=== PATIENT | male | born 1950 | race Caucasian/White ===

== ENCOUNTER 2021-07-22 08:48 | Outpatient (CLI) | payer MEDICARE, SELFPAY ==
--- NOTE | 2021-07-22 08:55 | CT_ITS ---
WS: [id number] LDCT LUNG CANCER SCREENING HISTORY: HX OF TOBACCO USE TECHNIQUE: Axial imaging performed from the apices to 1 cm below the costophrenic angles. Coronal and sagittal reformats are submitted with axial MIP series. All CT scans at [facility] use at least one of these dose optimization techniques: automated exposure control; mA and/or kV adjustment per patient size (includes targeted exams where dose is matched to clinical indication); or iterativ e reconstruction. DLP: 54.58 mGy.cm DIvol: 1.58 mGy COMPARISON: None available. Diagnostic quality: Satisfactory Lung Nodules: No noncalcified pulmonary nodules or endobronchial lesions are identified. Benign granu sylvia LEFT upper lobe. Lungs: Mild hyperexpansion emphysema. Heart: Normal size heart. There are a few scattered coronary artery calcifications. Other findings: Mild atherosclerosis aorta. No adenopathy. CT/CT lung screening [id number] IMPRESSION: LUNG-RADS: 1-Negative FOLLOW UP: 12 Month: Continue annual screening with LDCT OTHER FINDINGS (S MODIFIER): None.
== END 2021-07-22 08:49 | disposition home or self-care (01) ==
LOC: CT 08:50
PROVIDERS: PCP Family Medicine; Visit Provider Family Medicine
DX: Z12.2 Encounter for screening for malignant neoplasm of respiratory organs (principal); Z87.891 Personal history of nicotine dependence
CPT/HCPCS: 71271

== ENCOUNTER → 2021-07-30 09:42 | Outpatient (BNVA) | payer MEDICARE, SELFPAY | PROVIDERS: PCP Family Medicine; Visit Provider Family Medicine | DX: Z01.812 Encounter for preprocedural laboratory examination (principal); Z20.822 Contact with and (suspected) exposure to COVID-19 | CPT/HCPCS: 87635 ==

== ENCOUNTER 2021-08-05 07:50 | Outpatient (CLI) | payer MEDICARE, SELFPAY ==
--- NOTE | 2021-08-05 12:52 | PFTS_ITS ---
Date of Study:08/05/21 Date of Dictation: MECHANICS: Forced vital capacity (FVC) is normal. Forced expiratory volume in one second (FEV1) is reduced. FEV1/FVC is reduced. FLOW VOLUME LOOP: Reduced flow at all lung volumes with scooping. LUNG VOLUMES: Total lung capacity (TLC) is normal. Residual volume (RV) is increased. DIFFUSING CAPACITY FOR CARBON MONOXIDE: Normal. INTERPRETATION: The prebronchodilator spirometry is consistent with moderate airflow obstruction. No postbronchodilator spirometry was performed. Lung volumes are consistent with air trapping. Gas exchange (DLCO) is normal. MTDD
== END 2021-08-05 07:51 | disposition home or self-care (01) ==
LOC: RT 07:53
PROVIDERS: PCP Family Medicine; Visit Provider Family Medicine
DX: J44.9 Chronic obstructive pulmonary disease, unspecified (principal)
CPT/HCPCS: 94010; 94726; 94729

== ENCOUNTER 2021-11-24 08:15 | Outpatient (RCR) | payer MEDICARE, SELFPAY | END 2021-12-11 23:59 | disposition home or self-care (01) | LOC: SPT 08:15 | PROVIDERS: PCP Family Medicine; Referring Provider Nurse Practitioner; Visit Provider Nurse Practitioner | DX: M54.50 Low back pain, unspecified (principal) | CPT/HCPCS: 97110; 97161 ==

== ENCOUNTER 2021-12-12 | Outpatient (RCR) | payer MEDICARE, SELFPAY | END 2021-12-21 23:59 | disposition home or self-care (01) | LOC: SPT | PROVIDERS: PCP Family Medicine; Referring Provider Nurse Practitioner; Visit Provider Nurse Practitioner | DX: M54.50 Low back pain, unspecified (principal) | CPT/HCPCS: 97110 ==

== ENCOUNTER 2022-04-21 06:56 | Outpatient (CLI) | payer MEDICARE, SELFPAY ==
--- NOTE | 2022-04-21 07:21 | MR_ITS ---
WS: [id number] MRI LUMBAR SPINE NONCONTRAST HISTORY: SCIATICA COMPARISON: No similar studies. TECHNIQUE: Sagittal and axial multisequence imaging is submitted. Mild straightening reversal the normal cervical lordosis. Slight increase in thoracic kyphosis. Moderate straightening of the normal lumbar lordosis. No acute fractures. There is a small amount of marrow edema in the posterior elements of L4 and L5, greatest on the LEFT. Disc spaces are moderately narrowed, most significant at L3-4 and L4-5 and L5-S1. Conus terminates normally at T12-L1. L1-L2: No stenosis. Mild ligamentum flavum and facet arthritis. L2-L3: Mild annular disc bulge, ligamentum flavum and facet arthritis. No stenosis. L3-L4: Moderate diffuse annular disc bulge with a central disc protrusion deforming the ventral theca l sac. Moderate ligamentum flavum and facet arthritis. Moderate central, bilateral subarticular reces s and foraminal stenosis. There is disc contact bilaterally on the L3 and L4 nerve roots. Fluid in th e facet joints. There is increased T2 signal in the facet joints with mild synovitis. L4-L5: Diffuse annular disc bulging with facet and ligamentum flavum hypertrophy. Mild osteophytic ri dging. Mild central with bilateral subarticular recess and foraminal stenosis. Slightly greater encro achment and deformity of the LEFT traversing L5 nerve root. L5-S1: Mild annular disc bulge with a shallow central disc protrusion. Mild ligamentum flavum and fac et arthritis. No significant stenosis. Incompletely visualized RIGHT renal cyst measures 2.7 cm. There is probably an additional cyst extend ing laterally from the RIGHT kidney. Smaller LEFT renal cysts. Abdominal aortic aneurysm measuring 4. 5 cm. LEFT common iliac artery aneurysm 1.7 cm. MR/MR lumbar spine wo con* [id number] IMPRESSION: 1. Moderate central, bilateral subarticular recess and foraminal stenosis at L 3-4 with bilateral contact on the L3 and L4 nerve roots. 2. Acute inflammatory changes in the facet joints at L3-4 and to a lesser exte nt L4-5 with increase fluid and edema within the interspinous muscles. Consiste nt with acute synovitis. 3. Mild central, bilateral subarticular recess and foraminal stenosis at L4-5.
== END 2022-04-21 06:57 | disposition home or self-care (01) ==
LOC: RAD 06:59
PROVIDERS: PCP Family Medicine; Visit Provider Family Medicine
DX: M54.30 Sciatica, unspecified side (principal); M48.061 Spinal stenosis, lumbar region without neurogenic claudication
CPT/HCPCS: 72148

== ENCOUNTER 2022-08-01 07:10 | Outpatient (CLI) | payer MEDICARE, SELFPAY ==
--- NOTE | 2022-08-01 07:29 | CT_ITS ---
WS: [id number] LDCT LUNG CANCER SCREENING TECHNIQUE: Noncontrast CT of the chest with coronal and sagittal reformatted images. CLINICAL INFORMATION: HISTORY OF TOBACCO USE, NICOTINE DEPENDENCE CIGARETTES COMPARISON: CT July 22, 2021 DLP: 78.69 mGy.cm DIvol: Mean CTDIvol: 1.60 (mGy) All CT scans at [facility] use at least one of these dose optimization techniques: automat ed exposure control; mA and/or kV adjustment per patient size (includes targeted exams where dose is matched to clinical indication); or iterative reconstruction. FINDINGS: A few tiny noncalcified nodules RIGHT lower lobe unchanged measuring 2 to 3 mm. A few tiny subpleural micronodules in both lungs. Calcified granuloma RIGHT upper lobe. No suspicious pulmonary parenchymal opacities. Normal caliber thoracic aorta. Aortic Calcification. Coronary calcification. No mediastinal or hilar lymphadenopathy. No axillary lymphadenopathy. Adrenal glands are normal. Normal GE junction. Mild thoracic curve. Mild thoracic kyphosis. Anterior hypertrophic changes thoracic spine. CT/CT lung screening [id number] IMPRESSION: LUNG-RADS: 2-Benign Appearance or Behavior FOLLOW UP: 12 Month: Continue annual screening with LDCT
== END 2022-08-01 07:11 | disposition home or self-care (01) ==
LOC: RAD 07:11
PROVIDERS: PCP Family Medicine; Visit Provider Family Medicine
DX: Z12.2 Encounter for screening for malignant neoplasm of respiratory organs (principal); Z87.891 Personal history of nicotine dependence
CPT/HCPCS: 71271

== ENCOUNTER 2022-09-08 13:35 | Outpatient (CLI) | payer MEDICARE, SELFPAY ==
--- NOTE | 2022-09-08 | USCV_ITS ---
Cristopher Freeman Jr Age: 72 Gender: M : 1950 Exam Date: 09/08/2022 14:33 Ordering Phys: Matty Coley MD Technologist: Wm Serra [place]am [place] [facility] [place] Indication: AAA HISTORY: Diameter (cm) AP x Transverse x Length Velocity (cm/s) Waveform Prox Aorta: 1.52 x 1.74 x 86.10 Mid Aorta: 1.97 x 2.22 x 86.90 Distal Aorta: 3.39 x 4.09 x 5.29 98.30 Right Iliac Prox: 1.29 x 1.71 x 141.30 Left Iliac Prox: 1.06 x 1.17 x 90.10 Stent Prox Landing x x Aneurysmal Sac Max x x Lt Lat Sac Dim Rt Lat Sac Dim Stent Dist Landing x x Right Iliac Stent x x Left Iliac Stent x x Right Renal Art Left Renal Art FINDINGS: CONCLUSIONS Infrarenal AAA measuring 3.3 x 4.0 x 5.2cm Ap x transverse x craniocaudal Normal iliac arteries Gonzales Gonzalez MD (Electronically Signed) Final Date: 08 September 2022 17:26 S
== END 2022-09-08 13:36 | disposition home or self-care (01) ==
PROVIDERS: PCP Family Medicine; Visit Provider Family Medicine
DX: I71.40 Abdominal aortic aneurysm, without rupture, unspecified (principal)
CPT/HCPCS: 93978

== ENCOUNTER → 2022-10-12 08:41 | Outpatient (BNVA) | payer MEDICARE, SELFPAY | PROVIDERS: PCP Family Medicine; Referring Provider Family Medicine; Visit Provider Anesthesiology Pain Medicine | DX: M47.816 Spondylosis without myelopathy or radiculopathy, lumbar region (principal); M51.16 Intervertebral disc disorders with radiculopathy, lumbar region; M48.061 Spinal stenosis, lumbar region without neurogenic claudication | CPT/HCPCS: 99204 ==

== ENCOUNTER → 2022-11-03 12:36 | Outpatient (BNVA) | payer MEDICARE, SELFPAY | PROVIDERS: PCP Family Medicine; Visit Provider Anesthesiology Pain Medicine | DX: M54.16 Radiculopathy, lumbar region (principal); M79.604 Pain in right leg; M79.605 Pain in left leg | CPT/HCPCS: 64483; 64484; J1100; J3490 ==

== ENCOUNTER → 2022-11-21 08:53 | Outpatient (BNVA) | payer MEDICARE, SELFPAY | PROVIDERS: PCP Family Medicine; Visit Provider Anesthesiology Pain Medicine | DX: M47.816 Spondylosis without myelopathy or radiculopathy, lumbar region (principal); M51.16 Intervertebral disc disorders with radiculopathy, lumbar region; M48.061 Spinal stenosis, lumbar region without neurogenic claudication | CPT/HCPCS: 99214 ==

== ENCOUNTER → 2022-12-05 14:16 | Outpatient (BNVA) | payer MEDICARE, SELFPAY | PROVIDERS: PCP Family Medicine; Visit Provider Anesthesiology Pain Medicine | DX: M47.816 Spondylosis without myelopathy or radiculopathy, lumbar region (principal) | CPT/HCPCS: 64493; 64494; 64495; J3490 ==

== ENCOUNTER → 2022-12-15 13:41 | Outpatient (BNVA) | payer MEDICARE, SELFPAY | PROVIDERS: PCP Family Medicine; Visit Provider Anesthesiology Pain Medicine | DX: M47.816 Spondylosis without myelopathy or radiculopathy, lumbar region (principal) | CPT/HCPCS: 64493; 64494; 64495; J3490 ==

== ENCOUNTER → 2023-01-03 15:28 | Outpatient (BNVA) | payer MEDICARE, SELFPAY | PROVIDERS: PCP Family Medicine; Visit Provider Dermatology | DX: L20.89 Other atopic dermatitis (principal); L82.0 Inflamed seborrheic keratosis; D22.5 Melanocytic nevi of trunk; L85.3 Xerosis cutis; L57.0 Actinic keratosis; L82.1 Other seborrheic keratosis | CPT/HCPCS: 17000; 17110; 99213 ==

== ENCOUNTER → 2023-01-04 09:31 | Outpatient (BNVA) | payer MEDICARE, SELFPAY | PROVIDERS: PCP Family Medicine; Visit Provider Anesthesiology Pain Medicine | DX: M47.816 Spondylosis without myelopathy or radiculopathy, lumbar region (principal); M51.16 Intervertebral disc disorders with radiculopathy, lumbar region; M48.061 Spinal stenosis, lumbar region without neurogenic claudication | CPT/HCPCS: 99214 ==

== ENCOUNTER → 2023-01-18 13:56 | Outpatient (BNVA) | payer MEDICARE, SELFPAY | PROVIDERS: PCP Family Medicine; Visit Provider Anesthesiology Pain Medicine | DX: M47.816 Spondylosis without myelopathy or radiculopathy, lumbar region (principal) | CPT/HCPCS: 64635; 64636; J1030 ==

== ENCOUNTER → 2023-02-06 14:49 | Outpatient (BNVA) | payer MEDICARE, SELFPAY | PROVIDERS: PCP Family Medicine; Visit Provider Anesthesiology Pain Medicine | DX: M47.816 Spondylosis without myelopathy or radiculopathy, lumbar region (principal) | CPT/HCPCS: 64635; 64636; J1030 ==

== ENCOUNTER → 2023-02-27 09:43 | Outpatient (BNVA) | payer MEDICARE, SELFPAY | PROVIDERS: PCP Family Medicine; Visit Provider Anesthesiology Pain Medicine | DX: M48.062 Spinal stenosis, lumbar region with neurogenic claudication (principal); M47.816 Spondylosis without myelopathy or radiculopathy, lumbar region; M51.16 Intervertebral disc disorders with radiculopathy, lumbar region; M48.061 Spinal stenosis, lumbar region without neurogenic claudication | CPT/HCPCS: 99214 ==

== ENCOUNTER → 2023-03-28 09:39 | Outpatient (BNVA) | payer MEDICARE, SELFPAY | PROVIDERS: PCP Family Medicine; Referring Provider Anesthesiology Pain Medicine; Visit Provider Orthopaedic Surgery | DX: M48.062 Spinal stenosis, lumbar region with neurogenic claudication (principal); Z01.818 Encounter for other preprocedural examination | CPT/HCPCS: 36415; 72110; 80053; 80061; 81003; 83036; 85025; 99204; G0103 ==

== ENCOUNTER 2023-05-05 06:19 | Day surgery (SDC) | payer MEDICARE, SELFPAY ==
[2023-05-04 09:32] VITALS: BMI 24.3
[2023-05-05] VITALS (12 sets, daily range): BP systolic 104–159; BP diastolic 54–91; PULSE 61–86; RESP 15–20; TEMP 36.4–37; O2SAT 93–99
--- NOTE | 2023-05-05 | XR_ITS ---
WS: [id number] XR lumbar spine 1V [id number] REASON FOR EXAM: L3-L4 decompression, or pic FINDINGS: Surgical device overlying the left L3-L4 interspace. IMPRESSION: Intraoperative lumbar localization as above.
--- NOTE | 2023-05-05 06:34 | W.PM.OPSUD ---
Surgery/Procedure H&P Update DATE OF PROCEDURE: May 05, 2023 DATE H&P PERFORMED: 04/18/23 H&P UPDATE INFORMATION: I have reviewed H&P completed within last 30 days, I have examined patient prior to procedure and No changes to prior documentation PREOP DIAGNOSIS: Lumbar Radiculopathy PLANNED PROCEDURE: Operation Date: 05/05/23 08:00 Proposed Procedures p (left sided approach at L3-4 with bilateral decompression) 02457: L3/4 Minimal Invasive Decompression, M48.062: Lumbar stenosis with neurogenic claudication(Bilateral) - Anival Montano DO
--- NOTE | 2023-05-05 07:02 | ANES.PREANE2 ---
Pre-Anesthetic Assessment Height/Weight: Height 1.7 m Weight 70.307 kg Temp Pulse Resp BP Pulse Ox O2 Del Method 98.6 F 86 18 159/91 93 Room Air 05/05/23 06:59 05/05/23 06:59 05/05/23 06:59 05/05/23 06:59 05/05/23 06:59 05/05/23 06:59 Preop Diagnosis: Lumbar Radiculopathy Operation Date: 05/05/23 08:00 Proposed Procedures p (left sided approach at L3-4 with bilateral decompression) 24827: L3/4 Minimal Invasive Decompression, M48.062: Lumbar stenosis with neurogenic claudication(Bilateral) - Anival Montano, DO Was Beta Hellen taken within 24 hours: N/A Was Clonidine taken within 24 hours: N/A Last intake: Intake Last Liquid Date 05/04/23 Last Liquid Time 21:00 Last Solid Date 05/04/23 Last Solid Time 21:00 Social Tobacco Quit smoking 8 yrs ago Exam alert, oriented x 3 and clear to auscultation bilaterally Airway Submandibular: within normal limits Cervical ROM: within normal limits Mallampati: Class II History/ROS No significant history except as noted and No significant complaints Pulmonary Chronic Obstructive Pulmonary Disease CV/HEM Atrial Fibrillation, Arrythmia and Hypertension AAA ~ 4x4x5 cm. Evaluated in [facility] for surgery Metabolic Hyperlipidemia [facility] [place] Lower Back Pain Anesthetic Plan ASA status: 3 Anesthesia: General Risk of > 500 ml blood loss (7ml/kg in children): No Medications/Allergies Home Medications Medication Instructions Recorded Confirmed Last Taken Type benazepril 20 mg tablet 20 mg PO BID 03/28/22 05/04/23 05/04/23 History diltiazem HCl 180 mg capsule,24 180 mg PO QAM 03/28/22 05/04/23 05/04/23 History hr,extended release fluticasone fur. 100 mcg-umeclid 1 inh inhalation Q24H #60 ea 03/28/22 05/04/23 05/04/23 Rx 62.5 mcg-vilant 25 mcg inhalat.powder (Trelegy Ellipta) hydrochlorothiazide 25 mg tablet 25 mg PO QAM 03/28/22 05/04/23 05/04/23 History roflumilast 500 mcg tablet 500 mcg PO DAILY #90 tabs 03/28/22 05/04/23 05/04/23 Rx (Daliresp) rosuvastatin 40 mg tablet 40 mg PO DAILY 03/28/22 05/04/23 05/04/23 History sertraline 100 mg tablet 100 mg PO DAILY 03/28/22 05/04/23 05/04/23 History acetaminophen 500 mg capsule 500 mg PO Q6H PRN Pain 10/12/22 05/04/23 05/04/23 History albuterol sulfate 90 mcg/actuation 2 puff inhalation Q6H PRN sob 10/12/22 05/04/23 05/04/23 History aerosol inhaler aspirin 81 mg tablet,delayed 81 mg PO DAILY 10/12/22 05/04/23 05/04/23 History release (Adult Low Dose Aspirin) oxycodone-acetaminophen 5 mg-325 tab 05/05/23 Unknown History mg tablet sertraline 100 mg tablet mg 05/05/23 Unknown History Allergies Allergy/AdvReac Type Severity Reaction Status Date / Time Penicillins Allergy Severe ALGY-Anaphy Verified 05/04/23 09:28 laxis [facility] Anesthesia Medical History Aortic aneurysm recent U/S on 04/03/23 Back pain Surgical History History of nasal surgery Family History Father Heart attack Denies family history of Clotting disorder Anesthesia complication Bleeding disorder Social History Smoking and tobacco status: former smoker Quit status (tobacco): has quit using tobacco Year quit tobacco: 2014 Former quit date comment: 50 year history Alcohol intake: never Substance/Drug Use: never Data Anesthesia Cardiac Studies: No Data to Display
[2023-05-05] MEDS: sodium chloride 0.9% 1,000 ML 30 ML IV (07:08)
[2023-05-05] MEDS: midazolam 1 mg/mL INJ 2 mL 2 MG IVP (07:19)
[2023-05-05] MEDS: vancomycin 1,000 MG in sodium chloride 0.9% 250 ML 250 MG IV (07:35)
[2023-05-05] MEDS: lidocaine-epi 1% 20 mL INJ INJECTION (08:33)
--- NOTE | 2023-05-05 08:50 | PM.OP ---
Operative Report Date of procedure: May 05, 2023 Pre-op diagnosis: Lumbar stenosis with neurogenic claudication Post-op diagnosis: same Procedure done: L3-4 laminectomy with partial facetectomies Surgeon: Anival Montano DO Air Quality Engineer: Alexx Wu Air Quality Engineer: The clinical education assistant, Alexx Wu, PEPITO was needed for his expertise under the microscope. He was important and necessary throughout the procedure to complete in a safe and timely manner. He assisted with patient positioning prepping and draping tissue retraction suctioning of the operative field protection of the dural sac and tissue closure Estimated blood loss (mL): 5 Procedure: L3-4 laminectomy with partial facetectomies Patient is brought to the operative suite. After undergoing anesthesia they are placed in the prone position. All areas of impingement are well padded. Patient is then prepped and draped in the normal sterile fashion. A skin incision is made over the L3-4 level. This is confirmed under c-arm guidance. A series of dilators are passed and the tubular retractor is docked on the L3 lamina. A bovie is used to clear the soft tissue off the lamina and the L 3/4 facet joint. A high speed jamaica is then used to perform the laminectomy and take down the medial aspect of the L 3/4 facet joint. A kerrison rongeure was then used to take down the remaining lamina and smooth the edged of the laminectomy up to the point where the ligamentum flavum attaches. Attention was then brought to the medial aspect of the facet joint. The remaining medial aspect of the superior and inferior aspect of the facet joint were taken down with the kerrison from the pedicle of L3 to L 4. The facet joint had significant hypertrophy. Attention was then brought to the Ligamentum Flavum. The ligament was taken down from the lamina of L3 to L4 and out medially to the remaining facet joint. The ligament was thick. The dura was then exposed. The dura was in good repair. The L3 nerve was then traced with a curette out the L3/4 foramen and found to be adequately decompressed. The L4 nerve was traced with a curette around the L4 pedicle. The lateral recess was opened with a kerrison helping to further decompress the L4 nerve. The tubular retractor was then tilted to the contralateral side. The bovie was used to take down the soft tissue on the spinous process. The high speed jamaica was used to take down the spinous process and then the contralateral lamina of L3. The kerrison rongeur was used to take down the remaining lamina to the point where the ligamentum flavum attached and the ligamentum flavum was taken down from L3 to L4. The kerrison rongeur was then used to reach across and take down the medial aspect of the contralateral L3/4 facet joint.The currete was used to trace the contralateral L3 nerve out the L3/4 foramen to make sure it was decompressed adequatesly and the L4 was traced around the L4 pedicle. The lateral recess was opened further with the kerrison to ensure the L4 is adequately decompressed. Wound is then irrigated copiously with saline and surgiflo is used to stop any bleeding. The tubular retractor is removed and the wound is closed with vicryl and monocryl suture. Glue is then used to protect the wound. A sterile dressing is then placed. Patient was then placed in the supine position and transferred to the PACU in stable condition.
--- NOTE | 2023-05-05 09:02 | SUR.PHASEI ---
0901 oral airway removed at this time. spo2 99% on RA. pt talkative. no distress.
[2023-05-05] MEDS: fentaNYL 50 mcg/mL INJ 2mL IVP (09:14)
[2023-05-05] MEDS: oxyCODONE-APAP 10-325 mg Tablet 1 TAB PO (10:34)
--- NOTE | 2023-05-05 13:45 | ANE.PACU2 ---
Inpatient post-anesthesia follow up: Airway intact: Yes Vital signs: Temperature 98.3 F Pulse Rate 82 Respiratory Rate 18 Blood Pressure 130/64 Pulse Oximetry 93 Oxygen Delivery Me thod Room Air Oxygen Flow Rate 6 Fraction of Inspir ed Oxygen Hydration adequate: Yes Nausea and vomiting: No Pain level: 2 Mental status: Baseline
== END 2023-05-05 10:31 | disposition home or self-care (01) ==
PROVIDERS: PCP Family Medicine; Visit Provider Orthopaedic Surgery
PROC: (CPT 63005; principal; 2023-05-05 08:00)
DX: M48.061 Spinal stenosis, lumbar region without neurogenic claudication (principal); J44.9 Chronic obstructive pulmonary disease, unspecified; I48.91 Unspecified atrial fibrillation; I10 Essential (primary) hypertension; E78.5 Hyperlipidemia, unspecified; Z87.891 Personal history of nicotine dependence
CPT/HCPCS: 63047; 72020; 76000; J0131; J1100; J2250; J2371; J2405; J2704; J3010; J3370; J3490; J7030; J7050

== ENCOUNTER → 2023-05-18 10:10 | Outpatient (BNVA) | payer MEDICARE, SELFPAY | PROVIDERS: PCP Family Medicine; Visit Provider Physician Assistant | DX: Z47.89 Encounter for other orthopedic aftercare (principal) | CPT/HCPCS: 99024 ==

== ENCOUNTER → 2023-06-15 08:49 | Outpatient (BNVA) | payer MEDICARE, SELFPAY | PROVIDERS: PCP Family Medicine; Visit Provider Physician Assistant | DX: Z47.89 Encounter for other orthopedic aftercare (principal) | CPT/HCPCS: 99024 ==

== ENCOUNTER → 2023-06-21 14:01 | Outpatient (BNVA) | payer MEDICARE, SELFPAY | PROVIDERS: PCP Family Medicine; Visit Provider Nurse Practitioner | DX: M25.511 Pain in right shoulder; M25.512 Pain in left shoulder; M19.012 Primary osteoarthritis, left shoulder; G89.29 Other chronic pain | CPT/HCPCS: 20610; 73030; 99204; J1100; J2795; J3301 ==

== ENCOUNTER → 2023-07-25 08:55 | Outpatient (BNVA) | payer MEDICARE, SELFPAY | PROVIDERS: PCP Family Medicine; Visit Provider Physician Assistant | DX: Z47.89 Encounter for other orthopedic aftercare (principal) | CPT/HCPCS: 99024 ==

== ENCOUNTER → 2023-09-22 08:01 | Outpatient (BNVA) | payer MEDICARE, SELFPAY | PROVIDERS: PCP Family Medicine; Visit Provider Nurse Practitioner | DX: M19.012 Primary osteoarthritis, left shoulder (principal) | CPT/HCPCS: 99213 ==

== ENCOUNTER 2023-09-25 11:08 | Outpatient (CLI) | payer MEDICARE, SELFPAY ==
--- NOTE | 2023-09-25 11:11 | CT_ITS ---
WS: [id number] LDCT LUNG CANCER SCREENING TECHNIQUE: Noncontrast CT of the chest with coronal and sagittal reformatted images. CLINICAL INFORMATION: HX OF TOBACCO USE COMPARISON: CT 08/01/2022 DLP: 60.71 mGy.cm DIvol: Mean CTDIvol: 1.10 (mGy) All CT scans at [facility] use at least one of these dose optimization techniques: automat ed exposure control; mA and/or kV adjustment per patient size (includes targeted exams where dose is matched to clinical indication); or iterative reconstruction. FINDINGS: Again seen are a few tiny noncalcified nodules RIGHT lower lobe unchanged measuring 2 to 3 mm. Stable 3.3 mm nodule LEFT lower lobe unchanged. A few tiny subpleural micronodules in both lungs similar to previous. A few calcified granulomas. No new suspicious pulmonary parenchymal opacities. Moderate ch ronic emphysematous changes. No mediastinal or hilar lymphadenopathy. No axillary lymphadenopathy. Aortic calcification. Normal ca liber thoracic aorta. Coronary calcification. Adrenal glands are normal. Normal GE junction. Partiall y visualized bilateral renal cysts. Hypertrophic changes thoracic spine with mild chronic anterior we dging in the midthoracic spine. Endplate Schmorl's nodes in the midthoracic spine. Mild thoracic kyph osis. IMPRESSION: CT/CT lung screening [id number] LUNG-RADS: 2-Benign Appearance or Behavior FOLLOW UP: 12 Month: Continue annual screening with LDCT
== END 2023-09-25 11:09 | disposition home or self-care (01) ==
LOC: RAD 11:08
PROVIDERS: PCP Family Medicine; Visit Provider Family Medicine
DX: Z12.2 Encounter for screening for malignant neoplasm of respiratory organs (principal); Z87.891 Personal history of nicotine dependence; R91.8 Other nonspecific abnormal finding of lung field; J84.10 Pulmonary fibrosis, unspecified; J43.9 Emphysema, unspecified
CPT/HCPCS: 71271

== ENCOUNTER → 2023-11-28 14:22 | Outpatient (BNVA) | payer MEDICARE, SELFPAY | PROVIDERS: PCP Family Medicine; Visit Provider Nurse Practitioner Family | DX: D22.5 Melanocytic nevi of trunk (principal); L85.3 Xerosis cutis; L57.0 Actinic keratosis; L82.1 Other seborrheic keratosis; L81.9 Disorder of pigmentation, unspecified; L21.8 Other seborrheic dermatitis | CPT/HCPCS: 17000; 99213 ==

== ENCOUNTER 2024-10-08 15:43 | Outpatient (CLI) | payer MEDICARE, SELFPAY ==
--- NOTE | 2024-10-08 15:55 | CT_ITS ---
WS: [id number] LDCT LUNG CANCER SCREENING TECHNIQUE: Noncontrast CT of the chest with coronal and sagittal reformatted images. CLINICAL INFORMATION: HISTORY OF TOBACCO USE COMPARISON: CT lung screening 09/25/2023 DLP: 61.91 mGy.cm DIvol: Mean CTDIvol: 1.20 (mGy) All CT scans at [facility] use at least one of these dose optimization techniques: automated exposure control; mA and/or kV adjustment per patient size (includes targeted exams where dose is matched to clinical indication); or iterative reconstruction. FINDINGS: Stable tiny noncalcified nodules RIGHT lower lobe measuring 2 to 3 mm. 3.3 mm nodule LEFT lower lobe is stable. Scattered tiny subpleural micronodules in both lungs. No new suspicious pulmonary parenchymal abnormalities. Few calcified granulomas. Moderate emphysematous changes. No mediastinal or hilar lymphadenopathy. Aortic calcification. No axillary lymphadenopathy. Coronary calcification. Adrenal glands are normal. Partially visualized renal cysts. Hypertrophic changes thoracic spine. Mild thoracic kyphosis. CT/CT lung screening [id number] IMPRESSION: LUNG-RADS: 2-Benign Appearance or Behavior FOLLOW UP: 12 Month: Continue annual screening with LDCT
== END 2024-10-08 15:44 | disposition home or self-care (01) ==
LOC: RAD 15:45
PROVIDERS: PCP Family Medicine; Visit Provider Family Medicine
DX: Z12.2 Encounter for screening for malignant neoplasm of respiratory organs (principal); Z87.891 Personal history of nicotine dependence; J84.10 Pulmonary fibrosis, unspecified; J43.9 Emphysema, unspecified; I70.0 Atherosclerosis of aorta; I25.10 Atherosclerotic heart disease of native coronary artery without angina pectoris; N28.1 Cyst of kidney, acquired; R93.7 Abnormal findings on diagnostic imaging of other parts of musculoskeletal system; M40.294 Other kyphosis, thoracic region
CPT/HCPCS: 71271

== ENCOUNTER → 2024-11-28 15:03 | Outpatient (BNVA) | payer MEDICARE, SELFPAY | PROVIDERS: PCP Family Medicine; Visit Provider Nurse Practitioner Family | DX: D22.5 Melanocytic nevi of trunk (principal); L85.3 Xerosis cutis; L82.1 Other seborrheic keratosis; B36.0 Pityriasis versicolor; L81.4 Other melanin hyperpigmentation; L57.8 Other skin changes due to chronic exposure to nonionizing radiation; L21.8 Other seborrheic dermatitis; L82.0 Inflamed seborrheic keratosis; L53.8 Other specified erythematous conditions; Z78.9 Other specified health status; L29.89 Other pruritus; R20.8 Other disturbances of skin sensation; L57.0 Actinic keratosis; D48.5 Neoplasm of uncertain behavior of skin | CPT/HCPCS: 11102; 17000; 17110; 99214 ==

== ENCOUNTER 2025-04-22 07:51 | Outpatient (CLI) | payer MEDICARE, SELFPAY ==
--- NOTE | 2025-04-22 07:59 | CT_ITS ---
WS: [id number] CT chest wo con [id number] HISTORY: RIB PAIN/PLEURODYNIA TECHNIQUE: Axial imaging performed through the thorax. Coronal and sagittal reformats are submitted. All CT scans at [facility] use at least one of these dose optimization techniques: automated exposure control; mA and/or kV adjustment per patient size (includes targeted exams where dose is matched to clinical indication); or iterative reconstruction. CONTRAST: None DLP: 330.85 mGy.cm COMPARISON: 10/08/2024, 07/22/2021 Lungs and central airway: Moderate pulmonary hyperexpansion from centrilobular emphysema. There are a few scattered micronodules. No pneumonia. No pulmonary mass or enlarging nodule. Pleura: Normal. No pleural effusion. Heart and pericardium: Normal size heart with no pericardial effusion. Mediastinum and carlene: No mediastinum or hilar adenopathy. Vessels: Mild atherosclerosis aorta. Normal sized pulmonary artery. Chest wall and lower neck: No soft tissue masses. Upper abdomen: Normal. Osseous structures: Expansile RIGHT lateral ninth rib lesion. No additional expansile lesions are identified. CT/CT chest wo con [id number] IMPRESSION: 1. Mildly expansile RIGHT lateral ninth rib lesion. Mild cortical destruction but no soft tissue mass. Not definitely identified on prior imaging studies but may have been excluded from the [id number]. Recommend nuclear medicine bone scan imaging. 2. Moderate centrilobular emphysema. No mass or enlarging nodule. 3. No mediastinal or hilar adenopathy. 4. Bilateral renal masses. There is a more solid-appearing mass in the upper p ole RIGHT kidney extending laterally. Complex cyst versus neoplasm. Bilateral r enal cysts have been previously described but this mass appears solid. Recommen d renal mass CT protocol, with and without IV contrast.
== END 2025-04-22 07:52 | disposition home or self-care (01) ==
LOC: RAD 07:53
PROVIDERS: PCP Family Medicine; Visit Provider Family Medicine
DX: M99.88 Other biomechanical lesions of rib cage (principal); J43.2 Centrilobular emphysema; R91.8 Other nonspecific abnormal finding of lung field; N28.89 Other specified disorders of kidney and ureter
CPT/HCPCS: 71250

== ENCOUNTER 2025-05-08 13:37 | Emergency (ER) | payer MEDICARE, SELFPAY ==
--- OUTSIDE RECORDS SUMMARY | 2024-06-08 04:00 | XMS_ITS ---
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 for eRx and Interaction Alerts* Progress Notes * Cristopher YOO ADOB: [birth year] (74 yo M)Acc No.[id number]:06/08/2024 Patient: Joel ACOSTA Cristopher Haleigh :1950 A ge:73 Y S ex:Male Address:[address] [place] [address], [address] * Refills Stop Tylenol-Codeine #3 300-30 mg oral tablet, 1 Tablet Every 12 hours PRN Subjective: * Chief Complaints: * E MR-Varghese * * Date:
--- OUTSIDE RECORDS SUMMARY | 2024-06-09 04:00 | XMS_ITS ---
Author Organization [facility] Address [address] [place] [address] Care Team Providers Care Schedule Manager Name Role Phone Eddie Long Primary Care Provider Unavailabl e Migration, Provider Unavailable Unavailable Allergies Allergen (clinical drug ingredient) Drug/Non Drug Allergy documented on EMR Reaction Allergy Type Onset Date Status Methotrexate Unknown Drug Allergy Acti ve Substance with penicillin structure and antibacterial mechanism of action (substance) Penicillins Unknown Drug Allergy Active REASON FOR VISIT EMR-[facility] Medications Medication SIG (Take, Route, Frequency, Duration) Notes Start Date End Date Status Trelegy Ellipta *Pick strength-form from [facility] for eRX* Active Rosuvastatin *Reorder from [facility] for eRx and Interaction Alerts* Active dilTIAZem HCl *Pick strength-form from [facility] for eRX* Active Baby Vitamin D3 *Pick strength-form from [facility] for eRX* Active hydroCHLOROthiazide *Pick strength-form from [facility] for eRX* Active Adult Multivitamin Gummies *Reorder from [facility] for eRx and Interaction Alerts* Active Daliresp *Pick strength-form from [facility] for eRX* Active Sertraline *Reorder from [facility] for eRx and Interaction Alerts* Active Albuterol Sulfate *Pick strength-form from [facility] for eRX* Active Naltrexone *Pick strength-form from [facility] for eRX* Active Aspirin *Pick strength-form from [facility] for eRX* Active benazepril HCl (bulk) *Reorder f rom [facility] for eRx and Interaction Alerts* Active Vitamin E *Pick strength-form from [facility] for eRX* Active Social History Social History Additional Details Category Social Info Options Details Migrated Social History Migrated Social History Alcoholic beverages? - No, Comments - alcohol, Currently on disability? - No, Drug or substance abuse? - No, Involved in any legal proceedings or lawsuits? - No, Marital Status - , Nonprescription drug use? - No, Participation in detoxification or rehabilitation - Yes, Smoking - No, Working currently? - No Encounters Encounter Location Date Provider Diagnosis Migrated_Facility 0 0 06/09/2024 Provider Migration Plan Of Treatment No Information Progress Notes * Cristopher YOO ADOB: [birth year] (74 yo M)Acc No.[id number]:06/09/2024 Patient: Cristopher MARQUEZ :1950 A ge:73 Y S ex:Male Address:[address] [place] [address], [address] Subjective: * Chief Complaints: * E MR-Varghese * Surgical History: Nasal surgery * Family History: M igrated Family History: : Diabetes, H eart disease. * Social History: M igrated Social History: M igrated Social History: Alcoholic beverages? - No, C omments - alcohol, C urrently on disability? - No, D rug or substance abuse? - No, I nvolved in any legal proceedings or lawsuits? - No, M arital Status - , N onprescription drug use? - No, P articipation in detoxification or rehabilitation - Yes, S moking - No, W orking currently? - No. * Medications: T akingVitamin E , Notes to Pharmacist: *Pick strength-form from [facility] for eRX*hydroCHLOROthiazide , Notes to Pharmacist: *Pick strength-form from [facility] for eRX*Naltrexone , Notes to Pharmacist: *Pick strength-form from [facility] for eRX*Adult Multivitamin Gummies , Notes to Pharmacist: *Reorder from [facility] for eRx and Interaction Alerts*benazepril HCl (bulk) , Notes to Pharmacist: *Reorder from [facility] for eRx and Interaction Alerts*Sertraline , Notes to Pharmacist: *Reorder from [facility] for eRx and Interaction Alerts*Aspirin , Notes to Pharmacist: *Pick strength-form from [facility] for eRX*Trelegy Ellipta , Notes to Pharmacist: *Pick strength-form from [facility] for eRX*Baby Vitamin D3 , Notes to Pharmacist: *Pick strength-form from [facility] for eRX*Rosuvastatin , Notes to Pharmacist: *Reorder from [facility] for eRx and Interaction Alerts*Albuterol Sulfate , Notes to Pharmacist: *Pick strength-form from [facility] for eRX*Daliresp , Notes to Pharmacist: *Pick strength-form from [facility] for eRX*dilTIAZem HCl , Notes to Pharmacist: *Pick strength-form from [facility] for eRX*Taking Vitamin E , Notes to Pharmacist: *Pick strength-form from [facility] for eRX*Taking hydroCHLOROthiazide , Notes to Pharmacist: *Pick strength-form from [facility] for eRX*Taking Naltrexone , Notes to Pharmacist: *Pick strength-form from [facility] for eRX*Taking Adult Multivitamin Gummies , Notes to Pharmacist: *Reorder from [facility] for eRx and Interaction Alerts*Taking benazepril HCl (bulk) , Notes to Pharmacist: *Reorder from [facility] for eRx and Interaction Alerts*Taking Sertraline , Notes to Pharmacist: *Reorder from [facility] for eRx and Interaction Alerts*Taking Aspirin , Notes to Pharmacist: *Pick strength-form from [facility] for eRX*Taking Trelegy Ellipta , Notes to Pharmacist: *Pick strength-form from [facility] for eRX*Taking Baby Vitamin D3 , Notes to Pharmacist: *Pick strength-form from [facility] for eRX*Taking Rosuvastatin , Notes to Pharmacist: *Reorder from [facility] for eRx and Interaction Alerts*Taking Albuterol Sulfate , Notes to Pharmacist: *Pick strength-form from [facility] for eRX*Taking Daliresp , Notes to Pharmacist: *Pick strength-form from [facility] for eRX*Taking dilTIAZem HCl , Notes to Pharmacist: *Pick strength-form from [facility] for eRX* * Allergies: P enicillins: AllergyMethotrexate: Allergy * * Date:
[2025-05-08 13:39] VITALS: BP 119/71; PULSE 97; RESP 16; TEMP 36.3; O2SAT 93
[2025-05-08 14:02] LABS: Hematocrit 35.4 % (37-53); Hemoglobin 12.20 g/dL (11.27-16.99); Mean Corpuscular HGB Conc 34.5 g/dL (30-55); Mean Corpuscular Hemoglobin 32.7 pg (27-33); Mean Corpuscular Volume 94.9 fl (82-101); Nucleated Red Blood Cells % 0 %; Platelet Count 229 10^3/cmm (157-399); Red Blood Count 3.73 10^6/uL (3.85-5.65); White Blood Count 7.80 10^3/uL (3.29-11.43)
--- NOTE | 2025-05-08 14:10 | W.ED.GENADLT ---
HPI - General Adult General: Chief complaint: General Medical Stated complaint: lt mid abd pain Time Seen by Provider: 05/08/25 13:41 History of Present Illness: 74-year-old male presents emergency room with complaints of left lower rib pain. He was leaning against the countertop edge and felt a popping sensation in his lower ribs has severe pain since then pain with movement pain with deep inspiration he has had some shortness of breath due to the pain and difficult taking a deep breath. No fever sweats chills no hemoptysis. He has a history of multiple myeloma has multiple rib lesions that are known from previous scans he has a PET/CT tomorrow. Associated symptoms: Reports chest pain; Deny dyspnea or rash Related Data Home Medications ?Medication ?Instructions ?Recorded ?Confirmed benazepril 20 mg tablet 20 mg PO BID 03/28/22 05/08/25 rosuvastatin 40 mg tablet 40 mg PO QPM 03/28/22 05/08/25 sertraline 100 mg tablet 100 mg PO DAILY 03/28/22 05/08/25 acetaminophen 500 mg capsule 500 mg PO Q6H PRN Pain 10/12/22 05/08/25 albuterol sulfate 90 mcg/actuation 2 puff inhalation Q6H PRN sob 10/12/22 05/08/25 aerosol inhaler aspirin 81 mg tablet,delayed 81 mg PO DAILY 10/12/22 05/08/25 release (Adult Low Dose Aspirin) chlorthalidone 25 mg tablet 25 mg PO DAILY 05/08/25 05/08/25 diltiazem HCl 240 mg 240 mg PO DAILY 05/08/25 05/08/25 capsule,extended release 24 hr Previous Rx's ?Medication ?Instructions ?Recorded fluticasone fur. 100 mcg-umeclid 1 inh inhalation Q24H #60 ea 03/28/22 62.5 mcg-vilant 25 mcg inhalat.powder (Trelegy Ellipta) roflumilast 500 mcg tablet 500 mcg PO DAILY #90 tabs 03/28/22 (Daliresp) meloxicam 15 mg tablet 15 mg PO DAILY #90 tabs 06/21/23 Cytometry and Cytology for primitivo #1 ea 05/06/25 marrow biposy hydrocodone 5 mg-acetaminophen 325 1 tab PO Q6H PRN pain #15 tabs 09/25/25 mg tablet Allergies Allergy/AdvReac Type Severity Reaction Status Date / Time Penicillins Allergy Severe ALGY-Anaphy Verified 04/29/25 08:25 laxis Review of Systems Const: Denies: fever(s) or chills Card: Reports: chest pain Resp: Denies: dyspnea GI: Denies: abdominal pain : Denies: dysuria, urinary frequency or urinary urgency Musc: Denies: neck pain or back pain Skin/Breast: Denies: rash PFSH ED PFSH: Medical History Rotator cuff arthropathy of left shoulder Chronic left shoulder pain Primary osteoarthritis, left shoulder Aortic aneurysm recent U/S on 04/03/23 Back pain Surgical History History of nasal surgery Family History Father Heart attack Denies family history of Clotting disorder Anesthesia complication Bleeding disorder Social History Smoking and tobacco/nicotine status: tobacco/nicotine user, details unknown (vape) Quit status (tobacco/nicotine): has quit using Year quit tobacco: 2014 Former quit date comment: 50 year history Alcohol intake: never Substance/Drug Use: never Physical Exam Const: GENERAL APPEARANCE: cooperative ORIENTATION/CONSCIOUSNESS: Yes awake, Yes oriented to person, Yes oriented to place and Yes oriented to time HENMT: COMMON NORMALS: normocephalic, atraumatic and hearing grossly normal bilaterally HEAD & SCALP: normocephalic and atraumatic Chest: OTHER: Reproducible pain with chest palpation along the lower ribs on the left Resp: COMMON NORMALS: normal respiratory effort, No retractions, No use of accessory muscles and clear to auscultation bilaterally AUSCULTATION: clear to auscultation bilaterally Cardio: COMMON NORMALS: regular rate, regular rhythm and No murmurs present (Cardio) RATE: regular rate RHYTHM: regular rhythm GI: COMMON NORMALS: Soft to palpation and No hepatosplenomegaly present AUSCULTATION: Yes normoactive bowel sounds PALPATION: Yes Soft to palpation, No Tenderness to palpation present (GI), No Guarding due to palpation present (GI) and Yes No hepatosplenomegaly present Extremity: COMMON NORMALS: normal to inspection, capillary refill normal, no clubbing, cyanosis or edema, no calf tenderness and no pedal edema Neuro: SENSORIUM/ORIENTATION: Yes oriented to person, Yes oriented to place and Yes oriented to time Skin: COMMON NORMALS: no rashes or lesions noted GENERAL SKIN EXAM: no rashes or lesions noted Course Vital Signs: Vital signs: Vital Signs Temperature 97.4 F L 05/08/25 13:39 Pulse Rate 65 05/08/25 15:35 Respiratory Rate 16 05/08/25 14:21 Blood Pressure 140/63 05/08/25 15:35 Pulse Oximetry 91 05/08/25 15:35 Oxygen Delivery Me thod Room Air 05/08/25 13:39 MDM - General Adult Medical Decision Making X-ray shows a nondisplaced eighth rib fracture will discharge patient home with pain medications follow-up with his primary care return if he has further problems Medical Records I reviewed the patient's medical records. Lab Data I reviewed the patient's lab results. 05/08/25 13:53 05/08/25 14:16 Radiology Impressions Ribs X-Ray 05/08/25 14:16 IMPRESSION: 1. Probable nondisplaced fracture of the posterior lateral LEFT eighth rib. No obvious sign of bone destruction. 2. No acute cardiopulmonary process noted otherwise. Laboratory Results WBC 7.80 10^3/uL (3.29-11.43) 05/08/25 13:53 RBC 3.73 10^6/uL (3.85-5.65) L 05/08/25 13:53 Hgb 12.20 g/dL (11.27-16.99) 05/08/25 13:53 Hct 35.4 % (37-53) L 05/08/25 13:53 MCV 94.9 fl (82-101) 05/08/25 13:53 MCH 32.7 pg (27-33) 05/08/25 13:53 MCHC 34.5 g/dL (30-55) 05/08/25 13:53 RDW 12.8 % (12.1-15.1) 05/08/25 13:53 Plt Count 229 10^3/cmm (157-399) 05/08/25 13:53 MPV 10.5 fL (7.4-10.4) H 05/08/25 13:53 Neut % (Auto) 49.7 % 05/08/25 13:53 Lymph % (Auto) 32.9 % 05/08/25 13:53 Piatt % (Auto) 10.5 % 05/08/25 13:53 Eos % (Auto) 5.8 % 05/08/25 13:53 Baso % (Auto) 0.5 % 05/08/25 13:53 Neut # (Auto) 3.87 10^3/uL (1.8-7.7) 05/08/25 13:53 Lymph # (Auto) 2.6 10^3/uL (0.8-4.8) 05/08/25 13:53 Piatt # (Auto) 0.8 10^3/uL (0.2-0.9) 05/08/25 13:53 Eos # (Auto) 0.5 10^3/uL (0.0-0.8) 05/08/25 13:53 Baso # (Auto) 0.0 10^3/uL (0.0-0.1) 05/08/25 13:53 Nucleated RBC % (auto) 0 % 05/08/25 13:53 Nucleated RBCs # 0.0 /100WBC 05/08/25 13:53 Sodium 136 mmol/L (136-145) 05/08/25 14:16 Potassium 3.9 mmol/L (3.5-5.1) 05/08/25 14:16 Chloride 101 mmol/L (98-107) 05/08/25 14:16 Carbon Dioxide 23 mmol/L (22-29) 05/08/25 14:16 Anion Gap 15.9 (5-19) 05/08/25 14:16 BUN 24 mg/dL (8-23) H 05/08/25 14:16 Creatinine 1.3 mg/dL (0.7-1.2) H 05/08/25 14:16 GFR Calculation Not Reportable 05/08/25 14:16 Glucose 155 mg/dL (65-115) H 05/08/25 14:16 Calculated Osmolality 289 mOsm/kg (285-295) 05/08/25 14:16 Calcium 9.5 mg/dL (8.5-10.5) 05/08/25 14:16 Total Bilirubin 0.7 mg/dL (0.15-1.2) 05/08/25 14:16 AST 13 U/L (0-40) 05/08/25 14:16 ALT 11 U/L (0-41) 05/08/25 14:16 Alkaline Phosphatase 63 U/L (40-130) 05/08/25 14:16 Total Protein 11.1 g/dL (6.6-8.7) H 05/08/25 14:16 Albumin 3.4 g/dL (3.5-5.2) L 05/08/25 14:16 Globulin 7.7 g/dL (1.3-4.6) H 05/08/25 14:16 Lipase 41 U/L (13-60) 05/08/25 14:16 All radiology interpretation(s) finalized by discharge Discharge Plan Discharge Patient Disposition: Home Clinical Impression: Closed fracture of rib of left side Condition: Stable Prescriptions: New hydrocodone-acetaminophen 5-325 mg tablet 1 tab PO Q6H PRN (Reason: pain) Qty: 15 0RF No Action Trelegy Ellipta 100-62.5-25 mcg blister with device 1 inh inhalation Q24H Qty: 60 3RF Daliresp 500 mcg tablet 500 mcg PO DAILY Qty: 90 3RF sertraline 100 mg tablet 100 mg PO DAILY rosuvastatin 40 mg tablet 40 mg PO QPM benazepril 20 mg tablet 20 mg PO BID albuterol sulfate 90 mcg/actuation HFA aerosol inhaler 2 puff inhalation Q6H PRN (Reason: sob) aspirin [Adult Low Dose Aspirin] 81 mg tablet,delayed release (DR/EC) 81 mg PO DAILY acetaminophen 500 mg capsule 500 mg PO Q6H PRN (Reason: Pain) meloxicam 15 mg tablet 15 mg PO DAILY Qty: 90 1RF (DME) Cytometry and Cytology for primitivo marrow biposy See Rx Instructions .Route .MEDSUPPLY Qty: 1 0RF Rx Instructions: will need cytometry cytology and ngs on bone marrow biopsy diltiazem HCl 240 mg capsule,extended release 24hr 240 mg PO DAILY chlorthalidone 25 mg tablet 25 mg PO DAILY Discharge Orders: Discharge ED (Routine); Ordered 05/08/25 Ordered By: Roque More Referrals: Matty Coley MD [Primary Care Provider, [facility]] Discharge Diet: Usual diet Discharge Activity: Increase activity as tolerated Patient Instructions: Rib Fracture (ED), Opioid Safety, Pain Management, Patient Portal & Chela Instructions Activity Restrictions/Additional Instructions: Thank you for choosing [facility] for your healthcare needs today. It is very important that you follow up as instructed or that you return to the Emergency Department should you have concerns or if your condition changes or worsens in any way. Emergency department visits are focused on emergent conditions, in some cases you may require further evaluation on an outpatient basis. You are seen in the emergency room complaining of left lower rib pain. X-ray confirms you have a rib fracture. You are given pain medications for this follow-up as you are currently scheduled for further evaluation of your multiple myeloma. (Please note that included in your discharge packet is information concerning opioid safety and pain management. This information is given to all patients were discharged from the ER regardless of their discharge diagnosis or the medicines they usually take or are prescribed.) Print Language: Bolivian Coding Level of Care Code ED Blue Split Trimmer for Clotilde Harmon
--- NOTE | 2025-05-08 14:16 | XR_ITS ---
WS: [id number] Exam: XR ribs LT mn 3V w CXR1V [id number] Date/Time of Exam: 05/08/2025 2:16 PM Reason For Exam: pain/history multiple myeloma Probable nondisplaced fracture involving the posterior lateral LEFT eighth rib. No other fractures are seen. No obvious bone destruction. Lungs are fully inflated and clear. Normal cardiomediastinal silhouette. No pleural effusion. Remaining bony structures are intact. XR/XR ribs LT mn 3V w CXR1V [id number] IMPRESSION: 1. Probable nondisplaced fracture of the posterior lateral LEFT eighth rib. No obvious sign of bone destruction. 2. No acute cardiopulmonary process noted otherwise.
[2025-05-08 14:21] VITALS: RESP 16; O2SAT 92
[2025-05-08] MEDS: morphine 4 mg/mL SDV 1 mL IVP (14:21)
[2025-05-08] MEDS: ondansetron 2 mg/ML SDV 2 mL 4 MG IVP (14:21)
[2025-05-08 14:38] LABS: Alanine Aminotransferase 11 U/L (0-41); Albumin Level 3.4 g/dL (3.5-5.2); Alkaline Phosphatase 63 U/L (40-130); Anion Gap 15.9 (5-19); Aspartate Amino Transferase 13 U/L (0-40); Blood Urea Nitrogen 24 mg/dL (8-23); Calcium 9.5 mg/dL (8.5-10.5); Carbon Dioxide 23 mmol/L (22-29); Chloride 101 mmol/L (98-107); Creatinine Clr Calc Pharmacy 46.4414; Globulin 7.7 g/dL (1.3-4.6); Glucose 155 mg/dL (65-115); Lipase 41 U/L (13-60); Osmolality Calculated 289 mOsm/kg (285-295); Potassium 3.9 mmol/L (3.5-5.1); Sodium 136 mmol/L (136-145); Total Protein 11.1 g/dL (6.6-8.7)
[2025-05-08 14:51] VITALS: BP 120/69; PULSE 66; O2SAT 90
--- OUTSIDE RECORDS SUMMARY | 2025-05-08 15:31 | XMS_ITS | Encounter Summary ---
Author Organization [facility] Address [address] [place] [id number] Care Team Providers Care Insole Taper Name Role Phone Matty Coley MD Primary Care Provider [phone] Reason for Visit * Reason Onset Date Comments Appointment Notification 05/07/2025 Encounter Details Date Type Department Care Team (Late st Contact Info) Description 05/07/2025 Telephone [facility] Interventional Radiology [address] [place] [address] Kerri Bazzi, RN Appointment Notification Social History Tobacco Use Types Packs/Day Years Used Date Smoking Tobacco: Former Cigarettes 0 03/20/2013 - 09/26/1962 Sex and Gender Information Value Date Recorded Sex Assigned at Not on file Legal Sex Male 1:31 PM CDT Gender Identity Not on file Sexual Orientation Not on file documented as of this encounter Plan of Treatment Upcoming Encounters Date Type Department Care Team (Late Contact Info) Description 05/16/2025 7:00 AM CDT Hospital Encounter [facility] Interventional Radiology [address] [place] [address] Mahin Rowe MD [address] [phone] Yifan James PA-C [address] [place] [address] 06/05/2025 11:00 AM CDT Ancillary Procedure [facility] [place] [address] [facility] [address] [place] [address] Racquel Lee [facility] [address] [facility] [address] [place] [address] 06/05/2025 1:45 PM CDT Office Visit [facility] Vascular Surgery [place] [id number] [facility] [address] [place] [address] Racquel Lee FNP [address] [facility] [address] [place] [address] Kristen Fernandez PA-C [address] [place] [address] [address] [place] [address] documented as of this encounter Visit Diagnoses Not on filedocumented in this encounter Care Teams Insole Taper Relationship Specialty Start Date End Date Matty Coley MD [address] [place] [phone] PCP - General Family Practice 04/26/23 documented as of this encounter
--- OUTSIDE RECORDS SUMMARY | 2025-05-08 15:31 | XMS_ITS | Clinical Summary ---
Author Organization [facility] de Address [address] [place] [address] Phone Care Team Providers Care Workforce Manager Name Role Phone Matty Coley MD Primary Care Provider [phone] Allergies Active Allergy Reactions Criticality Noted Date Comments Penicillins Other (See Comments),Dizziness High 12/2022 Medications fluticasone-ume clidinium-vilan terol (TRELEGY ELLIPTA) 100-62.5-25 mcg Disk with Device daily. Active benazepriL (LOTENSIN) 20 mg tablet Take 1 Tablet by mouth 2 times daily. Active diltiaZEM (CARDIZEM CD) 240 mg Controlled Delivery 24 hour capsule Take 240 mg by mouth daily. 03/21/2023 Active sertraline (ZOLOFT) 100 mg tablet Take 1 Tablet by mouth daily. Active hydroCHLOROthia zide 25 mg tablet Take 25 mg by mouth daily. 03/20/2023 Active roflumilast (DALIRESP) 500 mcg Tablet Take 1 Tablet by mouth daily. Active rosuvastatin (CRESTOR) 40 mg tablet Take 1 Tablet by mouth daily at bedtime. Active albuterol sulfate HFA 90 mcg/actuation aerosol inhaler INHALE 2 PUFFS BY MOUTH EVERY 6 HOURS NEEDED Active oxyCODONE-aceta minophen (PERCOCET) 5-325 mg tablet TAKE 1-2 TABLETS BY MOUTH EVERY 8 HOURS NEEDED FOR MODERATE TO SEVERE PAIN Active antiox #8/om3/dha/epa/ lut/zeax (PRESERVISION AREDS 2, OMEGA-3, ORAL) Take by mouth. Active multivitamins-m inerals-lutein (CENTRUM SILVER) Tablet Take by mouth daily. Active ascorbic acid (VITAMIN C) 500 mg Tablet, Chewable Take 500 mg by mouth. Active vitamin B complex Tablet Sustained Release Take 1 Tablet by mouth daily. Active aspirin (ECOTRIN EC) 81 mg Tablet, Delayed Release (E.C.) Take 81 mg by mouth daily. Active CALCIUM CARBONATE-VITAM IN D3 ORAL Take by mouth. Active Active Problems Problem Noted Date Diagnosed Date Aortic aneurysm 06/03/2024 COPD (chronic obstructive pulmonary disease) Facet arthropathy, lumbar 06/03/2024 History of tobacco abuse 06/03/2024 Hx of venous thrombosis and embolism 06/03/2024 Hyperlipidemia 06/03/2024 Lumbar disc disease with radiculopathy Paroxysmal A-fib 06/03/2024 Pre-operative examination 06/03/2024 Spinal stenosis of lumbar region 06/03/2024 Encounters Date Type Department Care Team Description 05/07/2025 Telephone [facility] Interventional Radiology [id number] [place] [address] Kerri Bazzi, RN Appointment Notification 04/01/2025 External Device Data ST[facility] ABSTRACTION Provider, Abstract 02/26/2025 External Device Data [facility] ABSTRACTION Provider, Abstract 02/26/2025 External Device Data [facility] ABSTRACTION Provider, Abstract from Last 3 Months Social History Tobacco Use Types Packs/Day Years Used Date Smoking Tobacco: Former Cigarettes 0 03/20/2013 - 09/26/1962 Sex and Gender Information Value Date Recorded Sex Assigned at Not on file Legal Sex Male 1:31 PM CDT Gender Identity Not on file Sexual Orientation Not on file Last Filed Vital Signs Vital Sign Reading Time Taken Comments Blood Pressure 126/62 06/03/2024 10:48 AM CDT Pulse 53 06/03/2024 10:48 AM CDT Temperature - - Respiratory Rate - - Oxygen Saturation 95% 06/03/2024 10:48 AM CDT Inhaled Oxygen Concentration - - Weight 72.6 kg (160 lb) 06/03/2024 10:48 AM CDT Height 172.7 cm (5' 8 ) 06/03/2024 10:48 AM CDT Body Mass Index 24.33 06/03/2024 10:48 AM CDT Plan of Treatment Upcoming Encounters Date Type Department Care Team (Late st Contact Info) Description 05/16/2025 7:00 AM CDT Hospital Encounter [facility] Interventional Radiology [address] [place] [address] [place] [phone] Mahin Rowe MD [address] [facility] [address] [place] [address] Yifan James PA-C [address] [place] [address] 06/05/2025 11:00 AM CDT Ancillary Procedure [facility]- [place] [address] [facility] [address] [place] [address] Racquel Lee TEMPERATURE CONTROL INSPECTOR [address] [facility] [address] [place] [address] 06/05/2025 1:45 PM CDT Office Visit [facility] Vascular Surgery [place] [address] [facility] [address] [place] [address] Racquel Lee FNP [address] [address] Kristen Fernandez PA-C [address] [facility] [address] [place] [address] Health Maintenance Due Date Last Done Comments DTAP/TDAP/TD VACCINES (1 - Tdap) 1968 PNEUMOCOCCAL VACCINE 50+ YEA RS (1 of 2 - PCV) 1968 COLORECTAL SCREENING 1994 Colorectal Cancer Screening 1994 FIT-DNA Q 3 years 1994 FIT/FOBT Q 1 year 1994 Flex Sig/CT Colonography Q 5 years 1994 ZOSTER VACCINE (1 of 2) 1999 RSV VACCINE (60+ or ) (1 - 1-dose 75+ series) 2024 INFLUENZA VACCINE (#1) 2025 Abdominal Aortic Aneurysm (A AA) Screening Completed 06/03/2024, 04/25/2023, 04/03/2023 Procedures Procedure Name Priority Date/Time Associated Diagnosis Comments US AORTA Routine 06/03/2024 10:26 AM CDT Infrarenal abdominal aortic aneurysm (AAA) without rupture from Last 3 Months or Most Recently Relevant to Health Maintenance Results * US AORTA (06/03/2024 10:26 AM CDT) Anatomical Region Laterality Modality Abdomen Ultrasound 06/03/2024 10:0 2 AM CDT Narrative 06/03/2024 3:30 PM CDT [facility] [address] [place] [address] Noninvasive Vascular Lab Limited Abdominal Ultrasound Evaluation Patient: Cristopher Freeman Study ID: US AORTA Gender: M : 1950 Age: 73 Room: Height: 170cm Weight: 71.7kg BSA: 1.85m^2 Pt status: Outpatient Study Date: 06/03/2024 Study Time: 10:02:07 AM BSA: 1.85m^2 Ordering: Gerald Saucedo Interpreting:Ryley Noel [place] Worker: Kaylie Davis RVT Indications: Dx: Infrarenal abdominal aortic aneurysm (AAA) without rupture [I71.43 (ICD-10-CM)] Summary Impression: 1. Study demonstrates aneurysm involving the abdominal aorta measuring 4.2 x 4.8 cm. Increase in size from the prior exam of 04/25/2023. Mural thrombus is present. 2. Aneurysm, involving the right common iliac artery and the left common iliac artery. Study data: Limited abdominal ultrasound evaluation. Duplex scan. Height: 170cm. Height: 66.9in. Weight: 71.7kg. Weight: 158.1lb. BMI: 24.8kg/m^2. BSA: 1.85m^2. Location: Vascular laboratory. Patient status: Outpatient. Study status: Routine. Aorta and systemic arteries: Abdominal aorta: The vessel is well visualized. Arterial flow: - Abdominal aorta proximal: Abdominal aorta proximal 0.62m/sec 2.3 x 2.8 cm. - Abdominal aorta mid: Abdominal aorta mid 0.96m/sec 2.1 x 2.1 cm. - Abdominal aorta distal: Abdominal aorta distal 1.41m/sec 4.2 x 4.8m. - Right common iliac proximal: Right common iliac proximal 1.07m/sec 1.9 x 2.0 cm. - Left common iliac proximal: Left common iliac proximal 0.6m/sec 1.7 x 2.1 cm. [facility] is accredited with the Intersocietal Commission for the Accreditation of Vascular Laboratories (ICAVL) Prepared and Electronically Authenticated Ryley Noel Confirmed 06/03/2024 15:30 Procedure Note Ryley Noel MD - 06/03/2024 [facility] [address] [place] [id number] Noninvasive Vascular Lab Limited Abdominal Ultrasound Evaluation Patient: Cristopher Freeman Study ID: US AORTA Gender: M : 1950 Age: 73 Room: Height: 170cm Weight: 71.7kg BSA: 1.85m^2 Pt status: Outpatient Study Date: 06/03/2024 Study Time: 10:02:07 AM BSA: 1.85m^2 Ordering: Gerald Saucedo Interpreting:Ryley Noel [place] Worker: Kaylie Davis RVT Indications: Dx: Infrarenal abdominal aortic aneurysm (AAA) withoutrupture [I71.43 (ICD-10-CM)] Summary Impression: 1. Study demonstrates aneurysm involving the abdominal aorta measuring 4.2x 4.8 cm. Increase in size from the prior exam of 04/25/2023. Muralthrombus is present. 2. Aneurysm, involving the right common iliac artery and the left commoniliac artery. Study data: Limited abdominal ultrasound evaluation. Duplex scan. Height: 170cm. Height: 66.9in. Weight: 71.7kg. Weight: 158.1lb.BMI: 24.8kg/m^2. BSA: 1.85m^2. Location: Vascular laboratory. Patient status: Outpatient. Study status: Routine. Aorta and systemic arteries: Abdominal aorta: The vessel is well visualized. Arterial flow: - Abdominal aorta proximal: Abdominal aorta proximal 0.62m/sec 2.3 x 2.8cm. - Abdominal aorta mid: Abdominal aorta mid 0.96m/sec 2.1 x 2.1 cm. - Abdominal aorta distal: Abdominal aorta distal 1.41m/sec 4.2 x 4.8m. - Right common iliac proximal: Right common iliac proximal 1.07m/sec 1.9x 2.0 cm. - Left common iliac proximal: Left common iliac proximal 0.6m/sec 1.7 x2.1 cm. [facility] Lab [facility] is accredited withthe Intersocietal Commission for the Accreditation of Vascular Laboratories (ICAVL) Prepared and Electronically Authenticated Ryley Noel 06/03/2024 15:30 Gerald Saucedo MD ORDERABLES Final Resu lt from Last 3 Months or Most Recently Relevant to Health Maintenance Insurance [facility] Care Teams Workforce Manager Relationship Specialty Start Date End Date Matty Coley MD [address] [address] PCP - General Family Practice 04/26/23
--- OUTSIDE RECORDS SUMMARY | 2025-05-08 15:31 | XMS_ITS | Patient Health Record ---
Author Organization [facility] Address [address] [place] [address] Care Team Providers Care Solar Sales Advisor Name Role Phone Eddie Long Primary Care Provider Unavailabl e Migration, Provider Unavailable Unavailable Reason For Referral No Information Medications Medication SIG (Take, Route, Frequency, Duration) Notes Start Date End Date Status Aspirin *Pick strength-form from Medispan for eRX* [...] *Pick strength-form from Medispan for eRX* Active dilTIAZem HCl *Pick strength-form from Medispan for eRX* Active Baby Vitamin D3 *Pick strength-form from Medispan for eRX* Active hydroCHLOROthiazide *Pick strength-form from Medispan for eRX* Active Adult Multivitamin Gummies *Reorder from Medispan for eRx and Interaction Alerts* Active Trelegy Ellipta *Pick strength-form from Medispan for [...] Diagnosis Migrated_Facility 0 0 06/08/2024 Provider Migration Migrated_Facility 0 0 06/09/2024 Provider Migration Plan Of Treatment No Information Medical (General) History Surgical History Surgery Date(Month/Year) Nasal surgery
[2025-05-08 15:35] VITALS: BP 140/63; PULSE 65; O2SAT 91
== END 2025-05-08 16:05 | disposition home or self-care (01) ==
PROVIDERS: Emergency Provider Family Medicine; PCP Family Medicine
DX: S22.32XA Fracture of one rib, left side, initial encounter for closed fracture (principal); Z79.82 Long term (current) use of aspirin; F17.290 Nicotine dependence, other tobacco product, uncomplicated; X58.XXXA Exposure to other specified factors, initial encounter
CPT/HCPCS: 36415; 71101; 80053; 83690; 85025; 96374; 96375; 99284; J2270; J2405

== ENCOUNTER 2025-05-09 15:00 | Oncology outpatient (recurring) (ONCR) | payer MEDICARE, SELFPAY ==
[2025-04-29 09:27] LABS: Hematocrit 39.0 % (37-53); Hemoglobin 13.10 g/dL (11.27-16.99); Mean Corpuscular HGB Conc 33.6 g/dL (30-55); Mean Corpuscular Hemoglobin 32.5 pg (27-33); Mean Corpuscular Volume 96.8 fl (82-101); Nucleated Red Blood Cells % 0 %; Platelet Count 234 10^3/cmm (157-399); Red Blood Count 4.03 10^6/uL (3.85-5.65); White Blood Count 7.46 10^3/uL (3.29-11.43)
[2025-04-29 11:05] LABS: Alanine Aminotransferase 12 U/L (0-41); Albumin Level 3.7 g/dL (3.5-5.2); Alkaline Phosphatase 63 U/L (40-130); Anion Gap 16.9 (5-19); Aspartate Amino Transferase 13 U/L (0-40); Blood Urea Nitrogen 18 mg/dL (8-23); Calcium 9.6 mg/dL (8.5-10.5); Carbon Dioxide 22 mmol/L (22-29); Chloride 100 mmol/L (98-107); Creatinine Clr Calc Pharmacy 67.9920; Globulin 7.8 g/dL (1.3-4.6); Glucose 102 mg/dL (65-115); Osmolality Calculated 282 mOsm/kg (285-295); Potassium 3.9 mmol/L (3.5-5.1); Prostate Specific Antigen 0.916 ng/mL (0-4); Sodium 135 mmol/L (136-145); Total Protein 11.5 g/dL (6.6-8.7)
[2025-04-30 06:25] LABS: PROTEIN, TOTAL 11.2 g/dL (6.1-8.1)
[2025-04-30 14:50] LABS: KAPPA LIGHT CHAIN, FREE, SERUM 10.6 mg/L (3.3-19.4); KAPPA/LAMBDA LIGHT CHAINS FREE 0.14 (0.26-1.65); LAMBDA LIGHT CHAIN, FREE, SERU 75.0 mg/L (5.7-26.3)
[2025-05-01 09:00] LABS: ALPHA 1 GLOBULIN 0.4 g/dL (0.2-0.3); ALPHA 2 GLOBULIN 1.0 g/dL (0.5-0.9); BETA 1 GLOBULIN 0.5 g/dL (0.4-0.6); BETA 2 GLOBULIN 0.4 g/dL (0.2-0.5)
--- NOTE | 2025-05-05 06:30 | US_ITS ---
WS: [id number] RENAL ULTRASOUND HISTORY: Albert mass COMPARISON: 06/12/2023 TECHNIQUE: 2-D and color Doppler imaging of the kidney submitted. Right kidney: 10.4 cm x 5.4 cm x 5.8 cm. Cortex: 1.2 cm Normal size kidney. No hydronephrosis. Several renal cysts are identified. Largest from the inferior kidney 4.1 x 5.2 x 3.0 cm. Smaller cyst in the superior pole 2.5 x 2.9 x 2.7 cm. No cortical thinning. Left kidney: 10.9 cm x 4.1 cm x 4.5 cm. Cortex: 1.3 cm Normal size kidney with no hydronephrosis or cortical thinning. Cyst from the upper pole measures 1.7 x 1.5 x 1.4 cm. Aorta: Very limited evaluation of the abdominal aorta. Patient has a known aneurysm. Only a single image is submitted. If this is the aorta the maximal transverse diameter is 4.3 cm. Urinary Bladder: Minimally distended. US/US renal BI* [id number] IMPRESSION: 1. Bilateral renal cysts. No hydronephrosis. 2. No renal cortical thinning. 3. Patient has a known abdominal aortic aneurysm with minimal evaluation on th is exam. Maximum diameter of 4.3 cm.
[2025-05-07 12:55] LABS: ALPHA-1-GLOBULINS 0 %; ALPHA-2-GLOBULINS 0 %; BETA GLOBULINS 0 %; GAMMA GLOBULINS 0 %
--- NOTE | 2025-05-09 12:59 | CTR_ITS ---
PROCEDURE INFORMATION: Exam: CT Abdomen And Pelvis Without And With Contrast Exam date and time: 05/09/2025 01:09 PM Age: 74 years old Clinical indication: Initial staging oncological exam. Tumor/polyp/nodule location - multiple myeloma dx 2 weeks ago. Other: Renal mass right TECHNIQUE: Imaging protocol: Computed tomography of the abdomen and pelvis without and with contrast. 3D rendering (Not supervised by radiologist): MIP and/or 3D reconstructed images were created by the technologist. Radiation optimization: All CT scans at this facility use at least one of these dose optimization techniques: automated exposure control; mA and/or kV adjustment per patient size (includes targeted exams where dose is matched to clinical indication); or iterative reconstruction. Contrast material: OMNI 350; Contrast volume: 100 ml; Contrast route: INTRAVENOUS (IV); COMPARISON: US renal BI* [id number] 05/05/2025 06:36 AM RADIATION DOSE METRICS: Total DLP (mGy-cm): 1404.56 FINDINGS: Lungs: Bilateral lower lobe emphysematous changes with mild interstitial thickening in the right lung base. Diaphragm: Small hiatal hernia. Liver: No discrete hepatic lesions. Gallbladder and biliary ducts: Normal. No calcified stones. No ductal dilation. Pancreas: Normal. No ductal dilation. Spleen: Normal. No splenomegaly. Adrenal glands: Normal. No mass. Kidneys and ureters: Bilateral renal cysts. No hydronephrosis or hydroureter. Prostatic calcifications. Stomach and bowel: Diverticulosis without acute diverticulitis. Appendix: No evidence of appendicitis. Intraperitoneal space: Unremarkable. No free air. No significant fluid collection. Vasculature: Atherosclerotic vascular disease. Calcifications of the origin of the celiac axis and SMA. Infrarenal abdominal aortic aneurysm measuring 4.8 x 4.4 cm, previous maximum diameter was 4.3 cm. Aneurysmal dilatation of both proximal common iliac arteries measuring up to 1.5 cm on the right and 2.0 cm on the left. Lymph nodes: No enlarged lymphadenopathy. Urinary bladder: Unremarkable as visualized. Reproductive: See Kidneys and ureters finding. Bones/joints: Degenerative changes of the spine with disc space narrowing at L4-L5. Facet arthropathy. Soft tissues: Unremarkable. CT/CT abdomen pelvis wo/w [id number] IMPRESSION: 1. Bilateral lower lobe emphysematous changes with mild interstitial thickening in the right lung base. 2. Bilateral renal cysts. 3. Infrarenal abdominal aortic aneurysm measuring 4.8 x 4.4 cm, previous maximum diameter was 4.3 cm. 4. Aneurysmal dilatation of both proximal common iliac arteries measuring up to 1.5 cm on the right and 2.0 cm on the left. 5. Diverticulosis without acute diverticulitis. COMMENTS: Consistent with the [place] [employer]'s Incidental Findings Committee white paper (J Am Jagruti Radiol 2018): Any incidental renal lesion less than 1 cm or classified as too small to characterize, or any incidental cystic renal lesion characterized as simple-appearing, is likely benign. No follow-up imaging is recommended for these lesions per consensus recommendations based on imaging criteria.
[2025-05-09] MEDS: iohexol 350 mg/mL 500 mL Btl (per mL) IV (13:02)
--- NOTE | 2025-05-09 15:00 | PETR_ITS ---
PROCEDURE INFORMATION: Exam: PET/CT Skull Base to Mid-thigh Exam date and time: 05/09/2025 3:51 PM Age: 74 years old Clinical indication: Condition or disease; Condition/disease: Multiple myeloma not having achieved remission; Additional info: Multiple helio, Dr. Rowe would like this done on 05/09/25 LABS AND CLINICAL REPORTS: Glucose: 114 mg/dl Treatment strategy for malignancy (PET staging): Restaging (PS) TECHNIQUE: Imaging protocol: Following at least four-hour fasting and following the injection of radiopharmaceutical, low dose CT images were obtained. Then, PET images were obtained. Attenuation corrected images were constructed using the CT scan. Fused images of PET and CT were reviewed. The standardized uptake values (SUV) reported below are maximum values within a region of interest, expressed in gm/ml. Exam includes orbital meatal line to mid-thigh. SUV normalization method: BodyWeight Radiopharmaceutical: 11.73 mCi F-18 FDG (Fluorodeoxyglucose), IV. Time of imaging post radiopharmaceutical administration: 47 minutes Injection site: LAC COMPARISON: 1. CT abdomen pelvis wo/w [id number] 05/09/2025 1:[address] chest wo con [id number] 04/22/2025 8:17 AM FINDINGS: Brain: Visualized brain has normal physiologic uptake. Pharynx: No abnormal uptake. Larynx: No abnormal uptake. Lungs, pleura and trachea: No abnormal uptake. Moderate upper lung predominant emphysematous change. Mild dependent atelectasis. No consolidation or mass. Heart: Normal physiologic uptake. Coronary arteries: Moderate coronary artery calcification. Mediastinal space: No abnormal uptake. Liver: No abnormal uptake. Gallbladder and biliary ducts: No abnormal uptake. Pancreas: No abnormal uptake. Spleen: No abnormal uptake. Adrenal glands: No abnormal uptake. Kidneys and ureters: Normal physiologic uptake. Benign-appearing bilateral photopenic renal cysts. Excreted contrast within the renal collecting systems. Stomach and bowel: No abnormal uptake. Urinary bladder: Excreted contrast within the urinary bladder. Vasculature: No abnormal uptake. Heavy systemic atherosclerotic calcification with 5 cm infrarenal abdominal aortic aneurysm. Lymph nodes: No abnormal uptake. No lymphadenopathy in the head, neck, chest, abdomen, pelvis, and extremities. Skeleton: Numerous FDG avid lesions throughout the bones (some clearly lytic and some without underlying CT abnormality), to include index left calvarial lesion on axial image 39 showing SUV max 10.0, medial right clavicle lesion showing SUV max 9.9 on axial image 106, T2 vertebral body lesion showing SUV max 9.2 on axial image 99, T5 vertebral body lesion showing SUV max 9.0 on axial image 116, expansile lytic lateral right 9th rib lesion with SUV max 10.1 on axial image 182, left L3 posterior element expansile lytic lesion involving the pedicle extending to spinous process showing SUV max 11.6 with [id number] narrowing of the spinal canal, and leftward sacral lesion showing SUV max 8.9 on axial image 253. Numerous additional lesions throughout the bones. Minimally displaced acute posterolateral left 8th rib fracture with associated FDG uptake showing SUV max 9.5 but no discrete underlying lytic lesion. Degenerative changes along the axial skeletal system. Soft tissues: No abnormal uptake in the visualized head, neck, chest, abdomen, pelvis, and extremities. Small fat containing umbilical and bilateral inguinal hernias. METRICS: Mediastinal blood pool: SUV mean 1.8 Liver uptake: SUV mean 2.1 PET/PET skull to thigh INIT [id number] IMPRESSION: 1. Numerous FDG avid lesions throughout the bones compatible with multiple myeloma. Note of an expansile lytic lesion involving the left L3 vertebral posterior elements extending from the pedicle to the spinous process with resultant [id number]-[id number] spinal canal stenosis. 2. Minimally displaced acute posterolateral left 8th rib fracture. 3. 5 cm infrarenal abdominal aortic aneurysm. 4. Additional chronic and incidental findings as above.
== END 2025-05-13 23:59 | disposition home or self-care (01) ==
LOC: ONCMED 05-12 09:06
PROVIDERS: PCP Family Medicine; Visit Provider Internal Medicine Medical Oncology
DX: C90.00 Multiple myeloma not having achieved remission; I71.43 Infrarenal abdominal aortic aneurysm, without rupture; T14.8XXA Other injury of unspecified body region, initial encounter; N28.1 Cyst of kidney, acquired; K57.90 Diverticulosis of intestine, part unspecified, without perforation or abscess without bleeding; Z53.9 Procedure and treatment not carried out, unspecified reason; X58.XXXA Exposure to other specified factors, initial encounter
CPT/HCPCS: 36415; 74178; 76770; 78815; 80053; 82784; 83883; 84153; 84155; 84156; 84165; 84166; 85025; 86334; 99205; A9552

== ENCOUNTER 2025-05-21 08:59 | Emergency (ER) | payer MEDICARE, SELFPAY ==
[2025-05-21 09:02] VITALS: BP 159/74; PULSE 61; RESP 16; TEMP 37.1; O2SAT 96; BMI 23.5
--- NOTE | 2025-05-21 09:02 | XR_ITS ---
WS: [id number] Portable AP upright chest, 05/21/2025 Clinical Data: rib pain Comparison: Chest with left rib detail, 05/08/2025 Findings: No nodules, masses or effusions are seen. The heart is normal. The pulmonary vascularity is not increased. No pneumonia or pneumothorax is seen. The aortic arch shows calcification along with tortuosity of the descending thoracic aorta. The diaphragms are flattened. XR/XR chest 1V portable [id number] Impression: Atherosclerosis and hyperinflation.
[2025-05-21] MEDS: morphine 4 mg/mL SDV 1 mL IM (09:18)
--- NOTE | 2025-05-21 09:19 | W.ED.GENADLT ---
HPI - General Adult General: Chief complaint: Abdominal Pain Stated complaint: R side rib pain Time Seen by Provider: 05/21/25 09:06 Source: patient Mode of arrival: ambulatory Limitations: no limitations History of Present Illness: 74-year-old male has a history of multiple myeloma states that he has a lesion on his right rib and recently the left rib fracture state over the last 2 days has been having extreme pain in the right rib border where the lesions are. States pain is sharp in nature much worse with palpation and movement he denies any cough denies any shortness of breath. Patient is on oxycodone but states is not taking care of his pain currently. Rates his pain an 8 out of 10 Associated symptoms: Reports chest pain Related Data Home Medications ?Medication ?Instructions ?Recorded ?Confirmed benazepril 20 mg tablet 20 mg PO BID 03/28/22 05/20/25 rosuvastatin 40 mg tablet 40 mg PO QPM 03/28/22 05/20/25 sertraline 100 mg tablet 100 mg PO DAILY 03/28/22 05/20/25 acetaminophen 500 mg capsule 500 mg PO Q6H PRN Pain 10/12/22 05/20/25 albuterol sulfate 90 mcg/actuation 2 puff inhalation Q6H PRN sob 10/12/22 05/20/25 aerosol inhaler aspirin 81 mg tablet,delayed 81 mg PO DAILY 10/12/22 05/20/25 release (Adult Low Dose Aspirin) chlorthalidone 25 mg tablet 25 mg PO DAILY 05/08/25 05/20/25 diltiazem HCl 240 mg 240 mg PO DAILY 05/08/25 05/20/25 capsule,extended release 24 hr oxycodone 10 mg tablet 10 mg PO Q6H PRN 05/20/25 05/20/25 Previous Rx's ?Medication ?Instructions ?Recorded fluticasone fur. 100 mcg-umeclid 1 inh inhalation Q24H #60 ea 03/28/22 62.5 mcg-vilant 25 mcg inhalat.powder (Trelegy Ellipta) roflumilast 500 mcg tablet 500 mcg PO DAILY #90 tabs 03/28/22 (Daliresp) meloxicam 15 mg tablet 15 mg PO DAILY #90 tabs 06/21/23 Cytometry and Cytology for primitivo #1 ea 05/06/25 marrow biposy hydrocodone 5 mg-acetaminophen 325 1 tab PO Q6H PRN pain #15 tabs 05/08/ mg tablet dexamethasone 4 mg tablet 20 mg (5 x 4 mg) PO DAILY #80 tabs 05/20/25 fluconazole 100 mg tablet 100 mg PO DAILY fungal infection 05/20/25 prevention #90 tabs lenalidomide 15 mg capsule 15 mg PO DAILY #14 caps 05/20/25 (Revlimid) ondansetron HCl 4 mg tablet 4 mg PO Q6H PRN nausea and 05/20/25 vomiting #30 tabs prochlorperazine maleate 10 mg 10 mg PO Q4H PRN mild nausea #30 05/20/25 tablet (Compazine) tabs sulfamethoxazole 800 1 tab PO MOWEFR infection 05/20/25 mg-trimethoprim 160 mg tablet prevention #24 tabs (Bactrim DS) valacyclovir 500 mg tablet 500 mg PO BID #60 tabs 05/20/25 Allergies Allergy/AdvReac Type Severity Reaction Status Date / Time Penicillins Allergy Severe ALGY-Anaphy Verified 05/20/25 09:21 laxis Review of Systems Card: Reports: chest pain PFSH ED PFSH: Medical History (Updated 05/21/25 @ 09:36 by Brain Howard MD) Rotator cuff arthropathy of left shoulder Chronic left shoulder pain Primary osteoarthritis, left shoulder Aortic aneurysm recent U/S on 04/03/23 Back pain Surgical History History of nasal surgery Family History Father Heart attack Denies family history of Clotting disorder Anesthesia complication Bleeding disorder Social History Smoking and tobacco/nicotine status: tobacco/nicotine user, details unknown (vape) Quit status (tobacco/nicotine): has quit using Year quit tobacco: 2014 Former quit date comment: 50 year history Alcohol intake: never Substance/Drug Use: never Physical Exam Const: COMMON NORMALS: no acute distress, patient oriented x3 and healthy appearing HENMT: COMMON NORMALS: normocephalic and atraumatic HEAD & SCALP: normocephalic and atraumatic Eye: COMMON NORMALS: conjunctivae normal CONJUNCTIVA: Yes conjunctivae normal Neck/C-Spine: COMMON NORMALS: full ROM and supple Chest: COMMONS NORMALS: normal inspection of the chest OTHER: Point tender over right lateral ribs Resp: COMMON NORMALS: normal respiratory effort, No retractions, No use of accessory muscles and clear to auscultation bilaterally AUSCULTATION: clear to auscultation bilaterally Cardio: COMMON NORMALS: regular rate, regular rhythm and No murmurs present (Cardio) RATE: regular rate RHYTHM: regular rhythm GI: COMMON NORMALS: Normal to inspection, nondistended, normoactive bowel sounds present, Soft to palpation, non-tender and no masses PALPATION: Yes Soft to palpation Extremity: COMMON NORMALS: normal to inspection and full ROM Neuro: COMMON NORMALS: patient oriented x3, moves all extremities and no focal motor deficits Psych: COMMON NORMALS: mental status grossly normal, Normal thought process present and cooperative THOUGHT PROCESS: Normal thought process present Skin: COMMON NORMALS: no rashes or lesions noted and no wounds GENERAL SKIN EXAM: no rashes or lesions noted Course Vital Signs: Vital signs: Vital Signs Temperature 98.7 F 05/21/25 09:02 Pulse Rate 61 05/21/25 09:02 Respiratory Rate 16 05/21/25 09:02 Blood Pressure 159/74 05/21/25 09:02 Pulse Oximetry 96 05/21/25 09:02 Oxygen Delivery Me thod Room Air 05/21/25 09:02 MDM - General Adult Medical Decision Making Patient presents with right sided chest pain. Did review the x-ray as no signs of pneumothorax was ruled out. Patient is no shortness of breath here no signs of pulmonary emboli. Pain is reproducible with she is point tender he has known multiple myeloma with a lesion on that side likely having pain from that. Could have a nondisplaced rib fracture did not see any rib fractures on the x-ray did give him IM morphine here and he feels improved he is continue his pain meds at home he is to follow-up with his PCP along with oncology and return if worsening he understands agrees to plan Medical Records I reviewed the patient's medical records. Lab Data Radiology Impressions Chest X-Ray 05/21/25 09:02 Impression: Atherosclerosis and hyperinflation. All radiology interpretation(s) finalized by discharge Discharge Plan Discharge Patient Disposition: Home Clinical Impression: Right-sided chest wall pain Condition: Stable Prescriptions: No Action Trelegy Ellipta 100-62.5-25 mcg blister with device 1 inh inhalation Q24H Qty: 60 3RF Daliresp 500 mcg tablet 500 mcg PO DAILY Qty: 90 3RF sertraline 100 mg tablet 100 mg PO DAILY rosuvastatin 40 mg tablet 40 mg PO QPM benazepril 20 mg tablet 20 mg PO BID albuterol sulfate 90 mcg/actuation HFA aerosol inhaler 2 puff inhalation Q6H PRN (Reason: sob) aspirin [Adult Low Dose Aspirin] 81 mg tablet,delayed release (DR/EC) 81 mg PO DAILY acetaminophen 500 mg capsule 500 mg PO Q6H PRN (Reason: Pain) meloxicam 15 mg tablet 15 mg PO DAILY Qty: 90 1RF (DME) Cytometry and Cytology for primitivo marrow biposy See Rx Instructions .Route .MEDSUPPLY Qty: 1 0RF Rx Instructions: will need cytometry cytology and ngs on bone marrow biopsy oxycodone 10 mg tablet 10 mg PO Q6H PRN lenalidomide [Revlimid] 15 mg capsule 15 mg PO DAILY Qty: 14 0RF Rx Instructions: swallow whole with glass of water; do not open, crush, chew , break, or dissolve take day 1-14 [id number] dexamethasone 4 mg tablet 20 mg PO DAILY Qty: 80 2RF Rx Instructions: take on day 1 and 2 of 28 day cycle fluconazole 100 mg tablet 100 mg PO DAILY Qty: 90 2RF ondansetron HCl 4 mg tablet 4 mg PO Q6H PRN (Reason: nausea and vomiting) Qty: 30 3RF prochlorperazine maleate [Compazine] 10 mg tablet 10 mg PO Q4H PRN (Reason: mild nausea) Qty: 30 3RF valacyclovir 500 mg tablet 500 mg PO BID Qty: 60 5RF Rx Instructions: Continue 3 months post treatment for prevention of viral infection sulfamethoxazole-trimethoprim [Bactrim DS] 800-160 mg tablet 1 tab PO MOWEFR Qty: 24 5RF diltiazem HCl 240 mg capsule,extended release 24hr 240 mg PO DAILY chlorthalidone 25 mg tablet 25 mg PO DAILY hydrocodone-acetaminophen 5-325 mg tablet 1 tab PO Q6H PRN (Reason: pain) Qty: 15 0RF Discharge Orders: Discharge ED (Routine); Ordered 05/21/25 Ordered By: Brain Howard Referrals: Matty Coley MD [Primary Care Provider, [facility]] - 4-7 days Discharge Diet: Advance as tolerated Discharge Activity: Resume usual activity Patient Instructions: Chest Wall Pain (ED) Print Language: Gabonese Coding Level of Care Code ED Outside Sales for Clotilde Harmon
[2025-05-21 09:50] VITALS: BP 130/63; PULSE 50; O2SAT 91
== END 2025-05-21 09:51 | disposition home or self-care (01) ==
PROVIDERS: Emergency Provider Emergency Medicine; PCP Family Medicine
DX: R07.89 Other chest pain (principal); Z79.82 Long term (current) use of aspirin; F17.290 Nicotine dependence, other tobacco product, uncomplicated
CPT/HCPCS: 71045; 96372; 99284; J2270

== ENCOUNTER 2025-06-03 08:00 | Oncology outpatient (recurring) (ONCR) | payer MEDICARE, SELFPAY ==
[2025-06-03 07:45] LABS: Hematocrit 33.5 % (37-53); Hemoglobin 11.10 g/dL (11.27-16.99); Mean Corpuscular HGB Conc 33.1 g/dL (30-55); Mean Corpuscular Hemoglobin 32.1 pg (27-33); Mean Corpuscular Volume 96.8 fl (82-101); Nucleated Red Blood Cells % 0 %; Platelet Count 198 10^3/cmm (157-399); Red Blood Count 3.46 10^6/uL (3.85-5.65); White Blood Count 8.77 10^3/uL (3.29-11.43)
[2025-06-03 08:14] LABS: Alanine Aminotransferase 7 U/L (0-41); Albumin Level 3.2 g/dL (3.5-5.2); Alkaline Phosphatase 64 U/L (40-130); Anion Gap 13.7 (5-19); Aspartate Amino Transferase 13 U/L (0-40); Blood Urea Nitrogen 18 mg/dL (8-23); Calcium 8.9 mg/dL (8.5-10.5); Carbon Dioxide 26 mmol/L (22-29); Chloride 97 mmol/L (98-107); Creatinine Clr Calc Pharmacy 54.7829; Globulin 8.0 g/dL (1.3-4.6); Glucose 127 mg/dL (65-115); Osmolality Calculated 279 mOsm/kg (285-295); Potassium 3.7 mmol/L (3.5-5.1); Sodium 133 mmol/L (136-145); Thyroid Stimulating Hormone 1.53 uIU/mL (0.27-4.20); Total Protein 11.2 g/dL (6.6-8.7)
[2025-06-03] MEDS: zoledronic acid (Zometa) 4 MG/100 ML PIGGYBACK 400 MG IV (10:33)
[2025-06-03] MEDS: daratumumab-hyaluronidase-fihj 1,800 mg/15 mL SDV 1800 MG SUBCUT (11:05)
[2025-06-03] MEDS: bortezomib 3.5 mg SDV 2.3 MG SUBCUT (11:06)
[2025-06-03 11:24] VITALS: BP 112/55; PULSE 55; RESP 17; TEMP 36.6; O2SAT 91
== END 2025-06-03 23:59 | disposition home or self-care (01) ==
PROVIDERS: Nurse Practitioner; PCP Family Medicine; Visit Provider Internal Medicine Medical Oncology
DX: Z51.11 Encounter for antineoplastic chemotherapy; Z51.12 Encounter for antineoplastic immunotherapy; C90.00 Multiple myeloma not having achieved remission; F17.290 Nicotine dependence, other tobacco product, uncomplicated; N28.89 Other specified disorders of kidney and ureter; R03.0 Elevated blood-pressure reading, without diagnosis of hypertension; R11.0 Nausea; N28.1 Cyst of kidney, acquired; I71.40 Abdominal aortic aneurysm, without rupture, unspecified; Z79.899 Other long term (current) drug therapy; Z79.52 Long term (current) use of systemic steroids; Z53.9 Procedure and treatment not carried out, unspecified reason
CPT/HCPCS: 80053; 84443; 85025; 96365; 96402; 99215; J3489; J9041; J9144; J9999; Q0162

== ENCOUNTER 2025-06-12 12:30 | Oncology outpatient (recurring) (ONCR) | payer MEDICARE, SELFPAY ==
[2025-06-10 09:58] LABS: Hematocrit 33.8 % (37-53); Hemoglobin 11.50 g/dL (11.27-16.99); Mean Corpuscular HGB Conc 34.0 g/dL (30-55); Mean Corpuscular Hemoglobin 32.8 pg (27-33); Mean Corpuscular Volume 96.3 fl (82-101); Nucleated Red Blood Cells % 0 %; Platelet Count 189 10^3/cmm (157-399); Red Blood Count 3.51 10^6/uL (3.85-5.65); White Blood Count 9.20 10^3/uL (3.29-11.43)
[2025-06-10 10:24] LABS: Alanine Aminotransferase 20 U/L (0-41); Albumin Level 2.9 g/dL (3.5-5.2); Alkaline Phosphatase 65 U/L (40-130); Anion Gap 16.3 (5-19); Aspartate Amino Transferase 19 U/L (0-40); Blood Urea Nitrogen 55 mg/dL (8-23); Calcium 7.8 mg/dL (8.5-10.5); Carbon Dioxide 17 mmol/L (22-29); Chloride 98 mmol/L (98-107); Globulin 7.3 g/dL (1.3-4.6); Glucose 171 mg/dL (65-115); Osmolality Calculated 285 mOsm/kg (285-295); Potassium 3.3 mmol/L (3.5-5.1); Sodium 128 mmol/L (136-145); Thyroid Stimulating Hormone 0.48 uIU/mL (0.27-4.20); Total Protein 10.2 g/dL (6.6-8.7)
[2025-06-10] MEDS: sodium chlor 0.9% + KCl 20 mEq 20 MEQ/1,000 ML BAG 500 MEQ IV (11:17)
[2025-06-10 13:23] VITALS: BP 111/54; PULSE 61; TEMP 36.1; O2SAT 94
[2025-06-11 11:57] VITALS: BP 99/65; PULSE 67; RESP 17; TEMP 36.2; O2SAT 95
[2025-06-11 14:43] VITALS: BP 132/66; PULSE 68; RESP 16; O2SAT 96
[2025-06-12 12:36] VITALS: BP 120/62; PULSE 64; RESP 17; TEMP 36.4; O2SAT 98
[2025-06-12 13:56] LABS: Hematocrit 25.5 % (37-53); Hemoglobin 8.70 g/dL (11.27-16.99); Mean Corpuscular HGB Conc 34.1 g/dL (30-55); Mean Corpuscular Hemoglobin 32.5 pg (27-33); Mean Corpuscular Volume 95.1 fl (82-101); Nucleated Red Blood Cells % 0 %; Platelet Count 153 10^3/cmm (157-399); Red Blood Count 2.68 10^6/uL (3.85-5.65); White Blood Count 9.84 10^3/uL (3.29-11.43)
[2025-06-12 14:14] LABS: Alanine Aminotransferase 22 U/L (0-41); Albumin Level 2.7 g/dL (3.5-5.2); Alkaline Phosphatase 54 U/L (40-130); Anion Gap 19.4 (5-19); Aspartate Amino Transferase 29 U/L (0-40); Calcium 7.8 mg/dL (8.5-10.5); Carbon Dioxide 15 mmol/L (22-29); Chloride 103 mmol/L (98-107); Globulin 5.2 g/dL (1.3-4.6); Glucose 86 mg/dL (65-115); Osmolality Calculated 306 mOsm/kg (285-295); Potassium 4.4 mmol/L (3.5-5.1); Sodium 133 mmol/L (136-145); Total Protein 7.9 g/dL (6.6-8.7)
[2025-06-12] MEDS: ondansetron 2 mg/ML SDV 2 mL 8 MG IVP (14:33)
[2025-06-12 15:23] LABS: Blood Urea Nitrogen 100 mg/dL (8-23)
--- NOTE | 2025-06-12 16:03 | PC.NURSE ---
After infusion of hydration and drawing of labs, patient was taken to the ED with vascular access.
== END 2025-06-12 15:34 ==
PROVIDERS: Nurse Practitioner; PCP Family Medicine; Visit Provider Internal Medicine Medical Oncology
DX: Z53.9 Procedure and treatment not carried out, unspecified reason; C90.00 Multiple myeloma not having achieved remission; Z79.899 Other long term (current) drug therapy
CPT/HCPCS: 36415; 80053; 84443; 85025; 96360; 96365; 96366; 96374; 99214; J2405; J3480; J7030

== ENCOUNTER 2025-06-12 15:35 | Inpatient (IN) | payer MEDICARE, SELFPAY ==
--- OUTSIDE RECORDS SUMMARY | 2024-06-08 04:00 | XMS_ITS ---
Author Organization [facility] Address [address] [place] [address] Care Team Providers Care Wheel Blocker Name Role Phone StefEddie han Primary Care Provider Unavailabl e Migration, Provider Unavailable Unavailable REASON FOR VISIT EMR-[facility] Encounters Encounter Location Date Provider Diagnosis Migrated_Facility 0 0 06/08/2024 Provider Migration Plan Of Treatment Medication Medication Name Sig Start Date Stop Date Notes Tylenol-Codeine #3 300-30 mg oral tablet 1 Tablet Every 12 hours PRN 07/06/2022 08/05/2022 *Reorder from [facility] for eRx and Interaction Alerts* Progress Notes * Cristopher YOO ADOB: [birth year] (74 yo M)Acc No.[id number]:06/08/2024 Patient: Joel ACOSTA Cristopher Haleigh :1950 A ge:73 Y S ex:Male Address:[address] [place] [address], [address] * Refills Stop Tylenol-Codeine #3 300-30 mg oral tablet, 1 Tablet Every 12 hours PRN Subjective: * Chief Complaints: * E MR-Varghese * * Date:
--- OUTSIDE RECORDS SUMMARY | 2024-06-09 04:00 | XMS_ITS ---
Author Organization [facility] Address [address] [place] [address] Care Team Providers Care Manager Quantitative Name Role Phone Eddie Long Primary Care [...] Cristopher YOO ADOB: [birth year] (74 yo M)Acc No.[id number]:06/09/2024 Patient: Cristopher MARQUEZ :1950 A ge:73 Y S ex:Male Address:[address] [place] [address], [address] Subjective: * Chief Complaints: * E MR-Varghese [...]
--- OUTSIDE RECORDS SUMMARY | 2025-06-05 11:00 | XMS_ITS | Encounter Summary ---
Author Organization [facility] Address 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 Plant Operator Name Role Phone Matty Coley MD Primary Care Provider [phone] Reason for Visit * Radiology Services (Routine) - Closed Specialty Diagnoses / Procedures Referred By Contac t Referred To Contact Diagnoses Infrarenal abdominal aortic aneurysm (AAA) without rupture Iliac artery aneurysm, bilateral Procedures AORTA IVC ILIAC DUPLEX LTD AORTA IVC ILIAC DUPLEX [facility] Dawson Bueno, IZZY [address] [facility] [address] [place] [address] Phone: tel: fax: Referral ID Status Reason Start Date Expiration Date Visits Re quested Visits Authorized [id number] Closed 06/03/2024 07/04/2025 1 1 Encounter Details Date Type Department Care Team (Latest Contact Info) Description 06/05/2025 11:00 AM CDT Ancillary Procedure [facility] V[facility] Lab [facility] [address] [facility] [address] [place] [address] Racquel Lee, [facility] [address] [place] [address] Infrarenal abdominal aortic aneurysm (AAA) without rupture; Iliac artery aneurysm, bilateral Social History Tobacco Use Types Packs/Day Years [...] Care Team (Late st Contact Info) Description 06/08/2026 10:00 AM CDT Ancillary Procedure [facility] [place] [address] [place] [address] Kristen Fernandez PA-C [facility] [address] [facility] [address] [place] [address] 06/08/2026 11:00 AM CDT Office Visit [facility] Vascular Surgery [place] [address] [place] [address] Kristen Fernandez PA-C [address] [facility] [address] [place] [address] documented as of this encounter Procedures Procedure Name Priority Date/Time Associated Diagnosis Comments US AORTA IVC ILIAC DUPLEX LTD Routine 06/05/2025 11:43 AM CDT Infrarenal abdominal aortic aneurysm (AAA) without rupture Iliac artery aneurysm, bilateral documented in this encounter Results * US AORTA IVC ILIAC DUPLEX LTD (06/05/2025 11:43 AM CDT) Anatomical Region Laterality Modality Abdomen Ultrasound 06/05/2025 11:1 2 AM CDT Narrative 06/09/2025 9:32 AM CDT [facility] Vascular Lab and Vein Center [facility] [address] [place] [address] Noninvasive Vascular Lab Limited Abdominal Ultrasound Evaluation Patient: Cristopher Freeman Study ID: US AORTA IVC PETER Gender: M : 1950 Age: 74 Room: Height: Weight: BSA: Pt status: Outpatient Study Date: 06/05/2025 Study Time: 11:12:06 AM BSA: Ordering: Dawson Bueno Interpreting:Polo King [employer] Program Analyst: MAIXMILIANO Indications: AAA. Summary Impression: 1. Study demonstrates a known infrarenal abdominal aortic aneurysm. There is known bilateral common iliac artery aneurysms. 2. Study demonstrates 50-75% stenosis, involving the right common iliac artery and the left common iliac artery. 3. Study demonstrates moderate atherosclerosis, involving the right common iliac artery and the left common iliac artery. Study data: Limited abdominal ultrasound evaluation. Duplex scan. Location: Vascular laboratory. Patient status: Outpatient. Study status: Routine. Aorta and systemic arteries: Abdominal aorta: The vessel is well visualized. Arterial flow: - Aorta proximal: Aorta proximal 1.13m/sec 2.38cm 2.17cm - Aorta mid: Aorta mid 1.22m/sec 2.20cm 2.09cm - Aorta distal: Aorta distal 1.76m/sec 4.30cm 4.75cm - Right common iliac proximal: Right common iliac proximal 2.05m/sec 1.97cm 2.02cm - Right common iliac mid: Right common iliac mid 1.56m/sec - Right common iliac distal: Right common iliac distal 2.19m/sec - Left common iliac proximal: Left common iliac proximal 1.41m/sec 1.89cm 2.02cm - Left common iliac mid: Left common iliac mid 2.24m/sec - Left common iliac distal: Left common iliac distal 3.12m/sec [facility] Vascular Lab and Vein Center is accredited with the Intersocietal Commission for the Accreditation of Vascular Laboratories (ICAVL) Prepared and Electronically Authenticated Polo King Confirmed 06/09/2025 09:32 Procedure Note Polo King MD - 06/09/2025 [facility] Vascular Lab and Vein Center [address] [place] [id number] Noninvasive Vascular Lab Limited Abdominal Ultrasound Evaluation Patient: Cristopher Freeman Study ID: US AORTA IVC PETER Gender: M : 1950 Age: 74 Room: Height: Weight: BSA: Pt status: Outpatient Study Date: 06/05/2025 Study Time: 11:12:06 AM BSA: Ordering: aDwson Bueno Interpreting:Polo King Engineering Program Analyst: MAXIMILIANO Indications: AAA. Summary Impression: 1. Study demonstrates a known infrarenal abdominal aortic aneurysm. There is known bilateral common iliac artery aneurysms. 2. Study demonstrates 50-75% stenosis, involving the right common iliacartery and the left common iliac artery. 3. Study demonstrates moderate atherosclerosis, involving the rightcommon iliac artery and the left common iliac artery. Study data: Limited abdominal ultrasound evaluation. Duplex scan. Location: Vascular laboratory. Patient status: Outpatient. Study status: Routine. Aorta and systemic arteries: Abdominal aorta: The vessel is well visualized. Arterial flow: - Aorta proximal: Aorta proximal 1.13m/sec 2.38cm 2.17cm - Aorta mid: Aorta mid 1.22m/sec 2.20cm 2.09cm - Aorta distal: Aorta distal 1.76m/sec 4.30cm 4.75cm - Right common iliac proximal: Right common iliac proximal 2.05m/sec1.97cm 2.02cm - Right common iliac mid: Right common iliac mid 1.56m/sec - Right common iliac distal: Right common iliac distal 2.19m/sec - Left common iliac proximal: Left common iliac proximal 1.41m/sec1.89cm 2.02cm - Left common iliac mid: Left common iliac mid 2.24m/sec - Left common iliac distal: Left common iliac distal 3.12m/sec [facility] Vascular Lab and Vein Center is accredited withthe Intersocietal Commission for the Accreditation of Vascular Laboratories (ICAVL) Prepared and Electronically Authenticated Polo King Confirmed 06/09/2025 09:32 Dawson Bueno NP US ORDERABLES Final Result documented in this encounter Visit Diagnoses Diagnosis Infrarenal abdominal aortic aneurysm (AAA) without rupture Iliac artery aneurysm, bilateral Aneurysm of iliac artery documented in this encounter Care Teams Slime Plant Operator Relationship Specialty Start Date End Date Matty Coley MD [address] [address] PCP - General Family Practice 04/26/23 documented as of this encounter
--- OUTSIDE RECORDS SUMMARY | 2025-06-05 13:45 | XMS_ITS | Encounter Summary ---
Author Organization [facility] Address [address] [place] [phone] Care Team Providers Care Hospital Product Specialist Name Role Phone Matty Coley MD Primary Care Provider [phone] Reason for Referral * Radiology Services (Routine) - Authorized Specialty Diagnoses / Procedures Referred By Contac t Referred To Contact Diagnoses Infrarenal abdominal aortic aneurysm (AAA) without rupture Procedures US AORTA IVC ILIAC DUPLEX COMP Kristen Fernandez PA-C [address] [address] Phone: tel: fax: Referral ID Status Reason Start Date Expiration Date V isits Requested Visits Authorized [id number] Authorized 06/05/2025 07/06/2026 1 1 Reason for Visit * Reason Comments Follow Up Encounter Details Date Type Department Care Team (Late st Contact Info) Description 06/05/2025 1:45 PM CDT Office Visit [facility] V[facility] Surgery [place] [address] [place] [address] Racquel Lee, [facility] [address] [place] [address] Kristen Fernandez PA-C [address] [facility] [address] [place] [address] Infrarenal abdominal aortic aneurysm (AAA) without rupture (Primary Dx); Familial hypercholesterolemia , unspecified type; History of tobacco abuse Social History Tobacco Use Types Packs/Day Years Used Date Smoking Tobacco: Former Cigarettes 0 03/20/2013 - 09/26/1962 Sex and Gender Information Value Date Recorded Sex Assigned at Not on file Legal Sex Male 1:31 PM CDT Gender Identity Not on file Sexual Orientation Not on file documented as of this encounter Last Filed Vital Signs Vital Sign Reading Time Taken Comments Blood Pressure 110/62 06/05/2025 1:27 PM CDT Pulse 86 06/05/2025 1:27 PM CDT Temperature - - Respiratory Rate - - Oxygen Saturation 92% 06/05/2025 1:27 PM CDT Inhaled Oxygen Concentration - - Weight 68.9 kg (151 lb 12.8 oz) 06/05/2025 1:27 PM CDT Height 172.7 cm (5' 8 ) 06/05/2025 1:27 PM CDT Body Mass Index 23.08 06/05/2025 1:27 PM CDT documented in this encounter Progress Notes * Kristen Fernandez PA-C - 06/05/2025 1:42 PM CDT Images from the original note were not included. VASCULAR & ENDOVASCULAR SURGERY [place], [place] CLINIC NOTE PATIENT NAME: Cristopher Freeman Jr. : 1950; AGE: 74 y.o.; SEX: M PRIMARY CARE: Matty Coley MD REFERRING PHYSICIAN: Racquel Lee* HISTORY OF PRESENT ILLNESS: Cristopher Freeman Jr. is a 74 y.o. male who presents for follow up on his AAA. He denies any abdominal or back pain. He states he was recently diagnosed with multiple myeloma and is getting treatment for this. He is still on his aspirin and statin. He has good blood pressure control with his systolic below 125 most days. He does occasionally use nicotine. FUNCTIONAL STATUS: Independently ambulatory without assistance. PAST MEDICAL HISTORY: No past medical history on file. PAST SURGICAL HISTORY: Past Surgical History: Procedure Laterality Date HX CATARACT REMOVAL Bilateral FAMILY HISTORY: No family history on file. CURRENT MEDICATIONS: Current Outpatient Medications on File Prior to Visit Medication Sig Dispense Refill tbvyboxdcsu-nzzoldhsjtib-fxjlmqgulw (TRELEGY ELLIPTA) 100-62.5-25 mcg Disk with Device daily. benazepriL (LOTENSIN) 20 mg tablet Take 1 Tablet by mouth 2 times daily. diltiaZEM (CARDIZEM CD) 240 mg Controlled Delivery 24 hour capsule Take 240 mg by mouth daily. sertraline (ZOLOFT) 100 mg tablet Take 1 Tablet by mouth daily. hydroCHLOROthiazide 25 mg tablet Take 25 mg by mouth daily. roflumilast (DALIRESP) 500 mcg Tablet Take 1 Tablet by mouth daily. rosuvastatin (CRESTOR) 40 mg tablet Take 1 Tablet by mouth daily at bedtime. albuterol sulfate HFA 90 mcg/actuation aerosol inhaler INHALE 2 PUFFS BY MOUTH EVERY 6 HOURS NEEDED oxyCODONE-acetaminophen (PERCOCET) 5-325 mg tablet TAKE 1-2 TABLETS BY MOUTH EVERY 8 HOURS NEEDED FOR MODERATE TO SEVERE PAIN antiox #8/om3/dha/epa/lut/zeax (PRESERVISION AREDS 2, OMEGA-3, ORAL) Take by mouth. xypsyzgwabvkg-ghusfnle-kkskmy (CENTRUM SILVER) Tablet Take by mouth daily. ascorbic acid (VITAMIN C) 500 mg Tablet, Chewable Take 500 mg by mouth. vitamin B complex Tablet Sustained Release Take 1 Tablet by mouth daily. aspirin (ECOTRIN EC) 81 mg Tablet, Delayed Release (E.C.) Take 81 mg by mouth daily. CALCIUM CARBONATE-VITAMIN D3 ORAL Take by mouth. No current facility-administered medications on file prior to visit. ALLERGIES: Allergies Allergen Reactions Penicillins Other (See Comments) and Dizziness SOCIAL HISTORY: Social History Socioeconomic History Marital status: Spouse name: Not on file Number of children: Not on file Years of education: Not on file Highest education level: Not on file Occupational History Not on file Tobacco Use Smoking status: Former Types: Cigarettes Start date: 03/20/2013 Quit date: 09/26/1962 Years since quittin.7 Smokeless tobacco: Not on file Vaping Use Vaping status: Every Day Start date: 03/20/2013 Substance and Sexual Activity Alcohol use: Not on file Drug use: Not on file Sexual activity: Not on file Other Topics Concern Not on file Social History Narrative Not on file Health-Related Social Needs Food Insecurity: Not on file Transportation Needs: Not on file Domestic Concerns: Not on file Housing Stability: Not on file REVIEW OF SYSTEMS: A complete review of systems was obtained, & negative except for those mentioned in the HPI above PHYSICAL EXAM Blood pressure 110/62, pulse 86, height 5' 8 (1.727 m), weight 68.9 kg (151 lb 12.8 oz), SpO2 92%. General: Awake, alert, appropriate with exam. Communicates effectively. HENT: Trachea midline Pulm: non labored respirations, room air Abdomen: Soft, non-tender Extremities: No deformities, ulcers or induration. Neurologic: Alert and oriented without gross focal deficit Psychiatric: Normal mood and affect. IMAGING & DIAGNOSTIC EVALUATION: I personally reviewed & assessed the imaging & vascular lab studies relevant to today's visit for this patient. Aortic aneurysm at its largest diameter is 4.9cm. There are some mildly elevated velocities in the 200s in the right common iliac. No occlusive disease. ASSESSMENT & PLAN: Infrarenal abdominal aortic aneurysm (AAA) without rupture (Primary) Will get aortic US in 1 year with follow up in clinic at that time. If he has any back or abdominal pain he is to go to the nearest ER for evaluation. - US AORTA IVC ILIAC DUPLEX COMP; Future Familial hypercholesterolemia, unspecified type Avoid saturated fat. History of tobacco abuse Highly recommend you quit nicotine. Red flags discussed with the patient and should these arise he is to go to the nearest ER immediately for evaluation. All questions answered at this time and patient verbalizes understanding. Contact the office if you have any questions or concerns. Kristen Fernandez PA-C Vascular & Endovascular Surgery [facility] documented in this encounter Plan of Treatment Upcoming Encounters Date Type Department Care Team (Late st Contact Info) Description 06/08/2026 10:00 AM CDT Ancillary Procedure [facility] V[facility] Lab [facility] Vein [facility]- [place] [address] [place] [address] Kristen Fernandez PA-C [address] [place] [address] 06/08/2026 11:00 AM CDT Office Visit [facility] [place] [address] [place] [address] Kristen Fernandez PA-C [address] [place] [address] Scheduled Orders Name Type Priority Associated Diagnoses Orde r Schedule US AORTA IVC ILIAC DUPLEX COMP Imaging Routine Infrarenal abdominal aortic aneurysm (AAA) without rupture Expected: 06/08/2026, Expires: 09/06/2026 documented as of this encounter Visit Diagnoses Diagnosis Infrarenal abdominal aortic aneurysm (AAA) without rupture- Primary Familial hypercholesterolemia, unspecified type History of tobacco abuse Personal history of tobacco use, presenting hazards to health documented in this encounter Care Teams Hospital Product Specialist Relationship Specialty Start Date End Date Matty Coley MD [address] [id number] PCP - General Family Practice 04/26/23 documented as of this encounter
--- OUTSIDE RECORDS SUMMARY | 2025-06-12 15:41 | XMS_ITS | Data Portability ---
Author Organization DAREK Randhawa [facility] Address [address] [address] Care Team Providers Care Plasma Table Operator Name Role Phone CATARINO COLEY Primary Care Provider Assessment Encounter Date Assessment Date Assessment LastModified by Organization Details LastModified Time 04/16/2025 04/16/2025 I did my very best to unpack what MGUS vs Multiple Myeloma and similar diseases are. We discussed the clues that lead to this diagnosis and what they do and don't mean. Thankfully, Colby is able to follow and internalize complex information very well. We discussed how and where these proteins are made, why they are abnormal, how we reached the diagnosis of monoclonal vs polyclonal gammopathy and how they differ, what that does and doesn't mean at this point, what the dangers are, and how and why further evaluation should be undertaken. We did all of this in layman's terms. Colby was able to follow and understand all of these points quite well and assured me he had all of his questions answered today to his satisfaction. He is in agreement with referral to hematology to consider bone marrow biopsy. he is assured he can call me anytime if a question concern or problem arises. he has new rib pain bilateral and even though he had a ct chest 6 months ago, he and i feel this warrants repeat to make sure there is not a plasmacytoma casing this bone pain. cr did bump slightly from 1 to 1.2 i am unsure if that is entirely significant but explained how these proteins could clog the filter of the kidny so to speak and cause kidney damage. calcium is normal. he does have a weight loss he attributes to much healthier diet, but this could be a symptom as well. [email or web address] Not available 04/16/2025 15:14:33 05/12/2025 05/12/2025 will work to get him set up for treatment for bone stabilization. calcium is still normal, creatinine is stable. increase fluids as discussed. [email or web address] Not available 05/12/2025 12:14:08 Plan of Treatment Reminders Order Date Submit Date Provider Last Modified By Organization Details Last Modified Time Details Appointments None recorded. Lab protein electrophor esis panel, serum or plasma 2024 025 [employer] [facility], [address] [facility], [place], [address], 12:06:52 CMP, serum or plasma 2024 025 [facility], [address], [address], [place], [address], 13:11:19 CBC 2024 025 [facility], [address], [address], [place], [address], 09:22:49 unlisted lab - peripheral blood smear review 2024 025 [employer] [facility], [address], [address], [place], [address], 13:48:29 retic count, blood 2024 025 [employer] [facility], [address], [address], [place], [address], 12:06:54 vitamin B12, serum 2024 025 [employer] [facility], [address] [place] [address] [address], [address], [place], [address], 08/20/202 5 12:06:56 folate, serum 2024 025 [employer] [facility], [address], [address], [place], [address], 5 12:06:55 iron + TIBC + ferritin, serum 2024 025 [employer] [facility] [facility], [address] [place] [address] [address], [address], [place], [address], 12:06:51 unlisted lab - JAZZ scr, ifa, w/refl titer/patte rn/sjogren' s panel 2 2024 025 [employer] [facility], [address], [address], [place], [address], 5 12:06:53 hemoglobin A1C/hemoglo bin total, QN, blood 2024 025 [facility], [address], [address], [place], [address], 10:44:22 CMP, serum or plasma 2024 025 GARY [facility], [address], [address], [place], [address], 5 10:47:45 CBC 2024 025 GARY [facility], [address], [address], [place], [address], 5 10:44:04 lipid panel, blood 2024 025 [facility], [address], [address], [place], [address], 5 10:47:47 Referral hematologis t/oncologis t referral 2024 025 [email or web address] Shamar Osman MD, [address] [place], [address], 11:22:19 Procedures None recorded. Surgeries None recorded. Imaging CT, chest, w/o contrast 2024 025 [email or web address] 8 [facility], [address] [place], [address], 17:29:56 LDCT, chest, for lung cancer screening 2024 025 [facility] Orders, [address] [place], [address], 08:22:59 Medication Orders oxycodone 10 mg tablet 2024 025 [id number], [address], [address], [place], [address], 12:11:59 Patient TargetsNo targets recorded. Patient InstructionsNo instructions recorded. Reason for Referral Referring Physician: Catarino hanson, Family Medicine, Encounter Date: 04/16/2025 Results Created Date Observation Date Name Description Value Unit Range Abnormal Flag Note LastModifiedBy Organization Detail LastModifiedTime 09/23/1909/23/2024 HBA1C hemaglobin A1C 6.2 4.2-6. 5 Not Available [facility] [address], [place], [address], 09/23/2024 09:05:51 09/23/1909/23/2024 CMP (MALE ) glucose 107.0 mg/dL 60.0-9 9.0 high Not Available [facility] [address], [place], [address], 09/23/2024 09:23:21 09/23/19 25 09/23/2024 CMP (MALE ) BUN (blood urea nitrogen) 22.0 mg/dL 10.0-2 6.0 Not Available [facility] [address] [facility] 1, [place], [address], 09/23/2024 09:23:21 09/23/19 25 09/23/2024 CMP (MALE ) creatinine (serum) 1.0 mg/dL 0.4-1. 5 Not Available [facility] [address] [facility] [address] [facility] [facility] 1, [place], [address], 09/23/2024 09:23:21 09/23/19 25 09/23/2024 CMP (MALE ) BUN/creatini ne ratio 22.00 ratio Not Available [facility] [address] [facility], [place], [address], 09/23/2024 09:23:21 09/23/19 25 09/23/2024 CMP (MALE ) eGFR calculated 77.4 Not Available [facility] [address] [facility], [place], [address], 09/23/2024 09:23:21 09/23/19 25 09/23/2024 CMP (MALE ) total protein 8.4 g/dL 6.0-8. 5 Not Available [facility] [address] [facility] 1, [place], [address], 09/23/2024 09:23:21 09/23/19 25 09/23/2024 CMP (MALE ) total bilirubin 0.4 mg/dL 0.2-1. 3 Not Available [facility] [address] [facility], [place], [address], 09/23/2024 09:23:21 09/23/19 25 09/23/2024 CMP (MALE ) albumin 4.3 g/dL 3.5-5. 5 Not Available [facility] [address] [facility], [place], [address], 09/23/2024 09:23:21 09/23/19 25 09/23/2024 CMP (MALE ) globulin 4.1 calc Not Available [facility] [address] [facility], [place], [address], 09/23/2024 09:23:21 09/23/19 25 09/23/2024 CMP (MALE ) AST (SGOT) 24.0 U/L 0.0-46 .0 Not Available [facility] [address] [facility], [place], [address], 09/23/2024 09:23:21 09/23/19 25 09/23/2024 CMP (MALE ) altv (SGPT) 22.0 U/L 13.0-6 9.0 normal Not Available [facility] [address] [facility], [place], [address], 09/23/2024 09:23:21 09/23/19 25 09/23/2024 CMP (MALE ) A/G ratio 1.0 ratio Not Available [facility] [address] [facility], [place], [address], 09/23/2024 09:23:21 09/23/19 25 09/23/2024 CMP (MALE ) ALP phos 53.0 U/L 30.0-1 40.0 normal Not Available [facility] [address] [facility] 1, [place], [address], 09/23/2024 09:23:21 09/23/19 25 09/23/2024 CMP (MALE ) calcium 9.3 mg/dL 8.4-10 .5 Not Available [facility] [address] [facility], [place], [address], 09/23/2024 09:23:21 09/23/19 25 09/23/2024 CMP (MALE ) sodium 142.0 mmol/ L 136.0- 145.0 Not Available [facility] [address] [facility], [place], [address], 09/23/2024 09:23:21 09/23/19 25 09/23/2024 CMP (MALE ) potassium 4.2 mmol/ L 3.5-5. 1 Not Available [facility] [address] [facility], [place], [address], 09/23/2024 09:23:21 09/23/19 25 09/23/2024 CMP (MALE ) chloride 105.0 mmol/ L 98.0-1 10.0 normal Not Available [facility] [address] [facility] 1, [place], [address], 09/23/2024 09:23:21 09/23/19 25 09/23/2024 CMP (MALE ) C02 28.0 mmol/ L 22.0-3 1.0 Not Available [facility] [address] [facility] 1, [place], [address], 09/23/2024 09:23:21 09/23/19 25 09/23/2024 CMP (MALE ) anion gap 9.0 calc Not Available [facility] [address] [facility] 1, [place], [address], 09/23/2024 09:23:21 09/23/19 25 09/23/2024 CMP (MALE ) osmolality 296.7 calc Not Available [facility] [address] [facility] 1, [place], [address], 09/23/2024 09:23:21 09/23/19 25 09/23/2024 CBC WBC 9.3 x10 4.5-10 .5 Not Available [facility] [address] [facility] 1, [place], [address], 09/23/2024 09:36:13 09/23/19 25 09/23/2024 CBC RBC 4.41 x10 4.30-5 .90 Not Available [facility] [address], [place], [address], 09/23/2024 09:36:13 09/23/19 25 09/23/2024 CBC HGB 14.1 g/dL 13.5-1 8.0 Not Available [facility] [address] [facility] 1, [place], [address], 09/23/2024 09:36:13 09/23/1909/23/2024 CBC HCT 41.6 % 35.0-6 0.0 Not Available [facility] [address] [facility] 1, [place], [address], 09/23/2024 09:36:13 09/23/19 25 09/23/2024 CBC MCV 94.4 fL 80.0-9 9.9 Not Available [facility] [address] [facility] 1, [place], [address], 09/23/2024 09:36:13 09/23/19 25 09/23/2024 CBC MCH 32.1 pg 27.0-3 2.0 high Not Available [facility] [address] [facility] 1, [place], [address], 09/23/2024 09:36:13 09/23/19 25 09/23/2024 CBC MCHC 34.0 g/dL 32.0-3 6.0 Not Available [facility] [address] [facility] 1, [place], [address], 09/23/2024 09:36:13 09/23/19 25 09/23/2024 CBC RDW 13.3 % 11.5-1 4.5 Not Available [facility] [address] [facility] 1, [place], [address], 09/23/2024 09:36:13 09/23/1909/23/2024 CBC plt 211.0 x10 150.0- 451.0 Not Available [facility] [address] [facility] 1, [place], [address], 09/23/2024 09:36:13 09/23/19 25 09/23/2024 CBC lymphocytes % 32.2 % 20.0-5 0.0 Not Available [facility] [address] [facility] 1, [place], [address], 09/23/2024 09:36:13 09/23/19 25 09/23/2024 CBC granulcytes % 52.3 % 30.0-7 0.0 Not Available [facility] [address] [facility] 1, [place], [address], 09/23/2024 09:36:13 09/23/19 25 09/23/2024 CBC monocytes % 9.9 % 2.0-16 .0 Not Available [facility] [address] [facility] 1, [place], [address], 09/23/2024 09:36:13 09/23/19 25 09/23/2024 CBC granulcytes# 4.9 x10 Not Mirtha ilable [facility] [address] [address], [place], [address], 09/23/2024 09:36:13 09/23/1909/23/2024 CBC lymphocytes # 3.0 x10 Not Available [facility] [address] [facility] 1, [place], [address], 09/23/2024 09:36:13 09/23/19 25 09/23/2024 CBC monocytes # 0.9 x10 Not Avai lable [facility] [address], [place], [address], 09/23/2024 09:36:13 09/23/1909/24/2024 DIREC T LDL direct LDL 82 mg/dL <100 normal Pop able range <100 mg/dL for prima ry preve ntion ; <70 mg/dL for patie nts with CHD or diabe tic patie nts with > or = 2 CHD risk facto rs. Not Available [employer] [facility] [address], [place], [address], 09/24/2024 05:20:11 03/24/2003/24/2025 CBC WBC 7.0 x10 4.5-10 .5 Not Available [facility] [address] [facility] [address], [place], [address], 03/24/2025 10:44:04 03/24/20 25 03/24/2025 CBC RBC 3.97 x10 4.30-5 .90 low Not Available [facility] [address], [place], [address], 03/24/2025 10:44:04 03/24/20 25 03/24/2025 CBC HGB 13.0 g/dL 13.5-1 8.0 low Not Available [facility] [address] [facility] [address], [place], [address], 03/24/2025 10:44:04 03/24/20 25 03/24/2025 CBC HCT 39.5 % 35.0-6 0.0 Not Available [facility] [address] [facility] [address], [place], [address], 03/24/2025 10:44:04 03/24/20 25 03/24/2025 CBC MCV 99.5 fL 80.0-9 9.9 Not Available [facility] [address], [place], [address], 03/24/2025 10:44:04 03/24/20 25 03/24/2025 CBC MCH 32.7 pg 27.0-3 2.0 high Not Available [facility] [address] [facility] 1, [place], [address], 03/24/2025 10:44:04 03/24/20 25 03/24/2025 CBC MCHC 32.8 g/dL 32.0-3 6.0 Not Available [facility] [address] [facility] 1, [place], [address], 03/24/2025 10:44:04 03/24/20 25 03/24/2025 CBC RDW 12.9 % 11.5-1 4.5 Not Available [facility] [address] [facility] 1, [place], [address], 03/24/2025 10:44:04 03/24/20 25 03/24/2025 CBC plt 206.8 x10 150.0- 451.0 Not Available [facility] [address] [facility] 1, [place], [address], 03/24/2025 10:44:04 03/24/20 25 03/24/2025 CBC lymphocytes % 38.5 % 20.0-5 0.0 Not Available [facility] [address] [facility] 1, [place], [address], 03/24/2025 10:44:04 03/24/20 25 03/24/2025 CBC granulcytes % 45.5 % 30.0-7 0.0 Not Available [facility] [address] [facility] 1, [place], [address], 03/24/2025 10:44:04 03/24/20 25 03/24/2025 CBC monocytes % 10.7 % 2.0-16 .0 Not Available [facility] [address] [facility] [address] [facility] 1, [place], [address], 03/24/2025 10:44:04 03/24/20 25 03/24/2025 CBC granulcytes# 3.2 x10 Not [facility]tha [facility] [address] [facility] [address] [facility] 1, [place], [address], 03/24/2025 10:44:04 03/24/20 25 03/24/2025 CBC lymphocytes # 2.7 x10 Not Available [facility] [address] [facility] 1, [place], [address], 03/24/2025 10:44:04 03/24/20 25 03/24/2025 CBC monocytes # 0.7 x10 Not Avai lable [facility] [address] [facility], [place], [address], 03/24/2025 10:44:04 03/24/20 25 03/24/2025 HBA1C hemaglobin A1C 6.2 4.2-6. 5 Not Available [facility] [address] [facility] 1, [place], [address], 03/24/2025 10:44:22 03/24/20 25 03/24/2025 CMP (MALE ) glucose 111.0 mg/dL 60.0-9 9.0 high Not Available [facility] [address] [facility] 1, [place], [address], 03/24/2025 10:47:45 03/24/20 25 03/24/2025 CMP (MALE ) BUN (blood urea nitrogen) 20.0 mg/dL 10.0-2 6.0 Not Available [facility] [address] [facility] 1, [place], [address], 03/24/2025 10:47:45 03/24/20 25 03/24/2025 CMP (MALE ) creatinine (serum) 1.2 mg/dL 0.4-1. 5 Not Available [facility] [address] [facility] 1, [place], [address], 03/24/2025 10:47:45 03/24/20 25 03/24/2025 CMP (MALE ) BUN/creatini ne ratio 16.67 ratio Not Available [facility] [address] [facility] [address] [facility] 1, [place], [address], 03/24/2025 10:47:45 03/24/20 25 03/24/2025 CMP (MALE ) eGFR calculated 62.7 Not Available [facility] [address] [facility], [place], [address], 03/24/2025 10:47:45 03/24/20 25 03/24/2025 CMP (MALE ) total protein 10.0 g/dL 6.0-8. 5 high Not Available [facility] [address] [facility] [address] [facility] 1, [place], [address], 03/24/2025 10:47:45 03/24/20 25 03/24/2025 CMP (MALE ) total bilirubin 0.5 mg/dL 0.2-1. 3 Not Available [facility] [address] [facility], [place], [address], 03/24/2025 10:47:45 03/24/20 25 03/24/2025 CMP (MALE ) albumin 3.9 g/dL 3.5-5. 5 Not Available [facility] [address] [facility] 1, [place], [address], 03/24/2025 10:47:45 03/24/20 25 03/24/2025 CMP (MALE ) globulin 6.1 calc Not Available [facility] [address] [facility], [place], [address], 03/24/2025 10:47:45 03/24/20 25 03/24/2025 CMP (MALE ) AST (SGOT) 26.0 U/L 0.0-46 .0 Not Available [facility] [address] [facility] 1, [place], [address], 03/24/2025 10:47:45 03/24/20 25 03/24/2025 CMP (MALE ) altv (SGPT) 16.0 U/L 13.0-6 9.0 normal Not Available [facility] [address] [facility] 1, [place], [address], 03/24/2025 10:47:45 03/24/20 25 03/24/2025 CMP (MALE ) A/G ratio 0.6 ratio Not Available [facility] [address] [facility] 1, [place], [address], 03/24/2025 10:47:45 03/24/20 25 03/24/2025 CMP (MALE ) ALP phos 62.0 U/L 30.0-1 40.0 normal Not Available [facility] [address] [facility] 1, [place], [address], 03/24/2025 10:47:45 03/24/20 25 03/24/2025 CMP (MALE ) calcium 9.1 mg/dL 8.4-10 .5 Not Available [facility] [address] [facility] 1, [place], [address], 03/24/2025 10:47:45 03/24/20 25 03/24/2025 CMP (MALE ) sodium 142.0 mmol/ L 136.0- 145.0 Not Available [facility] [address] [facility] 1, [place], [address], 03/24/2025 10:47:45 03/24/20 25 03/24/2025 CMP (MALE ) potassium 4.5 mmol/ L 3.5-5. 1 Not Available [facility] [address] [facility] 1, [place], [address], 03/24/2025 10:47:45 03/24/20 25 03/24/2025 CMP (MALE ) chloride 108.0 mmol/ L 98.0-1 10.0 normal Not Available [facility] [address] [facility] 1, [place], [address], 03/24/2025 10:47:45 03/24/20 25 03/24/2025 CMP (MALE ) C02 27.0 mmol/ L 22.0-3 1.0 Not Available [facility] [address] [facility], [place], [address], 03/24/2025 10:47:45 03/24/20 25 03/24/2025 CMP (MALE ) anion gap 7.0 calc Not Available [facility] [address] [facility], [place], [address], 03/24/2025 10:47:45 03/24/20 25 03/24/2025 CMP (MALE ) osmolality 296.2 calc Not Available [facility] [address] [facility], [place], [address], 03/24/2025 10:47:45 03/24/20 25 03/24/2025 LIPID PROFI LE (MALE ) cholesterol 129.0 mg/dL 0.0-20 0.0 Not Available [facility] [address] [facility] 1, [place], [address], 03/24/2025 10:47:47 03/24/20 25 03/24/2025 LIPID PROFI LE (MALE ) trig 139.0 mg/dL 0.0-15 0.0 Not Available [facility] [address] [facility] 1, [place], [address], 03/24/2025 10:47:47 03/24/20 25 03/24/2025 LIPID PROFI LE (MALE ) HDL - direct 39.0 mg/dL >40.0 low Not Available [facility] [address] [facility] 1, [place], [address], 03/24/2025 10:47:47 03/24/20 25 03/24/2025 LIPID PROFI LE (MALE ) VLDL - direct 27.8 mg/dL Not Available [facility] [address] [facility] 1, [place], [address], 03/24/2025 10:47:47 03/24/20 25 03/24/2025 LIPID PROFI LE (MALE ) LDL - direct 62.2 mg/dL 0.0-13 0.0 Not Available [facility] [address] [facility] 1, [place], [address], 03/24/2025 10:47:47 03/26/20 25 03/26/2025 CBC WBC 7.2 x10 4.5-10 .5 Not Available [facility] [address] [facility] 1, [place], [address], 03/26/2025 09:22:49 03/26/2003/26/2025 CBC RBC 4.19 x10 4.30-5 .90 low Not Available [facility] [address] [facility] 1, [place], [address], 03/26/2025 09:22:49 03/26/20 25 03/26/2025 CBC HGB 13.4 g/dL 13.5-1 8.0 low Not Available [facility] [address] [facility] 1, [place], [address], 03/26/2025 09:22:49 03/26/20 03/26/2025 CBC HCT 41.1 % 35.0-6 0.0 Not Available [facility] [address], [place], [address], 03/26/2025 09:22:49 03/26/2003/26/2025 CBC MCV 98.2 fL 80.0-9 9.9 Not Available [facility] [address], [place], [address], 03/26/2025 09:22:49 03/26/2003/26/2025 CBC MCH 31.9 pg 27.0-3 2.0 Not Available [facility] [address], [place], [address], 03/26/2025 09:22:49 03/26/2003/26/2025 CBC MCHC 32.5 g/dL 32.0-3 6.0 Not Available [facility] [address], [place], [address], 03/26/2025 09:22:49 03/26/2003/26/2025 CBC RDW 13.0 % 11.5-1 4.5 Not Available [facility] [address] [facility] [address], [place], [address], 03/26/2025 09:22:49 03/26/2003/26/2025 CBC plt 231.6 x10 150.0- 451.0 Not Available [facility] [address] [facility] [address], [place], [address], 03/26/2025 09:22:49 03/26/2003/26/2025 CBC lymphocytes % 30.2 % 20.0-5 0.0 Not Available [facility] [address] [facility] [address], [place], [address], 03/26/2025 09:22:49 03/26/2003/26/2025 CBC granulcytes % 55.7 % 30.0-7 0.0 Not Available [facility] [address] [facility] 1, [place], [address], 03/26/2025 09:22:49 03/26/20 25 03/26/2025 CBC monocytes % 9.3 % 2.0-16 .0 Not Available [facility] [address] [facility] 1, [place], [address], 03/26/2025 09:22:49 03/26/2003/26/2025 CBC granulcytes# 4.0 x10 Not Mirtha ilable [facility] [address] [facility], [place], [address], 03/26/2025 09:22:49 03/26/2003/26/2025 CBC lymphocytes # 2.2 x10 Not Available [facility] [address] [facility] 1, [place], [address], 03/26/2025 09:22:49 03/26/2003/26/2025 CBC monocytes # 0.7 x10 Not Avai lable [facility] [address] [facility], [place], [address], 03/26/2025 09:22:49 03/26/2003/27/2025 CMP (MALE ) glucose 111.0 mg/dL 60.0-9 9.0 high Not Available [facility] [address] [facility] 1, [place], [address], 03/27/2025 13:11:19 03/26/2003/27/2025 CMP (MALE ) BUN (blood urea nitrogen) 20.0 mg/dL 10.0-2 6.0 Not Available [facility] [address] [facility] 1, [place], [address], 03/27/2025 13:11:19 03/26/20 25 03/27/2025 CMP (MALE ) creatinine (serum) 1.2 mg/dL 0.4-1. 5 Not Available [facility] [address] [facility], [place], [address], 03/27/2025 13:11:19 03/26/20 25 03/27/2025 CMP (MALE ) BUN/creatini ne ratio 16.67 ratio Not Available [facility] [address] [facility], [place], [address], 03/27/2025 13:11:19 03/26/20 25 03/27/2025 CMP (MALE ) eGFR calculated 62.7 Not Available [facility] [address] [facility], [place], [address], 03/27/2025 13:11:19 03/26/20 25 03/27/2025 CMP (MALE ) total protein 10.7 g/dL 6.0-8. 5 high Not Available [facility] [address] [facility], [place], [address], 03/27/2025 13:11:19 03/26/20 25 03/27/2025 CMP (MALE ) total bilirubin 0.6 mg/dL 0.2-1. 3 Not Available [facility] [address] [facility], [place], [address], 03/27/2025 13:11:19 03/26/20 25 03/27/2025 CMP (MALE ) albumin 4.2 g/dL 3.5-5. 5 Not Available [facility] [address] [facility], [place], [address], 03/27/2025 13:11:19 03/26/20 25 03/27/2025 CMP (MALE ) globulin 6.5 calc Not Available [facility] [address] [facility], [place], [address], 03/27/2025 13:11:19 03/26/2003/27/2025 CMP (MALE ) AST (SGOT) 20.0 U/L 0.0-46 .0 Not Available [facility] [address] [facility] 1, [place], [address], 03/27/2025 13:11:19 03/26/2003/27/2025 CMP (MALE ) altv (SGPT) 15.0 U/L 13.0-6 9.0 normal Not Available [facility] [address] [facility], [place], [address], 03/27/2025 13:11:19 03/26/2003/27/2025 CMP (MALE ) A/G ratio 0.6 ratio Not Available [facility] [address] [facility] 1, [place], [address], 03/27/2025 13:11:19 03/26/2003/27/2025 CMP (MALE ) ALP phos 60.0 U/L 30.0-1 40.0 normal Not Available [facility] [address] [facility] 1, [place], [address], 03/27/2025 13:11:19 03/26/2003/27/2025 CMP (MALE ) calcium 8.9 mg/dL 8.4-10 .5 Not Available [facility] [address] [facility] 1, [place], [address], 03/27/2025 13:11:19 03/26/2003/27/2025 CMP (MALE ) sodium 143.0 mmol/ L 136.0- 145.0 Not Available [facility] [address] [facility] 1, [place], [address], 03/27/2025 13:11:19 03/26/20 25 03/27/2025 CMP (MALE ) potassium 3.8 mmol/ L 3.5-5. 1 Not Available [facility] [address] [facility] 1, [place], [address], 03/27/2025 13:11:19 03/26/20 25 03/27/2025 CMP (MALE ) chloride 106.0 mmol/ L 98.0-1 10.0 normal Not Available [facility] [address] [facility] 1, [place], [address], 03/27/2025 13:11:19 03/26/2003/27/2025 CMP (MALE ) C02 25.0 mmol/ L 22.0-3 1.0 Not Available [facility] [address] [facility] 1, [place], [address], 03/27/2025 13:11:19 03/26/2003/27/2025 CMP (MALE ) anion gap 12.0 calc Not Available [facility] [address] [facility] 1, [place], [address], 03/27/2025 13:11:19 03/26/2003/27/2025 CMP (MALE ) osmolality 298.2 calc Not Available [facility] [address] [facility] 1, [place], [address], 03/27/2025 13:11:19 03/26/2003/27/2025 PERIP HERAL BLOOD SMEAR REVIE W peripheral blood smear review Revie w of perip heral smear confi chaim autom ated resul ts. Revie w of the perip heral smear revea ls adequ ate numbe rs of plate lets. RBC morph ology appea rs josselyn l. Not Available [employer] [facility] [address], [place], [address], 03/27/2025 13:48:28 03/26/20 25 04/02/2025 IRON, TIBC AND JOSE TIN PANEL iron, total 126 mcg/d L 50-180 normal Not Available [address], [address], 04/02/2025 12:06:51 03/26/20 25 04/02/2025 IRON, TIBC AND JOSE TIN PANEL iron binding capacity 370 mcg/d L_(ca lc) 250-42 5 normal Not Available [address], [address], 04/02/2025 12:06:51 03/26/2004/02/2025 IRON, TIBC AND JOSE TIN PANEL % saturation 34 %_(ca lc) 20-48 normal Not Available [address], [address], 04/02/2025 12:06:51 03/26/20 25 04/02/2025 IRON, TIBC AND JOSE TIN PANEL ferritin 55 NG/mL 24-380 normal Not Available [address], [address], 04/02/2025 12:06:51 03/26/20 25 04/02/2025 PROTE IN, TOTAL AND PROTE IN ELECT ROPHO RESIS W/ REFL SÁNCHEZ protein, total 11.3 g/dL 6.1-8. 1 high Verif ied by repea t casa sis. Not Available [address], [address], 04/02/2025 12:06:52 03/26/2004/02/2025 PROTE IN, TOTAL AND PROTE IN ELECT ROPHO RESIS W/ REFL SÁNCHEZ albumin 4.4 g/dL 3.8-4. 8 normal Not Available [address], [address], 04/02/2025 12:06:52 03/26/20 25 04/02/2025 PROTE IN, TOTAL AND PROTE IN ELECT ROPHO RESIS W/ REFL SÁNCHEZ alpha 1 globulin 0.4 g/dL 0.2-0. 3 high Not Available [facility] [address], [address], 04/02/2025 12:06:52 03/26/20 25 04/02/2025 PROTE IN, TOTAL AND PROTE IN ELECT ROPHO RESIS W/ REFL SÁNCHEZ alpha 2 globulin 1.0 g/dL 0.5-0. 9 high Not Available [facility] [address], [address], 04/02/2025 12:06:52 03/26/20 25 04/02/2025 PROTE IN, TOTAL AND PROTE IN ELECT ROPHO RESIS W/ REFL SÁNCHEZ beta 1 globulin 0.6 g/dL 0.4-0. 6 normal Not Available [facility] [address], [address], 04/02/2025 12:06:52 03/26/20 25 04/02/2025 PROTE IN, TOTAL AND PROTE IN ELECT ROPHO RESIS W/ REFL SÁNCHEZ beta 2 globulin 0.4 g/dL 0.2-0. 5 normal Not Available [facility] [address], [address], 04/02/2025 12:06:52 03/26/20 25 04/02/2025 PROTE IN, TOTAL AND PROTE IN ELECT ROPHO RESIS W/ REFL SÁNCHEZ gamma globulin 4.6 g/dL 0.8-1. 7 high Not Available [facility] [address], [address], 04/02/2025 12:06:52 03/26/20 25 04/02/2025 PROTE IN, TOTAL AND PROTE IN ELECT ROPHO RESIS W/ REFL SÁNCHEZ abnormal protein band 1 4.2 g/dL none detect ed high Not Available [facility] [address], [address], 04/02/2025 12:06:52 03/26/20 25 04/02/2025 PROTE IN, TOTAL AND PROTE IN ELECT ROPHO RESIS W/ REFL SÁNCHEZ interpretati on Restr icted band (M-sp nanci) migra ting in the gamma regio n. Consi leidy serum immun ofixa tion to rule out a monoc lonal prote in if clini candie indic ated. Not Available [facility] [place] [address] [place], [address], 04/02/2025 12:06:52 03/26/20 25 04/02/2025 IMMUN OFIXA TION, SERUM sánchez interpretati on IgG lambd a monoc lonal band prese nt. Not Available [facility] [address] [place], [address], 04/02/2025 12:06:53 03/26/20 25 04/02/2025 JAZZ SCR, IFA, W/REF L TITER /MITESH KADEN/S JOGRE N'S PANEL 2 JAZZ screen, ifa NEGATI VE negati ve JAZZ IFA is a first line scree n for detec ting the prese nce of up to appro ximat mario 150 autoa ntibo dies in vario us autoi mmune disea ses. A negat stephanie JAZZ IFA resul t sugge sts an JAZZ-a ssoci ated autoi mmune disea se is not prese nt at this time, but is not defin itive . If there is high clini gabriela suspi cion for Sjogr en's syndr ome, testi ng for anti- SS-A/ Ro antib clayton shoul d be consi dered . Anti- Estephanie-1 antib clayton shoul d be consi dered for clini candie suspe cted infla mmato ry myopa hilario . AC-0: Negat stephanie Inter natio nal Conse nsus on JAZZ Patte rns https ://do i.org /10.1 515/c clm-2 018-0 052 For addit ional infor loren villa e refer to http: //[facility] marianela Ochoa gnost ics.c om/fa q/FAQ 177 (This link is being provi ded for infor marycarmen nal/e carlos ional purpo ses only. ) Not Available [address], [address], 04/02/2025 12:06:53 03/26/2004/02/2025 JAZZ SCR, IFA, W/REF L TITER /MITESH KADEN/S JOGRE N'S PANEL 2 rheumatoid factor 24 IU/mL <14 high Not Available [facility] [address], [address], 04/02/2025 12:06:53 03/26/20 25 04/02/2025 JZAZ SCR, IFA, W/REF L TITER /MITESH KADEN/S JOGRE N'S PANEL 2 sjogren's antibody (ss-A) <1.0 NEG ai <1.0 negati ve Not Available [address], [address], 04/02/2025 12:06:53 03/26/20 25 04/02/2025 JAZZ SCR, IFA, W/REF L TITER /MITESH KADEN/S JOGRE N'S PANEL 2 sjogren's antibody (ss-B) <1.0 NEG ai <1.0 negati ve Not Available [address], [address], 04/02/2025 12:06:53 03/26/20 25 04/02/2025 JAZZ SCR, IFA, W/REF L TITER /MITESH KADEN/S JOGRE N'S PANEL 2 mitochondria l Ab screen NEGATI VE negati ve Not Available [facility] [address], [address], 04/02/2025 12:06:53 03/26/20 25 04/02/2025 JAZZ SCR, IFA, W/REF L TITER /MITESH KADEN/S JOGRE N'S PANEL 2 thyroid peroxidase antibodies <1 IU/mL <9 Not Available [address], [address], 04/02/2025 12:06:53 03/26/2004/02/2025 RETIC ULOCY TE COUNT reticulocyte count, automated 1.1 % normal Not Available [address], [address], 04/02/2025 12:06:54 03/26/2004/02/2025 RETIC ULOCY TE COUNT reticulocyte , absolute 68626 cells /uL [address]- [address] normal Not Available [address], [address], 04/02/2025 12:06:54 03/26/2004/02/2025 FOLAT E, SERUM folate, serum 6.4 NG/mL normal Refer ence Range Low: <3.4 Borde rline : 3.4-5 .4 Josselyn l: >5.4 Not Available [address], [address], 04/02/2025 12:06:55 03/26/2004/02/2025 VITAM IN B12 vitamin B12 259 pg/mL 200-11 00 normal Pleas e Note: Altho ugh the refer ence range for vitam in B12 is 200-1 100 pg/mL , it has been repor aiyana that betwe en 5 and 10% of patie nts with value s betwe en 200 and 400 pg/mL may exper ience neuro psych iatri c and hemat ologi c abnor malit ies due to occul t B12 defic iency ; less than 1% of patie nts with value s above 400 pg/mL will have sympt oms. Not Available [address], [address], 04/02/2025 12:06:56 04/03/2004/07/2025 KAPPA /AGUIRRE DA LIGHT CHAIN , FREE W/RAT IO,RA ND URINE kappa light chain, free, urine 47.90 mg/L <=32.9 0 high Not Available [address], [address], 04/07/2025 11:11:05 04/03/20 25 04/07/2025 KAPPA /AGUIRRE DA LIGHT CHAIN , FREE W/RAT IO,RA ND URINE lambda light chain, free, urine 26.39 mg/L <=3.79 high Not Available [address], [address], 04/07/2025 11:11:05 04/03/2004/07/2025 KAPPA /AGUIRRE DA LIGHT CHAIN , FREE W/RAT IO,RA ND URINE kappa/lambda , free ratio 1.82 <=8.69 If free light chain resul ts do not agree with other clini gabriela or labor atory findi ngs, repea t testi ng on a dilut ed sampl e to rule out antig en exces s may be reque sted. Not Available [address], [address], 04/07/2025 11:11:05 04/03/2004/07/2025 C-MANDY CTIVE PROTE IN C-reactive protein <3.0 mg/L <8.0 normal Not Available [address], [address], 04/07/2025 11:11:06 04/03/2004/07/2025 KAPPA /AGUIRRE DA LIGHT CHAIN S FREE WITH RATIO , SERUM kappa light chain, free, serum 10.5 mg/L 3.3-19 .4 normal Not Available [address], [address], 04/07/2025 11:11:07 04/03/2004/07/2025 KAPPA /AGUIRRE DA LIGHT CHAIN S FREE WITH RATIO , SERUM lambda light chain, free, serum 53.7 mg/L 5.7-26 .3 high Not Available [facility] [address] [place], [address], 04/07/2025 11:11:07 04/03/20 25 04/07/2025 KAPPA /AGUIRRE DA LIGHT CHAIN S FREE WITH RATIO , SERUM kappa/lambda light chains free with ratio, serum 0.20 0.26-1 .65 low Free kappa /aguirre da ratio in serum of josselyn l indiv idual s is 0.26- 1.65. Exces s produ ction of free kappa or lambd a chain s can alter this ratio . Monoc lonal free light chain s are found in serum of patie nts with multi ple myelo ma, Walde nstro m's macro globu linem ia, mu-he marga chain disea se, prima ry amylo idosi s, light chain depos ition disea se, monoc lonal gammo fern of undet ermin ed signi fican ce, and lymph oprol ifera tive disor ders. Measu remen t of free light chain zoran ntrat ion in serum is usefu l for diagn osis, progn osis, monit oring disea se activ ity and follo wing respo nse to thera py of these disor ders. Not Available [facility] [address] [address] , [place], [address], 04/07/2025 11:11:07 04/03/20 25 04/03/2025 ESR (eryt hrocy te sedim entat ion rate) , blood SedRate 17 Not Available [facility] [address] [place], [address], 04/03/2025 09:06:51 10/09/19 25 10/08/2024 LDCT, chest , for lung cance r scree karoline No observ ation record ed. [email or web address] [facility] [address] [place], [address], 10/11/2024 11:51:03 09/0904/22/2025 CT, chest , w/o contr ast No observ ation record ed. [facility] [address] [place], [address], 04/22/2025 14:06:31 Result Notes None recorded. Problems Name Problem SNOMED Code Status Onset Date Resolution Date Notes Provider Name and Address Organization Details Recorded Time Psoriasi s 4963873 Active 2022 Malika mills [facility] 5 08:20:08 Chronic obstruct stephanie pulmonar y disease 07412738 Active 2022 SABINE mills [facility] 4 08:36:56 Aortic aneurysm 43257136 Active 202205-25-23 CTA abdomen: infarenal AAA 4.7 X 4.4cm. left common iliac artery aneurysm 2.2 cm, right common iliac artery aneurysm 1.8 cm SABINE mills [facility] 4 14:28:55 Atrial fibrilla tion 12702329 Active 2022 SABINE mills [facility] 4 08:37:00 [facility] l hyperten mena 83434568 Active 2022 SABINE mills [facility] 4 14:28:48 Osteoart hritis 179445477 Active 2023 Malika mills [facility] 5 08:20:08 Hyperlip idemia 73390073 Active 2023 SABINE mills [facility] 4 11:16:02 Chronic alcoholi sm in remissio n 530826845 Active 2023 Malika mills [facility] 5 08:20:08 Depressi ve disorder 64404804 Active 2023 SABINE mills, [facility], LMerleLMerleCMerle 4 11:39:05 Hypergly cemia 30368971 Active 2023 Malika Marroquin [facility] LMerleLMerleCMerle 5 08:20:08 History of alcoholi sm 915010626 Completed 202409/26/2024 Removal Reason: historica keila Malika Marroquin [facility], [facility], GracyLMerleCMerle 5 08:20:22 Aneurysm of iliac artery 27291961 Active 2024 Malika Marroquin [facility], [facility], LMerleL.CMerle 5 08:20:08 Globulin above referenc e range 729840843 Active 2024 Malika Marroquin [facility], [facility] L.L.CM[facility] 5 09:05:36 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 Procedures Surgical History Date Name Laterality Status Provider Name and Address Organization Details Recorded Time 4 plain X-ray of bone of right rib completed CARLA WATERS [facility] 07/18/2024 11:04:09 4 cataract surgery completed Malika Brownoch [facility] 09/26/2024 08:26:07 3 laminectomy completed SABINE CHÁVEZ [facility] 05/29/2023 15:00:10 Eye Surgery completed Moniquesilvana Littlejohn [facility]le 03/26/2025 08:28:40 operation on nasal septum completed SABINEBEE CHÁVEZ [facility] 03/31/2023 09:07:39 Imaging Results None recorded. Procedure Notes None recorded. Medical Equipment None Reported. Allergies Allergen ID Allergen Name Allergen Category Reaction Reaction Severity Criticality Documentation Date Start Date Code Code System Note Provider Name and Address Organization Details Recorded Time 40279 Dupixent medicatio n other Not available Not available 03/11/2023 26509 02 RxNorm React ion: visio n joelle CHÁVEZ [facility] 4 14:27:12 [address] penicilli n V Not available lighthead edness Not available Not available 03/11/2023 7984 RxNorm React ion: Turne d purpl e as an infan t; [facility] 4 14:27:36 31927 methotrex ate medicatio n other Not available Not available 03/11/2023 6851 RxNorm React ion: conju nctiv itis SABINE CHÁVEZ [facility] 4 14:27:49 5454 Product containin g penicilli n (product) medicatio n Not available Not available Not available 03/01/2023 50752 8001 SNOMED [facility] [place] 3 09:33:42 Medications Name Sig Start Date Stop Date Status Note LastModified by Organization Details LastModified Time cyclobenz aprine 10 mg tablet TAKE 1 TABLET THREE TIMES DAILY NEEDED FOR SPASM 03/01 completed Not Available Not Available Not Available latanopro st 0.005 % eye drops INSTILL 1 DROP INTO BOTH EYES IN THE EVENING 09/26 completed Not Available Not Available Not Available fluconazo le 100 mg tablet TAKE 1 TABLET BY MOUTH DAILY FOR FUNGAL INFECTIO N PREVENTI ON active Not Available Not Available No t Available doxycycli ne hyclate 100 mg capsule TAKE 1 CAPSULE BY MOUTH TWICE A DAY FOR 10 DAYS 03/26 completed Not Available Not Available Not Available ketoconaz ole 2 % shampoo LATHER TO SCALP AND TRUNK DAILY FOR 30 DAYS. THEN UP TO 3 TIMES WEEKLY NEEDED. 03/26 completed Not Available Not Available Not Available clindamyc in HCl 300 mg capsule TAKE 1 CAPSULE BY MOUTH 3 TIMES A DAY UNTIL GONE 03/01 completed Not Available Not Available Not Available hydrocodo ne 5 mg-acetam inophen 325 mg tablet TAKE 1 TABLET BY MOUTH EVERY 6 HOURS NEEDED FOR PAIN active Not Available Not Available No t Available diltiazem CD 240 mg capsule,e xtended release 24 hr TAKE 1 CAPSULE BY MOUTH EVERY DAY active Not Available Not Available No t Available meloxicam 15 mg tablet TAKE 1 TABLET BY MOUTH EVERY DAY active Not Available Not Available No t Available ondansetr on HCl 4 mg tablet TAKE 1 TABLET BY MOUTH EVERY 6 HOURS NEEDED FOR NAUSEA AND VOMITING active Not Available Not Available No t Available prednison e 20 mg tablet Take 2 tablets every day by oral route for 5 days. 09/26 completed Not Available Not Available Not Available sertralin e 100 mg tablet TAKE 1 TABLET BY MOUTH EVERY DAY active Not Available Not Available No t Available acetamino phen 300 mg-codein e 30 mg tablet TAKE 1 TABLET BY MOUTH EVERY 12 HOURS NEEDED 03/01 completed Not Available Not Available Not Available chlorthal idone 25 mg tablet TAKE 1 TABLET BY MOUTH EVERY DAY 06/04 completed Not Available Not Available Not Available amlodipin e 5 mg tablet TAKE 1 TABLET BY MOUTH EVERY DAY active Not Available Not Available No t Available prochlorp erazine maleate 10 mg tablet TAKE 1 TABLET BY MOUTH EVERY 4 HOURS NEEDED FOR MILD NAUSEA active Not Available Not Available No t Available valacyclo vir 500 mg tablet PLEASE SEE ATTACHED FOR DETAILED DIRECTIO NS active Not Available Not Available No t Available sulfameth oxazole 800 mg-trimet hoprim 160 mg tablet 1 TAB ORALLY EVERY MONDAY, Y AND MONDAY FOR INFECTIO N PREVENTI ON active Not Available Not Available No t Available aspirin 81 mg tablet,de layed release Take 1 tablet every day by oral route. active Not Available Not Available No t Available oxycodone -acetamin ophen 5 mg-325 mg tablet TAKE 1-2 TABLETS BY MOUTH EVERY 8 HOURS NEEDED FOR MODERATE TO SEVERE PAIN 05/29 completed Not Available Not Available Not Available prednisol one acetate 1 % eye drops,[employer] INSTILL 1 DROP INTO BOTH EYES 4 TIMES A DAY 09/26 completed Not Available Not Available Not Available oxycodone -acetamin ophen 10 mg-325 mg tablet TAKE 1 TABLET BY MOUTH EVERY 4 HOURS NEEDED FOR PAIN FOR 7 DAYS 05/29 completed Not Available Not Available Not Available dexametha sone 4 mg tablet TAKE 5 TABLETS BY MOUTH EACH DAY ON DAY 1 AND 2 OF 28 DAY CYCLE active Not Available Not Available No t Available hydrochlo rothiazid e 12.5 mg capsule TAKE 1 CAPSULE BY MOUTH EVERY DAY 09/25 completed Not Available Not Available Not Available gabapenti n 300 mg capsule TAKE 1 CAPSULE BY MOUTH 3 TIMES A DAY FOR PAIN 03/01 completed Not Available Not Available Not Available benazepri l 20 mg tablet TAKE 1 TABLET BY MOUTH TWICE A DAY 06/04 completed Not Available Not Available Not Available hydrochlo rothiazid e 25 mg tablet TAKE 1 TABLET BY MOUTH EVERY DAY 09/25 completed Not Available Not Available Not Available diazepam 10 mg tablet TAKE 1 TABLET BY MOUTH ONCE NEEDED FOR ANXIETY TAKE 1 HOUR PRIOR TO EACH PROCEDUR E. 08/22 completed Not Available Not Available Not Available albuterol sulfate HFA 90 mcg/actua tion aerosol inhaler INHALE 2 PUFFS BY MOUTH EVERY 6 HOURS NEEDED active Not Available Not Available No t Available ketoconaz ole 2 % topical cream APPLY TOPICALL Y TO RED SCALED AREAS ON FACE AND CHEST TWICE DAILY NEEDED. 03/26 completed Not Available Not Available Not Available doxycycli ne hyclate 100 mg tablet Take 1 tablet twice a day by oral route for 10 days. 09/26 completed Not Available Not Available Not Available tobramyci n 0.3 %-dexamet hasone 0.1 % eye drops,walter pension ONE DROP IN BOTH EYES 4 X PER DAY X 7 DAYS 03/26 completed Not Available Not Available Not Available neomycin 3.5 mg/g-poly myxin B 10,000 unit/g-de xameth 0.1 % eye oint APPLY A SMALL AMOUNT ON EYELID THREE TIMES A DAY START DAY OF PROCEDUR E AND CONTINUE FOR 2 WEEKS 09/26 completed Not Available Not Available Not Available Ventolin 90 mcg/actua tion aerosol inhaler every 6 hours as needed 03/31 completed Recorded 10/11/19 23 8:38AM by Catarino Coley MD, Annotati on/Adden dum; Mail Order Quantity : 3 Each; Mail Order Days: 90 Days; Refill Quantity : 0; Not Available Not Available Not Available rosuvasta tin 40 mg tablet TAKE 1 TABLET BY MOUTH EVERYDAY AT BEDTIME active Not Available Not Available No t Available Vitamin C 03/01 completed 0; Recorded 10/11/19 23 8:00AM by Sabine Chávez LPN, Office Visit; Not Available Not Available Not Available aspirin daily 03/31 completed 0; Recorded 10/11/19 23 8:00AM by Sabine Chávez LPN, Office Visit; Not Available Not Available Not Available vitamin B complex 03/01 completed 0; Recorded 10/11/19 23 8:00AM by Sabine Chávez LPN, Office Visit; Not Available Not Available Not Available benazepri l two times daily 03/31 completed Recorded 09/22/19 22 3:45PM by Sabine Chávez LPN, Historic al Summary; Mail Order Quantity : 180 Tablet; Mail Order Days: 90 Days; Refill Quantity : 0; Not Available Not Available Not Available hydrochlo rothiazid e daily 03/31 completed 436; Recorded 08/17/19 23 7:06AM by Malika Aguirre RN (Authori nolviad through Catarino Coley MD), Refill Request; Mail Order Quantity : 90 Tablet; Mail Order Days: 90 Days; Refill Quantity : 0; Not Available Not Available Not Available Diltiazem HCL ER daily 03/31 completed 436; Recorded 09/19/19 9:53AM by Sabine Chávez LPN (Authori nolviad through Catarino Coley MD), Refill Request; Mail Order Quantity : 90 Capsule; Mail Order Days: 90 Days; Refill Quantity : 0; Not Available Not Available Not Available Multivite s 03/31 completed 0; Recorded 10/11/19 8:00AM by Sabine Chávez LPN, Office Visit; Not Available Not Available Not Available oxycodone 10 mg tablet TAKE 0.5-1 TABLET BY MOUTH EVERY 6 HOURS NEEDED FOR MODERATE TO SEVERE PAIN active Not Available Not Available No t Available Vitamin D3 50 mcg (2,000 unit) capsule 03/01 completed 0; Recorded 10/11/19 8:00AM by Sabine Chávez LPN, Office Visit; Not Available Not Available Not Available roflumila st 500 mcg tablet TAKE 1 TABLET BY MOUTH EVERY DAY active Not Available Not Available No t Available Daliresp daily 03/31 completed 436; Recorded 09/21/19 4:08PM by Sabine Chávez LPN (Authori dot through Catarino Coley MD), Annotati on/Adden dum; Mail Order Quantity : 100 Tablet; Mail Order Days: 100 Days; Refill Quantity : 0; Not Available Not Available Not Available Trelegy Ellipta 100 mcg-62.5 mcg-25 mcg powder for inhalatio n INHALE 1 INHALATI ON BY MOUTH EVERY DAY active Not Available Not Available No t Available Vitals Date Recorded Body height Body mass index (BMI) Body weight Body temperature Heart rate Oxygen saturation Oxygen saturation in Arterial blood by Pulse oximetry Systolic And Diastolic Provider Name and Address Organization Details Last Updated DateTime 5 173.99 cm 24.4 kg/m2 70206.5 6 g 97.6 [degF] 73 /min 97 % 97 % 130/72 mm[Hg] Malika Cara [facility] 5 08:29:49 Date Recorded Body height Body mass index (BMI) Body weight Oxygen saturation Oxygen saturation in Arterial blood by Pulse oximetry Heart rate Respiratory rate Body temperature Systolic And Diastolic Provider Name and Address Organization Details Last Updated DateTime 5 173.99 cm 23.4 kg/m2 57154.4 1 g 95 % 95 % 88 /min 16 /min 97.2 [degF] 120/66 mm[Hg] Monique Eron [facility] 5 08:24:38 Date Recorded Body height Body mass index (BMI) Body weight Body temperature Heart rate Oxygen saturation Oxygen saturation in Arterial blood by Pulse oximetry Systolic And Diastolic Provider Name and Address Organization Details Last Updated DateTime 5 173.99 cm 23.1 kg/m2 35214.2 2 g 97.6 [degF] 79 /min 95 % 95 % 130/68 mm[Hg] SABINE CHÁVEZ [facility] 5 14:40:00 Date Recorded Body height Body mass index (BMI) Body weight Oxygen saturation Oxygen saturation in Arterial blood by Pulse oximetry Heart rate Systolic And Diastolic Provider Name and Address Organization Details Last Updated DateTime 5 173.99 cm 23.1 kg/m2 97951.2 2 g 98 % 98 % 67.01 /min 158/66 mm[Hg] SABINE CHÁVEZ [facility] 5 11:47:44 Social History Question Answer Notes LastModified by Organizat ion Details LastModified Time Tobacco Smoking Status Former Smoker SABINE CHÁVEZ [facility] 03/01/2023 09:36:38 When Did You Quit Smoking? 6-10yearssi [email or web address] rette Quit Age 64 [email or web address] Information not available 03/26/2025 What Was The Date Of Your Most Recent Tobacco Screening? 04/16/2025 [email or web address] Information not available 04/16/2025 At What Age Did You Start Smoking Tobacco? 15 [email or web address] Information not available 03/26/2025 Sex: Unknown Functional Status Question Answer Note LastModified by Organizat ion Details LastModified Time Do you use any illicit or recreational drugs? No [email or web address] Information not available 07/18/2024 Do you or have you ever used any other forms of tobacco or nicotine? Yes [email or web address] Information not available 03/01/2023 What is your level of alcohol consumption? None quit 2017 [email or web address] Information not available 03/01/2024 Do you or have you ever used smokeless tobacco? Never used smokeless tobacco [email or web address] Information not available 09/26/2024 Do you or have you ever used e-cigarettes or vape? Current user of electronic cigarettes Information not available 03/01/2023 Mental Status None recorded. Family History Relationship Description Onset Age of this Age Resolved Age Notes LastModified by Organization Details LastModified Time Father Myocardial infarction [email or web address] Not available 03/14 09:06:51 Medical History No medical history recorded. Immunizations Vaccine Type Date Status Note Provider Nam e and Address Organization Details Recorded Time zoster recombinant 3 completed SABINE mills [facility] 03/31/2023 09:02:24 Influenza, high-dose, quadrivalent, PF 2 completed SABINE mills [facility] 03/31/2023 09:02:24 COVID-19, mRNA, LNP-S, PF, 100 mcg/0.5mL dose or 50 mcg/0.25mL dose 2 completed SABINE mills [facility] 03/31/2023 09:02:24 Pneumococcal conjugate PCV20, polysaccharide [id number] conjugate, adjuvant, PF 3 completed SABINE mills [facility] 03/31/2023 09:02:24 COVID-19, mRNA, LNP-S, bivalent, PF, 50 mcg/0.5 mL or 25mcg/0.25 mL dose 2 rené mills [facility] 03/31/2023 09:02:24 zoster recombinant 3 completed SABINE CHÁVEZ null, [facility] 03/31/2023 09:02:24 Influenza, high-dose, trivalent, PF 4 completed Not Available [facility] 05/12/2025 11:46:12 Influenza, adjuvanted, quadrivalent, PF 3 completed Malika Marroquin null, [facility] 05/31/2023 08:16:06 Td (adult), 2 Lf tetanus toxoid, preservative free, adsorbed 7 completed Not Available [facility] 09/25/2023 12:51:03 Pneumococcal conjugate PCV 13 5 completed Not Available [facility] 09/25/2023 12:51:03 COVID-19, mRNA, LNP-S, PF, 100 mcg/0.5mL dose or 50 mcg/0.25mL dose 1 completed Not Available [facility] 09/25/2023 12:51:03 COVID-19, mRNA, LNP-S, PF, 100 mcg/0.5mL dose or 50 mcg/0.25mL dose 1 completed Not Available [facility] 09/25/2023 12:51:03 pneumococcal polysaccharide PPV23 2 completed Not Available [facility] 09/25/2023 12:51:03 Pneumococcal conjugate PCV 13 8 completed Not Available [facility] 09/25/2023 12:51:03 Past Encounters Encounter ID Performer Location Encounter Start Date Encounter Closed Date Diagnosis/Indication Diagnosis SNOMED-CT Code Diagnosis ICD10 Code Diagnosis IMO Codes Diagnosis Note [id number] Catarino Coley MD [facility] ([facility]) [address] [place] [address] [phone] 5 03/01/2023 09:22:23 03/01/2023 13:06:54 Low back pain 435991071 M54.51 with radiculopa thy [id number] Catarino Coley MD [facility] ([facility]) [address] [place] [address] [id number] 5 03/31/2023 08:51:25 03/31/2023 12:58:32 Low back pain 242324566 M54.51 with radiculopa thy Abdominal aortic aneurysm 694390476 I71.40 [id number] Catarino Coley MD [facility] ([facility]) [address] [place] [address] [id number] 5 04/03/2023 10:26:49 04/03/2023 19:36:46 [id number] Catarino Coley MD [facility] ([facility]) [address] [place] [address] [id number] 5 05/29/2023 14:46:17 05/29/2023 15:45:19 Complex renal cyst 949567046 N28.1 Injury of tendon of the rotator cuff of shoulder 197846591 S46.001A concern for chronic left biceps tear. [id number] Catarino Coley MD [facility] ([facility]) [address] [place] [address] [id number] 5 06/12/2023 10:58:28 06/12/2023 15:13:07 [id number] Catarino Coley MD [facility] ([facility]) [address] [place] [address] [id number] 5 08/22/2023 14:21:25 08/22/2023 15:12:01 Aortic aneurysm 73330153 I71.9 d/c meloxicam and report bp in 7 days. [id number] Catarino Coley MD [facility] ([facility]) [address] [place] [address] [id number] 5 09/25/2023 12:50:46 09/25/2023 13:47:50 Essential hypertension 72785551 I10 [id number] Catarino Coley MD [facility] ([facility]) [address] [place] [address] [id number] 5 03/01/2024 11:06:28 03/01/2024 13:05:30 Atrial fibrillation 27675185 I48.91 Chronic ob structive pulmonary disease 87478597 J44.9 Chronic al coholism in remission 552229252 F10.21 Depressive disorder 3548 9007 F32.A Acute sinusitis 17316433 J01.90 [id number] Catarino Coley MD [facility] ([facility]) [address] [place] [address] [id number] 5 03/26/2024 08:06:17 03/26/2024 11:04:30 Aortic aneurysm 97836825 I71.9 Atrial fibrillation 4943 6004 I48.91 Essential hypertension 50612314 I10 Hyperlipidemia 21043978 E78.5 Hyperglycemia 97469136 R 73.9 Chronic ob structive pulmonary disease 33596495 J44.9 trelegy samples given [id number] JOSUÉ CATES [facility] ([facility]) [address] [place], [place] [address] 07/18/2024 08:01:26 07/18/2024 08:31:51 Rib pain 559343456 R07.81 [id number] Catarino Coley MD [facility] ([facility]) [address] [place] [address] [id number] 5 08/16/2024 08:36:54 08/16/2024 09:34:31 History of alcoholism 811085722 F10.21 Chronic ob structive pulmonary disease 29024666 J44.9 trelegy samples given Aneurysm o f iliac artery 50517365 I72.3 Hyperlipidemia 07785629 E78.5 Essential hypertension 40682040 I10 Obesity 747634023 E66.01 Acute exac erbation of chronic obstructive pulmonary disease 348297119 J44.1 [id number] Catarino Coley MD [facility] ([facility]) [address] [place] [address] [id number] 5 09/26/2024 08:20:10 09/26/2024 13:45:23 Aortic aneurysm 86827278 I71.9 Atrial fibrillation 4943 6004 I48.91 Chronic al coholism in remission 479907010 F10.21 Chronic ob structive pulmonary disease 78648096 J44.9 trelegy samples given Essential hypertension 39939877 I10 Hyperglycemia 71842937 R 73.9 Hyperlipidemia 89768060 E78.5 Former hea vy tobacco smoker 1705444719 65826 Z87.940 [id number] Catarino Coley MD [facility] ([facility]) [address] [place] [address] [id number] 5 09/23/2024 08:34:19 09/24/2024 12:43:18 Essential hypertension 51114751 I10 Hyperlipidemia 06101752 E78.5 Hyperglycemia 94444921 R 73.9 [id number] Catarino Coley MD [facility] ([facility]) [address] [place] [address] [id number] 5 03/26/2025 08:19:52 03/26/2025 14:44:24 Globulin above reference range 890327884 R77.1 43120914 Chronic al coholism in remission 484872396 F10.21 Atrial fibrillation 4943 6004 I48.91 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 Aortic aneurysm 08146116 I71.9 Hyperlipidemia 25099603 E78.5 Hyperglycemia 96815508 R 73.9 Psoriasis 6636744 L40.9 Anemia 712290053 D64.9 4344425 Dry eyes 413094222 H04.1 23 92186137 [id number] Catarino Coley MD [facility] ([facility]) [address] [place] [address] [id number] 5 03/24/2025 08:07:14 03/25/2025 11:18:10 Essential hypertension 19525357 I10 Hyperlipidemia 74402260 E78.5 Hyperglycemia 36410947 R 73.9 [id number] Catarino Coley MD [facility] ([facility]) [address] [place] [address] [phone] 5 04/16/2025 14:29:33 04/16/2025 15:34:16 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 other modalities are considered but cxr will be too insensitiv e and a negative cxr would not be reassuring and ct would also still be needed. Weight decreased 5158990 01 R63.4 32897648 [id number] Catarino Coley MD [facility] ([facility]) [address] [place] [address] 05/12/2025 11:45:59 05/12/2025 13:04:58 Pathological fracture of rib 271637791 M84.48XA 6894068 Aneurysm o f infrarenal abdominal aorta 646320324 I71.43 [id number] Health Concerns Section Related Observation LastModified by Organization Detai ls LastModified Time None Recorded Concern Status LastModified by Organization Details LastModified Time None Recorded Advance Directives Directive None Recorded Payers Insurance Date Sequence Insurance Name Policy Number Policy Benedict Covered Member ID Benedict Member ID Guarantor Name 08/15/2024 1 [facility] (MEDICARE REPLACEMENT/A DVANTAGE - PPO) [id number] Cristopher Freeman [id number] Cristopher Freeman 05/15/2025 1 [facility] (MEDICARE REPLACEMENT/A DVANTAGE - PPO) Cristopher Freeman Jr [id number] Cristopher Freeman Notes Date Note Type Note Provider Name and Address Organization Details Recorded Time 09/26/19 25 text/htm l Generic HPI TemplateReported by PatientHPIFor context, (pt is here today to f/u on lab results. pt has a hx of hyperglycemia and a fasting glucose result of 107. he states his at home bp readings have been in the 110-120/70s. no chest pain, shortness of breath, or headaches.).we discussed dietary change at length to help him keep his sugar normal. Catarino Coley MD [address] [place] [address], [phone], [facility] 09/26/2024 08:58:27 03/26/20 25 text/htm l Dry EyeReported by Patienthas had chronic red dry itchy eyes for about 1 year. he has had lens implants and lid surgery. he uses systane. his aircraft load controller has given him lubricating drops and put drops in. his eyes do close all the way. he has chronic right knee pain when he kneels around the knee cap but no unusual joint inflammation overall. he does not have dry mouth. he is swallowing well.no significant GERD. HyperlipidemiaReported by PatientHPIFor duration, patient reportschronic. For control, patient reportsusually well controlled. For adherence to treatment plan, patient reportstakes medications as prescribed. Hypertension F/UReported by PatientHPIFor medications, patient reportstaking medications as directedandchecks blood pressure at home, range:. 6 month check uplabs draw last monday the last several months he has intentionally cut out junk food and really watched labels and tried to get the best food he can. he notes he has lost 10 lbs and this has occurred due to the diet change. they have made a major change. Catarino Coley MD [address] [place] [address], [phone], [facility] 03/26/2025 08:58:23 04/16/20 25 text/htm l lab f/u: Patient is here to discuss his most recent lab results he does have some bliateral rib pain he has a ct next month he has had 10 lbs of intentional weight loss cutting out unhealthy odds reducing portions major reduction in junk food.no fevers or night sweatsenergy level is about the same as usual. Catarino Coley MD [address] [place] [address], [phone], [facility] 04/16/2025 15:17:14 05/12/20 25 text/htm l Musculoskeletal PainReported by PatientHPIFor severity, patient reportsno change. For duration, patient reportspresent <1 month (4 days). For timing, patient reportsconstant. For location, (left rib fx). For context, (patient reports that he was leaning over the island in his kitchen when he felt a pop and then pain).Patient was given hydrocodone after his ER f/u. He does not have any more medication, but reports that it did not help with his pain.ROS as noted in the [facility] [id number] [place], [place] [address]Tdazsazf Office Visit ReportSignedPatient: LydiaCristopher Haleigh [facility]#: [id number]: 9Acct#:[id number] ge/Sex: 74 / MADM Date: 04/29/25Loc: ONCMEDAMBRoom/Bed:Attending Dr: Mahin Rowe MDReport Number: [id number] HPIOncology HPI:Patient presented with eye tearing. Intentional weight loss.SPEP March 26, 2025 shows paraprotein of 4.2 g/dL. Immunofixation shows IgG lambda. Ronks light chain 47 and lambda light chain 26CT chest January 19, 2025 shows expansile right lateral ninth rib lesion. Bilateral renal masses. More solid mass in the right upper pole right kidney concerning for complex cyst versus neoplasmPatient has history of COPD. Previous smoker. Otherwise relatively healthy 74 years old gentleman.No Active ChemotherapyHigh Blood Pressure Follow-Up PlanFollow-up recommendations for HTN declined by patientAllergiesPenicillins Allergy (Severe, Verified 04/29/25 08:25)ALGY-AnaphylaxisHome Medications- Last Reconciled 04/29/25 by Khalif Moralescetaminophen 500 mg PO Q6H PRNalbuterol sulfate 90 mcg/actuation 2 puffs inhalation Q6H PRNaspirin (Adult Low Dose Aspirin) 81 mg PO DAILYbenazepril 20 mg PO BIDdiltiazem HCl ER 180 mg PO BYUybymnusavrx-ifwrscuse-upcf nter 100-62.5-25 mcg (Trelegy Ellipta) 1 inh inhalation W38Ktvjxtibdubjvjwfmkyy 25 mg PO QAMmeloxicam 15 mg PO DAILYroflumilast (Daliresp) 500 mcg PO DAILYrosuvastatin 40 mg PO DAILYsertraline 100 mg PO DAILYsertraline mgPFSHMedical History Rotator cuff arthropathy of left shoulderChronic left shoulder painPrimary osteoarthritis, left shoulderAortic aneurysmrecent U/S on 04/03/23Back painSurgical History History of nasal surgeryFamily History FatherHeart attackDenies family history ofClotting disorderAnesthesia complicationBleeding disorderSocial History Smoking and tobacco/nicotine status: tobacco/nicotine user, details unknown (vape)Quit status (tobacco/nicotine): has quit using Year quit tobacco: 2014 Former quit date comment: 50 year historyAlcohol intake: neverSubstance/Drug Use: neverECOG0-5 Rating ScoreEastern Cooperative Oncology Group Performance Status (ECOG): 1Review of SystemsGeneralReports: 10 or more systems reviewed and unremarkable except as noted in History and belowPhysical ExamNarrativeEXAM NARRATIVE:Appropriate for the age. No acute distress. Healthy looking.Neck is supple no lymphadenopathyLungs clear to auscultation no wheezing no cracklesHeart is regular rhythm no murmurAbdomen is soft and nontender not distendedExtremities no edemaLymphatics there is no peripheral lymphadenopathyAssessment & PlanAssessment & Plan1. Elevated blood pressure reading in office without diagnosis of hypertension:2. Multiple myeloma:3. Kidney mass:Plan: With paraprotein of 4.2 g/dL and also bone lesion. Almost certainly patient has multiple myeloma. Serum free light chain was not very much elevated. Patient also has a kidney mass/cyst need to be further evaluated.1. Order PET scan2. Order bone marrow biopsy3. Has baseline blood work including 24-hour UPEP serum free light chain IgG IgA IgM. Repeat SPEP test4. Due to bone lesion also check a PSA5. Order ultrasound of kidney on both side6. Patient is 74 years old gentleman. Will refer patient to Dr. Mars and his group to see whether patient is a candidate on the road for stem cell transplant.7. Return to clinic once aboveOrders:OrdersProstate Specific Antigen Today C90.00 - Multiple myeloma not having achieved remission, R97.20 - Elevated prostate specific antigen [PSA]Total Protein Electrophoresis Today C90.00 - Multiple myeloma not having achieved remissionKAPPA/LAMBDA Light Free Serum Today C90.00 - Multiple myeloma not having achieved remissionUS renal BI* 13669 Today N28.89 - Other specified disorders of kidney and ureterComplete Blood Count w/Auto Today C90.00 - Multiple myeloma not having achieved remissionComprehensive Metabolic Panel Today C90.00 - Multiple myeloma not having achieved remissionImmunofixation Serum Today C90.00 - Multiple myeloma not having achieved remissionImmunoglobulin G,A,M Panel Today C90.00 - Multiple myeloma not having achieved remissionProtein Electr UR24 with SÁNCHEZ Today C90.00 - Multiple myeloma not having achieved remissionPET skull to thigh INIT [id number]/C90.00 - Multiple myeloma not having achieved remissionReferralsReferral for Procedure/Infusion C90.00 - Multiple myeloma not having achieved remissionReferral to Medical Oncology C90.00 - Multiple myeloma not having achieved remissionCodingLevel of Care CodeOFFICE/OUTPT NEW PT,LVL VDiagnosesElevated blood pressure reading in office without diagnosis of hypertension R03.0Multiple myeloma C90.00Kidney mass N28.89IntakeVital Signs8:1209/: 67Wzahmw8 ft 7 in5 ft 7 dhEeixlw578 lbBMI24.0DS248/68Blood Pressure LocationRt brachialPositionSittingRespir zogas35Uuzjs48Jxnoy BcxkebYnmxuqnebZoyk07.3 F LTemp SourceTemporal Artery ScanPulse Oximetry (%)97Oxygen Delivery MethodRoom AirIntakeVisit Reasons: Elevated Blood Pressure, OncologyPain scale (0-10 scale): 0Is the reason for visit related to pain management?: NoAllergiesPenicillins Allergy (Severe, Verified 04/29/25 08:25)ALGY-AnaphylaxisHome Medications Home Medications- Last Reconciled 04/29/25 by Khalif Marroquin Vargasacetaminophen 500 mg PO Q6H PRNalbuterol sulfate 90 mcg/actuation 2 puffs inhalation Q6H PRNaspirin (Adult Low Dose Aspirin) 81 mg PO DAILYbenazepril 20 mg PO BIDdiltiazem HCl ER 180 mg PO TFChpqxjtffvfj-jqmizjcek-twpu nter 100-62.5-25 mcg (Trelegy Ellipta) 1 inh inhalation G05Jmuvxvoqzttneeugqrnc 25 mg PO QAMmeloxicam 15 mg PO DAILYroflumilast (Daliresp) 500 mcg PO DAILYrosuvastatin 40 mg PO DAILYsertraline 100 mg PO DAILYsertraline mgReferred by: Catarino Coley MDFollowed by:: Catarino Coley MDTB/MDROTB ScreeningTuberculosis Symptoms: NoneTB Risk Factors: NoneWas Physician Notified of Positive Risk Factors: NoMDRO (Multi-drug Resistant Organisms)Have you had Methicillin-Resistant Staphylococcus Aureus (MRSA)?: NoHave you had Clostridium Difficile (C-Diff)?: NoHave you had Vancomycin-Resistant Enterococci (VRE)?: NoWas patient provided education on preventing infections?: NoQualityHealth MaintenanceDoes patient have any barriers to learning?: NoDoes patient have any communication needs?: NoneDoes patient use assistive: No Cane, No Walker, No Wheelchair, No Commode Chair, No Hospital Bed and No Respiratory Assist DeviceMedication Rec. Completed: YesCultural or Methodist Beliefs: NoDate Next DueAnnual Assessment Dates Next Due:Date of Next Flu Edouocmrdq12/01/25Date of Next Abuse Rnedizglbw40/16/26History of Recent TravelAny recent travel in the last 8 weeks: NoSmoking/Vaping Use ScreeningSmoking/Vaping use assessment performed: YesSmoking/Vaping use: smoker, details unknown (vape) Smoking/Vaping Counsling Given: otherSuicide Risk AssessmentHave you had little interest or pleasure in last 2 weeks?: Not At AllBeen feeling down, depressed, or hopeless over last 2 weeks?: Not At AllHave you had Suicidal thoughts?: Not At AllTotal Score: 0Patient score 3 or greater or had suicidal thoughts?: NegativeDepression screening performed: YesFall Risk Assessment1. Have you fallen in the last year?: No2. Do you use a cane, walker, wheelchair, or crutch?: No3.Do you lose your balance, feel confused, or dizzy?: NoAnnual AssessmentsDate Next DueAnnual Assessment Dates Next Due:Date of Next Flu Kwmokiwfql44/01/25Date of Next Abuse Oamubgboww92/16/26Flu Vaccine-YearlyDate of Next Flu Assessment: 05/14/25Annual Influenza Vaccine: YesAbuse-YearlyDate of Next Abuse Assessment: 04/29/26Do you observe any indication of self neglect?: NoAny signs of caregiver neglect?: NoAre you depressed?: NoDo you wish to harm yourself or anyone else?: NoCrisis hotline information provided?: NoDictated By:Mahin Rowe MDSigned By:Signed Date/Time:04/29/25 0942DD/ 0656 VivatyMad[facility] HospitalVhoumwkiny[address] [place], [place] [address]EAF Scan ReportSignedPatient: Cristopher Freeman #: [id number]: [id number]#:[id number] ge/Sex: 74 / MADM Date: 05/09/25Loc: RADRoom/Bed:Attending Dr: Mahin Rowe MDOrdering Provider/Ordering MD: Mahin Rowe MDDate of Service: 05/09/25Procedure(s): PET skull to thigh INIT [id number] Number(s): [id number] Number: [id number] INFORMATION:Exam: PET/CT Skull Base to Mid-thighExam date and time: 05/09/2025 3:51 PMAge: 74 years oldClinical indication: Condition or disease; Condition/disease: Multiplemyeloma not having achieved remission; Additional info: Multiple myeloma,Dr. Rowe would like this done on 05/09/25LABS AND CLINICAL REPORTS:Glucose: 114 mg/dlTreatment strategy for malignancy (PET staging): Restaging (PS)TECHNIQUE:Imaging protocol: Following at least four-hour fasting and following theinjection of radiopharmaceutical, low dose CT images were obtained. Then,PET images were obtained. Attenuation corrected images were constructedusing the CT scan. Fused images of PET and CT were reviewed. Thestandardized uptake values (SUV) reported below are maximum values within aregion of interest, expressed in gm/ml. Exam includes orbital meatal line tomid-thigh.SUV normalization method: BodyWeightRadiopharmaceutical : 11.73 mCi F-18 FDG (Fluorodeoxyglucose), IV.Time of imaging post radiopharmaceutical administration: 47 minutesInjection site: LACCOMPARISON:1. CT abdomen pelvis wo/w [id number] 05/09/2025 1:[address] chest wo con [id number] 04/22/2025 8:17 AMFINDINGS:Brain: Visualized brain has normal physiologic uptake.Pharynx: No abnormal uptake.Larynx: No abnormal uptake.Lungs, pleura and trachea: No abnormal uptake. Moderate upper lungpredominant emphysematous change. Mild dependent atelectasis. Noconsolidation or mass.Heart: Normal physiologic uptake.Coronary arteries: Moderate coronary artery calcification.Mediastinal space: No abnormal uptake.Liver: No abnormal uptake.Gallbladder and biliary ducts: No abnormal uptake.Pancreas: No abnormal uptake.Spleen: No abnormal uptake.Adrenal glands: No abnormal uptake.Kidneys and ureters: Normal physiologic uptake. Benign-appearing bilateralphotopenic renal cysts. Excreted contrast within the renal collectingsystems.Stomach and bowel: No abnormal uptake.Urinary bladder: Excreted contrast within the urinary bladder.Vasculature: No abnormal uptake. Heavy systemic atheroscleroticcalcification with 5 cm infrarenal abdominal aortic aneurysm.Lymph nodes: No abnormal uptake. No lymphadenopathy in the head, neck,chest, abdomen, pelvis, and extremities.Skeleton: Numerous FDG avid lesions throughout the bones (some clearly lyticand some without underlying CT abnormality), to include index left calvariallesion on axial image 39 showing SUV max 10.0, medial right clavicle lesionshowing SUV max 9.9 on axial image 106, T2 vertebral body lesion showing SUVmax 9.2 on axial image 99, T5 vertebral body lesion showing SUV max 9.0 onaxial image 116, expansile lytic lateral right 9th rib lesion with SUV max10.1 on axial image 182, left L3 posterior element expansile lytic lesioninvolving the pedicle extending to spinous process showing SUV max 11.6 [id number] narrowing of the spinal canal, and leftward sacral lesionshowing SUV max 8.9 on axial image 253. Numerous additional lesionsthroughout the bones. Minimally displaced acute posterolateral left 8th ribfracture with associated FDG uptake showing SUV max 9.5 but no discreteunderlying lytic lesion. Degenerative changes along the axial skeletalsystem.Soft tissues: No abnormal uptake in the visualized head, neck, chest,abdomen, pelvis, and extremities. Small fat containing umbilical andbilateral inguinal hernias.METRICS:Mediastinal blood pool: SUV mean 1.8Liver uptake: SUV mean 2.1ACCESSION #: [id number] PET/PET skull to thigh INIT [id number]:1. Numerous FDG avid lesions throughout the bones compatible with multiplemyeloma. Note of an expansile lytic lesion involving the left L3 vertebralposterior elements extending from the pedicle to the spinous process withresultant xrbl-zf-pooivica spinal canal stenosis.2. Minimally displaced acute posterolateral left 8th rib fracture.3. 5 cm infrarenal abdominal aortic aneurysm.4. Additional chronic and incidental findings as above.Dictated By:Ap Luis DOSigned By:Ap Luis DOSigned Date/Time:05/11/25 2312DD/ 1551 Catarino Coley MD [address] [place] [address], [id number], [facility] HospitalGeorge 05/12/2025 12:14:12
--- OUTSIDE RECORDS SUMMARY | 2025-06-12 15:41 | XMS_ITS | Patient Health Record ---
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 - No Plan Of Treatment No Information Medical (General) History Surgical History Surgery Date(Month/Year) Nasal surgery
--- OUTSIDE RECORDS SUMMARY | 2025-06-12 15:41 | XMS_ITS | Clinical Summary ---
Author Organization [facility] de Address [address] [place] [address] Phone Care Team Providers Care Beverage Sales Consultant Name Role Phone Matty Coely MD Primary Care Provider [phone] Allergies Active Allergy Reactions Criticality Noted Date [...] Hyperlipidemia 06/03/2024 Lumbar disc disease with radiculopathy 4 Paroxysmal A-fib 06/03/2024 Pre-operative examination 06/03/2024 Spinal stenosis of lumbar region 06/03/2024 Encounters Date Type Department Care Team Description 06/05/2025 1:45 PM CDT Office Visit [facility] [address] [address] Racquel Lee FNP Luneau, Tabatha, PA-C Infrarenal abdominal aortic aneurysm (AAA) without rupture (Primary Dx); Familial hypercholesterolemi a, unspecified type; History of tobacco abuse 06/05/2025 11:00 AM CDT Ancillary Procedure [facility] [address] Racquel Lee FNP Infrarenal abdominal aortic aneurysm (AAA) without rupture; Iliac artery aneurysm, bilateral 05/16/2025 6:48 AM CDT - 05/16/2025 11:59 PM CDT Hospital Encounter [facility] Interventional Radiology [id number] [place] [address] Mahin Rowe MD Reece, Yifan Parry PA-C Discharge Disposition: Home or Self Care 05/15/2025 Telephone [facility] Interventional Radiology [id number] [place] [phone] Di Adair, vector control specialist (This is Thalia. I'm a nurse in the Imaging department at [facility]. I'm calling about your scheduled procedure with sedation on 05-16-2025. /Your arrival time is 0700./What instructions were you given by your physician regarding your blood thinner? /Please plan to be here for 2-4 hours. /We make every effort to adhere to our schedule, but we are hospital based and emergencies can and do impact our outpatient schedule that could cause delays. /Please arrive at the [facility]. /You must have an adult) 05/07/2025 Telephone [facility] Interventional Radiology [address] [place] [phone] Kerri Bazzi RN Appointment Notification 04/01/2025 External Device Data [...] Pulse 86 06/05/2025 1:27 PM CDT Temperature 36.3 C (97.4 F) 05/16/2025 8:15 AM CDT Respiratory Rate 14 05/16/2025 8:45 AM CDT Oxygen Saturation 92% 06/05/2025 1:27 PM CDT Inhaled Oxygen Concentration - - Weight 68.9 kg (151 lb 12.8 oz) 06/05/2025 1:27 PM CDT Height 172.7 cm (5' 8 ) 06/05/2025 1:27 PM CDT Body Mass Index 23.08 06/05/2025 1:27 PM CDT Plan of Treatment Upcoming Encounters Date Type Department Care Team (Late st Contact Info) Description 06/08/2026 10:00 AM CDT Ancillary Procedure [facility] [place] [address] [place] [address] Kristen Fernandez PA-C [address] [facility] [address] [place] [address] 06/08/2026 11:00 AM CDT Office Visit [facility] [place] [address] [place] [address] Kristen Fernandez PA-C [address] [facility] [address] [place] [address] Health Maintenance Due Date Last Done Comments DTAP/TDAP/TD VACCINES (1 - Tdap) 1968 COLORECTAL SCREENING 1994 Colorectal Cancer Screening 1994 FIT-DNA Q 3 years 1994 FIT/FOBT Q 1 year 1994 Flex Sig/CT Colonography Q 5 years 1994 RSV VACCINE (60+ or ) (1 - 1-dose 75+ series) 2024 INFLUENZA VACCINE (#1) 2025 , 05/31/2023, 06/23/2022 COVID-19 Vaccine (5 - 2024-2 6 season) 2025 06/23/2022, 02/23/2022, 10/21/2020, Additional history exists PNEUMOCOCCAL VACCINE 50+ YEARS Completed 0 08/30/2022, 07/11/2018, 09/11/2014, Additional history exists ZOSTER VACCINE Completed 01/06/2023, 08/31/2022 Abdominal Aortic Aneurysm (A AA) Screening Completed 06/05/2025, 06/03/2024, 04/25/2023, Additional history exists Procedures Procedure Name Priority Date/Time Associated Diagnosis Comments US AORTA IVC ILIAC DUPLEX LTD Routine 06/05/2025 11:43 AM CDT Infrarenal abdominal aortic aneurysm (AAA) without rupture Iliac artery aneurysm, bilateral FLOW CYTOMETRY REPORT Routine 05/16/2025 8:10 AM CDT BONE MARROW ASPIRATION & BIOPSY Pathology 05/16/2025 8:10 AM CDT CELL COUNT, BONE MARROW Pathology 05/16/2025 8:10 AM CDT FLOW CYTOMETRY PANEL Routine 05/16/2025 8:10 AM CDT IR BIOPSY BONE MARROW Routine 05/16/2025 8:03 AM CDT Multiple myeloma not having achieved remission (CMS/HCC) CBC WITH DIFFERENTIAL Stat 05/16/2025 7:11 AM CDT from Last 3 Months Results * US AORTA IVC ILIAC DUPLEX LTD (06/05/2025 11:43 AM CDT) Anatomical Region Laterality Modality Abdomen Ultrasound 06/05/2025 11:1 2 AM CDT Narrative 06/09/2025 9:32 AM CDT [facility] [address] [place] [address] [place] [address] Noninvasive Vascular Lab Limited Abdominal Ultrasound Evaluation Patient: Cristopher Freeman Study ID: US AORTA IVC PETER Gender: M : 1950 Age: 74 Room: Height: Weight: BSA: Pt status: Outpatient Study Date: 06/05/2025 Study Time: 11:12:06 AM BSA: Ordering: Dawson Bueno Interpreting:Polo King Temperer: MAXIMILIANO Indications: AAA. Summary Impression: 1. Study [...] iliac distal: Left common iliac distal 3.12m/sec [facility] is accredited with the Intersocietal Commission for the Accreditation of Vascular Laboratories (ICAVL) Prepared and Electronically Authenticated Polo King Confirmed 06/09/2025 09:32 Procedure Note Polo King MD - 06/09/2025 [facility] [address] [address] Noninvasive Vascular Lab Limited Abdominal Ultrasound Evaluation Patient: Cristopher Freeman Study ID: US AORTA IVC PETER Gender: M : 1950 Age: 74 Room: Height: Weight: BSA: Pt status: Outpatient Study Date: 06/05/2025 Study Time: 11:12:06 AM BSA: Ordering: Dawson Bueno Interpreting:Polo King Temperer: MAXIMILIANO Indications: AAA. Summary Impression: 1. Study [...] iliac distal: Left common iliac distal 3.12m/sec [facility] is accredited withthe Intersocietal Commission for the Accreditation of Vascular Laboratories (ICAVL) Prepared and Electronically Authenticated Polo King Confirmed 06/09/2025 09:32 Dawson Bueno NP US ORDERABLES Final Result * CELL COUNT, BONE MARROW (05/16/2025 8:10 AM CDT) Bone marrow ALL BONE MARROW / Unknown Collection / Unknown 05/16/2025 8:10 AM CDT 05/16/2025 8:18 AM CDT us Yifan James PA-C HEMATOLOGY ORDERABLES F inal Result [facility] # [id number] [address] [address] [place] [address] * FLOW CYTOMETRY PANEL (05/16/2025 8:10 AM CDT) Pathologist [facility] FLOW CYTOMETRY INTERP See Separate Pathology Report 05/16/2025 3:02 PM CDT [facility] Bone marrow ALL BONE MARROW / Unknown Collection / Unknown 05/16/2025 8:10 AM CDT 05/16/2025 8:34 AM CDT Yifan James PA-C PATHOLOGY/CYTOLOGY ORDE REBECCA Final Result [facility] CLIA # [id number] [address] [place] [address] * BONE MARROW ASPIRATION & BIOPSY (05/16/2025 8:10 AM CDT) Pathologist [facility] CASE REPORT Surgical Pathology Report Case: [id number] Authorizing Provider: Yifan James PA-C Collected: 05/16/2025 08:10 AM Ordering Location: [facility] Received: 05/16/2025 08:17 AM Radiology [address] Pathologist: Mi Moreno MD Specimens: A) - Bone marrow, right posterior iliac crest, clot B) - Bone marrow, right posterior iliac crest, biopsy C) - Peripheral Blood Smear 8:24 AM CDT [facility] ADDENDUM 1 This case was submitted to [facility] for cytogenetics and plasma cell FISH panel on 05/16/25. KARYOTYPE: 46,XY[20] Cytogenetic analysis shows a normal male karyotype in all cells analyzed. Plasma Cell Myeloma Prognostic Panel: Results: Abnormal Interpretation: Current high-risk myeloma guidelines are rapidly evolving in light of new therapeutic regimens. Gain of the long arm of chromosome 1 (1q), a frequent finding in plasma cell neoplasia by interphase FISH analysis, is considered high risk in plasma cell myeloma when present with additional high-risk abnormalities in the current NCCN guidelines, or when present with a 1p deletion or a high-risk IGH rearrangement in the current mSMART 4.0 guidelines. In relapsed multiple myeloma, gain of 1q alone is considered high risk in both NCCN and mSMART 4.0 guidelines. IGH::CCND1 rearrangement is considered standard risk in plasma cell myeloma in current NCCN and mSMART 4.0 guidelines. The signal pattern(s) observed with the concurrent IGH probe sets is consistent with the rearrangement observed. See full report scanned in chart. NOTE: Ancillary laboratory reports are scanned to the patient's electronic health record. CLB/wls [id number] 8:24 AM T [facility] Michael Bieker [facility] Addendum electronically signed by Mi Moreno MD on 05/27/2025 at 0824 CDT FINAL DIAGNOSIS A/B/C. Bone marrow and peripheral blood; aspirate, clot, and core biopsy; right posterior iliac crest - Plasma cell myeloma with about 80% lambda light chain restricted plasma cells involving a hypercellular for age marrow - Morphologically unremarkable residual trilineage hematopoiesis - See diagnosis comment REV:AR Moreno MD [id number] 8:24 AM T [facility] Michael Bieker [facility] at 1007 CDT DIAGNOSIS COMMENT Karyotype and prognostic plasma cell FISH panel have been ordered and will be reported in an addendum. 8:24 AM T [facility] GROSS DESCRIPTION A. Received fresh in a syringe labeled Lydia is a single syringe containing 1.0 mL of dark partially clotted bone marrow. The marrow is filtered to form a 2.2 x 1.7 x 0.5 cm clot. The clot is sectioned and entirely submitted in A1. B. Received in formalin labeled Lydia are 2 bone cores ranging from 0.2-1.4 cm in greatest dimension. The specimen is submitted entirely in B1, following light decalcification. Grossed by: Silvia Hunt MS, PA ([facility]) 8:24 AM [facility] Michael Bieker [facility] MICROSCOPIC DESCRIPTION Peripheral Blood CBC (05/16/2025): Hgb 11.1 g/dL; RBC 3.50 x10(12)/L; MCV 94.6 fL; RDW 12.6%; WBC 7.50 x10(9)/L; PLT 229 x10(9)/L. Automated white blood cell differential %: neutrophils 43.7; lymphocytes 35.3; monocytes 12.1; eosinophils 7.7, basophils 0.5, immature granulocytes 0.7. Peripheral smear: Red cells show mild rouleaux. No significant schistocytes. No granulocytic dysplasia or circulating blasts. Bone Marrow Aspirate/Touch Imprint Aspirate smears are cellular and consist largely of mature-appearing plasma cells (about 90-95% of cellularity). Quantification of the residual myeloid and erythroid lineages is somewhat and precise but they do show complete and director treasurer maturation. No increase in blasts is identified. There are rare megakaryocytes seen are morphologically unremarkable. Bone Marrow Biopsy/Clot The clot and core biopsy are adequate for evaluation and show a markedly hypercellular for age marrow (range of 60 to 95%; average of 80%) with frequent large sheets of plasma cells. The residual trilineage hematopoiesis appears normal with a myeloid to erythroid ratio of about 3:1. Megakaryocytes are present and form loose aggregates. Special Studies Iron stain: No definitive stainable iron stores. Congo red stain (block B1): Negative for amyloid. Immunohistochemistry for CD138 (blocks A1 and B1): Plasma cells account for about 80% of total cellularity with frequent large sheets. Flow cytometry: Monoclonal (lambda-restricted) plasma cells detected. No clonal B-cell population or increase in blasts identified. A separate report is available ([id number]). 5 8:24 AM [facility] CLINICAL INFORMATION Cytometry cytology ngs None provided. Chart review shows probable new diagnosis of multiple myeloma. 5 8:24 AM [facility] Michael Bieker [facility] COMMENT The Yedda voice-activated dictation system may have been used in the creation of this report. Inherent to this system is the possibility of errors in syntax, grammar, punctuation, or other areas that could impact interpretation. If there are interpretive questions about the report, please contact the performing pathologist. Unless gross only is specified in the diagnosis, the microscopic examination substantiates the above cited diagnosis. The performance characteristics of all immunohistochemical stains cited in this report (if any) were determined by the Diagnostic Immunohistochemistry Laboratory of [facility] in compliance with CLIA'88 regulations. Some of these tests rely on the use of analyte specific reagents and are subject to specific labeling requirements by the FDA. All controls show appropriate reactivity. This testing was developed by the [facility] Immunohistochemistry Laboratory of [facility]. It has not been cleared or approved by the FDA. The FDA has determined that such clearance or approval is not necessary. 8:24 AM CDT [facility] Bone marrow ALL BONE MARROW / Unknown Collection / Unknown 05/16/2025 8:10 AM CDT 05/16/2025 8:17 AM CDT Comment:Cytometry cytology n gs Bone marrow specimen (specimen) ALL BONE MARROW / Unknown 05/16/2025 8:10 AM CDT 05/16/2025 8:17 AM CDT Comment:Cytometry cytology n gs Bone marrow specimen (specimen) (Peripheral Blood Smear) 05/16/2025 8:10 AM CDT 05/16/2025 8:17 AM CDT Comment:Cytometry cytology n gs Yifan James PA-C PATHOLOGY/CYTOLOGY ORDE REBECCA Edited Result - Final [facility] # [id number] [address] [place] [address] * FLOW CYTOMETRY REPORT (05/16/2025 8:10 AM CDT) CASE REPORT Surgical Pathology Report Case: [id number] Authorizing Provider: Yifan James PA-C Collected: 05/16/2025 08:10 AM Ordering Location: [facility] Received: 05/16/2025 08:52 AM Radiology [address] Pathologist: Mi Moreno MD Specimen: Bone marrow 12:38 PM CDT [facility] FINAL DIAGNOSIS FLOW CYTOMETRIC ANALYSIS. FINAL PATHOLOGY DIAGNOSIS IN SEPARATE REPORT. SPECIMEN: - Bone marrow aspirate INTERPRETATION: - Monoclonal (lambda-restricted) plasma cells detected - No clonal B-cell population or increase in blasts identified - This is ONLY an interpretation of the flow cytometry study; for the final/integrated pathology diagnosis see bone marrow case [id number] Mi Moreno MD [id number] 12:38 PM T [facility] at 1238 CDT DIAGNOSIS COMMENT Flow detects monoclonal plasma cells. Clonal plasma cells may be seen with monoclonal gammopathy of undetermined significance (MGUS), plasmacytoma, as well as plasma cell myeloma. Plasma cell counts may vary due to sampling and degeneration of the specimen. No immunophenotypic evidence of a lymphoproliferative disorder, acute leukemia, or increase in blasts is identified. Correlation with morphologic findings, along with clinical, radiological and SPEP/UPEP information is necessary for further classification. 12:38 PM [facility] IMMUNOPHENOTYPIC ANALYSIS Lymphocytes are 10% of total analyzed events. T-cells (83% of lymphoid cells) show a CD4/CD8 ratio of about 1.5 without overt phenotypic abnormality. NK-cells (13% of lymphoid cells) are unremarkable. Mature B-cells (3% of lymphoid cells) are polyclonal (kappa:lambda 1.2). Monocytes show phenotypic evidence of maturation without dysmaturation. Granulocytes show phenotypic evidence of maturation without dysmaturation. [id number] myeloid events (<1% of total cells) are not increased. Plasma cells are lambda light chain restricted and show: CD20 negative, CD38 positive, CD45 positive, CD56 positive, CD117 negative, and CD138 positive. Markers analyzed: CD2, CD3, CD4, CD5, CD7, CD8, CD10, CD11b, CD11c, CD13, CD14, CD16, CD19, CD20, CD23, CD33, CD34, CD38, CD45, CD56, CD57, CD64, CD117, CD138, HLA-DR, surface and intracellular kappa, surface and intracellular lambda (total = 29) 12:38 PM T [facility] COMMENT Flow cytometry was performed at [facility] ([address] [place] [address], 2nd floor, room #[id number] in [place], [place]) and interpreted in-house at [facility] in [facility]. 12:38 PM CDT [facility] Bone marrow ALL BONE MARROW / Unknown Collection / Unknown 05/16/2025 8:10 AM CDT 05/16/2025 8:52 AM CDT Yifan James PA-C PATHOLOGY/CYTOLOGY ORDZaynab SVETLANAANGEL Final Result Performing Organization Address City/State/[facility] Co de Phone Number [facility] LABORATORY SERVICES [facility] # [id number] [address] [place] [address] [place] [address] * IR BIOPSY BONE MARROW (05/16/2025 8:03 AM CDT) Anatomical Region Laterality Modality X-Ray Angiograph y 05/16/2025 8:03 AM CDT Impressions 05/16/2025 8:55 AM CDT IMPRESSION: Please see below. Exam: IR BIOPSY BONE MARROW Date/Time of Exam: 05/16/2025 8:03 AM Reason For Exam: See Diagnosis. This procedure was performed and preliminary findings dictated by Yifan James PA-C. Supervision and final interpretation by Dr. Solo. CONSENT: Risks, benefits, and alternatives of the procedure were discussed with the patient. Specific risks of bone marrow aspiration and /or core biopsy of the posterior iliac crest include, but not limited to: bleeding, hematoma, discomfort at the site of the biopsy, and infection. Procedure may need to be repeated in the event the sample obtained is inadequate or non-diagnostic. Additional complications of anesthesia include, but not limited to: allergic/drug reaction and breathing problems. Written informed consent was obtained from the patient. Description of Procedure: A time out was performed to verify the patient and procedure. The patient was placed in a prone position, and fluoroscopy was utilized to evaluate the Right posterior iliac crest for needle insertion site. The area was marked, prepped, and draped in the usual sterile fashion. All elements of maximal sterile barrier technique, including hand hygiene and cutaneous antisepsis with an antisepsis agent, were used. Local anesthesia was achieved with 1% lidocaine overlying the proposed needle course. Under fluoroscopic guidance, a Jamshidi needle was advanced into the bone space via power drill. Approximately 10 mL of bone marrow aspirate as well as a bone biopsy were collected at that time and sent to the laboratory for ordered specimens. Patient tolerated the procedure well without complication. Estimated Blood Loss: Minimal Narrative Procedure Note Baron Solo MD - 05/16/2025 IMPRESSION: Please see below. Exam: IR BIOPSY BONE MARROW Date/Time of Exam: 05/16/2025 8:03 AM Reason For Exam: See Diagnosis. This procedure was performed and preliminary findings dictated by Yifan James PA-C. Supervision and final interpretation by Dr. Solo. CONSENT: Risks, benefits, and alternatives of the procedure were discussed with the patient. Specific risks of bone marrow aspiration and /or core biopsy of the posterior iliac crest include, but not limited to: bleeding, hematoma, discomfort at the site of the biopsy, and infection. Procedure may need to be repeated in the event the sample obtained is inadequate or non-diagnostic. Additional complications of anesthesia include, but not limited to: allergic/drug reaction and breathing problems. Written informed consent was obtained from the patient. Description of Procedure: A time out was performed to verify the patient and procedure. The patient was placed in a prone position, and fluoroscopy was utilized to evaluate the Right posterior iliac crest for needle insertion site. The area was marked, prepped, and draped in the usual sterile fashion. All elements of maximal sterile barrier technique, including hand hygiene and cutaneous antisepsis with an antisepsis agent, were used. Local anesthesia was achieved with 1% lidocaine overlying the proposed needle course. Under fluoroscopic guidance, a Jamshidi needle was advanced into the bone space via power drill. Approximately 10 mL of bone marrow aspirate as well as a bone biopsy were collected at that time and sent to the laboratory for ordered specimens. Patient tolerated the procedure well without complication. Estimated Blood Loss: Minimal us Mahin Rowe MD IR ORDERABLES Final Result * (ABNORMAL) CBC WITH DIFFERENTIAL (05/16/2025 7:11 AM CDT) WBC 7.5 4.8 - 10.8 K/uL 05/16/2025 7:20 AM CDT [facility] RBC 3.50(L) 4.60 - 6.20 M/uL 05/16/2025 7:20 AM [facility] HEMOGLOBIN 11.1(L) 14.0 - 18.0 g/dL 05/16/2025 7:20 AM [facility] HEMATOCRIT 33.1(L) 41.0 - 53.0 % 05/16/2025 7:20 AM [facility] MCV 94.6 84.0 - 103.0 fL 05/16/2025 7:20 AM [facility] MCH 31.7 27.0 - 34.0 pg 05/16/2025 7:20 AM [facility] MCHC 33.5 30.0 - 35.0 g/dL 05/16/2025 7:20 AM [facility] PLATELETS 229 140 - 440 K/uL 05/16/2025 7:20 AM [facility] MPV 9.9 8.9 - 12.8 fL 05/16/2025 7:20 AM [facility] RDW 12.6 11.0 - 14.5 % 05/16/2025 7:20 AM [facility] RDW-STDEV 43.6 37.0 - 54.0 fL 05/16/2025 7:20 AM [facility] NEUTROPHILS 44 42 - 75 % 05/16/2025 7:20 AM [facility] LYMPHOCYTES 35 24 - 44 % 05/16/2025 7:20 AM [facility] MONOCYTES 12(H) 2 - 10 % 05/16/2025 7:20 AM [facility] EOSINOPHILS 8(H) 0 - 7 % 05/16/2025 7:20 AM [facility] BASOPHILS 1 0 - 1 % 05/16/2025 7:20 AM [facility] IMMATURE GRANULOCYTES 1 0 - 2 % 05/16/2025 7:20 AM [facility] NEUTROPHIL ABSOLUTE 3.27 2.00 - 8.00 K/uL 05/16/2025 7:20 AM [facility] LYMPHOCYTE ABSOLUTE 2.65 1.20 - 4.00 K/uL 05/16/2025 7:20 AM CDT [facility] MONOCYTE ABSOLUTE 0.91(H) 0.10 - 0.60 K/uL 05/16/2025 7:20 AM CDT [facility] EOSINOPHIL ABSOLUTE 0.58 0.00 - 0.70 K/uL 05/16/2025 7:20 AM CDT [facility] BASOPHILS ABSOLUTE 0.04 0.00 - 0.20 K/uL 05/16/2025 7:20 AM CDT [facility] IMMATURE GRANULOCYTES ABSOLUTE 0.05 0.00 - 0.10 K/uL 05/16/2025 7:20 AM CDT [facility] SMEAR REVIEWED: NA - Not Applicable 05/16/2025 7:20 AM T [facility] Blood Venipuncture / Unknown 05/16/2025 7:11 AM CDT 05/16/2025 7:17 AM CDT Eddie Parmar MD HEMATOLOGY ORDERABLES Final Result [facility] CLIA # [id number] [address] [place] [id number] from Last 3 Months Insurance PPO MCR Care Teams Beverage Sales Consultant Relationship Specialty Start Date End Date Matty Coley MD [address] [phone] PCP - General Family Practice 04/26/23
[2025-06-12 15:43] VITALS: BP 108/48; PULSE 73; TEMP 36.5; O2SAT 95; BMI 23.3
--- NOTE | 2025-06-12 16:18 | XRR_ITS ---
PROCEDURE INFORMATION: Exam: XR Chest Exam date and time: 06/12/2025 4:20 PM Age: 74 years old Clinical indication: Other: Weakness TECHNIQUE: Imaging protocol: Radiologic exam of the chest. Views: 1 view. COMPARISON: CR XR chest 1V portable [id number] 05/21/2025 9:09 AM FINDINGS: Lungs: Mild stable interstitial prominence. Pleural spaces: Unremarkable. No pleural effusion. No pneumothorax. Heart/Mediastinum: Unremarkable. No cardiomegaly. Bones/joints: Unremarkable. XR/XR chest 1V portable [id number] IMPRESSION: No acute findings.
--- NOTE | 2025-06-12 16:25 | W.ED.RECABL ---
HPI - Recheck/Abnormal Lab/Rx General: Chief Complaint: Recheck/Abnormal Lab/Rx Stated Complaint: dehydration (sent from onc) Time Seen by Provider: 06/12/25 16:21 History of Present Illness: 74-year-old man with a history of multiple myeloma, currently receiving treatment in oncology clinic, currently receiving chemotherapy, hypertension, paroxysmal A-fib but no anticoagulation who presents to the emergency room at the request of oncology clinic secondary to acute renal failure. It appears this is likely secondary to the chemotherapy has been receiving. had stated he has been a little bit more confused as well. He has not been eating or drinking much says. BUN was 100 and creatinine was 7 and oncology today. He has been receiving IV hydration for 3 days. says he has been hallucinating and he seems somewhat anxious. Related Data Home Medications ?Medication ?Instructions ?Recorded ?Confirmed benazepril 20 mg tablet 20 mg PO BID 03/28/22 06/03/25 rosuvastatin 40 mg tablet 40 mg PO QPM 03/28/22 06/10/25 sertraline 100 mg tablet 100 mg PO DAILY 03/28/22 06/10/25 acetaminophen 500 mg capsule 500 mg PO Q6H PRN Pain 10/12/22 06/10/25 albuterol sulfate 90 mcg/actuation 2 puff inhalation Q6H PRN sob 10/12/22 06/10/25 aerosol inhaler aspirin 81 mg tablet,delayed 81 mg PO DAILY 10/12/22 06/10/25 release (Adult Low Dose Aspirin) chlorthalidone 25 mg tablet 25 mg PO DAILY 05/08/25 06/03/25 diltiazem HCl 240 mg 240 mg PO DAILY 05/08/25 06/10/25 capsule,extended release 24 hr oxycodone 10 mg tablet 10 mg PO Q6H PRN Severe Pain 05/20/25 06/10/25 (Scale Score 7-10) Previous Rx's ?Medication ?Instructions ?Recorded fluticasone fur. 100 mcg-umeclid 1 inh inhalation Q24H #60 ea 03/28/22 62.5 mcg-vilant 25 mcg inhalat.powder (Trelegy Ellipta) roflumilast 500 mcg tablet 500 mcg PO DAILY #90 tabs 03/28/22 (Daliresp) meloxicam 15 mg tablet 15 mg PO DAILY #90 tabs 06/21/23 Cytometry and Cytology for primitivo #1 ea 05/06/25 marrow biposy hydrocodone 5 mg-acetaminophen 325 1 tab PO Q6H PRN pain #15 tabs 05/08/25 mg tablet dexamethasone 4 mg tablet 20 mg (5 x 4 mg) PO DAILY #80 tabs 05/20/25 fluconazole 100 mg tablet 100 mg PO DAILY fungal infection 05/20/25 prevention #90 tabs ondansetron HCl 4 mg tablet 4 mg PO Q6H PRN nausea and 05/20/25 vomiting #30 tabs sulfamethoxazole 800 1 tab PO MOWEFR infection 05/20/25 mg-trimethoprim 160 mg tablet prevention #24 tabs (Bactrim DS) valacyclovir 500 mg tablet 500 mg PO BID #60 tabs 05/20/25 lenalidomide 15 mg capsule 15 mg PO DAILY #14 caps 06/06/25 (Revlimid) Allergies Allergy/AdvReac Type Severity Reaction Status Date / Time Penicillins Allergy Severe ALGY-Anaphy Verified 06/12/25 15:51 laxis Review of Systems Narrative: Constitutional symptoms: Negative except as documented in HPI. Skin symptoms: Negative except as documented in HPI. Eye symptoms: Negative except as documented in HPI. ENMT symptoms: Negative except as documented in HPI. Respiratory symptoms: Negative except as documented in HPI. Cardiovascular symptoms: Negative except as documented in HPI. Gastrointestinal symptoms: Negative except as documented in HPI. Genitourinary symptoms: Negative except as documented in HPI. Musculoskeletal symptoms: Negative except as documented in HPI. Neurologic symptoms: Negative except as documented in HPI. Psychiatric symptoms: Negative except as documented in HPI. Endocrine symptoms: Negative except as documented in HPI. PFSH ED PFSH: Medical History (Updated 06/12/25 @ 18:26 by Anne-Marie Young MD) Rotator cuff arthropathy of left shoulder Chronic left shoulder pain Primary osteoarthritis, left shoulder Aortic aneurysm recent U/S on 04/03/23 Back pain Surgical History History of nasal surgery Family History Father Heart attack Denies family history of Clotting disorder Anesthesia complication Bleeding disorder Social History Smoking and tobacco/nicotine status: tobacco/nicotine user, details unknown (vape) Quit status (tobacco/nicotine): has quit using Year quit tobacco: 2014 Former quit date comment: 50 year history Alcohol intake: never Substance/Drug Use: never Physical Exam Narrative: EXAM NARRATIVE: General: Alert, no acute distress. Skin: Warm, dry. Head: Normocephalic, atraumatic. Neck: Supple, trachea midline. Eye: Extraocular movements are intact. Ears, nose, mouth and throat: Tacky oral mucosa Cardiovascular: Regular, Normal peripheral perfusion. Respiratory: Lungs are clear to auscultation, respirations are non-labored, breath sounds are equal, Symmetrical chest wall expansion. Gastrointestinal: Soft, Nontender, Non distended Musculoskeletal: Normal ROM, no deformity. Neurological: Alert and oriented, No focal neurological deficit observed. Psychiatric: Cooperative, anxious appearing Course Vital Signs: Vital signs: Vital Signs Temperature 97.7 F 06/12/25 15:43 Pulse Rate 73 06/12/25 15:43 Blood Pressure 108/48 06/12/25 15:43 Pulse Oximetry 95 06/12/25 15:43 Oxygen Delivery Me thod Room Air 06/12/25 15:43 MDM - Recheck/Abnormal Lab/Rx Medical Decision Making Medical decision making: Patient's reason for coming to the emergency room: Acute renal failure Social determinants: Patient is . is with him. I reviewed the patient's medical record. I reviewed today's oncology report. Labs were checked in sputum creatinine have gone up significantly since starting his chemotherapy he has been having hallucinations so he was sent to the emergency room. I reviewed the patient's current home meds No current anticoagulation other than aspirin. Alternate historians: provides some of the history. Also through oncology notes. Differential diagnosis: including but not limited to and based on the above HPI, review of systems and physical exam: In this patient with acute renal failure repeating labs, getting a lactate, getting a urinalysis. Orders placed to evaluate differential diagnosis based on the above differential, HPI and physical exam Lab Review: Laboratory results were reviewed and interpreted by myself the emergency room physician. Mild leukocytosis. Mild anemia. BUN/creatinine are quite elevated at 103 and 7.8 but potassium is not elevated it is 4.8. Sodium is a little low at 133. Urinalysis is negative for infection. Flu COVID and RSV are negative. Assessment of risk: Level of risk: Moderate. Immunocompromise. Confused. Elderly. Multiple comorbidities. Hospitalization considerations: Patient is being admitted Reexamination: Patient remained stable. No increased work of breathing. No altered mental status. No focal motor deficits. Still with a very odd affect. Vitals have been stable Consultation: I spoke with Dr. Hernandez who is on-call for the hospital service who agrees to admission. Assessment and plan: Acute renal failure Uremia Hallucinations Metabolic acidosis ?1 L normal saline bolus in the emergency room - Discharged home - Discussed plan with patient. Answered any questions. - Evaluation and treatment of this problem were appropriate in the emergency setting. Lab Data 06/12/25 17:02 06/12/25 17:02 Laboratory Results WBC 10.56 10^3/uL (3.29-11.43) 06/12/25 17:02 RBC 2.84 10^6/uL (3.85-5.65) L 06/12/25 17:02 Hgb 9.30 g/dL (11.27-16.99) L 06/12/25 17:02 Hct 27.5 % (37-53) L 06/12/25 17:02 MCV 96.8 fl (82-101) 06/12/25 17:02 MCH 32.7 pg (27-33) 06/12/25 17:02 MCHC 33.8 g/dL (30-55) 06/12/25 17:02 RDW 13.3 % (12.1-15.1) 06/12/25 17:02 Plt Count 152 10^3/cmm (157-399) L 06/12/25 17:02 MPV 11.5 fL (7.4-10.4) H 06/12/25 17:02 Neut % (Auto) 80.7 % 06/12/25 17:02 Lymph % (Auto) 4.7 % 06/12/25 17:02 Ward % (Auto) 12.9 % 06/12/25 17:02 Eos % (Auto) 0.3 % 06/12/25 17:02 Baso % (Auto) 0.1 % 06/12/25 17:02 Neut # (Auto) 8.52 10^3/uL (1.8-7.7) H 06/12/25 17:02 Lymph # (Auto) 0.5 10^3/uL (0.8-4.8) L 06/12/25 17:02 Ward # (Auto) 1.4 10^3/uL (0.2-0.9) H 06/12/25 17:02 Eos # (Auto) 0.0 10^3/uL (0.0-0.8) 06/12/25 17:02 Baso # (Auto) 0.0 10^3/uL (0.0-0.1) 06/12/25 17:02 Nucleated RBC % (auto) 0 % 06/12/25 17:02 Nucleated RBCs # 0.0 /100WBC 06/12/25 17:02 Sodium 133 mmol/L (136-145) L 06/12/25 17:02 Potassium 4.8 mmol/L (3.5-5.1) 06/12/25 17:02 Chloride 103 mmol/L (98-107) 06/12/25 17:02 Carbon Dioxide 14 mmol/L (22-29) L 06/12/25 17:02 Anion Gap 20.8 (5-19) H 06/12/25 17:02 BUN 103 mg/dL (8-23) H* 06/12/25 17:02 Creatinine 7.8 mg/dL (0.7-1.2) H* 06/12/25 17:02 GFR Calculation Not Reportable 06/12/25 17:02 Glucose 67 mg/dL (65-115) 06/12/25 17:02 Calculated Osmolality 307 mOsm/kg (285-295) H 06/12/25 17:02 Lactic Acid 0.8 mmol/L (0.5-2.2) 06/12/25 17:02 Calcium 7.8 mg/dL (8.5-10.5) L 06/12/25 17:02 Total Bilirubin 0.3 mg/dL (0.15-1.2) 06/12/25 17:02 AST 34 U/L (0-40) 06/12/25 17:02 ALT 24 U/L (0-41) 06/12/25 17:02 Alkaline Phosphatase 55 U/L (40-130) 06/12/25 17:02 C-Reactive Protein 4.8 mg/L (0.0-4.9) 06/12/25 17:02 Total Protein 8.3 g/dL (6.6-8.7) 06/12/25 17:02 Albumin 2.8 g/dL (3.5-5.2) L 06/12/25 17:02 Globulin 5.5 g/dL (1.3-4.6) H 06/12/25 17:02 Urine Color Latimer (Yellow) A 06/12/25 16: Urine Appearance Cloudy (CLEAR) A 06/12/25 16:39 Urine pH 5.0 (5-7) 06/12/25 16:39 Ur Specific [place] 1.012 (1.005-1.030) 06/12/25 16: Urine Protein 2+ (Negative) A 06/12/25 16:39 Urine Glucose (UA) Negative (Normal) 06/12/25 16:39 Urine Ketones Negative (Negative) 06/12/25 16:39 Urine Blood 2+ (Negative) A 06/12/25 16:39 Urine Nitrate Negative (Negative) 06/12/25 16:39 Urine Bilirubin Negative (Negative) 06/12/25 16:39 Urine Urobilinogen 0.2 mg/dL (Negative) 06/12/25 16:39 Ur Leukocyte Esterase Negative (Negative) 06/12/25 16:39 Urine RBC 0-2 /hpf (0-2) 06/12/25 16:39 Urine WBC 0-5 /hpf (0-5) 06/12/25 16:39 Ur Squamous Epith Cells 0-5 /hpf (0-5) 06/12/25 16:39 Amorphous Sediment 1+ /hpf 06/12/25 16:39 Urine Bacteria None seen /hpf (NONE) 06/12/25 16:39 Hyaline Casts 13.63 /lpf 06/12/25 16:39 Coarse Granular Casts 0-4 /lpf H 06/12/25 16:39 Influenza A (PCR) Negative (Negative) 06/12/25 16:13 Influenza Type B (PCR) Negative (Negative) 06/12/25 16:13 RSV (PCR) Negative (Negative) 06/12/25 16:13 SARS-CoV-2 (PCR) Negative (Negative) 06/12/25 16:13 No radiology studies performed this visit Discharge Plan Discharge Patient Disposition: Admitted As Inpatient Clinical Impression: Acute renal failure, Acute uremia, Hallucinations, Metabolic acidosis Condition: Stable Coding Level of Care Code ED Transit Survey Worker for Clotilde Harmon
[2025-06-12 17:02] LABS: Glucose Urine UA Negative (Normal); Nitrate Urine Negative (Negative); Specific Gravity, Urine 1.012 (1.005-1.030)
[2025-06-12 17:28] LABS: UA Slide Review UA Slide Review Perf
[2025-06-12 17:30] LABS: Hematocrit 27.5 % (37-53); Hemoglobin 9.30 g/dL (11.27-16.99); Mean Corpuscular HGB Conc 33.8 g/dL (30-55); Mean Corpuscular Hemoglobin 32.7 pg (27-33); Mean Corpuscular Volume 96.8 fl (82-101); Nucleated Red Blood Cells % 0 %; Platelet Count 152 10^3/cmm (157-399); Red Blood Count 2.84 10^6/uL (3.85-5.65); White Blood Count 10.56 10^3/uL (3.29-11.43)
[2025-06-12 17:43] LABS: Respiratory Syncytial Virus Ce NEGATIVE (Negative); SARS-CoV-2 PCR NEGATIVE (Negative)
[2025-06-12 17:46] LABS: Alanine Aminotransferase 24 U/L (0-41); Albumin Level 2.8 g/dL (3.5-5.2); Alkaline Phosphatase 55 U/L (40-130); Anion Gap 20.8 (5-19); Aspartate Amino Transferase 34 U/L (0-40); Calcium 7.8 mg/dL (8.5-10.5); Carbon Dioxide 14 mmol/L (22-29); Chloride 103 mmol/L (98-107); Creatinine Clr Calc Pharmacy 7.4755; Globulin 5.5 g/dL (1.3-4.6); Glucose 67 mg/dL (65-115); Lactic Sepsis W/Reflex 0.8 mmol/L (0.5-2.2); Osmolality Calculated 307 mOsm/kg (285-295); Potassium 4.8 mmol/L (3.5-5.1); Sodium 133 mmol/L (136-145); Total Protein 8.3 g/dL (6.6-8.7)
[2025-06-12 17:47] LABS: Blood Urea Nitrogen 103 mg/dL (8-23)
--- NOTE | 2025-06-12 17:48 | ECG_ITS ---
[facility] Pat Name: Cristopher Freeman Department: Room: Gender: Male [employer] Worker: : 1950 Requested By: Anne-Marie Schreiber Order Number: [id number] Littlejohn MD: Yayo Perry M.D. Measurements Intervals [place] Rate: 72 P: 59 DE: 140 QRS: 53 QRSD: 82 T: 55 QT: 401 QTc: 440 Interpretive Statements SINUS RHYTHM MILD ST DEPRESSION No previous ECG available for comparison Electronically Signed On 06-14-2025 20:48:43 CDT by Yayo Perry M.D. [email or web address]
--- NOTE | 2025-06-12 18:10 | USR_ITS ---
PROCEDURE INFORMATION: Exam: US Retroperitoneal, Complete, Kidneys and Bladder Exam date and time: 06/12/2025 6:35 PM Age: 74 years old Clinical indication: Other: Arya; Additional info: Arya' TECHNIQUE: Imaging protocol: Real-time ultrasound of the retroperitoneum with image documentation. Complete exam focused on the bilateral kidneys and urinary bladder. COMPARISON: US renal BI* [id number] 05/05/2025 6:36 AM FINDINGS: Right kidney: Normal. No stones. No hydronephrosis. at least 2 nonspecific although simple appearing cysts. Left kidney: Normal. No stones. No hydronephrosis. At least 1 nonspecific although simple appearing cyst. Urinary bladder: Unremarkable. Both ureteral jets visualized. US/US renal BI* [id number] IMPRESSION: No acute findings.
--- NOTE | 2025-06-12 18:11 | CTR_ITS ---
PROCEDURE INFORMATION: Exam: CT Abdomen And Pelvis Without Contrast Exam date and time: 06/12/2025 6:56 PM Age: 74 years old Clinical indication: Other: Renal failure/mm; PT arrives from oncology with staff for eval of renal failure. PT started tx for multiple myloma on 06/03/25 and has not been eating or drinking much since that tx. ; Additional info: Renal failure, mm TECHNIQUE: Imaging protocol: Computed tomography of the abdomen and pelvis without contrast. Radiation optimization: All CT scans at this facility use at least one of these dose optimization techniques: automated exposure control; mA and/or kV adjustment per patient size (includes targeted exams where dose is matched to clinical indication); or iterative reconstruction. COMPARISON: PT PET skull to thigh INIT [id number] 05/09/2025 3:51 PM RADIATION DOSE METRICS: Total DLP (mGy-cm): 511.69 FINDINGS: Lungs: Emphysema.The presence of pulmonary emphysema on CT is an independent risk factor for lung cancer. In the absence of a history or active diagnosis of lung cancer, it is recommended that this patient with emphysema be evaluated for enrollment in a low dose CT lung cancer screening program. Liver: Normal. No mass. Gallbladder and biliary ducts: Normal. No calcified stones. No ductal dilation. Pancreas: Normal. No ductal dilation. Spleen: Normal. No splenomegaly. Adrenal glands: Normal. No mass. Kidneys and ureters: Nonspecific although commonly benign renal cysts. Stomach and bowel: Sigmoid diverticulosis without definite significant acute inflammatory changes. Appendix: No evidence of appendicitis. Intraperitoneal space: Unremarkable. No free air. No significant fluid collection. Vasculature: Infrarenal aortic aneurysm measures up to 5.0 cm in maximum dimension. Aortic atherosclerosis. Lymph nodes: Unremarkable. No enlarged lymph nodes. Urinary bladder: Unremarkable as visualized. Reproductive: Unremarkable as visualized. Bones/joints: Multiple lytic lesions as detailed in previous PET CT, largest probably in the L3 spinous process. Subacute posterolateral left 8th rib fracture. Soft tissues: Fat containing left inguinal hernia. CT/CT abdomen pelvis wo con [id number] IMPRESSION: 1. Emphysema.The presence of pulmonary emphysema on CT is an independent risk factor for lung cancer. In the absence of a history or active diagnosis of lung cancer, it is recommended that this patient with emphysema be evaluated for enrollment in a low dose CT lung cancer screening program. 2. No definite acute abnormality of the bilateral kidneys. 3. Numerous lytic lesions throughout the axial skeleton compatible with known history of multiple myeloma. COMMENTS: Consistent with the [place]'s Incidental Findings Committee white paper (J Am Jagruti Radiol 2018): Any incidental renal lesion less than 1 cm or classified as too small to characterize, or any incidental cystic renal lesion characterized as simple-appearing, is likely benign. No follow-up imaging is recommended for these lesions per consensus recommendations based on imaging criteria.
--- NOTE | 2025-06-12 18:12 | PM.HP ---
Providers/Chief Complaint Primary Care Provider: Matty Coley MD Chief Complaint: dehydration (sent from onc) History of Present Illness Cristopher Freeman Jr is a 74 year old male with a past medical history of multiple myeloma, on quad treatment, who presents to [facility] from oncology due to DILCIA. Patient denies any fevers, no chills, no cough does report diarrhea, does report nausea, no lack of hydration, he is alert oriented x 3, can follow all commands reports episodes of confusion, decreased poor oral intake, reports hallucination, anxiety, no flank pain, no hematuria, dysuria Review of Systems Const: Denies: fever(s) or chills Card: Denies: chest pain Resp: Denies: dyspnea GI: Reports: nausea; Denies: abdominal pain, vomiting, hematochezia or melena : Denies: flank pain, difficulty urinating, dysuria or urinary frequency Musc: Denies: back pain Skin/Breast: Denies: rash Neuro: Reports: confusion; Denies: headache(s) or dizziness Endo: Denies: polyuria or polydipsia Medications/Allergies Home Medications ?Medication ?Instructions ?Recorded ?Confirmed ?Last Taken ?Type benazepril 20 mg tablet 20 mg PO BID 03/28/22 06/03/25 05/08/25 History fluticasone fur. 100 mcg-umeclid 1 inh inhalation Q24H #60 ea 03/28/22 06/10/25 05/08/25 Rx 62.5 mcg-vilant 25 mcg inhalat.powder (Trelegy Ellipta) roflumilast 500 mcg tablet 500 mcg PO DAILY #90 tabs 03/28/22 06/10/25 05/08/25 Rx (Daliresp) rosuvastatin 40 mg tablet 40 mg PO QPM 03/28/22 06/10/25 05/07/25 History sertraline 100 mg tablet 100 mg PO DAILY 03/28/22 06/10/25 05/08/25 History acetaminophen 500 mg capsule 500 mg PO Q6H PRN Pain 10/12/22 06/10/25 05/04/23 History albuterol sulfate 90 mcg/actuation 2 puff inhalation Q6H PRN sob 10/12/22 06/10/25 05/04/23 History aerosol inhaler aspirin 81 mg tablet,delayed 81 mg PO DAILY 10/12/22 06/10/25 05/08/25 History release (Adult Low Dose Aspirin) meloxicam 15 mg tablet 15 mg PO DAILY #90 tabs 06/21/23 06/10/25 05/08/25 Rx Cytometry and Cytology for primitivo #1 ea 05/06/25 06/03/25 Unknown Rx marrow biposy chlorthalidone 25 mg tablet 25 mg PO DAILY 05/08/25 06/03/25 05/08/25 History diltiazem HCl 240 mg 240 mg PO DAILY 05/08/25 06/10/25 05/08/25 History capsule,extended release 24 hr hydrocodone 5 mg-acetaminophen 325 1 tab PO Q6H PRN pain #15 tabs 05/08/25 06/10/25 Unknown Rx mg tablet dexamethasone 4 mg tablet 20 mg (5 x 4 mg) PO DAILY #80 tabs 05/20/25 06/10/25 Unknown Rx fluconazole 100 mg tablet 100 mg PO DAILY fungal infection 05/20/25 06/10/25 Unknown Rx prevention #90 tabs ondansetron HCl 4 mg tablet 4 mg PO Q6H PRN nausea and 05/20/25 06/10/25 Unknown Rx vomiting #30 tabs oxycodone 10 mg tablet 10 mg PO Q6H PRN Severe Pain 05/20/25 06/10/25 Unknown History (Scale Score 7-10) sulfamethoxazole 800 1 tab PO MOWEFR infection 05/20/25 06/10/25 Unknown Rx mg-trimethoprim 160 mg tablet prevention #24 tabs (Bactrim DS) valacyclovir 500 mg tablet 500 mg PO BID #60 tabs 05/20/25 06/10/25 Unknown Rx lenalidomide 15 mg capsule 15 mg PO DAILY #14 caps 06/06/25 06/10/25 Unknown Rx (Revlimid) Allergies Allergy/AdvReac Type Severity Reaction Status Date / Time Penicillins Allergy Severe ALGY-Anaphy Verified 06/12/25 15:51 laxis PFSH Acute PFSH: Medical History Rotator cuff arthropathy of left shoulder Chronic left shoulder pain Primary osteoarthritis, left shoulder Aortic aneurysm recent U/S on 04/03/23 Back pain Surgical History History of nasal surgery Family History Father Heart attack Denies family history of Clotting disorder Anesthesia complication Bleeding disorder Social History Smoking and tobacco/nicotine status: tobacco/nicotine user, details unknown (vape) Quit status (tobacco/nicotine): has quit using Year quit tobacco: 2014 Former quit date comment: 50 year history Alcohol intake: never Substance/Drug Use: never Vitals/I&O/Wt Last Vital Signs Temp 97.7 F 06/12/25 15:43 Pulse 73 06/12/25 15:43 BP 108/48 06/12/25 15:43 Pulse Ox 95 06/12/25 15:43 O2 Del Method Room Air 06/12/25 15:43 Weight last 48 hrs Weight 65.771 kg Physical Exam Const: COMMON NORMALS: no acute distress and patient oriented x3 HENMT: COMMON NORMALS: normocephalic HEAD & SCALP: normocephalic Eye: COMMON NORMALS: Equal, round and reactive pupils present and EOMs intact bilaterally Neck/C-Spine: COMMON NORMALS: no JVD Resp: COMMON NORMALS: normal respiratory effort, No retractions, No use of accessory muscles and clear to auscultation bilaterally AUSCULTATION: clear to auscultation bilaterally Cardio: COMMON NORMALS: no JVD, regular rate, regular rhythm, S1 normal heart sound present and S2 normal heart sound present RATE: regular rate RHYTHM: regular rhythm HEART SOUNDS: S1 normal heart sound present and S2 normal heart sound present GI: COMMON NORMALS: Normal to inspection, nondistended, normoactive bowel sounds present, Soft to palpation, non-tender, No hepatosplenomegaly present, no masses and no bruits PALPATION: Yes Soft to palpation and Yes No hepatosplenomegaly present Extremity: COMMON NORMALS: no calf tenderness and no pedal edema Neuro: COMMON NORMALS: patient oriented x3, CN's II-XII intact bilaterally and moves all extremities Psych: COMMON NORMALS: mental status grossly normal Data 06/12/25 17:02 06/12/25 17:02 Micro: Microbiology 06/12/25 17:02 Blood Culture - Preliminary Blood SPECIMEN COLLECTED 06/12/25 17:02 Blood Culture - Preliminary Blood SPECIMEN COLLECTED A&P Assessment and plan 1. Acute kidney injury: 2. Acute uremia: 3. Acute renal failure: 4. Kidney mass: 5. Multiple myeloma: Plan: Acute kidney injury - Metabolic acidosis - Uremia - Could be a component from patient's meloxicam use - Recently he was put on benazepril could be a component, in addition to hydrochlorothiazide - Could be component of Bactrim use -Concerns for multiple myeloma associated acute renal failure - Possible chemotherapy side effect?Bortezomib(weekly)/Lenalid/Dex + Daratumumab Plan -Consult nephrology - Renal ultrasound - CPK - Salicylate level - Uric acid - Urine free light chain - Urine beta-2 microglobulin -Uric acid - Ferritin, iron, retake count, TIBC - Urine electrolytes - Urine eosinophils - Start bicarb drip at 125 cc an hour -Albumin - Hold nephrotoxic agents - Patient declines Smith catheter, monitor urine output closely - Based on clinical progress might need to consult and/or transfer for hematology oncology evaluation, treatment History of renal mass - Renal ultrasound Multiple myeloma -Bortezomib(weekly)/Lenalid/Dex + Daratumumab Altered mental status - Could be component of uremic encephalopathy Acute on chronic anemia, with uremia - Iron studies as above - Protonix 40 IV twice daily - Carafate Full code Heparin for DVT prophylaxis PDMP PDMP Reviewed: Not Reviewed Attestations Medical Necessity Statement*: Patient requires hospital patient, inpatient, greater than 2 midnights, for uremia, DILCIA, metabolic acidosis Diagnoses Acute kidney injury N17.9 Acute uremia N19 Acute renal failure N17.9 Kidney mass N28.89 Multiple myeloma C90.00
[2025-06-12 18:43] VITALS: PULSE 68; O2SAT 97
[2025-06-12 18:54] LABS: INR 1.01 (0.8-1.2); Prothrombin Time 14.00 SECONDS (12.1-14.9)
[2025-06-12 18:55] LABS: Partial Thromboplastin Time 25.5 SECONDS (23.9-36.7)
[2025-06-12 19:12] LABS: Ferritin 168 ng/mL (30-400); Iron 88 ug/dL (59-158); NT Pro B Type Natriuretic Pept 6072 pg/mL (0-450); Total Iron Binding Capacity 246 mcg/dl; Unsaturated Iron Binding 158 ug/dL (112-347); Uric Acid 8.7 mg/dL (3.4-7.0)
[2025-06-12 19:14] LABS: Alcohol Level < 10 mg/dL (0-10); Salicylate < 0.3 mg/dL (3-10)
[2025-06-12 19:28] LABS: Potassium, Radom Urine 15 mmol/L; Urine Random Chloride 71 mmol/L; Urine Random Sodium 86 mmol/L
[2025-06-12 19:32] LABS: PCP Screen Urine Negative (Negative)
[2025-06-12 19:33] VITALS: BP 100/45; PULSE 72; RESP 16; O2SAT 98
[2025-06-12 20:00] VITALS: BP 105/40; PULSE 71; RESP 18; TEMP 36.7; O2SAT 92
[2025-06-12 20:08] LABS: Urine Eosinophil Count 0 (0-0)
[2025-06-12 20:16] VITALS: BMI 23.3
[2025-06-12 20:21] VITALS: BP 105/62; PULSE 74; RESP 18; TEMP 36.3; O2SAT 91
[2025-06-12] MEDS: albumin 25 G/100 ML BAG 60 G IV (20:59)
[2025-06-12] MEDS: pantoprazole 40 mg SDV IVP (20:59)
[2025-06-12] MEDS: heparin 5,000 unit/mL INJ 1 mL 5000 UNIT SUBCUT (21:06)
--- NOTE | 2025-06-12 21:15 | PM.CONSULT ---
Providers/Reason For Consult Consulting Physician/Specialty*: [facility]mana/Nephrology Reason for Consult*: DILCIA Attending Physician: Jose Hernandez MD Primary Care Provider: Matty Coley MD History of Present Illness History of Present Illness Cristopher Freeman Jr is a 74 year old male Patient is a 74-year-old male with past medical history significant for multiple myeloma diagnosed in April 2025. Bone marrow biopsy showed plasma cell myeloma with 80% light chains. He has numerous lesions throughout the skeleton. He was started on chemotherapy on June 03- treatment with bortezomib , dexamethasone, daratumumab, lenalidomide. Patient reports poor p.o. intake decreased appetite nausea the last 1 week. Also was started on Bactrim for prophylaxis. He was also taking meloxicam for pain control. He was sent to the emergency department from oncology office due to abnormal labs with creatinine of 7.8 BUN of 100. Patient's creatinine was 4.72 days ago and baseline creatinine was 1.1-1.3 range. Renal ultrasound with no acute findings Review of Systems Narrative: Negative Medications/Allergies Home Medications ?Medication ?Instructions ?Recorded ?Confirmed ?Last Taken ?Type benazepril 20 mg tablet 20 mg PO BID 03/28/22 06/03/25 05/08/25 History fluticasone fur. 100 mcg-umeclid 1 inh inhalation Q24H #60 ea 03/28/22 06/10/25 05/08/25 Rx 62.5 mcg-vilant 25 mcg inhalat.powder (Trelegy Ellipta) roflumilast 500 mcg tablet 500 mcg PO DAILY #90 tabs 03/28/22 06/10/25 05/08/25 Rx (Daliresp) rosuvastatin 40 mg tablet 40 mg PO QPM 03/28/22 06/10/25 05/07/25 History sertraline 100 mg tablet 100 mg PO DAILY 03/28/22 06/10/25 05/08/25 History acetaminophen 500 mg capsule 500 mg PO Q6H PRN Pain 10/12/22 06/10/25 05/04/23 History albuterol sulfate 90 mcg/actuation 2 puff inhalation Q6H PRN sob 10/12/22 06/10/25 05/04/23 History aerosol inhaler aspirin 81 mg tablet,delayed 81 mg PO DAILY 10/12/22 06/10/25 05/08/25 History release (Adult Low Dose Aspirin) meloxicam 15 mg tablet 15 mg PO DAILY #90 tabs 06/21/23 06/10/25 05/08/25 Rx Cytometry and Cytology for primitivo #1 ea 05/06/25 06/03/25 Unknown Rx marrow biposy chlorthalidone 25 mg tablet 25 mg PO DAILY 05/08/25 06/03/25 05/08/25 History diltiazem HCl 240 mg 240 mg PO DAILY 05/08/25 06/10/25 05/08/25 History capsule,extended release 24 hr hydrocodone 5 mg-acetaminophen 325 1 tab PO Q6H PRN pain #15 tabs 05/08/25 06/10/25 Unknown Rx mg tablet dexamethasone 4 mg tablet 20 mg (5 x 4 mg) PO DAILY #80 tabs 05/20/25 06/10/25 Unknown Rx fluconazole 100 mg tablet 100 mg PO DAILY fungal infection 05/20/25 06/10/25 Unknown Rx prevention #90 tabs ondansetron HCl 4 mg tablet 4 mg PO Q6H PRN nausea and 05/20/25 06/10/25 Unknown Rx vomiting #30 tabs oxycodone 10 mg tablet 10 mg PO Q6H PRN Severe Pain 05/20/25 06/10/25 Unknown History (Scale Score 7-10) sulfamethoxazole 800 1 tab PO MOWEFR infection 05/20/25 06/10/25 Unknown Rx mg-trimethoprim 160 mg tablet prevention #24 tabs (Bactrim DS) valacyclovir 500 mg tablet 500 mg PO BID #60 tabs 05/20/25 06/10/25 Unknown Rx lenalidomide 15 mg capsule 15 mg PO DAILY #14 caps 06/06/25 06/10/25 Unknown Rx (Revlimid) Allergies Allergy/AdvReac Type Severity Reaction Status Date / Time Penicillins Allergy Severe ALGY-Anaphy Verified 06/12/25 15:51 laxis Current Medications Generic Name Dose Route Start Last Admin Trade Name Freq PRN Reason Stop Dose Admin Heparin Sodium (Porcine) 5,000 unit 06/12/25 21:00 06/12/25 21:06 Heparin 5,000 Unit/Ml Inj 1 Ml SUBCUT 5,000 unit Q12H FRANKO Administration Sodium Bicarbonate 50 meq/ 1,050 mls @ 125 mls/hr 06/12/25 19:48 10/30/25 20:58 Sodium Chloride IV 125 mls/hr .Q8H24M FRANKO Administration Albumin Human 25 g in 100 mls @ 60 mls/hr 06/12/25 19:48 06/12/25 20:59 Albumin IV 60 mls/hr Q8H FRANKO Administration Pantoprazole Sodium 40 mg 06/12/25 19:48 06/12/25 20:59 Pantoprazole 40 Mg Sdv IVP 40 mg Q12H FRANKO Administration PFSH Acute PFSH: Medical History (Updated 06/12/25 @ 18:26 by Anne-Marie Young MD) Rotator cuff arthropathy of left shoulder Chronic left shoulder pain Primary osteoarthritis, left shoulder Aortic aneurysm recent U/S on 04/03/23 Back pain Surgical History History of nasal surgery Family History Father Heart attack Denies family history of Clotting disorder Anesthesia complication Bleeding disorder Social History Smoking and tobacco/nicotine status: tobacco/nicotine user, details unknown (vape) Quit status (tobacco/nicotine): has quit using Year quit tobacco: 2014 Former quit date comment: 50 year history Alcohol intake: never Substance/Drug Use: never Vitals/I&O/Wt Last Vital Signs Temp 97.4 F L 06/12/25 20:21 Pulse 74 06/12/25 20:21 Resp 18 06/12/25 20:21 BP 105/62 06/12/25 20:21 Pulse Ox 91 06/12/25 20:21 O2 Del Method Room Air 06/12/25 20:21 Weight last 48 hrs Weight 65.771 kg Physical Exam Narrative: Patient is awake alert, frail, No JVD On room air PERRLA Dry mucous membranes S1-S2 regular rate and rhythm Lungs with decreased breath sounds bilaterally Abdomen soft nontender Extremities no pedal edema Skin no rash Data 06/12/25 17:02 06/12/25 17:02 Micro: Microbiology 06/12/25 17:02 Blood Culture - Preliminary Blood SPECIMEN COLLECTED 06/12/25 17:02 Blood Culture - Preliminary Blood SPECIMEN COLLECTED A&P Assessment and plan 1. Acute kidney injury: 1. Acute on chronic CKD 3: Baseline creatinine seems to be in the 1.3/1.4 range, now has severe DILCIA associated with metabolic acidosis. 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 - Agree with bicarbonate drip overnight, check renal ultrasound and urine electrolytes - Patient likely will require to initiate on dialysis and to continue until myeloma therapy finished. I suspect patient will have recurrent risk for DILCIA's during therapy from poor intake and chemotherapy induced. - If renal function not improved, will request tunneled catheter - Noted hyperphosphatemia and elevated uric acid, 2. Severe metabolic acidosis, continue bicarbonate drip and follow 3. Multiple myeloma, light chain disease -recently started on chemotherapy Patient evaluated using audiovisual cart. Time spent 40 minutes. PDMP PDMP Reviewed: Not Reviewed Consult Attestations Medical Necessity Statement: Per medicine team Coding Level of Care Code Acute Code for [facility] Diagnoses Acute kidney injury N17.9
--- NOTE | 2025-06-12 22:01 | PC.NURSE ---
2140 bladder scan done resulted at 29
[2025-06-12 22:36] LABS: Cholesterol 101 mg/dL (0-200); HDL Cholesterol 52 mg/dL (60-100); Thyroid Stimulating Hormone 0.94 uIU/mL (0.27-4.20); Triglycerides 78 mg/dL (0-150)
[2025-06-13] VITALS (78 sets, daily range): BP systolic 78–139; BP diastolic 34–81; PULSE 64–138; RESP 15–32; TEMP 34.9–36.6; O2SAT 86–100; BMI 23.8
[2025-06-13 00:01] LABS: Estmated Average Glucose 128; Hemoglobin A1C 6.1 % (4.0-6.0)
[2025-06-13] MEDS: albumin 25 G/100 ML BAG 60 G IV ×3 (04:07→20:45)
[2025-06-13 05:14] LABS: Hematocrit 25.6 % (37-53); Hemoglobin 8.10 g/dL (11.27-16.99); Mean Corpuscular HGB Conc 31.6 g/dL (30-55); Mean Corpuscular Hemoglobin 32.3 pg (27-33); Mean Corpuscular Volume 102.0 fl (82-101); Nucleated Red Blood Cells % 0 %; Platelet Count 130 10^3/cmm (157-399); Red Blood Count 2.51 10^6/uL (3.85-5.65); White Blood Count 7.24 10^3/uL (3.29-11.43)
[2025-06-13 05:32] LABS: Alanine Aminotransferase 21 U/L (0-41); Albumin Level 2.7 g/dL (3.5-5.2); Alkaline Phosphatase 45 U/L (40-130); Anion Gap 27.8 (5-19); Aspartate Amino Transferase 36 U/L (0-40); Calcium 7.0 mg/dL (8.5-10.5); Carbon Dioxide 10 mmol/L (22-29); Chloride 102 mmol/L (98-107); Creatinine Clr Calc Pharmacy 7.4275; Globulin 4.4 g/dL (1.3-4.6); Glucose 51 mg/dL (65-115); Magnesium 2.1 mg/dL (1.7-2.3); Osmolality Calculated 309 mOsm/kg (285-295); Potassium 4.8 mmol/L (3.5-5.1); Sodium 135 mmol/L (136-145); Total Protein 7.1 g/dL (6.6-8.7)
[2025-06-13 05:34] LABS: Uric Acid 9.4 mg/dL (3.4-7.0)
[2025-06-13 05:52] LABS: Blood Urea Nitrogen 100 mg/dL (8-23)
--- NOTE | 2025-06-13 07:58 | XR_ITS ---
WS: [id number] Exam: XR chest 1V portable [id number] Date/Time of Exam: 06/13/2025 8:52 AM Reason For Exam: shortness of breath Comparison 06/12/2025. Development of significant pulmonary vascular congestion since the prior study suggesting cardiac decompensation. Fluid overload might be considered. Heart size remains normal. The mediastinum and osseous thorax are intact. No pleural effusion. Bony structures are intact. XR/XR chest 1V portable [id number] IMPRESSION: 1. Development of significant pulmonary vascular congestion since the previous study suspicious for cardiac decompensation. Fluid overload might be considered .
--- NOTE | 2025-06-13 08:06 | PC.NURSE ---
Per Dr. Hernandez, give 1100 dose of albumin now. BP 78/37. New orders received to transfer to ICU
--- NOTE | 2025-06-13 08:15 | ECG_ITS ---
[facility] Test Date: 2025-06-13 Pat Name: Cristopher Freeman Department: Room: ICU12 Gender: Male Manager Mental Health: : 1950 Requested By: Jose Hernandez Order Number: [id number] Annetta MD: Yayo Perry M.D. Measurements Intervals [place] Rate: 133 P: 0 OK: 0 QRS: 63 QRSD: 94 T: -5 QT: 325 QTc: 485 Interpretive Statements ATRIAL FIBRILLATION WITH RAPID VENTRICULAR RESPONSE ST DEPRESSION, CONSIDER SUBENDOCARDIAL INJURY [0.1+ mV ST DEPRESSION] ABNORMAL QRS-T ANGLE [QRS-T AXIS DIFFERENCE > 60] Compared to ECG 06/12/2025 17:54:54 ST (T wave) deviation now present Sinus rhythm no longer present Electronically Signed On 06-14-2025 21:03:36 CDT by Yayo Perry M.D. [id number]
[2025-06-13 08:17] LABS: ABG PCO2 24.2 mmHg (35-45); ABG PH Result 7.20 (7.35-7.45); Alveolar-Arterial Oxygen Gradi 16.6 mmHg (5-10); Arterial Blood Gas Hematocrit 26.6 % (42-52); Blood Gas Allen Test Pos; Blood Gas LPM 4.0 %; Blood Gas Operator Identificat MONRO; Blood Gas Sample Site Radial, left; Blood Gas Sample Type Arterial; Carboxyhemoglobin 0.9 %THgb (0.4-20.1); Glucose Level-ABG 48.0 mg/dL (70-115); HCO3 ABG 9.4 mmol/L (22-26); Ionized Calcium Level - ABG 1.1 mmol/L (1.1-1.4); Methemoglobin 0.6 % (0.4-1.5); Oxygen Saturation ABG 97.3; PO2 ABG 96.8 mmHg (80.0-100.0); PO2 FiO2 Ratio Arterial Blood 268; Potassium Level - ABG 4.9 mmol/L (3.5-5.0); Sodium Level - ABG 137.0 mmol/L (131-143)
[2025-06-13] MEDS: pantoprazole 40 mg SDV IVP ×2 (08:17→20:45)
--- NOTE | 2025-06-13 08:53 | PM.CONSULT ---
Providers/Reason For Consult Consulting Physician/Specialty*: General Surgery Reason for Consult*: Need for hemodialysis Attending Physician: Jose Hernandez MD Primary Care Provider: Matty Coley MD History of Present Illness History of Present Illness Cristopher Freeman Jr is a 74 year old male With multiple myeloma who is admitted with acute renal failure and shortness of breath. Have been requested to put the temporary dialysis catheter to initiate dialysis on this patient who will likely later require also long-term dialysis due to his renal failure. Review of Systems General: Reports: 10 or more systems reviewed and unremarkable except in HPI and below Medications/Allergies Home Medications ?Medication ?Instructions ?Recorded ?Confirmed ?Last Taken ?Type benazepril 20 mg tablet 20 mg PO BID 03/28/22 06/03/25 05/08/25 History fluticasone fur. 100 mcg-umeclid 1 inh inhalation Q24H #60 ea 03/28/22 06/10/25 05/08/25 Rx 62.5 mcg-vilant 25 mcg inhalat.powder (Trelegy Ellipta) roflumilast 500 mcg tablet 500 mcg PO DAILY #90 tabs 03/28/22 06/10/25 05/08/25 Rx (Daliresp) rosuvastatin 40 mg tablet 40 mg PO QPM 03/28/22 06/10/25 05/07/25 History sertraline 100 mg tablet 100 mg PO DAILY 03/28/22 06/10/25 05/08/25 History acetaminophen 500 mg capsule 500 mg PO Q6H PRN Pain 10/12/22 06/10/25 05/04/23 History albuterol sulfate 90 mcg/actuation 2 puff inhalation Q6H PRN sob 10/12/22 06/10/25 05/04/23 History aerosol inhaler aspirin 81 mg tablet,delayed 81 mg PO DAILY 10/12/22 06/10/25 05/08/25 History release (Adult Low Dose Aspirin) meloxicam 15 mg tablet 15 mg PO DAILY #90 tabs 06/21/23 06/10/25 05/08/25 Rx Cytometry and Cytology for primitivo #1 ea 05/06/25 06/03/25 Unknown Rx marrow biposy chlorthalidone 25 mg tablet 25 mg PO DAILY 05/08/25 06/03/25 05/08/25 History diltiazem HCl 240 mg 240 mg PO DAILY 05/08/25 06/10/25 05/08/25 History capsule,extended release 24 hr hydrocodone 5 mg-acetaminophen 325 1 tab PO Q6H PRN pain #15 tabs 05/08/25 06/10/25 Unknown Rx mg tablet dexamethasone 4 mg tablet 20 mg (5 x 4 mg) PO DAILY #80 tabs 05/20/25 06/10/25 Unknown Rx fluconazole 100 mg tablet 100 mg PO DAILY fungal infection 05/20/25 06/10/25 Unknown Rx prevention #90 tabs ondansetron HCl 4 mg tablet 4 mg PO Q6H PRN nausea and 05/20/25 06/10/25 Unknown Rx vomiting #30 tabs oxycodone 10 mg tablet 10 mg PO Q6H PRN Severe Pain 05/20/25 06/10/25 Unknown History (Scale Score 7-10) sulfamethoxazole 800 1 tab PO MOWEFR infection 05/20/25 06/10/25 Unknown Rx mg-trimethoprim 160 mg tablet prevention #24 tabs (Bactrim DS) valacyclovir 500 mg tablet 500 mg PO BID #60 tabs 05/20/25 06/10/25 Unknown Rx lenalidomide 15 mg capsule 15 mg PO DAILY #14 caps 06/06/25 06/10/25 Unknown Rx (Revlimid) Allergies Allergy/AdvReac Type Severity Reaction Status Date / Time Penicillins Allergy Severe ALGY-Anaphy Verified 06/12/25 15:51 laxis Current Medications Generic Name Dose Route Start Last Admin Trade Name Freq PRN Reason Stop Dose Admin Albuterol/Ipratropium 3 ml 06/13/25 00:25 06/13/25 00:48 Ipratropium-Albuterol 3 Ml Neb INHALATION 3 ml Q6H PRN Administration SHORTNESS OF BREATH Heparin Sodium (Porcine) 5,000 unit 06/12/25 21:00 06/12/25 21:06 Heparin 5,000 Unit/Ml Inj 1 Ml SUBCUT 5,000 unit Q12H FRANKO Administration Albumin Human 25 g in 100 mls @ 60 mls/hr 06/12/25 19:48 06/13/25 08:06 Albumin IV 60 mls/hr Q8H FRANKO Administration Dextrose 250 mls @ 1,000 mls/hr 06/13/25 08:14 06/13/25 08:33 D10w IV 1,000 mls/hr PRN PRN Administration Adult Acute Hypoglycemia Nursing Protocol Protocol Pantoprazole Sodium 40 mg 06/12/25 19:48 06/13/25 08:17 Pantoprazole 40 Mg Sdv IVP 40 mg Q12H FRANKO Administration PFSH Acute PFSH: Medical History (Updated 06/12/25 @ 18:26 by Anne-Marie Young MD) Rotator cuff arthropathy of left shoulder Chronic left shoulder pain Primary osteoarthritis, left shoulder Aortic aneurysm recent U/S on 04/03/23 Back pain Surgical History History of nasal surgery Family History Father Heart attack Denies family history of Clotting disorder Anesthesia complication Bleeding disorder Social History Smoking and tobacco/nicotine status: tobacco/nicotine user, details unknown (vape) Quit status (tobacco/nicotine): has quit using Year quit tobacco: 2014 Former quit date comment: 50 year history Alcohol intake: never Substance/Drug Use: never Vitals/I&O/Wt Last Vital Signs Temp 97.4 F L 06/13/25 07:56 Pulse 67 06/13/25 07:56 Resp 20 H 06/13/25 07:56 BP 94/48 06/13/25 07:56 Pulse Ox 90 06/13/25 07:56 O2 Del Method Nasal Cannula 06/13/25 07:56 O2 Flow Rate 2 06/13/25 08:00 06/12/25 06/13/25 06/13/25 22:59 06:59 14:59 Intake Total 200 / 200 2386.5 / 2586.5 83.25 / 83.25 Balance 200 / 200 2386.5 / 2586.5 83.25 / 83.25 Weight last 48 hrs Weight 147 lb 4 oz Weight 145 lb Weight 145 lb Physical Exam Narrative: The abdomen is soft nontender nondistended, bilateral groins were examined no evidence of pathology Data 06/13/25 04:28 06/13/25 04:28 Micro: Microbiology 06/12/25 17:02 Blood Culture - Preliminary Blood SPECIMEN COLLECTED 06/12/25 17:02 Blood Culture - Preliminary Blood SPECIMEN COLLECTED A&P Assessment and plan 1. Acute uremia: 2. Acute renal failure: Plan: 74-year-old male who Has history of multiple myeloma and is currently admitted with fluid overload and acute kidney injury. I was requested to place dialysis catheter for this patient. I have discussed with the patient the reason benefits of placing a dialysis catheter including the risk of injury to the adjacent structures including blood vessels nerves small bowel in the groin and including also the long in the neck with the possibility of pneumothorax requiring catheter decompression. I have also Explained the risks of injury to major blood vessels present bleeding risk of infection risk of needing additional procedures. I have explained that at the moment we are offering a temporary dialysis catheter and he needs long-term dialysis he will require a tunneled dialysis catheter. He shows understanding agrees to proceed. We will schedule to do the bedside procedure once the patient is moved to the ICU. PDMP PDMP Reviewed: Not Reviewed Coding Level of Care Code [facility] Diagnoses Acute uremia N19 Acute renal failure N17.9
--- NOTE | 2025-06-13 09:21 | PC.NURSE ---
Report given to Precious in ICU. Pt transported to ICU via bed. Pt's contacted and advised of the move
--- NOTE | 2025-06-13 09:23 | PC.NURSE ---
[place] [facility] severely flailing around in bed, stating he cannot breath. Lungs auscultated wheezing bilat. Pt instructed to try to lat still and not burn up his energy unnecessarily. He is trying hard to comply. IV sties noted right hand ( has albumin infusing) and left AC 9 has 0.45 NS with 50 of bicarb). Awaiting new IVF with Bicarb to arrive from pharmacy. RT, xray , Dr Hernandez and pt's s on at bedside
[2025-06-13 09:29] LABS: Lactic Sepsis W/Reflex 0.7 mmol/L (0.5-2.2)
[2025-06-13 09:37] LABS: NT Pro B Type Natriuretic Pept 6970 pg/mL (0-450)
[2025-06-13] MEDS: dexmedeTOMIDine 0.9 % NaCL 400 MCG/100 ML PREMIX IV (09:56)
--- NOTE | 2025-06-13 10:17 | PM.ACPR ---
Procedure/Consent Time out: Time Out Performed: Yes Consent: Consent for Procedure: Consent obtained from patient, Risks & Benefits reviewed and Agrees to proceed with procedure Additional Consent Information: Son of the patient signed the consent has at the time of signing the patient was on the respiratory distress but patient verbally agreed to the procedure Procedure Narrative: With the patient explained position the left groin was prepped and draped in the usual sterile fashion. A timeout was conducted. The left femoral vein was identified with ultrasound local anesthesia was infiltrated on top and then I cannulated the vein with an 18-gauge needle, wire was advanced into the vein and position verified with ultrasound the needle was removed. A 0.5 cm incision was made in the skin at the level of the wire incision site. The tract was dilated with sequential sizes of dilators and then I advanced a 20 cm dual-lumen dialysis catheter over the wire the catheter was left in place and the wire was removed. The catheter was tested and noted to be working fine. The catheter was fixed with this skin with #3-0 silk. A Biopatch and sterile dressing was applied and the catheter was tested once again to make sure continuous patency, good flows were noted, no difficulty and flushing. Patient remained in the ICU in the critical but stable condition. Acute Procedures Epistaxis Control: Time out performed: Yes
[2025-06-13 10:18] LABS: Troponin(5th) Baseline 65 ng/L (0-15)
--- NOTE | 2025-06-13 10:44 | ECG_ITS ---
[facility] Test Date: 2025-06-13 Pat Name: Cristopher Freeman Department: Room: ICU12 Gender: Male Mechanical Lead: : 1950 Requested By: Jose Hernandez Order Number: [id number] Reading MD: KENIA RAMIREZ Measurements Intervals [place] Rate: 99 P: 75 CA: 143 QRS: 63 QRSD: 89 T: 57 QT: 366 QTc: 470 Interpretive Statements SINUS RHYTHM MODERATE ST DEPRESSION [0.05+ mV ST DEPRESSION] Compared to ECG 06/13/2025 09:24:59 Atrial fibrillation no longer present ST (T wave) deviation still present Electronically Signed On 06-14-2025 21:19:36 CDT by KENIA RAMIREZ [email or web address] [id number]
[2025-06-13] MEDS: aztreonam 1,000 MG in sodium chloride 0.9% (plus) 50 ML 100 MG IV ×2 (10:58→23:13)
[2025-06-13] MEDS: hydrocortisone 100 mg/2 mL SDV IVP (11:04)
[2025-06-13] MEDS: AMIODARONE HCL/D5W 900 MG/500 ML BAG 33.33 MG IV (11:08)
[2025-06-13 11:48] LABS: Troponin 5 2HR 72.09 ng/L (0-15); Troponin 5 2HR Delta 7.09 ABS# (0-10)
--- NOTE | 2025-06-13 11:57 | XR_ITS ---
WS: [id number] PORTABLE CHEST HISTORY: Post PICC insertion COMPARISON: 06/13/2025 Right-sided PICC line is inserted. The tip terminates at the cavoatrial junction. Diffuse hazy attenuation and interstitial thickening throughout both lungs. Consistent with progression of pulmonary vascular congestion. There may be a component of underlying interstitial lung disease also. No dense consolidations. No pleural effusion or pneumothorax. Cardiac size: Normal. Mediastinum/Aorta: Mild atherosclerosis aorta. No osseous abnormality seen. XR/XR chest 1V portable [id number] IMPRESSION: 1. Satisfactory placement right-sided PICC line. 2. Moderate pulmonary venous congestion.
[2025-06-13 12:04] LABS: Hepatitis B Surface Antigen Non-Reactive (Nonreactive)
--- NOTE | 2025-06-13 12:07 | PM.CONSULT ---
Providers/Reason For Consult Consulting Physician/Specialty*: Dr Garcia Reason for Consult*: Multisystem organ failure Attending Physician: Jose Hernandez MD Primary Care Provider: Matty Coley MD History of Present Illness History of Present Illness Cristopher Freeman Jr is a 74 year old male With a past medical history of multiple myeloma presents to the hospital from oncology clinic due to DILCIA. Admitted to the hospital was found to be in acute kidney failure acute metabolic acidosis, nephrology consulted. Overnight decompensated and had to be transferred to the ICU. Was found to be very acidotic with pH of 7.2 placed on bicarb drip as well as BiPAP for comfort. Creatinine up to 7 with multiple metabolic derangements. Plan underway to start dialysis on him still. Nephrology following. Currently opens eyes and does follow commands intermittently. Is on BiPAP 12//30% FiO2. On bicarb drip at 150 mL/h. Precedex is off currently but it was ongoing earlier. Review of systems unobtainable due to being on BiPAP Medications/Allergies Home Medications ?Medication ?Instructions ?Recorded ?Confirmed ?Last Taken ?Type fluticasone fur. 100 mcg-umeclid 1 inh inhalation Q24H #60 ea 03/28/22 06/13/25 06/12/25 10:00 Rx 62.5 mcg-vilant 25 mcg inhalat.powder (Trelegy Ellipta) roflumilast 500 mcg tablet 500 mcg PO DAILY #90 tabs 03/28/22 06/13/25 06/12/25 09:00 Rx (Daliresp) rosuvastatin 40 mg tablet 40 mg PO QPM 03/28/22 06/13/25 06/11/25 19:00 History sertraline 100 mg tablet 100 mg PO DAILY 03/28/22 06/13/25 06/12/25 09:00 History acetaminophen 500 mg capsule 500 mg PO Q6H PRN Pain 10/12/22 06/13/25 05/04/23 History albuterol sulfate 90 mcg/actuation 2 puff inhalation Q6H PRN sob 10/12/22 06/13/25 05/04/23 History aerosol inhaler aspirin 81 mg tablet,delayed 81 mg PO DAILY 10/12/22 06/13/25 06/12/25 08:00 History release (Adult Low Dose Aspirin) meloxicam 15 mg tablet 15 mg PO DAILY #90 tabs 06/21/23 06/13/25 06/11/25 Rx Cytometry and Cytology for primitivo #1 ea 05/06/25 06/13/25 Unknown Rx marrow biposy diltiazem HCl 240 mg 240 mg PO DAILY 05/08/25 06/13/25 06/12/25 09:00 History capsule,extended release 24 hr dexamethasone 4 mg tablet 20 mg (5 x 4 mg) PO DAILY #80 tabs 05/20/25 06/13/25 Unknown Rx fluconazole 100 mg tablet 100 mg PO DAILY fungal infection 05/20/25 06/13/25 Unknown Rx prevention #90 tabs ondansetron HCl 4 mg tablet 4 mg PO Q6H PRN nausea and 05/20/25 06/13/25 Unknown Rx vomiting #30 tabs oxycodone 10 mg tablet 10 mg PO Q6H PRN Severe Pain 05/20/25 06/13/25 Unknown History (Scale Score 7-10) sulfamethoxazole 800 1 tab PO MOWEFR infection 05/20/25 06/13/25 06/12/25 09:00 Rx mg-trimethoprim 160 mg tablet prevention #24 tabs (Bactrim DS) valacyclovir 500 mg tablet 500 mg PO BID #60 tabs 05/20/25 06/13/25 06/13/25 09:00 Rx lenalidomide 15 mg capsule 15 mg PO DAILY #14 caps 06/06/25 06/13/25 06/12/25 09:00 Rx (Revlimid) amlodipine 5 mg tablet 5 mg PO DAILY 06/13/25 06/13/25 06/12/25 09:00 History Allergies Allergy/AdvReac Type Severity Reaction Status Date / Time Penicillins Allergy Severe ALGY-Anaphy Verified 06/12/25 15:51 laxis Current Medications Generic Name Dose Route Start Last Admin Trade Name Freq PRN Reason Stop Dose Admin Albuterol/Ipratropium 3 ml 06/13/25 00:25 06/13/25 00:48 Ipratropium-Albuterol 3 Ml Neb INHALATION 3 ml Q6H PRN Administration SHORTNESS OF BREATH Albuterol/Ipratropium 3 ml 06/13/25 12:00 06/13/25 11:21 Ipratropium-Albuterol 3 Ml Neb INHALATION 3 ml Q4H.RESPIRATORY FRANKO Administration Heparin Sodium (Porcine) 5,000 unit 06/12/25 21:00 06/12/25 21:06 Heparin 5,000 Unit/Ml Inj 1 Ml SUBCUT 5,000 unit Q12H FRANKO Administration Hydrocortisone Sodium Succinate 50 mg 06/13/25 09:45 06/13/25 11:07 Hydrocortisone 100 Mg/2 Ml Sdv IVP Not Given Q12H FRANKO Albumin Human 25 g in 100 mls @ 60 mls/hr 06/12/25 19:48 06/13/25 09:50 Albumin IV Infused Q8H FRANKO Infusion Sodium Bicarbonate 150 meq/ 1,150 mls @ 150 mls/hr 06/13/25 09:45 06/13/25 10:50 Dextrose IV 150 mls/hr .Q7H40M FRANKO Administration Dextrose 250 mls @ 1,000 mls/hr 06/13/25 08:14 06/13/25 09:50 D10w IV Infused PRN PRN Infusion Adult Acute Hypoglycemia Nursing Protocol Protocol Aztreonam 1,000 mg/ Sodium 50 mls @ 100 mls/hr 06/13/25 09:00 06/13/25 10:58 Chloride IV 100 mls/hr Q12H FRANKO Administration Protocol Dexmedetomidine/Sodium Chloride 400 mcg in 100 mls @ 0 mls/hr 06/13/25 09:30 06/13/25 09:56 Precedex IV 0.1 mcg/kg/hr .Q0M FRANKO 1.67 mls/hr Protocol Administration Per Protocol AMIODARONE HCL/D5W 900 mg in 500 mls @ 0 mls/hr 06/13/25 10:15 06/13/25 11:08 Amiodarone 900 Mg/500 Ml-D5w IV 1 mg/min .Q0M FRANKO 33.33 mls/hr Protocol Administration Per Protocol Pantoprazole Sodium 40 mg 06/12/25 19:48 06/13/25 08:17 Pantoprazole 40 Mg Sdv IVP 40 mg Q12H FRANKO Administration PFSH Acute PFSH: Medical History (Updated 06/13/25 @ 12:24 by Keyanna Kerns MD) Acute renal failure Rotator cuff arthropathy of left shoulder Chronic left shoulder pain Primary osteoarthritis, left shoulder Aortic aneurysm recent U/S on 04/03/23 Back pain Surgical History History of nasal surgery Family History Father Heart attack Denies family history of Clotting disorder Anesthesia complication Bleeding disorder Social History Smoking and tobacco/nicotine status: tobacco/nicotine user, details unknown (vape) Quit status (tobacco/nicotine): has quit using Year quit tobacco: 2014 Former quit date comment: 50 year history Alcohol intake: never Substance/Drug Use: never Vitals/I&O/Wt Last Vital Signs Temp 97.4 F L 06/13/25 07:56 Pulse 99 06/13/25 11:23 Resp 22 H 06/13/25 11:22 BP 94/48 06/13/25 07:56 Pulse Ox 95 06/13/25 11:22 O2 Del Method BiPAP 06/13/25 11:22 O2 Flow Rate 2 06/13/25 08:00 FiO2 30 06/13/25 11:22 06/12/25 06/13/25 06/13/25 22:59 06:59 14:59 Intake Total 200 / 200 2386.5 / 2586.5 1279.083 / 1279.083 Output Total 100 / 100 Balance 200 / 200 2386.5 / 2586.5 1179.083 / 1179.083 Weight last 48 hrs Weight 147 lb 4 oz Weight 145 lb Weight 145 lb Physical Exam Narrative: Per RN General: Appears tachypneic on BiPAP HEENT: EOMI Pulmonary: Diminished breath sounds bilaterally Cardiovascular: rrr, nl s1s2, Abdomen: soft, nt, nd, no r/g, Extremities: no edema Neurologic: grossly intact Agree with above exam Urinary Catheter Management: Smith: Cath Placed During This Visit: yes Urinary Catheter Date of Insertion: 06/13/25 Urinary Catheter Time of Insertion: 09:45 Data 06/13/25 04:28 06/13/25 11:21 Micro: Microbiology 06/12/25 17:02 Blood Culture - Preliminary Blood SPECIMEN COLLECTED 06/12/25 17:02 Blood Culture - Preliminary Blood SPECIMEN COLLECTED A&P Assessment and plan 1. Acute kidney injury: 2. Metabolic acidosis: Plan: # Acute kidney failure - Kidney mass noted ultrasound pending. Urgent dialysis needed, nephrology following appreciate help. Monitor urine output. -bortezomib- and daratumumab-based regimens IV srini if HD does not help - Also will give NS boluses 2L and 200 ml/hr to increase UOP above 150 ml/hr # Acute metabolic acidosis - pH 7.2. Repeat ABG stat. If worsening he might need to be intubated to tolerate BiPAP as well as dialysis. Discussed with Dr. Kenney # Multiple myeloma -s/p Bortezomib(weekly)/Lenalid/Dex + Daratumumab Induction (Cycle 1-4) # Thrombocytopenia # Anemia - Current hemoglobin 8, may need replacement. Haptoglobin is elevated at 287. # Pancytopenia # Acute hypoxemic respiratory failure secondary to probable aspiration versus acute pulm edema - I reviewed chest x-ray from today that shows diffuse pulmonary infiltrates suggestive of aspiration versus pulm edema. - Patient has been empirically started on antibiotics-vancomycin and aztreonam, blood cultures pending. # Acute metabolic encephalopathy - Continue as needed Precedex for comfort but most likely will need urgent dialysis. High risk for intubation family is aware he is full code. # Kidney mass - US pending # A-fib with RVR - Amiodarone drip started # Shock-unclear etiology could be sepsis versus tach for shock - Continue antibiotics currently and de-escalated stop if cultures are negative in the next 2 days - Continue Levophed drip and wean as tolerated keep MAP above 75. - Agree with stress dose steroids. Continue hydrocortisone 50 mg IV every 12 # COPD - Not in acute exacerbation. May use DuoNebs as needed # Hyperglycemia-blood glucose 48 - Start D10 drip to maintain blood glucose above 100. # DVT GI prophylaxis - SCDs and Lovenox subcu # Sedation - Use prn Precedex # Nutrition - Dextrose drip to maintain blood sugars between 140-180. Avoid hypoglycemia # CODE STATUS-full # Goals of care- Family wants everything done The high probability of a clinically significant, sudden or life threatening deterioration of the patient's [Respiratory, cardiac and renal] system(s) required my full and direct attention, intervention and personal management. The critical care time is as shown. This time is in addition to time spent performing any reported procedures but includes the following: [x] Data and vital sign review and interpretation [x] Patient assessment, examination and intervention [x] Documentation [x] Medication orders and management Critical Care Time (min): 35 Telemedicine Consent Patient seen today via Telemedicine by agreement and consent of patient.? Telemedicine technology used during the visit includes audio and, as available, review of images.? The patient encounter is appropriate and reasonable under the circumstances given the patient?s particular presentation at this time.? The patient has been advised of the potential risks and limitations of this mode of treatment (including but not limited to the absence of in-person examination) and has agreed to be treated in a remote fashion in spite of them.? Any, and all, of the patient?s/patient?s family?s questions on this issue have been answered and I have made no promises or guarantees to the patient. The patient has also been advised to contact this office for worsening conditions or problems, and seek emergency medical treatment and/or call 911 if the patient deems either necessary PDMP PDMP Reviewed: Not Reviewed Coding Level of Care Code Critical Care >/= 30 minutes Diagnoses Acute kidney injury N17.9 Metabolic acidosis E87.20
[2025-06-13 12:29] LABS: Albumin Level 3.5 g/dL (3.5-5.2); Anion Gap 29.0 (5-19); Calcium 7.0 mg/dL (8.5-10.5); Carbon Dioxide 11 mmol/L (22-29); Chloride 99 mmol/L (98-107); Glucose 53 mg/dL (65-115); Magnesium 2.1 mg/dL (1.7-2.3); Potassium 5.0 mmol/L (3.5-5.1); Sodium 134 mmol/L (136-145)
[2025-06-13 12:31] LABS: Blood Urea Nitrogen 104 mg/dL (8-23); Creatinine Clr Calc Pharmacy 7.4275
[2025-06-13 13:01] LABS: ABG PCO2 29.4 mmHg (35-45); Alveolar-Arterial Oxygen Gradi 10.8 mmHg (5-10); Arterial Blood Gas Hematocrit 23.1 % (42-52); Blood Gas Allen Test Pos; Blood Gas Operator Identificat CAK; Blood Gas Sample Site Radial, left; Blood Gas Sample Type Arterial; Carboxyhemoglobin 0.4 %THgb (0.4-20.1); Glucose Level-ABG 85.0 mg/dL (70-115); HCO3 ABG 9.7 mmol/L (22-26); Ionized Calcium Level - ABG 1.0 mmol/L (1.1-1.4); Methemoglobin < 0.0 % (0.4-1.5); Oxygen Saturation ABG 96.4; PO2 ABG 92.7 mmHg (80.0-100.0); PO2 FiO2 Ratio Arterial Blood 309; Potassium Level - ABG 4.7 mmol/L (3.5-5.0); Sodium Level - ABG 135.0 mmol/L (131-143)
[2025-06-13 13:02] LABS: ABG PH Result 7.13 (7.35-7.45)
--- NOTE | 2025-06-13 13:06 | PICC.NOTE ---
Triple lumen PICC placed to right basilic vein. Referred to vascular access nurse for PICC placement due to irritant IV med use. Risks and benefits discussed and informed consent obtained from pt son, Velasquez Li, at bedside. Right arm assessed with right basilic vein measuring 5.5 mm, straight, and apparent best choice for placement. Using sterile technique and MST, right basilic vein accessed x 1 stick. Mid-arm circumference measured 10 cm from right AC 27 cm. Trimmed cath 41 cm with 0 cm external length noted. CXR shows tip in cavoatrial junction, in good position for use per radiologist. Line secured with stat-lock. Insertion site covered with Biopatch and TSM. Report given to bedside nurse, KATY Lang.
[2025-06-13] MEDS: norepinephrine 4 MG/250 ML BAG 7.5 MG IV (13:18)
[2025-06-13] MEDS: PrismaSol BGK 4/2.5 - 5,000 mL Bag 5000 ML CRRT ×9 (13:30→23:00)
--- NOTE | 2025-06-13 13:33 | PC.SOCIAL ---
IMM Updated Updated pt's family on IMM. No questions voiced. Provided pt a copy. Initialed, dated, & timed a copy & placed in chart.
--- NOTE | 2025-06-13 13:34 | XR_ITS ---
WS: [id number] Exam: XR chest 1V portable [id number] Date/Time of Exam: 06/13/2025 1:36 PM Reason For Exam: intubation Comparison with the latest exam earlier on the same day at 9:29 a.m. An ET tube is been placed and ends 6 cm above the miguelina in good position. An enteric tube has also been placed and is probably in the fundus of the stomach. Right-sided PICC line ends in the lower one third of the SVC in good position. Again noted is pulmonary vascular congestion showing little change. No pneumothorax or pleural effusion. Heart size remains within normal limits. XR/XR chest 1V portable [id number] IMPRESSION: 1. ET tube and right-sided PICC line both in satisfactory location. An enteric tube is in place probably ending in the fundus of the stomach. 2. Pulmonary vascular congestion showing little change.
[2025-06-13] MEDS: fentaNYL 1,000 MCG/100 ML BAG 1 MCG IV (13:36)
[2025-06-13] MEDS: midazolam hcl 100 MG/100 ML BAG IV (13:39)
--- NOTE | 2025-06-13 13:53 | ANES.PROC ---
Anesthesia Procedures Procedure/Date: 06/13/25 Arterial Line: Time Out Performed: Yes Consent: requested by attending/covering physician Size (Gauge): 20 Technique Used: guide wire technique Post-Procedure: dry sterile dressing placed Patient Tolerated Procedure: well and no complications Complications: none Site: right and radial Additional Comments: Diagnosis: metabolic acidosis
--- NOTE | 2025-06-13 13:53 | ANES.PROC ---
Anesthesia Procedures Procedure/Date: 06/13/25 Intubation: Consent: from patient, risks and benefits reviewed and patient agrees to proceed Sedative (amount): etomidate Paralytic (amount): rocuronium Laryngoscope: fiber optic video scope ET Tube Size: 7 ET Tube Uncuffed: Yes Tube Secured Depth (cm): 23 Tube Secured Location: lips Tube Placement Confirmation: visualized tube passing through cords, equal breath sounds bilaterally, no breath sounds over epigastrium and color change noted Patient Tolerated Procedure: well Intubation Complications: none
[2025-06-13] MEDS: rocuronium 10 mg/mL INJ 5mL 100 MG (14:08)
[2025-06-13] MEDS: etomidate 2 mg/mL INJ SDV 10 mL 20.04 MG IVP (14:10)
--- NOTE | 2025-06-13 14:22 | ECG_ITS ---
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: : [id number] Requested By: Jose Hernandez Order Number: [id number] Reading MD: KENIA RAMIREZ Measurements Intervals [place] Rate: 117 P: 36 WI: 137 QRS: 34 QRSD: 98 T: 27 QT: 358 QTc: 500 Interpretive Statements SINUS TACHYCARDIA LOW QRS VOLTAGE IN EXTREMITY LEADS [QRS DEFLECTION < 0.5 mV IN LIMB LEADS] MODERATE ST DEPRESSION [0.05+ mV ST DEPRESSION] Compared to ECG 06/13/2025 10:44:26 Low QRS voltage now present Sinus rhythm no longer present ST (T wave) deviation still present Electronically Signed On 06-14-2025 21:19:52 CDT by KENIA RAMIREZ [email or web address]
[2025-06-13 15:22] LABS: ABG PCO2 45.2 mmHg (35-45); Arterial Blood Gas Hematocrit 26.3 % (42-52); Blood Gas Operator Identificat CAK; Blood Gas Sample Site ALINE; Blood Gas Sample Type Arterial; Blood Gas Tidal Volume 0.40; HCO3 ABG 12.3 mmol/L (22-26); PEEP 6.0 cmH20; PO2 ABG 101.0 mmHg (80.0-100.0); PO2 FiO2 Ratio Arterial Blood 202
[2025-06-13 15:23] LABS: ABG PH Result 7.04 (7.35-7.45)
[2025-06-13 15:24] LABS: Troponin 5 6HR 69.85 ng/L (0-15); Troponin 5 6HR Delta 4.85 ng/L (0-12)
[2025-06-13] MEDS: heparin 5,000 unit/mL INJ 1 mL 5000 UNIT SUBCUT (16:09)
[2025-06-13 16:17] LABS: Hematocrit 25.5 % (37-53); Hemoglobin 8.10 g/dL (11.27-16.99); Mean Corpuscular HGB Conc 31.8 g/dL (30-55); Mean Corpuscular Hemoglobin 32.3 pg (27-33); Mean Corpuscular Volume 101.6 fl (82-101); Nucleated Red Blood Cells % 0 %; Platelet Count 126 10^3/cmm (157-399); Red Blood Count 2.51 10^6/uL (3.85-5.65); White Blood Count 8.85 10^3/uL (3.29-11.43)
--- NOTE | 2025-06-13 16:35 | P.PN_ITS ---
Subjective 2 Subjective: - Critical events - Patient was seen this morning - Patient is short of breath, he tells m e that he cannot lie flat, he is sitting up to the side of bed feeling short of breath - He does have a productive cough, no fe vers, no chills - He has not had much urination during t he night - Denies any flank pain, no abdominal pa in - Discussed with Cristopher that he is crit ically ill, currently in acute renal failure, with persistent uremia, he has not responded much to the bicarb drip started, continues to have metabolic acidosis now has evidence of fluid overload, with concern for pulmonary edema, with his productive cough I worry for the possibility of pneumonia and sepsis, does report a productive cough, continues to have productive cough and for me, denies lightheadedness, no dizziness, no chest pain -Blood pressures are soft, this could be multifactorial from his acute renal failure, concern for sepsis, initially I had ordered a liter bolus, - Orders placed immediately moved down t o ICU and urgent dialysis -Called family about patient's critical status, my concern at this time was acute renal failure, with uremia, with hypoxic respiratory failure, secondary to fluid overload, pulmonary edema, with concerns for sepsis, with new right lower lobe infiltrate possible aspiration pneumonia, need for urgent dialysis -Due to concern for sepsis chest x-ray o rdered showed right lower lobe infiltrate and/or bilateral pulmonary edema from fluid overload placed on vancomycin, aztreonam - Spoke to nephrology, plans on urgent d ialysis with soft blood pressures, discussed my worries about multiple myeloma associated acute renal failure, plans are CRRT as I do not feel that his blood pressures can tolerate dialysis - General Surgery consulted for urgent d ialysis - Seen in ICUJim respiratory rate s anywhere between 25-30, he feels anxious ABG ordered, placed on BiPAP placed on Precedex drip - Reexamined he is more calm, tolerating BiPAP, respiratory rate improved to 20- 25, 30% on the BiPAP, - General Surgery planning on dialysis c atheter placement -Patient's son and are at bedside -Discussed patient family that with the bicarb drip overnight his renal function would improve -He was on meloxicam, benazepril, Bactri m which could be playing a role -But he was started on Bortezomib(weekly )/Lenalid/Dex + Daratumumab Induction on June 03, before this his creatinine was normal -Then on June 10 his creatinine was n oted to be 4.7 -Now he is in acute renal failure, with minimal urine output, creatinine 7.9 with severe metabolic acidosis, which carry significant morbidity and mortality, discussed poor prognosis -Discussed patient's now acute hypoxic r espiratory failure requiring BiPAP, with evidence of fluid overload, my concern for sepsis is worse with right lower lobe pneumonia, potentially aspiration event on IV antibiotics -My worry is is that he has persistent s evere metabolic acidosis, associate with renal failure -The etiology is likely associate with h is multiple myeloma associated free light chain -But certainly sepsis, pneumonia, could be playing a role -This could be from induction therapy ab ove, or could be multiple myeloma associated renal failure/renal toxicity from light chain -Discussed CRRT, currently I do not nicole kae he can tolerate hemodialysis -Goal CRRT is to help with metabolic aci dosis, however it is associated with morbidity and mortality, risk of cardiac events, cardiac arrest -Discussed with family that currently my concern is his respiratory status, he is tachypneic, tachycardic, he has a high risk of worsening respiratory failure requiring intubation and mechanical ventilation -Discussed the risks and benefits of int ubation and mechanical ventilation, the risks prolonged intubation, risk of complication associate with intubation, risk of cardiac arrest, -Discussed plans on monitoring him close ly, if his respiratory status worsens, electrolytes worsen, we will go ahead and proceed with intubation -After discussing risk and benefits of a ll options, patient and family voiced understanding, all questions answered, agreed to proceed -Remains a full code -, Reexamined dialysis catheter status p ostplacement -Patient developed A-fib with RVR, given amiodarone bolus and amiodarone drip - Patient is alert to person, place, not to time he can follow commands does report shortness of breath, repeat ABG shows pH down to 7.1 - Discussed case with pulmonary, given h is persistent metabolic acidosis they recommended intubation and mechanical ventilation -I was able to speak to Cristopher, he was on 30% high O2 he is alert to person, to place, he follows commands, we discussed his critical status in terms of his respiratory failure, discussed that his respiratory rate increasing metabolic acidosis worsening discussed intubating him to help with his respiratory status, he wants to go ahead and proceed, as he is feeling tired - With the help of anesthesia, I was abl e to intubate patient - Patient was intubated with rocuronium, etomidate, tolerated procedure well, no complications, ET tube approximately 5 cm above miguelina - On 50% FiO2, placed on fentanyl, Verse d for sedation, placed on 4 of Levophed - Anesthesia team was able to place in a right arterial line - Patient also had a PICC line placed by PICC line team - Patient was reexamined, family members at bedside - Patient is currently intubated, sedate d on mechanical ventilation 50% FiO2, on 4 of Levophed, bicarb drip has been running, received IV antibiotic -discussed with patient's son, goals of care, son wants to go ahead and proceed with interventions, discussed plans on performing CRRT - Discussed morbidity mortality associat ed with CRRT, patient's family was arsenical all questions answered, agreed to proceed - Patient was examined receiving CRRT - Currently MAP is around 65, urine outp ut 250 over the last 6 hours, receiving bicarb drip, repeat ABG shows pH of 7 - Spoke with pulmonary, spoke with nephr ology - Plan on pending CRRT, order placed for 2 L bolus normal saline - Will continue with 150 cc of normal sa line after bolus, - Hemoglobin down to 8.0 will order 2 un its of PRBC, repeat CBC, CMP, check BMP every 4 hours, recheck uric acid - Reexamined, pH is now up to 7.176, cre atinine down to 6.6 - I had a detailed discussion with johanny guajardo's family about consultation with tertiary level center with his multiple myeloma and my concerns for multiple myeloma induced acute renal failure/nephrotoxicity, I have reached out to [facility], to speak with their oncology team to see if he is a candidate for potentially plasmapheresis or inpatient treatment for his multiple myeloma such as velcade and dexamethasone, awaiting a callback Vitals/I&O/Wt Last Vital Signs Temp 97.5 F L 06/13/25 15:45 Pulse 135 H 06/13/25 16:15 Resp 20 H 06/13/25 16:00 BP 121/56 06/13/25 16:15 Pulse Ox 94 06/13/25 16:00 O2 Del Method Mechanical Ventilation 06/13/25 15:45 O2 Flow Rate 3 06/13/25 09:30 FiO2 50 06/13/25 16:00 06/13/25 06/13/25 06/13/25 06:59 14:59 22:59 Intake Total 2386.5 / 2586.5 1284.705 / 1284.705 342.625 / 1627.330 Output Total 100 / 100 Balance 2386.5 / 2586.5 1184.705 / 1184.705 342.625 / 1527.330 Weight last 48 hrs Weight 66.791 kg Weight 65.771 kg Weight 65.771 kg Physical Exam 2 Const: COMMON NORMALS: no acute distress ORIENTATION/CONSCIOUSNESS: Yes awake, Yes oriented to person and Yes oriented to place; not oriented to time Eye: COMMON NORMALS: Equal, round and reactive pupils present PUPIL: Yes Equal, round and reactive pupils present Lymph: LYMPHATIC: no lymphadenopathy noted Resp: COMMON NORMALS: normal respiratory effort, No retractions and No use of accessory muscles AUSCULTATION: wheezes Cardio: COMMON NORMALS: regular rate, regular rhythm, S1 normal heart sound present and S2 normal heart sound present RATE: regular rate RHYTHM: r egular rhythm HEART SOUNDS: S1 normal heart sound present and S2 normal heart sound present GI: COMMON NORMALS: Normal to inspection, nondistended, normoactive bowel sounds present and non-tender Extremity: COMMON NORMALS: no pedal edema Neuro: SENSORIUM/ORIENTATION: Yes oriented to person, Yes oriented to place and No oriented to time Urinary Catheter Management: Smith: Cath Placed During This Visit: yes Urinary Catheter Date of Insertion: 06/13/25 Urinary Catheter Time of Insertion: 09:45 Data 06/13/25 16:06 06/13/25 11:21 Micro: Microbiology 06/12/25 17:02 Blood Culture - Preliminary Blood SPECIMEN COLLECTED 06/12/25 17:02 Blood Culture - Preliminary Blood SPECIMEN COLLECTED A&P Assessment and plan 1. Acute kidney injury: 2. Metabolic acidosis: 3. Acute uremia: 4. Acute renal failure: 5. Kidney mass: 6. Multiple myeloma: 7. Acute hypoxic respiratory failure: 8. Shock: 9. NSTEMI (non-ST elevated myocardial infarction): 10. Atrial fibrillation with RVR: Plan: Acute hypoxic respiratory failure - Multifactorial - Bilateral pulmonary edema - Concerns for right lower lobe infiltrate, aspiration pneumonia - Metabolic acidosis, uremia - Currently intubated, sedated mechanical ventilation - 50% FiO2 - Tidal volume 400, respiratory 20, PEEP of 8, Plan -Currently intubated, sedated on mechanical ventilation - Versed for sedation - Fentanyl for sedation - Continue Levophed - Vancomycin - Aztreonam - Flagyl Atrial fibrillation with rapid ventricular response - Continue amiodarone drip Sepsis, pneumonia - Maintain MAP in the 65 - Continue Levophed Increased anion gap metabolic acidosis - Secondary to acute renal failure - Secondary to multiple myeloma induced - Secondary to sepsis, pneumonia -bicarb drip Shock - Multifactorial -Metabolic acidosis -Acute renal failure -Uremia -Multiple myeloma induced renal failure - Sepsis, pneumonia Acute kidney injury - Increased anion gap metabolic acidosis - Uremia - Could be a component from patient's meloxicam use - Recently he was put on benazepril could be a component, in addition to hydrochlorothiazide - Could be component of Bactrim use - multiple myeloma associated 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 - Possible chemotherapy side effect?Bortezomib(weekly)/Lenalid/Dex + Daratumumab Plan -Consult nephrology - Renal ultrasound no acute findings - CPK 650 - Salicylate level <0.3 - Uric acid 7.8 - Urine free light chain - Urine beta-2 microglobulin - Ferritin 168, iron 88, retic count 0.8, TIBC - Urine electrolytes - Urine eosinophils WNL - Start bicarb drip at 150 cc an hour -Albumin - Hold nephrotoxic agents - Patient declines Smith catheter, monitor urine output closely - Based on clinical progress might need to consult and/or transfer for hematology oncology evaluation, treatment History of renal mass - Renal ultrasound as above Multiple myeloma -Bortezomib(weekly)/Lenalid/Dex + Daratumumab Altered mental status - Could be component of uremic encephalopathy Acute on chronic anemia, with uremia - Iron studies as above - Protonix 40 IV twice daily - Carafate Full code Heparin for DVT prophylaxis status critical prognosis poor PDMP PDMP Reviewed: Not Reviewed Attestations 2 Medical Necessity Statement*: patient requires hospitalization for acute renal failure, metabolic acidosis, aspiration pneumonaie, sepsis, shock, acute hypoxic respiratory failure, multiple myeloma associated renal failure Procedures Arterial Line Size (Gauge): 20 Coding Level of Care Code Critical Care >/= 30 minutes Critical care time (in minutes): 60 The high probability of a clinically significant, sudden or life threatening deterioration, as referenced in this documentation, required my full and direct attention, intervention and personal management. The critical care time shown is in addition to time spent performing any reported separately billable procedures and includes the following: [x] Data and vital sign review and interpretation [x ] Patient assessment, examination and intervention [x] Medication orders and management [x] Patient/Family updates as able [x] Care Coordination and Documentation. Diagnoses Acute kidney injury N17.9 Metabolic acidosis E87.20 Acute uremia N19 Acute renal failure N17.9 Kidney mass N28.89 Multiple myeloma C90.00 Acute hypoxic respiratory failure J96.01 Shock R57.9 NSTEMI (non-ST elevated myocardial infarction) I21.4 Atrial fibrillation with RVR I48.91 Sepsis Event Note Evaluation Current stage of sepsis: sepsis Initial hypotension due to sepsis/infection: SBP < 90 mmHg Persistent hypotension due to sepsis/infection: SBP < 90 mmHg Possible source: pulmonary Focused Exam Vital Signs Temp Pulse Resp BP Pulse Ox O2 Del Method O2 Flow Rate 06/13/25 16:15 135 H 121/56 06/13/25 16:00 102 H 20 H 109/49 94 06/13/25 15:45 97.5 F L 101 H 20 H 106/46 94 Mechanical Ventilation 06/13/25 15:30 103 H 20 H 112/47 94 Mechanical Ventilation 06/13/25 15:15 108 H 20 H 106/45 95 Mechanical Ventilation 06/13/25 15:12 16 95 06/13/25 15:10 104 H 16 94 Mechanical Ventilation 06/13/25 15:00 106 H 20 H 108/47 94 Mechanical Ventilation 06/13/25 14:45 97.5 F L 110 H 20 H 117/51 Mechanical Ventilation 06/13/25 14:30 115 H 20 H 122/53 94 Mechanical Ventilation 06/13/25 14:15 119 H 20 H 137/61 94 Mechanical Ventilation 06/13/25 14:00 126 H 20 H 110/51 94 Mechanical Ventilation 06/13/25 13:58 16 95 06/13/25 13:45 117 H 21 H 91/43 95 Nasal Cannula 06/13/25 13:30 102 H 19 H 91/45 Nasal Cannula 06/13/25 13:15 111 H 22 H 96/45 95 Nasal Cannula 06/13/25 13:00 99 22 H 93/47 94 Nasal Cannula 06/13/25 12:45 102 H 22 H 105/55 94 Nasal Cannula 06/13/25 12:30 103 H 26 H 104/43 93 Nasal Cannula 06/13/25 12:15 108 H 23 H 104/45 94 Nasal Cannula 06/13/25 12:00 101 H 24 H 95/45 95 Nasal Cannula 06/13/25 11:45 101 H 19 H 103/58 96 Nasal Cannula 06/13/25 11:23 99 06/13/25 11:22 98 22 H 95 BiPAP 06/13/25 11:15 97 22 H 102/52 95 Nasal Cannula 06/13/25 11:00 97 22 H 111/44 94 Nasal Cannula 06/13/25 10:52 98 96 06/13/25 10:45 100 24 H 98/67 100 Nasal Cannula 06/13/25 10:30 127 H 27 H 107/55 99 Nasal Cannula 06/13/25 10:15 128 H 25 H 125/59 95 Nasal Cannula 06/13/25 10:00 130 H 25 H 100/61 99 Nasal Cannula 06/13/25 09:45 105 H 23 H 86/67 97 Nasal Cannula 06/13/25 09:40 137 H 28 H 93 BiPAP 06/13/25 09:33 127 H 95 06/13/25 09:30 97.8 F 111 H 24 H 115/55 92 Nasal Cannula 3 06/13/25 08:00 2 06/13/25 07:56 97.4 F L 67 20 H 94/48 90 Nasal Cannula 06/13/25 07:43 64 78/37 06/13/25 05:00 97.9 F 101 H 15 86/38 91 Nasal Cannula 2 FiO2 06/13/25 16:15 06/13/25 16:00 50 06/13/25 15:45 50 06/13/25 15:30 50 06/13/25 15:15 50 06/13/25 15:12 50 06/13/25 15:10 50 06/13/25 15:00 50 06/13/25 14:45 06/13/25 14:30 06/13/25 14:15 06/13/25 14:00 06/13/25 13:58 50 06/13/25 13:45 06/13/25 13:30 06/13/25 13:15 06/13/25 13:00 06/13/25 12:45 06/13/25 12:30 06/13/25 12:15 06/13/25 12:00 06/13/25 11:45 06/13/25 11:23 06/13/25 11:22 30 06/13/25 11:15 06/13/25 11:00 06/13/25 10:52 30 06/13/25 10:45 06/13/25 10:30 06/13/25 10:15 06/13/25 10:00 06/13/25 09:45 06/13/25 09:40 30 06/13/25 09:33 30 06/13/25 09:30 06/13/25 08:00 06/13/25 07:56 06/13/25 07:43 06/13/25 05:00 Respiratory exam: Present accessory muscle use and wheezes Cardiovascular exam: Present RRR Capillary refill: < 3 Seconds Peripheral pulse strength: 2+ Slightly Diminished Peripheral pulse location: Pedal Skin exam: normal turgor Date exam was performed: 06/13/25 Time exam was performed: 16:58 Problem List 1. Acute kidney injury: Status: Acute 2. Metabolic acidosis: Status: Acute 3. Acute uremia: Status: Acute 4. Acute renal failure: Status: Acute 5. Kidney mass: Status: Acute 6. Multiple myeloma: Status: Acute 7. Acute hypoxic respiratory failure: Status: Acute 8. Shock: Status: Acute 9. NSTEMI (non-ST elevated myocardial infarction): Status: Acute 10. Atrial fibrillation with RVR: Status: Acute
[2025-06-13 16:36] LABS: ABG PCO2 43.9 mmHg (35-45); Arterial Blood Gas Hematocrit 24.6 % (42-52); Blood Gas Operator Identificat CAK; Blood Gas Sample Site ALINE; Blood Gas Sample Type Arterial; Blood Gas Tidal Volume 0.40; HCO3 ABG 16.2 mmol/L (22-26); PEEP 8.0 cmH20; PO2 ABG 72.1 mmHg (80.0-100.0); PO2 FiO2 Ratio Arterial Blood 144
--- NOTE | 2025-06-13 16:37 | PC.NURSE ---
Addendum entered by Precious Hernandez RN 06/13/25 19:59: Correction of prior addendum: To keep MAP equal and/or greater than 75 Addendum entered by Precious Hernandez RN 06/13/25 16:38: Also verbally ordered t75. o keep MAP equal to and/or greater to Original Note: Dr Hernandez at bedside. Verbal orders to increase Levophed gtt to 10mcg/min and to start Amiodarone bolus out of existing amio gtt.
--- NOTE | 2025-06-13 16:44 | PC.NURSE ---
Addendum entered by Precious Hernandez RN 06/13/25 19:24: 0945: Smith cath insertion Original Note: 1000: Amio gtt ordered and started. Bicarb 150mEq in D5 started. Vancomycin started. Precedex started. 1015: Dr Brennan here Dialysis port inserted into left groin. 1130: Precedex gtt stopped. Pt becoming obtunded. 1230: PICC Line insertion in progress. 1345: Levophed gtt started. 1355: Etomidate and Rocuronium admin Pt intubated. 1410: Dr Fitch at bedside. Artline inserted. Good waveform noted on monitor. 1415: Og inserted. Xrays to confirm ETT and OG. Versed and fentanyl gtt started. 1445: CRRT started. New filter type ST 150 utilized. 1608: NS liter boluses x 2 started. 2 amps of bicarb admin. 1620: Pt's breathing is labored Lungs clear to auscultation. Dr Hernandez notified.
[2025-06-13 16:46] LABS: Alanine Aminotransferase 27 U/L (0-41); Albumin Level 3.2 g/dL (3.5-5.2); Alkaline Phosphatase 47 U/L (40-130); Anion Gap 27.5 (5-19); Aspartate Amino Transferase 42 U/L (0-40); Calcium 6.5 mg/dL (8.5-10.5); Carbon Dioxide 13 mmol/L (22-29); Chloride 99 mmol/L (98-107); Creatinine Clr Calc Pharmacy 8.8905; Globulin 4.0 g/dL (1.3-4.6); Glucose 166 mg/dL (65-115); Osmolality Calculated 312 mOsm/kg (285-295); Potassium 4.5 mmol/L (3.5-5.1); Sodium 135 mmol/L (136-145); Total Protein 7.2 g/dL (6.6-8.7)
[2025-06-13 16:47] LABS: Uric Acid 7.8 mg/dL (3.4-7.0)
--- NOTE | 2025-06-13 16:49 | P.PN_ITS ---
Subjective 2 Subjective: pt transferred to ICU - developed resp distress ovrnight , concern for possible aspiration , had rapid A fib on BIPAP Medications: Reviewed: Yes Vitals/I&O/Wt Last Vital Signs Temp 97.5 F L 06/13/25 15:45 Pulse 135 H 06/13/25 16:15 Resp 20 H 06/13/25 16:00 BP 121/56 06/13/25 16:15 Pulse Ox 94 06/13/25 16:00 O2 Del Method Mechanical Ventilation 06/13/25 15:45 O2 Flow Rate 3 06/13/25 09:30 FiO2 50 06/13/25 16:00 06/13/25 06/13/25 06/13/25 06:59 14:59 22:59 Intake Total 2386.5 / 2586.5 1284.705 / 1284.705 346.058 / 1630.763 Output Total 100 / 100 Balance 2386.5 / 2586.5 1184.705 / 1184.705 346.058 / 1530.763 Weight last 48 hrs Weight 66.791 kg Weight 65.771 kg Weight 65.771 kg Physical Exam 2 Narrative: on bipap PERRLA Dry mucous membranes S1-S2 regular rate and rhythm Lungs with decreased breath sounds bilaterally Abdomen soft nontender Extremities no pedal edema Skin no rash Urinary Catheter Management: Smith: Cath Placed During This Visit: yes Urinary Catheter Date of Insertion: 06/13/25 Urinary Catheter Time of Insertion: 09:45 Data 06/13/25 16:06 06/13/25 16:06 Micro: Microbiology 06/12/25 17:02 Blood Culture - Preliminary Blood SPECIMEN COLLECTED 06/12/25 17:02 Blood Culture - Preliminary Blood SPECIMEN COLLECTED A&P Assessment and plan 1. Acute kidney injury: 1. Acute on chronic CKD 3: Baseline creatinine seems to be in the 1.3/1.4 range, now has severe DILCIA associated with metabolic acidosis. 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 - pt was started on bicarbonate gtt , but he decompensated overnight with resp failure , worsening acidosis , shock and rapid A fib - Temp HD catheter placed and CRRT started , serial BMPs while on CRRT - Noted hyperphosphatemia and elevated uric acid, 2. Severe metabolic acidosis, continue bicarbonate drip and CRRT as above 3. 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 Acute resp failure , possible aspitation 5. Rapid A fib 6.Pancytipenia pt critically ill, with guarded prognosis Discussed with family @ bedside Patient evaluated using audiovisual cart. Time spent 40 minutes. PDMP PDMP Reviewed: Not Reviewed Attestations 2 Medical Necessity Statement*: per medicine team Procedures Arterial Line Size (Gauge): 20 Coding Level of Care Code Acute Code for Chg Fwd Diagnoses Acute kidney injury N17.9
[2025-06-13 16:51] LABS: Blood Urea Nitrogen 91 mg/dL (8-23)
[2025-06-13 16:55] LABS: Reflex FDPQ test REFLEX FDP QUEST TES
[2025-06-13 16:56] LABS: ABG PH Result 7.18 (7.35-7.45)
[2025-06-13 17:11] LABS: INR 1.13 (0.8-1.2); Prothrombin Time 15.30 SECONDS (12.1-14.9)
[2025-06-13 17:13] LABS: Partial Thromboplastin Time 27.7 SECONDS (23.9-36.7)
[2025-06-13 17:14] LABS: Fibrinogen 338 mg/dL (174-498)
[2025-06-13 19:08] LABS: Lactate (Lactic Acid level) 1.1 mmol/L (0.5-2.2); Uric Acid 5.6 mg/dL (3.4-7.0)
[2025-06-13 19:09] LABS: Albumin Level 3.2 g/dL (3.5-5.2); Anion Gap 25.5 (5-19); Blood Urea Nitrogen 78 mg/dL (8-23); Calcium 6.3 mg/dL (8.5-10.5); Carbon Dioxide 15 mmol/L (22-29); Chloride 100 mmol/L (98-107); Creatinine Clr Calc Pharmacy 10.2943; Glucose 212 mg/dL (65-115); Magnesium 2.1 mg/dL (1.7-2.3); Potassium 4.5 mmol/L (3.5-5.1); Sodium 136 mmol/L (136-145)
--- NOTE | 2025-06-13 19:45 | PC.NURSE ---
Shift summary: pt arrived to ICU struggling to breath, reporting shortness of breath. Per report from [facility] nurse pt's had no urine output last night. He was to start dialysis after dialysis line put in. Physicians decided CRRT. Pt is now intubated and sedated. CRRT in progress. Smith cath in place. OG in place. Artline present. PICC now present. A fib with RVR on monitor and EKG, then sinus tach in 130's, then back to Afib. He has Levophed, Amio, Fentanyl, Versed, Sodium Bicarb and NS infusing at this time. Urine output is still very minimal. Pt has remained supine with HOB at 30 degrees, without significant position changes to tolerate CRRT. FIO2 increased to 60% this evening. Agonal breathing noted at end of shift.
[2025-06-13] MEDS: norepinephrine 4 MG/250 ML BAG 52.5 MG IV (20:25)
[2025-06-13] MEDS: hydrocortisone 100 mg/2 mL SDV 50 MG IVP (20:44)
--- NOTE | 2025-06-13 21:27 | PC.NURSE ---
Dr Hernandez ordered 1 unit PRBC for patient to receive. Received call from lab staff and was informed that patient's chemotherapy medications would interfere with patient's type and screen. Lab staff informed this nurse that they would have to send a sample of patient's blood to [place] for further testing in order to get an accurate type and screen and that it would take several days to get back. Spoke with Dr Christensen regarding situation. Informed her of patient's hemoglobin level of 8.10 at the time of phone call. Received orders from Dr Chao to obtain needed sample for lab staff and to send sample out so as to get an accurate type and screen.
[2025-06-13 22:16] LABS: ABG PCO2 33.3 mmHg (35-45); ABG PH Result 7.33 (7.35-7.45); Arterial Blood Gas Hematocrit 25.7 % (42-52); Blood Gas Sample Type Arterial; HCO3 ABG 17.6 mmol/L (22-26); PO2 ABG 77.4 mmHg (80.0-100.0)
[2025-06-13 22:18] LABS: Blood Gas Operator Identificat JDB; Blood Gas Sample Site Not specified; Blood Gas Tidal Volume 0.40; PEEP 8.0 cmH20; PO2 FiO2 Ratio Arterial Blood 96
[2025-06-13 22:42] LABS: Anion Gap 20.9 (5-19); Blood Urea Nitrogen 62 mg/dL (8-23); Calcium 6.4 mg/dL (8.5-10.5); Carbon Dioxide 15 mmol/L (22-29); Chloride 102 mmol/L (98-107); Creatinine Clr Calc Pharmacy 13.3358; Glucose 193 mg/dL (65-115); Osmolality Calculated 301 mOsm/kg (285-295); Potassium 3.9 mmol/L (3.5-5.1); Sodium 134 mmol/L (136-145)
[2025-06-13] MEDS: norepinephrine 4 MG/250 ML BAG 75 MG IV (23:23)
[2025-06-13] MEDS: vasopressin 40 UNIT/100 ML PREMIX IV (23:40)
[2025-06-14] VITALS (106 sets, daily range): BP systolic 90–134; BP diastolic 47–91; PULSE 90–149; RESP 18–24; TEMP 35.6–37.3; O2SAT 90–99
[2025-06-14] MEDS: vancomycin 500 MG in sodium chloride 0.9% (plus) 100 ML 200 MG IV ×3 (00:27→21:17)
[2025-06-14] MEDS: metroNIDAZOLE IV 500 MG/100 ML PREMIX 100 MG IV ×3 (00:59→16:31)
[2025-06-14 02:26] LABS: Lactate (Lactic Acid level) 0.5 mmol/L (0.5-2.2)
[2025-06-14 02:27] LABS: Anion Gap 17.7 (5-19); Blood Urea Nitrogen 47 mg/dL (8-23); Calcium 6.3 mg/dL (8.5-10.5); Carbon Dioxide 19 mmol/L (22-29); Chloride 102 mmol/L (98-107); Creatinine Clr Calc Pharmacy 16.7649; Glucose 187 mg/dL (65-115); Magnesium 2.0 mg/dL (1.7-2.3); Osmolality Calculated 297 mOsm/kg (285-295); Potassium 3.7 mmol/L (3.5-5.1); Sodium 135 mmol/L (136-145); Uric Acid 4.2 mg/dL (3.4-7.0)
[2025-06-14] MEDS: norepinephrine 4 MG/250 ML BAG 67.5 MG IV (02:27)
[2025-06-14] MEDS: PrismaSol BGK 4/2.5 - 5,000 mL Bag 5000 ML CRRT ×14 (02:32→22:19)
[2025-06-14] MEDS: AMIODARONE HCL/D5W 900 MG/500 ML BAG 16.67 MG IV (02:50)
[2025-06-14] MEDS: albumin 25 G/100 ML BAG 60 G IV ×3 (03:47→20:10)
[2025-06-14] MEDS: heparin 5,000 unit/mL INJ 1 mL 5000 UNIT SUBCUT ×2 (03:47→16:30)
[2025-06-14] MEDS: hydrocortisone 100 mg/2 mL SDV 50 MG IVP ×4 (03:47→21:14)
[2025-06-14 04:51] LABS: ABG PH Result 7.39 (7.35-7.45); Blood Gas Operator Identificat JDB; Blood Gas Sample Site Not specified; Blood Gas Sample Type Arterial; Blood Gas Tidal Volume 0.40; PEEP 8.0 cmH20
[2025-06-14 04:54] LABS: ABG PCO2 38.2 mmHg (35-45); Arterial Blood Gas Hematocrit 22.0 % (42-52); HCO3 ABG 23.0 mmol/L (22-26); PO2 ABG 101.0 mmHg (80.0-100.0); PO2 FiO2 Ratio Arterial Blood 126
[2025-06-14 06:24] LABS: Reflex FDPQ test REFLEX FDP QUEST TES
[2025-06-14 06:26] LABS: Hematocrit 22.3 % (37-53); Hemoglobin 7.70 g/dL (11.27-16.99); Mean Corpuscular HGB Conc 34.5 g/dL (30-55); Mean Corpuscular Hemoglobin 32.8 pg (27-33); Mean Corpuscular Volume 94.9 fl (82-101); Nucleated Red Blood Cells % 0 %; Platelet Count 94 10^3/cmm (157-399); Red Blood Count 2.35 10^6/uL (3.85-5.65); White Blood Count 7.67 10^3/uL (3.29-11.43)
[2025-06-14 06:48] LABS: Alanine Aminotransferase 32 U/L (0-41); Albumin Level 3.6 g/dL (3.5-5.2); Alkaline Phosphatase 42 U/L (40-130); Anion Gap 14.4 (5-19); Aspartate Amino Transferase 34 U/L (0-40); Blood Urea Nitrogen 31 mg/dL (8-23); Calcium 6.7 mg/dL (8.5-10.5); Carbon Dioxide 22 mmol/L (22-29); Chloride 100 mmol/L (98-107); Globulin 3.7 g/dL (1.3-4.6); Glucose 172 mg/dL (65-115); Magnesium 2.1 mg/dL (1.7-2.3); Osmolality Calculated 287 mOsm/kg (285-295); Potassium 3.4 mmol/L (3.5-5.1); Sodium 133 mmol/L (136-145); Total Protein 7.3 g/dL (6.6-8.7); Uric Acid 3.3 mg/dL (3.4-7.0)
[2025-06-14 06:50] LABS: Lactate (Lactic Acid level) 0.6 mmol/L (0.5-2.2)
[2025-06-14 06:54] LABS: Creatinine Clr Calc Pharmacy 19.5591; INR 1.13 (0.8-1.2); Prothrombin Time 15.30 SECONDS (12.1-14.9)
[2025-06-14 06:55] LABS: Fibrinogen 307 mg/dL (174-498); Partial Thromboplastin Time 28.4 SECONDS (23.9-36.7)
--- NOTE | 2025-06-14 07:00 | XRR_ITS ---
PROCEDURE INFORMATION: Exam: XR Chest Exam date and time: 06/14/2025 9:38 AM Age: 74 years old Clinical indication: Shortness of breath; Additional info: SOB; Fluid retention TECHNIQUE: Imaging protocol: Radiologic exam of the chest. Views: 1 view. COMPARISON: CR XR chest 1V portable [id number] 06/13/2025 1:36 PM FINDINGS: Tubes, catheters and devices: The endotracheal tube is stable in position with the tip 4.3 cm above the miguelina. There is an enteric tube, the tip of the enteric tube is not included in the image. However, the tube is seen extending into the stomach. Right upper extremity PICC is stable in position with the tip at the cavoatrial junction. Lungs: Stable mild interstitial pulmonary edema with superimposed atelectasis versus pneumonia in the mid and lower lungs. Pleural spaces: No pleural effusion. No pneumothorax. Heart/Mediastinum: Stable moderate enlargement of the cardiac silhouette. Mediastinal contours are unremarkable. Vasculature: Stable vascular calcifications in the aorta. Bones/joints: Unremarkable for age. XR/XR chest 1V portable [id number] IMPRESSION: 1. Stable mild interstitial pulmonary edema with superimposed atelectasis versus pneumonia in the mid and lower lungs. Recommend followup chest imaging to insure resolution of these findings. 2. Incidental/nonacute findings are listed in the report.
[2025-06-14] MEDS: fentaNYL 1,000 MCG/100 ML BAG 5 MCG IV (07:18)
[2025-06-14] MEDS: norepinephrine 4 MG/250 ML BAG 45 MG IV (07:18)
[2025-06-14] MEDS: pantoprazole 40 mg SDV IVP ×2 (07:58→20:10)
[2025-06-14 08:29] LABS: Ferritin 247 ng/mL (30-400)
[2025-06-14] MEDS: potassium chloride premix 100 ML 25 MEQ IV (08:52)
--- NOTE | 2025-06-14 09:47 | P.PN_ITS ---
Subjective 2 Subjective: Patient coming in critical condition over the last 24 hours, he had to be intubated and sedated. Pressors were initiated as well as CRRT. Currently tolerating slightly improving with less pressor requirement. Following commands. Vitals/I&O/Wt Last Vital Signs Temp 98.2 F 06/14/25 08:00 Pulse 131 H 06/14/25 08:15 Resp 23 H 06/14/25 08:00 BP 108/65 06/14/25 08:15 Pulse Ox 97 06/14/25 08:15 O2 Del Method Mechanical Ventilation 06/14/25 08:00 O2 Flow Rate 3 06/13/25 09:30 FiO2 70 06/14/25 08:00 06/13/25 06/14/25 06/14/25 22:59 06:59 14:59 Intake Total 4084.259 / 5368.964 2657.903 / 8026.867 1067.125 / 1067.125 Output Total 140 / 270 568 / 568 Balance 3944.259 / 5098.964 2657.903 / 7756.867 499.125 / 499.125 Weight last 48 hrs Weight 147 lb 4 oz Weight 145 lb Weight 145 lb Physical Exam 2 Narrative: Patient is intubated and sedated which limited the physical exam Right groin line is in place, no evidence of bleeding, properly working Urinary Catheter Management: Smith: Cath Placed During This Visit: yes Reason for Continuing Indwelling Catheter: Accurate Measurement of Urinary Output in Critically Ill Patients Urinary Catheter Date of Insertion: 06/13/25 Urinary Catheter Time of Insertion: 09:45 Data 06/14/25 06:06 06/14/25 06:06 Micro: Microbiology 06/12/25 17:02 Blood Culture - Preliminary Blood NEGATIVE TO DATE 06/12/25 17:02 Blood Culture - Preliminary Blood NEGATIVE TO DATE A&P Assessment and plan 1. NSTEMI (non-ST elevated myocardial infarction): 2. Atrial fibrillation with RVR: 3. Shock: 4. Acute renal failure: Plan: 74-year-old male with acute kidney injury in the setting of multiple myeloma. Patient is in critical condition but appears to be slightly improving. From the surgical standpoint the insertion site of the level of the groin looks well and he is tolerating CRRT. Indicates that patient shows clinical improvement and is tolerating dialysis I will be happy to proceed with a tunneled dialysis catheter placement once the patient is seen with a stable Hemodynamics PDMP PDMP Reviewed: Not Reviewed Attestations 2 Medical Necessity Statement*: Per medical team Procedures Arterial Line Size (Gauge): 20 Coding Level of Care Code Acute Code for Chg Fwd Diagnoses NSTEMI (non-ST elevated myocardial infarction) I21.4 Atrial fibrillation with RVR I48.91 Shock R57.9 Acute renal failure N17.9
[2025-06-14] MEDS: aztreonam 1,000 MG in sodium chloride 0.9% (plus) 50 ML 100 MG IV ×2 (10:02→22:23)
[2025-06-14 10:15] LABS: Anion Gap 12.9 (5-19); Blood Urea Nitrogen 29 mg/dL (8-23); Calcium 6.5 mg/dL (8.5-10.5); Carbon Dioxide 23 mmol/L (22-29); Chloride 104 mmol/L (98-107); Glucose 111 mg/dL (65-115); Magnesium 2.0 mg/dL (1.7-2.3); Osmolality Calculated 289 mOsm/kg (285-295); Potassium 3.9 mmol/L (3.5-5.1); Sodium 136 mmol/L (136-145)
[2025-06-14 10:17] LABS: Lactate (Lactic Acid level) 1.4 mmol/L (0.5-2.2)
[2025-06-14 10:19] LABS: Creatinine Clr Calc Pharmacy 22.5682
--- NOTE | 2025-06-14 10:46 | P.PN_ITS ---
Subjective 2 Subjective: on CRRT , tolerating well oN LEvophed Medications: Reviewed: Yes Vitals/I&O/Wt Last Vital Signs Temp 97.5 F L 06/14/25 10:19 Pulse 123 H 06/14/25 10:19 Resp 18 06/14/25 10:19 BP 108/65 06/14/25 08:15 Pulse Ox 95 06/14/25 10:19 O2 Del Method Mechanical Ventilation 06/14/25 08:00 O2 Flow Rate 3 06/13/25 09:30 FiO2 70 06/14/25 08:00 06/13/25 06/14/25 06/14/25 22:59 06:59 14:59 Intake Total 4084.259 / 5368.964 2657.903 / 8026.867 1217.125 / 1217.125 Output Total 140 / 270 568 / 568 Balance 3944.259 / 5098.964 2657.903 / 7756.867 649.125 / 649.125 Weight last 48 hrs Weight 66.791 kg Weight 65.771 kg Weight 65.771 kg Physical Exam 2 Narrative: Intubated , sedated PERRLA Dry mucous membranes S1-S2 regular rate and rhythm Lungs with decreased breath sounds bilaterally Abdomen soft nontender Extremities no pedal edema Skin no rash Urinary Catheter Management: Smith: Cath Placed During This Visit: yes Reason for Continuing Indwelling Catheter: Accurate Measurement of Urinary Output in Critically Ill Patients Urinary Catheter Date of Insertion: 06/13/25 Urinary Catheter Time of Insertion: 09:45 Data 06/14/25 06:06 06/14/25 09:47 Micro: Microbiology 06/13/25 15:30 Gram Stain - Final Sputum - Endotracheal Tube Aspirate 06/12/25 17:02 Blood Culture - Preliminary Blood NEGATIVE TO DATE 06/12/25 17:02 Blood Culture - Preliminary Blood NEGATIVE TO DATE A&P Assessment and plan 1. Acute kidney injury: 1. Acute on chronic CKD 3: Baseline creatinine seems to be in the 1.3/1.4 range, now has severe DILCIA associated with metabolic acidosis. 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 - pt was started on bicarbonate gtt , but he decompensated on 06/12/25 night , with resp failure , worsening acidosis , shock and rapid A fib --> intubated - Temp HD catheter placed and CRRT started , serial BMPs while on CRRT , tolerating well --> If pt off levophed by tomorrow Am , Will switch to HD - Noted hyperphosphatemia - monitor 2. Severe metabolic acidosis, s/p bicarbonate drip and CRRT as above 3. 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 Acute resp failure , possible aspitation 5. Rapid A fib 6.Pancytipenia 7. Hypokalemia , stopped bicarb drip , replete K pt critically ill, with guarded prognosis Discussed with family @ bedside Patient evaluated using audiovisual cart. Time spent 40 minutes. PDMP PDMP Reviewed: Not Reviewed Attestations 2 Medical Necessity Statement*: per medicine Procedures Arterial Line Size (Gauge): 20 Coding Level of Care Code Acute Code for g Fwd Diagnoses Acute kidney injury N17.9
[2025-06-14 11:39] LABS: ABG PCO2 37.2 mmHg (35-45); ABG PH Result 7.43 (7.35-7.45); Arterial Blood Gas Hematocrit 25.5 % (42-52); Blood Gas Allen Test Pos; Blood Gas Operator Identificat BD; Blood Gas Sample Site ALINE; Blood Gas Sample Type Arterial; Blood Gas Tidal Volume 0.40; HCO3 ABG 24.8 mmol/L (22-26); PEEP 8.0 cmH20; PO2 ABG 95.1 mmHg (80.0-100.0); PO2 FiO2 Ratio Arterial Blood 135
[2025-06-14] MEDS: amiodarone 150 MG/100 ML PREMIX 400 MG IV ×2 (11:58→16:36)
[2025-06-14] MEDS: norepinephrine 4 MG/250 ML BAG 33.75 MG IV (12:58)
--- NOTE | 2025-06-14 14:06 | P.PN_ITS ---
Subjective 2 Subjective: - Patient was seen this morning - Urine output is improving - Remains afebrile - 10 of Levophed - 70% FiO2 - Metabolic acidosis significantly impro michelle - Currently receiving CRRT - Atrial fibrillation on amiodarone drip - Bicarb drip - Patient is on fentanyl and Versed for sedation he does awaken, he can nod to yes or no questions, able to follow some commands - Discussed case with pulmonary - Discussed case with [facility], yesterday and again today, they see his clinical improvement, but for now they declined urgent need for chemotherapy, or transfer for chemotherapy or interventions for multiple myeloma and renal failure - Discussed case with nephrology - Discussed with patient's family, goals of care - Discussed his clinical improvement -Discussed risk of benefits of all optio ns, patient status is stable, prognosis guarded, they voiced understanding, all questions answered - He is following commands, on sedation, he is up to 70% FiO2 likely secondary to fluid overload but pneumonia could be playing a role he is on 10 of Levophed, component could be sepsis, renal function is improving urine output improving, remains in atrial fibrillation heart rates are a bit difficult to control, remains on amiodarone, electrolyte is improving, metabolic acidosis improving - Discussed goals of care with family - Family wants to proceed with DNR/DNI - They want a trial of extubation based on clinical progress - They do not want him to be reintubated -They do not want long-term dialysis -They want to continue with medical inve ntions but do not want to have aggressive interventions are okay with CRRT -They declined transfer -They declined chemotherapy -Their hope is that he clinically improv es to be extubated and for them to take him home on hospice - Ultimately if his condition worsens, o r if the likelihood of meaningful recovery is unlikely they want to proceed with comfort care - If he starts to suffer or his conditio n worsens they want to proceed with comfort care - After discussing recent benefits of al l options, patient's son and voiced understanding, all questions answered, agreed to proceed Vitals/I&O/Wt Last Vital Signs Temp 97.9 F 06/14/25 13:12 Pulse 113 H 06/14/25 13:12 Resp 20 H 06/14/25 13:12 BP 123/55 06/14/25 13:12 Pulse Ox 93 06/14/25 13:12 O2 Del Method Mechanical Ventilation 06/14/25 12:00 O2 Flow Rate 3 06/13/25 09:30 FiO2 60 06/14/25 12:00 06/13/25 06/14/25 06/14/25 22:59 06:59 14:59 Intake Total 4084.259 / 5368.964 2657.903 / 8026.867 2259.999 / 2259.999 Output Total 140 / 270 1263 / 1263 Balance 3944.259 / 5098.964 2657.903 / 7756.867 996.999 / 996.999 Weight last 48 hrs Weight 66.791 kg Weight 65.771 kg Weight 65.771 kg Physical Exam 2 Const: COMMON NORMALS: no acute distress ORIENTATION/CONSCIOUSNESS: Yes awake and Yes oriented to person Eye: COMMON NORMALS: Equal, round and reactive pupils present PUPIL: Yes Equal, round and reactive pupils present Resp: COMMON NORMALS: normal respiratory effort, No retractions and No use of accessory muscles AUSCULTATION: crackles and wheezes Cardio: COMMON NORMALS: S1 normal heart sound present and S2 normal heart sound present RATE: tachycardic RHYTHM: abnormal rhythm irregularly irregular HEART SOUNDS: S1 normal heart sound present and S2 normal heart sound present GI: COMMON NORMALS: Normal to inspection, nondistended, normoactive bowel sounds present and non-tender Extremity: COMMON NORMALS: no pedal edema Neuro: SENSORIUM/ORIENTATION: Yes oriented to person Urinary Catheter Management: Smith: Cath Placed During This Visit: yes Reason for Continuing Indwelling Catheter: Accurate Measurement of Urinary Output in Critically Ill Patients Urinary Catheter Date of Insertion: 06/13/25 Urinary Catheter Time of Insertion: 09:45 Data 06/14/25 06:06 06/14/25 09:47 Micro: Microbiology 06/13/25 15:30 Gram Stain - Final Sputum - Endotracheal Tube Aspirate 06/12/25 17:02 Blood Culture - Preliminary Blood NEGATIVE TO DATE 06/12/25 17:02 Blood Culture - Preliminary Blood NEGATIVE TO DATE A&P Assessment and plan 1. Acute kidney injury: 2. Metabolic acidosis: 3. Acute uremia: 4. Acute renal failure: 5. Kidney mass: 6. Multiple myeloma: 7. Acute hypoxic respiratory failure: 8. Shock: 9. NSTEMI (non-ST elevated myocardial infarction): 10. Atrial fibrillation with RVR: Plan: Acute hypoxic respiratory failure - Multifactorial - Bilateral pulmonary edema - Concerns for right lower lobe infiltrate, aspiration pneumonia - Metabolic acidosis, uremia - Currently intubated, sedated mechanical ventilation - 50% FiO2 - Tidal volume 400, PEEP of 8, Plan -Currently intubated, sedated on mechanical ventilation - Versed for sedation - Fentanyl for sedation - Continue Levophed - Vancomycin - Aztreonam - Flagyl - CRRT Atrial fibrillation with rapid ventricular response - Continue amiodarone drip Sepsis, pneumonia - Maintain MAP in the 65 - Continue Levophed Increased anion gap metabolic acidosis, resolving - Secondary to acute renal failure - Secondary to multiple myeloma induced - Secondary to sepsis, pneumonia -bicarb drip weaned off Shock - Multifactorial -Metabolic acidosis -Acute renal failure -Uremia -Multiple myeloma induced renal failure - Sepsis, pneumonia Acute kidney injury, improving - Increased anion gap metabolic acidosis - Uremia - Could be a component from patient's meloxicam use - Recently he was put on benazepril could be a component, in addition to hydrochlorothiazide - Could be component of Bactrim use - multiple myeloma associated 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 - Possible chemotherapy side effect?Bortezomib(weekly)/Lenalid/Dex + Daratumumab Plan - Nephrology on consult - Renal ultrasound no acute findings - CPK 650 - Salicylate level <0.3 - Uric acid 7.8 - Urine free light chain - Urine beta-2 microglobulin - Ferritin 168, iron 88, retic count 0.8, TIBC - Urine electrolytes - Urine eosinophils WNL - Start bicarb drip at 150 cc an hour, we off -Albumin - Hold nephrotoxic agents - Patient declines Smith catheter, monitor urine output closely - Patient's family declines transfer to tertiary level center, or any further interventions for her multiple myeloma - Declined long-term dialysis, agreeable to short term dialysis/CRRT History of renal mass - Renal ultrasound as above Multiple myeloma -Bortezomib(weekly)/Lenalid/Dex + Daratumumab June 03, 2025 Altered mental status - Could be component of uremic encephalopathy Acute on chronic anemia, with uremia -Transfuse 1 unit PRBC - Iron studies as above - Protonix 40 IV twice daily - Carafate DNR/DNI Overall goals to keep him comfortable, if clinical condition deteriorates proceed with comfort care Does not want to have aggressive interventions Goal for family to take Cristopher home on hospice Heparin for DVT prophylaxis status stable prognosis guarded PDMP PDMP Reviewed: Not Reviewed Attestations 2 Medical Necessity Statement*: Patient requires hospitalization for metabolic encephalopathy, metabolic acidosis, acute renal failure, anemia, pneumonia, respiratory failure, atrial fibrillation, multiple myeloma induced renal failure Procedures Arterial Line Size (Gauge): 20 Coding Level of Care Code Critical Care >/= 30 minutes Critical care time (in minutes): 45 The high probability of a clinically significant, sudden or life threatening deterioration, as referenced in this documentation, required my full and direct attention, intervention and personal management. The critical care time shown is in addition to time spent performing any reported separately billable procedures and includes the following: [x] Data and vital sign review and interpretation [x ] Patient assessment, examination and intervention [x] Medication orders and management [x] Patient/Family updates as able [x] Care Coordination and Documentation. Diagnoses Acute kidney injury N17.9 Metabolic acidosis E87.20 Acute uremia N19 Acute renal failure N17.9 Kidney mass N28.89 Multiple myeloma C90.00 Acute hypoxic respiratory failure J96.01 Shock R57.9 NSTEMI (non-ST elevated myocardial infarction) I21.4 Atrial fibrillation with RVR I48.91 Sepsis Event Note Focused Exam Vital Signs Temp Pulse Resp BP Pulse Ox O2 Del Method FiO2 06/14/25 13:12 97.9 F 113 H 20 H 123/55 93 06/14/25 13:00 114 H 121/71 06/14/25 12:57 97.7 F 124 H 20 H 124/55 95 06/14/25 12:45 109 H 118/68 06/14/25 12:30 107 H 112/68 94 06/14/25 12:15 112 H 112/91 06/14/25 12:00 97.9 F 112 H 20 H 115/67 95 Mechanical Ventilation 60 06/14/25 11:57 97.9 F 135 H 20 H 126/56 06/14/25 11:45 130 H 90/71 06/14/25 11:33 24 H 96 60 06/14/25 11:31 131 H 24 H 97 Mechanical Ventilation 70 06/14/25 11:30 117 H 112/73 97 06/14/25 11:15 120 H 122/76 11/01/25 11:00 128 H 106/72 97 06/14/25 10:57 97.7 F 128 H 20 H 116/55 97 06/14/25 10:45 133 H 116/62 97 06/14/25 10:42 97.7 F 116 H 20 H 120/53 06/14/25 10:30 123 H 109/69 96 06/14/25 10:19 97.5 F L 123 H 18 95 06/14/25 10:15 137 H 121/71 95 06/14/25 10:00 97.7 F 139 H 20 H 134/88 94 Mechanical Ventilation 70 06/14/25 09:45 132 H 117/69 90 06/14/25 09:30 121 H 126/65 06/14/25 09:15 128 H 120/70 97 06/14/25 09:00 97.7 F 127 H 20 H 129/65 96 Mechanical Ventilation 70 06/14/25 08:45 128 H 132/71 98 06/14/25 08:30 127 H 108/65 97 06/14/25 08:15 131 H 108/65 97 06/14/25 08:00 70 06/14/25 08:00 98.2 F 133 H 23 H 131/61 98 Mechanical Ventilation 70 06/14/25 07:48 21 H 98 70 06/14/25 07:46 93 21 H 98 Mechanical Ventilation 80 06/14/25 07:45 93 126/61 99 06/14/25 07:30 93 129/60 06/14/25 07:15 95 130/61 06/14/25 07:00 98.9 F 95 22 H 131/61 98 Mechanical Ventilation 80 06/14/25 05:38 126 H 06/14/25 05:09 97.3 F L 06/14/25 05:00 110/51 06/14/25 04:30 118/51 06/14/25 04:15 97.2 F L 06/14/25 04:00 111/50 06/14/25 04:00 122 H 124/71 97 06/14/25 03:45 133 H 117/72 96 06/14/25 03:41 20 H 96 80 06/14/25 03:40 126 H 24 H 96 Mechanical Ventilation 80 06/14/25 03:30 112/51 06/14/25 03:30 127 H 97/67 94 06/14/25 03:15 127 H 126/58 95 06/14/25 03:00 124 H 114/53 96 06/14/25 02:45 133 H 113/52 96 06/14/25 02:30 128 H 129/63 96 06/14/25 02:15 90 130/63 97 Respiratory exam: Present wheezes Cardiovascular exam: Present tachycardia Capillary refill: < 3 Seconds Peripheral pulse strength: 2+ Slightly Diminished Peripheral pulse location: Pedal Skin exam: normal turgor Date exam was performed: 06/14/25 Time exam was performed: 14:13 Problem List 1. Acute kidney injury: Status: Acute 2. Metabolic acidosis: Status: Acute 3. Acute uremia: Status: Acute 4. Acute renal failure: Status: Acute 5. Kidney mass: Status: Acute 6. Multiple myeloma: Status: Acute 7. Acute hypoxic respiratory failure: Status: Acute 8. Shock: Status: Acute 9. NSTEMI (non-ST elevated myocardial infarction): Status: Acute 10. Atrial fibrillation with RVR: Status: Acute
--- NOTE | 2025-06-14 14:10 | PC.NURSE ---
Order noted to transfuse [address] units of PRBC. Notified Dr. Hernandez that there is only 1 more unit of blood available for this patient due to the type of chemo medications given and extra testing that has to be performed on the blood for him. Order given to hold blood transfusion at present time and recheck CBC at 1600 today.
[2025-06-14 14:21] LABS: Anion Gap 13.0 (5-19); Blood Urea Nitrogen 22 mg/dL (8-23); Calcium 6.7 mg/dL (8.5-10.5); Carbon Dioxide 22 mmol/L (22-29); Chloride 102 mmol/L (98-107); Glucose 129 mg/dL (65-115); Osmolality Calculated 281 mOsm/kg (285-295); Potassium 4.0 mmol/L (3.5-5.1); Sodium 133 mmol/L (136-145)
[2025-06-14 14:24] LABS: Creatinine Clr Calc Pharmacy 29.3387
[2025-06-14] MEDS: midazolam hcl 100 MG/100 ML BAG IV (14:51)
[2025-06-14 16:07] LABS: Hematocrit 25.6 % (37-53); Hemoglobin 8.70 g/dL (11.27-16.99); Mean Corpuscular HGB Conc 34.0 g/dL (30-55); Mean Corpuscular Hemoglobin 31.5 pg (27-33); Mean Corpuscular Volume 92.8 fl (82-101); Platelet Count 78 10^3/cmm (157-399); Red Blood Count 2.76 10^6/uL (3.85-5.65); White Blood Count 6.50 10^3/uL (3.29-11.43)
--- NOTE | 2025-06-14 16:31 | P.PN_ITS ---
Subjective 2 Subjective: Cristopher Freeman Jr is a 74 year old male With a past medical history of multiple myeloma presents to the hospital from oncology clinic due to DILCIA. Admitted to the hospital was found to be in acute kidney failure acute metabolic acidosis, nephrology consulted. Overnight decompensated and had to be transferred to the ICU. Was found to be very acidotic with pH of 7.2 placed on bicarb drip as well as BiPAP for comfort. Creatinine up to 7 with multiple metabolic derangements. Plan underway to start dialysis on him still. Nephrology following. Currently opens eyes and does follow commands intermittently. Is on BiPAP 07/19/30% FiO2. On bicarb drip at 150 mL/h. Precedex is off currently but it was ongoing earlier. 06/14/25 Urgently intubated last evening. Severely acidotic urgent CRRT started. Patient is comfortable on the ventilator. Making urine at 200 mL/h. CRRT ongoing. Creatinine is improving. Levo at 11 and vaso off. Bicarb off. Vitals/I&O/Wt Last Vital Signs Temp 97.9 F 06/14/25 13:12 Pulse 133 H 06/14/25 15:59 Resp 22 H 06/14/25 16:00 BP 123/55 06/14/25 13:12 Pulse Ox 94 06/14/25 16:00 O2 Del Method Mechanical Ventilation 06/14/25 15:59 O2 Flow Rate 3 06/13/25 09:30 FiO2 60 06/14/25 16:00 06/14/25 06/14/25 06/14/25 06:59 14:59 22:59 Intake Total 2657.903 / 8026.867 2321.024 / 2321.024 Output Total 1263 / 1263 Balance 2657.903 / 7756.867 1058.024 / 1058.024 Weight last 48 hrs Weight 147 lb 4 oz Weight 145 lb Physical Exam 2 Narrative: Per RN General: Intubated sedated HEENT: EOMI Pulmonary: Diminished breath sounds bilaterally Cardiovascular: rrr, nl s1s2, Abdomen: soft, nt, nd, no r/g, Extremities: no edema Neurologic: grossly intact Agree with above exam Urinary Catheter Management: Smith: Cath Placed During This Visit: yes Reason for Continuing Indwelling Catheter: Accurate Measurement of Urinary Output in Critically Ill Patients Urinary Catheter Date of Insertion: 06/13/25 Urinary Catheter Time of Insertion: 09:45 Data 06/14/25 15:56 06/14/25 13:56 Micro: Microbiology 06/13/25 15:30 Gram Stain - Final Sputum - Endotracheal Tube Aspirate Sputum Culture - Preliminary 06/12/25 17:02 Blood Culture - Preliminary Blood NEGATIVE TO DATE 06/12/25 17:02 Blood Culture - Preliminary Blood NEGATIVE TO DATE A&P Assessment and plan 1. Acute kidney injury: 2. Metabolic acidosis: Plan: # Acute kidney failure - Kidney mass noted ultrasound pending. Nephrology following appreciate help. Making urine at 200 to 300 mL/h. CRRT fluid removal at 200 mL/h. Tolerating being on levo. Vaso is off. - NS boluses 2L given yesterday currently running at 75 mL/h. Discussed case with Dr Darby-appreciate help. Filters on CRRT machine being changed every 8 hours to help facilitate clearing of paraproteins. Previously checked SPEP levels were 4.2 # Acute metabolic acidosis -ABG reviewed today 7.43/37 point 10/08/2023 # Multiple myeloma -s/p Bortezomib(weekly)/Lenalid/Dex + Daratumumab Induction (Cycle 1-4) - Discussed case with Dr. Freitas, Not a candidate for chemo at this time. - Discussed with Dr. Kenney. [facility] is on standby for possible chemo but family is leaning towards no transfers at this time considering he is medically too sick to tolerate any more chemotherapy. # Thrombocytopenia At 78K today # Anemia - Current hemoglobin 8, 2 units of blood to be given today. # Pancytopenia # Acute hypoxemic respiratory failure secondary to probable aspiration versus acute pulm edema - I reviewed chest x-ray from today and compared to yesterday. Slightly increased left infiltrate suggestive of vascular congestion but otherwise unremarkable. May even have lymphangitic spread but difficult to rule out secondary to patient not being stable enough to get a bronchoscopy. - Patient has been empirically started on antibiotics-vancomycin and aztreonam, blood cultures pending. 06/14/2025 -Continue ventilator support and wean as tolerated. Lung protective strategy with low tidal volume ventilation as much as he can tolerate. Keep saturation above 90%. # Acute metabolic encephalopathy - Continue Versed at 3 and fentanyl at 100 # Kidney mass - US reviewed unrevealing for any mass 06/12/2025 # A-fib with RVR - Amiodarone drip s to be continued switch to p.o. amiodarone soon. # Shock-unclear etiology could be sepsis versus tach for shock - Continue antibiotics currently and de-escalated stop if cultures are negative in the next 2 days - Continue Levophed drip and wean as tolerated keep MAP above 65. - Agree with stress dose steroids. Continue hydrocortisone 50 mg IV every 12 # COPD - Not in acute exacerbation. May use DuoNebs as needed # Hyperglycemia-blood glucose 48 - Start D10 drip to maintain blood glucose above 100. # DVT GI prophylaxis - SCDs and Lovenox subcu # Sedation - Use prn Precedex # Nutrition - Dextrose drip to maintain blood sugars between 140-180. Avoid hypoglycemia # CODE STATUS-DNR/DNI # Goals of care- Long discussion with family today 06/14/2025. They understand how critically ill he is and would like to observe him for a few days here without any transfers to go to higher level of care. If he does not improve they may consider withdrawal of care. They did make him DNR at this time. If he does come to a point where we extubate him they would like for him to be DNI at that time as well. The high probability of a clinically significant, sudden or life threatening deterioration of the patient's [Respiratory, cardiac and renal] system(s) required my full and direct attention, intervention and personal management. The critical care time is as shown. This time is in addition to time spent performing any reported procedures but includes the following: [x] Data and vital sign review and interpretation [x] Patient assessment, examination and intervention [x] Documentation [x] Medication orders and management Critical Care Time (min): 45 Telemedicine Consent Patient seen today via Telemedicine by agreement and consent of patient.? Telemedicine technology used during the visit includes audio and, as available, review of images.? The patient encounter is appropriate and reasonable under the circumstances given the patient?s particular presentation at this time.? The patient has been advised of the potential risks and limitations of this mode of treatment (including but not limited to the absence of in-person examination) and has agreed to be treated in a remote fashion in spite of them.? Any, and all, of the patient?s/patient?s family?s questions on this issue have been answered and I have made no promises or guarantees to the patient. The patient has also been advised to contact this office for worsening conditions or problems, and seek emergency medical treatment and/or call 911 if the patient deems either necessary PDMP PDMP Reviewed: Not Reviewed Attestations 2 Medical Necessity Statement*: intubated sedated Procedures Arterial Line Size (Gauge): 20 Coding Level of Care Code Critical Care >/= 30 minutes Diagnoses Acute kidney injury N17.9 Metabolic acidosis E87.20
[2025-06-14 16:52] LABS: Absolute Segmented Neutrophil 5.4 10/cmm (1.6-7.1); Atypical Lymphs 0.0 % (0-5); Band Neutrophils Absolute 0.4 10^3/cmm (0.0-1.2); Total Cells Counted 100 (0-100)
[2025-06-14 16:53] LABS: Toxic Granulation 2+
[2025-06-14] MEDS: fentaNYL 1,000 MCG/100 ML BAG 10 MCG IV (18:23)
[2025-06-14 18:29] LABS: Lactate (Lactic Acid level) 0.9 mmol/L (0.5-2.2)
[2025-06-14 18:30] LABS: Anion Gap 14.8 (5-19); Blood Urea Nitrogen 20 mg/dL (8-23); Calcium 6.9 mg/dL (8.5-10.5); Carbon Dioxide 22 mmol/L (22-29); Chloride 103 mmol/L (98-107); Creatinine Clr Calc Pharmacy 32.5985; Glucose 130 mg/dL (65-115); Magnesium 2.1 mg/dL (1.7-2.3); Osmolality Calculated 286 mOsm/kg (285-295); Potassium 3.8 mmol/L (3.5-5.1); Sodium 136 mmol/L (136-145)
[2025-06-14 22:23] LABS: Anion Gap 14.8 (5-19); Blood Urea Nitrogen 16 mg/dL (8-23); Calcium 7.0 mg/dL (8.5-10.5); Carbon Dioxide 22 mmol/L (22-29); Chloride 103 mmol/L (98-107); Creatinine Clr Calc Pharmacy 39.1182; Glucose 97 mg/dL (65-115); Osmolality Calculated 283 mOsm/kg (285-295); Potassium 3.8 mmol/L (3.5-5.1); Sodium 136 mmol/L (136-145)
[2025-06-15] VITALS (106 sets, daily range): BP systolic 78–154; BP diastolic 52–79; PULSE 59–156; RESP 16–31; TEMP 36.3–37.2; O2SAT 89–96
--- NOTE | 2025-06-15 00:41 | PC.NURSE ---
CRRT stopped and blood returned at [address] Stephens. Patient tolerated well. Dialysis catheter has been heparin locked.
[2025-06-15] MEDS: chlorhexidine gluconate 4% Btl 118 mL 1 APPLIC TOPICAL (00:46)
[2025-06-15] MEDS: metroNIDAZOLE IV 500 MG/100 ML PREMIX 100 MG IV ×3 (00:46→16:08)
[2025-06-15 01:09] LABS: Anion Gap 14.8 (5-19); Blood Urea Nitrogen 17 mg/dL (8-23); Calcium 7.0 mg/dL (8.5-10.5); Carbon Dioxide 22 mmol/L (22-29); Chloride 103 mmol/L (98-107); Creatinine Clr Calc Pharmacy 36.6733; Glucose 104 mg/dL (65-115); Osmolality Calculated 284 mOsm/kg (285-295); Potassium 3.8 mmol/L (3.5-5.1); Sodium 136 mmol/L (136-145)
[2025-06-15] MEDS: fentaNYL 1,000 MCG/100 ML BAG 10 MCG IV (01:09)
[2025-06-15 01:10] LABS: Lactate (Lactic Acid level) 0.7 mmol/L (0.5-2.2)
[2025-06-15] MEDS: albumin 25 G/100 ML BAG 60 G IV (03:04)
[2025-06-15] MEDS: hydrocortisone 100 mg/2 mL SDV 50 MG IVP ×2 (03:05→15:05)
[2025-06-15 03:42] LABS: Reflex FDPQ test REFLEX FDP QUEST TES
[2025-06-15 03:43] LABS: ABG PCO2 37.6 mmHg (35-45); ABG PH Result 7.42 (7.35-7.45); Arterial Blood Gas Hematocrit 26.9 % (42-52); Blood Gas Operator Identificat JDB; Blood Gas Sample Site Not specified; Blood Gas Sample Type Arterial; Blood Gas Tidal Volume 0.40; HCO3 ABG 24.3 mmol/L (22-26); PEEP 8.0 cmH20; PO2 ABG 82.4 mmHg (80.0-100.0); PO2 FiO2 Ratio Arterial Blood 137
[2025-06-15 03:46] LABS: Hematocrit 24.5 % (37-53); Hemoglobin 8.20 g/dL (11.27-16.99); Mean Corpuscular HGB Conc 33.5 g/dL (30-55); Mean Corpuscular Hemoglobin 31.7 pg (27-33); Mean Corpuscular Volume 94.6 fl (82-101); Nucleated Red Blood Cells % 0 %; Platelet Count 63 10^3/cmm (157-399); Red Blood Count 2.59 10^6/uL (3.85-5.65); White Blood Count 4.12 10^3/uL (3.29-11.43)
--- NOTE | 2025-06-15 03:56 | PC.NURSE ---
Dr. Christensen notified that platelet count dropped to 63 this am, Dr. Christensen ordered to hold heparin.
[2025-06-15 03:58] LABS: Lactate (Lactic Acid level) 0.7 mmol/L (0.5-2.2)
[2025-06-15 04:05] LABS: Uric Acid 2.1 mg/dL (3.4-7.0)
[2025-06-15 04:06] LABS: Alanine Aminotransferase 27 U/L (0-41); Albumin Level 3.7 g/dL (3.5-5.2); Alkaline Phosphatase 35 U/L (40-130); Anion Gap 15.6 (5-19); Aspartate Amino Transferase 26 U/L (0-40); Blood Urea Nitrogen 20 mg/dL (8-23); Calcium 6.8 mg/dL (8.5-10.5); Carbon Dioxide 22 mmol/L (22-29); Chloride 103 mmol/L (98-107); Creatinine Clr Calc Pharmacy 30.8828; Globulin 2.8 g/dL (1.3-4.6); Glucose 100 mg/dL (65-115); Magnesium 2.1 mg/dL (1.7-2.3); Osmolality Calculated 287 mOsm/kg (285-295); Potassium 3.6 mmol/L (3.5-5.1); Sodium 137 mmol/L (136-145); Total Protein 6.5 g/dL (6.6-8.7)
[2025-06-15 04:13] LABS: INR 1.18 (0.8-1.2); Partial Thromboplastin Time 30.0 SECONDS (23.9-36.7); Prothrombin Time 15.90 SECONDS (12.1-14.9)
[2025-06-15 04:18] LABS: Fibrinogen 353 mg/dL (174-498)
[2025-06-15 04:30] LABS: Ferritin 254 ng/mL (30-400)
--- NOTE | 2025-06-15 07:00 | XRR_ITS ---
PROCEDURE INFORMATION: Exam: XR Chest Exam date and time: 06/15/2025 10:04 AM Age: 74 years old Clinical indication: Shortness of breath; Additional info: Respiratory distress; Dehydration TECHNIQUE: Imaging protocol: Radiologic exam of the chest. Views: 1 view. COMPARISON: CR XR chest 1V portable [id number] 06/14/2025 09:38 AM FINDINGS: Tubes, catheters and devices: The endotracheal tube tip overlies the midthoracic trachea, 4.5 cm from the miguelina. Lungs: Low lung volumes. Ground-glass airspace disease in both lung bases, more confluent in the retrocardiac left lower lobe. Pleural spaces: Unremarkable. No pleural effusion. No pneumothorax. Heart/Mediastinum: Cardiac size and configuration is stable. Vasculature: Atherosclerotic vascular disease. Bones/joints: Unremarkable. XR/XR chest 1V portable [id number] IMPRESSION: Ground-glass airspace disease in both lung bases, more confluent in the retrocardiac left lower lobe.
[2025-06-15] MEDS: pantoprazole 40 mg SDV IVP (07:22)
--- NOTE | 2025-06-15 08:08 | USCV_ITS ---
Cristopher Freeman Age: 74 Gender: M : 1950 Exam Date: 06/15/2025 17:06 Ordering Phys: Jose Hernandez MD Technologist: AUDREY [place] [facility] [place] sob BP: 113 / 66 HR: 86 Rhythm: Sinus Technical Quality: Adequate MEASUREMENTS (Male / Female) Normal Values 2D ECHO LV Diastolic Diameter PLAX 4.5 cm 4.2 - 5.9 / 3.9 - 5.3 cm IVS Diastolic Thickness 0.6 cm 0.6 - 1.0 / 0.6 - 0.9 cm IVS Systolic Thickness 0.9 cm LVPW Diastolic Thickness 0.7 cm 0.6 - 1.0 / 0.6 - 0.9 cm LVPW Systolic Thickness 1.3 cm LVOT Diameter 2.1 cm LV Ejection Fraction 2D Teich 68.3 % LV Ejection Fraction MOD 4C 68.0 % LV Ejection Fraction MOD 2C 79.1 % LV Ejection Fraction 2C AL 79.4 % LA Diameter 4.1 cm RA Systolic Volume 4C AL 92.7 ml RA Systolic Volume 4C MOD 67.4 ml LA Sys Volume AL 75.4 cm cubed LA Sys Volume Index AL 36.3 cm cubed/m squared Aorta at Sinotubular Diameter 2.9 cm IVC Diameter 1.5 cm M-MODE LA Ao Ratio MM 1.8 AV Cusp Separation MM 1.7 cm DOPPLER AV Peak Velocity 226.0 cm/s LVOT Peak Velocity 175.0 cm/s AV Area Cont Eq vti 2.7 cm squared AV Area Cont Eq pk 2.8 cm squared MV Peak Velocity 112.0 cm/s MV Area PHT 5.2 cm squared Mitral E to A Ratio 1.2 TV Peak Velocity 271.0 cm/s TR Peak Velocity 393.0 cm/s TR Peak Gradient 61.8 mmHg TR Mean Velocity 302.0 cm/s TR Mean Gradient 39.5 mmHg TR Velocity Time Integral 77.6 cm PV Peak Velocity 143.7 cm/s RV Ejection Time 0.2 s FINDINGS Left Ventricle Normal left ventricular size, systolic function and wall thickness with no regional wall motion abnormality. Left ventricular ejection fraction is 68%. Normal left ventricular diastolic function. Right Ventricle Normal right ventricular size and systolic function. Right Atrium Normal right atrial size. Left Atrium Mildly increased left atrial size. IA Septum Mobile atrial septum. Mitral Valve Normal mitral valve structure. Trace regurgitation Aortic Valve Aortic valve not well-visualized. Mildly increased velocity across aortic valve due to increased flow and not stenosis. Trace aortic valve regurgitation. Tricuspid Valve Normal tricuspid valve structure. Trace tricuspid valve regurgitation. Moderate pulmonary hypertension, RVSP 64 mmHg. Pulmonic Valve Normal pulmonic valve structure. No pulmonic valve stenosis or regurgitation. Pericardium No pericardial effusion. Aorta Normal diameter of the aortic root and ascending thoracic aorta. IVC Normal IVC diameter. CONCLUSIONS Normal left ventricular size, systolic function and wall thickness with ejection fraction of 68%. Normal right ventricular size and systolic function. Moderate pulmonary hypertension, PASP 64 mmHg No significant valvular findings. Yayo Perry MD, FACC (Electronically Signed) Final Date: 16 June 2025 15:15 S
[2025-06-15 08:13] LABS: LAB Peripheral Smear Sent for Review
[2025-06-15] MEDS: digoxin 250 mcg/ml INJ 2 mL 125 MCG IVP ×2 (08:57→10:51)
[2025-06-15] MEDS: dexmedeTOMIDine 0.9 % NaCL 400 MCG/100 ML PREMIX IV (08:57)
[2025-06-15] MEDS: aztreonam 1,000 MG in sodium chloride 0.9% (plus) 50 ML 100 MG IV ×2 (09:35→22:08)
[2025-06-15] MEDS: AMIODARONE HCL/D5W 900 MG/500 ML BAG 16.67 MG IV (09:38)
--- NOTE | 2025-06-15 10:33 | P.PN_ITS ---
Subjective 2 Subjective: on 50 % fio2 remains on vent on pressors had rapid Afib with RVR Medications: Reviewed: Yes Vitals/I&O/Wt Last Vital Signs Temp 98.3 F 06/15/25 08:00 Pulse 124 H 06/15/25 10:00 Resp 22 H 06/15/25 10:00 BP 97/68 06/15/25 10:00 Pulse Ox 91 06/15/25 10:00 O2 Del Method Mechanical Ventilation 06/15/25 10:00 O2 Flow Rate 3 06/13/25 09:30 FiO2 50 06/15/25 10:00 06/14/25 06/15/25 06/15/25 22:59 05:59 14:59 Intake Total 658.000 / 3079.024 469.167 / 3548.191 661.607 / 661.607 Output Total 550 / 1813 1150 / 2963 200 / 200 Balance 108.000 / 1266.024 -680.833 / 585.191 461.607 / 461.607 Weight last 48 hrs Weight 89.811 kg Physical Exam 2 Narrative: Intubated , sedated PERRLA Dry mucous membranes S1-S2 regular rate and rhythm Lungs with decreased breath sounds bilaterally Abdomen soft nontender Extremities no pedal edema Skin no rash Urinary Catheter Management: Smith: Cath Placed During This Visit: yes Reason for Continuing Indwelling Catheter: Accurate Measurement of Urinary Output in Critically Ill Patients Urinary Catheter Date of Insertion: 06/13/25 Urinary Catheter Time of Insertion: 09:45 Data 06/15/25 03:30 06/15/25 03:30 Micro: Microbiology 06/13/25 15:30 Gram Stain - Final Sputum - Endotracheal Tube Aspirate Sputum Culture - Preliminary A&P Assessment and plan 1. Acute kidney injury: 1. Acute on chronic CKD 3: Baseline creatinine seems to be in the 1.3/1.4 range, now has severe DILCIA associated with metabolic acidosis. 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 - pt was started on bicarbonate gtt on presentation , but he decompensated on 06/12/25 night , with resp failure , worsening acidosis , shock and rapid A fib --> intubated , on pressors - Temp HD catheter placed and CRRT started , serial BMPs while on CRRT( filters being changed every 8 hours ) , tolerated well --> now off CRRT and UOP increased , will monitor UOP and labs , may restart CRRT if UOP drops - Noted hyperphosphatemia - monitor 2. Severe metabolic acidosis, s/p bicarbonate drip and CRRT as above 3. 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 Acute resp failure , possible aspitation , intubated 5. Rapid A fib 6.Pancytopenia 7. Hypokalemia , stopped bicarb drip , repleted pt critically ill, with guarded prognosis Discussed with family @ bedside Patient evaluated using audiovisual cart. Time spent 40 minutes. PDMP PDMP Reviewed: Not Reviewed Attestations 2 Medical Necessity Statement*: per medicien Procedures Arterial Line Size (Gauge): 20 Coding Level of Care Code Acute Code for Chg Fwd Diagnoses Acute kidney injury N17.9
[2025-06-15] MEDS: fentaNYL 1,000 MCG/100 ML BAG 15 MCG IV (10:46)
[2025-06-15] MEDS: norepinephrine 4 MG/250 ML BAG 11.25 MG IV (11:43)
[2025-06-15 12:05] LABS: Albumin Level 3.6 g/dL (3.5-5.2); Anion Gap 14.5 (5-19); Blood Urea Nitrogen 29 mg/dL (8-23); Calcium 6.6 mg/dL (8.5-10.5); Carbon Dioxide 21 mmol/L (22-29); Chloride 103 mmol/L (98-107); Creatinine Clr Calc Pharmacy 27.9125; Glucose 105 mg/dL (65-115); Lactate (Lactic Acid level) 0.7 mmol/L (0.5-2.2); Magnesium 2.0 mg/dL (1.7-2.3); Potassium 3.5 mmol/L (3.5-5.1); Sodium 135 mmol/L (136-145)
[2025-06-15] MEDS: potassium phosphate (mEq K) 40 MEQ in sodium chloride 0.9% (100 ml) 100 ML 25 MEQ IV (12:28)
--- NOTE | 2025-06-15 13:42 | P.PN_ITS ---
Subjective 2 Subjective: Cristopher Freeman Jr is a 74 year old male With a past medical history of multiple myeloma presents to the hospital from oncology clinic due to DILCIA. Admitted to the hospital was found to be in acute kidney failure acute metabolic acidosis, nephrology consulted. Overnight decompensated and had to be transferred to the ICU. Was found to be very acidotic with pH of 7.2 placed on bicarb drip as well as BiPAP for comfort. Creatinine up to 7 with multiple metabolic derangements. Plan underway to start dialysis on him still. Nephrology following. Currently opens eyes and does follow commands intermittently. Is on BiPAP 07/19/30% FiO2. On bicarb drip at 150 mL/h. Precedex is off currently but it was ongoing earlier. 06/14/25 Urgently intubated last evening. Severely acidotic urgent CRRT started. Patient is comfortable on the ventilator. Making urine at 200 mL/h. CRRT ongoing. Creatinine is improving. Levo at 11 and vaso off. Bicarb off. 06/15/2025 On minimal levo of 2. In A-fib with RVR. Got 2 doses of dig load. On Amio increased to 1. On fentanyl 150, Versed 4 and Precedex 0.4. Awake following commands. Making good urine. Vitals/I&O/Wt Last Vital Signs Temp 98.9 F 06/15/25 12:00 Pulse 133 H 06/15/25 12:00 Resp 19 H 06/15/25 12:58 BP 119/67 06/15/25 12:00 Pulse Ox 91 06/15/25 12:58 O2 Del Method Mechanical Ventilation 06/15/25 12:00 O2 Flow Rate 3 06/13/25 09:30 FiO2 40 06/15/25 12:58 06/14/25 06/15/25 06/15/25 22:59 05:59 14:59 Intake Total 658.000 / 3079.024 469.167 / 3548.191 856.313 / 856.313 Output Total 550 / 1813 1150 / 2963 560 / 560 Balance 108.000 / 1266.024 -680.833 / 585.191 296.313 / 296.313 Weight last 48 hrs Weight 198 lb Physical Exam 2 Narrative: Per RN General: Intubated sedated, wakes up following commands HEENT: EOMI Pulmonary: Diminished breath sounds bilaterally Cardiovascular: Irregularly irregular rhythm, nl s1s2, Abdomen: soft, nt, nd, no r/g, Extremities: no edema Neurologic: grossly intact Agree with above exam Urinary Catheter Management: Smith: Cath Placed During This Visit: yes Reason for Continuing Indwelling Catheter: Accurate Measurement of Urinary Output in Critically Ill Patients Urinary Catheter Date of Insertion: 06/13/25 Urinary Catheter Time of Insertion: 09:45 Data 06/15/25 03:30 06/15/25 11:18 Micro: Microbiology 06/13/25 15:30 Gram Stain - Final Sputum - Endotracheal Tube Aspirate Sputum Culture - Final A&P Assessment and plan 1. Acute kidney injury: 2. Metabolic acidosis: Plan: # Acute kidney failure - Nephrology following appreciate help. Making urine 2300 mL out. CRRT on hold currently, good response. Creatinine down to 2.4 increased from 1.9 this morning. Only of duodenal -Fluids off Discussed case with Dr Darby-appreciate help. Filters on CRRT machine being changed every 8 hours to help facilitate clearing of paraproteins stopped 06/15/2025. Previously checked SPEP levels were 4.2 # Acute metabolic acidosis -ABG reviewed today 7.43/37 on 10/08/2023 # Multiple myeloma -s/p Bortezomib(weekly)/Lenalid/Dex + Daratumumab Induction (Cycle 1-4) - Discussed case with Dr. Freitas, Not a candidate for chemo at this time. - Discussed with Dr. Kenney. [facility] declined transfer for possible chemo but family is leaning towards no transfers at this time considering he is medically too sick to tolerate any more chemotherapy. # Thrombocytopenia At 63K today-trending down continuously. Most likely due to DIC. Will check DIC screen # Anemia - Current hemoglobin 8, 2 units of blood to be given yesterday # Pancytopenia # Acute hypoxemic respiratory failure secondary to probable aspiration versus acute pulm edema - I reviewed chest x-ray from today and compared to yesterday. 06/15/2025 slightly increased left infiltrate suggestive of vascular congestion but otherwise unremarkable. May even have lymphangitic spread but difficult to rule out secondary to patient not being stable enough to get a bronchoscopy.. Will give Lasix x 1 - Patient has been empirically started on antibiotics-vancomycin and aztreonam, blood cultures pending. 06/15/2025 no growth till date -Continue ventilator support and wean as tolerated. Lung protective strategy with low tidal volume ventilation as much as he can tolerate. Keep saturation above 90%. - Will trial SBT tomorrow # Acute metabolic encephalopathy - Continue Versed at 3 and fentanyl at 100 Precedex and 40 drips as tolerated. Will start Ativan 1 mg 3 times daily # Kidney mass - US reviewed unrevealing for any mass 06/12/2025 # A-fib with RVR - Amiodarone drip at 1. Dig load given. Appreciate cardiology help.. May need cardioversion if not improved by tomorrow. Discussed case with Dr. Kenney # Shock-unclear etiology could be sepsis versus tach for shock - Continue antibiotics currently and de-escalated stop if cultures are negative in the next 2 days - Continue Levophed drip and wean as tolerated keep MAP above 65. - Agree with stress dose steroids. Continue hydrocortisone 50 mg IV every 12- Will start weaning soon. # COPD - Not in acute exacerbation. May use DuoNebs as needed # Hyperglycemia-blood glucose - Start D10 drip to maintain blood glucose above 100. Will start tube feeds tomorrow # DVT GI prophylaxis - SCDs and Lovenox subcu # Sedation -As above # Nutrition - Dextrose drip to maintain blood sugars between 140-180. Avoid hypoglycemia # CODE STATUS-DNR/DNI # Goals of care- Long discussion with family today 06/14/2025. They understand how critically ill he is and would like to observe him for a few days here without any transfers to go to higher level of care. If he does not improve they may consider withdrawal of care. They did make him DNR at this time. If he does come to a point where we extubate him they would like for him to be DNI at that time as well. The high probability of a clinically significant, sudden or life threatening deterioration of the patient's [Respiratory, cardiac and renal] system(s) required my full and direct attention, intervention and personal management. The critical care time is as shown. This time is in addition to time spent performing any reported procedures but includes the following: [x] Data and vital sign review and interpretation [x] Patient assessment, examination and intervention [x] Documentation [x] Medication orders and management Critical Care Time (min): 35 Telemedicine Consent Patient seen today via Telemedicine by agreement and consent of patient.? Telemedicine technology used during the visit includes audio and, as available, review of images.? The patient encounter is appropriate and reasonable under the circumstances given the patient?s particular presentation at this time.? The patient has been advised of the potential risks and limitations of this mode of treatment (including but not limited to the absence of in-person examination) and has agreed to be treated in a remote fashion in spite of them.? Any, and all, of the patient?s/patient?s family?s questions on this issue have been answered and I have made no promises or guarantees to the patient. The patient has also been advised to contact this office for worsening conditions or problems, and seek emergency medical treatment and/or call 911 if the patient deems either necessary PDMP PDMP Reviewed: Not Reviewed Attestations 2 Medical Necessity Statement*: Intubated sedated Procedures Arterial Line Size (Gauge): 20 Coding Level of Care Code Critical Care >/= 30 minutes Diagnoses Acute kidney injury N17.9 Metabolic acidosis E87.20
--- NOTE | 2025-06-15 14:09 | P.PN_ITS ---
Subjective 2 Subjective: - Patient was seen this morning - at bedside - 50% FiO2 - On 2 Levophed - Urine output has improved, off CRRT - On sedation, he is able to wake, follo w commands, nod his head to yes or no questions Vitals/I&O/Wt Last Vital Signs Temp 98.9 F 06/15/25 12:00 Pulse 88 06/15/25 14:00 Resp 18 06/15/25 14:00 BP 133/59 06/15/25 14:00 Pulse Ox 91 06/15/25 14:00 O2 Del Method Mechanical Ventilation 06/15/25 14:00 O2 Flow Rate 3 06/13/25 09:30 FiO2 40 06/15/25 14:00 06/14/25 06/15/25 06/15/25 22:59 05:59 14:59 Intake Total 658.000 / 3079.024 469.167 / 3548.191 877.342 / 877.342 Output Total 550 / 1813 1150 / 2963 620 / 620 Balance 108.000 / 1266.024 -680.833 / 585.191 257.342 / 257.342 Weight last 48 hrs Weight 89.811 kg Physical Exam 2 Const: COMMON NORMALS: no acute distress ORIENTATION/CONSCIOUSNESS: Yes awake and Yes oriented to person; not oriented to place and not oriented to time OTHER: On sedation he is able to nod, follow commands such as squeezing my fingers Eye: COMMON NORMALS: Equal, round and reactive pupils present PUPIL: Yes Equal, round and reactive pupils present Resp: COMMON NORMALS: normal respiratory effort, No retractions and No use of accessory muscles AUSCULTATION: crackles and wheezes Cardio: COMMON NORMALS: S1 normal heart sound present and S2 normal heart sound present RATE: tachycardic RHYTHM: abnormal rhythm HEART SOUNDS: S 1 normal heart sound present and S2 normal heart sound present GI: COMMON NORMALS: Normal to inspection, nondistended, normoactive bowel sounds present and non-tender Extremity: COMMON NORMALS: no pedal edema Neuro: SENSORIUM/ORIENTATION: Yes oriented to person, No oriented to place and No oriented to time Urinary Catheter Management: Smith: Cath Placed During This Visit: yes Reason for Continuing Indwelling Catheter: Accurate Measurement of Urinary Output in Critically Ill Patients Urinary Catheter Date of Insertion: 06/13/25 Urinary Catheter Time of Insertion: 09:45 Data 06/15/25 03:30 06/15/25 11:18 Micro: Microbiology 06/13/25 15:30 Gram Stain - Final Sputum - Endotracheal Tube Aspirate Sputum Culture - Final A&P Assessment and plan 1. Acute kidney injury: 2. Metabolic acidosis: 3. Acute uremia: 4. Acute renal failure: 5. Kidney mass: 6. Multiple myeloma: 7. Acute hypoxic respiratory failure: 8. Shock: 9. NSTEMI (non-ST elevated myocardial infarction): 10. Atrial fibrillation with RVR: Plan: Acute hypoxic respiratory failure - Multifactorial - Bilateral pulmonary edema - Concerns for right lower lobe infiltrate, aspiration pneumonia - Metabolic acidosis, uremia - Currently intubated, sedated mechanical ventilation - 40% FiO2 - Tidal volume 400, PEEP of 8, Plan -Currently intubated, sedated on mechanical ventilation - Versed for sedation - Fentanyl for sedation -Sedation vacation, spontaneous breathing trial - Continue Levophed - Vancomycin - Aztreonam - Flagyl - CRRT current on hold today Atrial fibrillation with rapid ventricular response - Continue amiodarone drip - Digoxin 125 mcg IV push x 2, monitor digoxin levels Sepsis, pneumonia - Maintain MAP in the 65 - Continue Levophed Increased anion gap metabolic acidosis, resolving - Secondary to acute renal failure - Secondary to multiple myeloma induced - Secondary to sepsis, pneumonia -bicarb drip weaned off Shock - Multifactorial -Metabolic acidosis -Acute renal failure -Uremia -Multiple myeloma induced renal failure - Sepsis, pneumonia Acute anemia - Hemoglobin down to 8.2 - Transfuse 1 unit PRBC Thrombocytopenia - Haptoglobin, LDH, peripheral smear - Switch Protonix to Pepcid Acute kidney injury, improving - Increased anion gap metabolic acidosis - Uremia - Could be a component from patient's meloxicam use - Recently he was put on benazepril could be a component, in addition to hydrochlorothiazide - Could be component of Bactrim use - multiple myeloma associated 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 - Possible chemotherapy side effect?Bortezomib(weekly)/Lenalid/Dex + Daratumumab Plan - Nephrology on consult - Renal ultrasound no acute findings -Good urine output overnight, up to 2320 mL -Currently CRRT on hold monitor urine output - CPK 650 - Salicylate level <0.3 - Uric acid 7.8 - Urine free light chain - Urine beta-2 microglobulin - Ferritin 168, iron 88, retic count 0.8, TIBC - Urine electrolytes - Urine eosinophils WNL - Start bicarb drip at 150 cc an hour, currently off -Albumin - Hold nephrotoxic agents - Smith catheter, monitor urine output closely - Patient's family declines transfer to tertiary level center, or any further interventions for her multiple myeloma - Declined long-term dialysis, agreeable to short term dialysis/CRRT History of renal mass - Renal ultrasound as above Multiple myeloma -Bortezomib(weekly)/Lenalid/Dex + Daratumumab June 03, 2025 Altered mental status - Could be component of uremic encephalopathy Acute on chronic anemia, with uremia -Transfuse 1 unit PRBC - Iron studies as above - Protonix 40 IV twice daily - Carafate DNR/DNI Overall goals to keep him comfortable, if clinical condition deteriorates proceed with comfort care Does not want to have aggressive interventions Goal for family to take Cristopher home on hospice Heparin for DVT prophylaxis status stable prognosis guarded PDMP PDMP Reviewed: Not Reviewed Attestations 2 Medical Necessity Statement*: Patient requires hospitalization for acute hypoxic respiratory failure, A-fib with RVR, acute renal failure, metabolic acidosis Procedures Arterial Line Size (Gauge): 20 Diagnoses Acute kidney injury N17.9 Metabolic acidosis E87.20 Acute uremia N19 Acute renal failure N17.9 Kidney mass N28.89 Multiple myeloma C90.00 Acute hypoxic respiratory failure J96.01 Shock R57.9 NSTEMI (non-ST elevated myocardial infarction) I21.4 Atrial fibrillation with RVR I48.91
[2025-06-15] MEDS: FUROsemide 10 mg/mL SDV 2mL 20 MG IVP (14:40)
[2025-06-15 16:20] LABS: Reflex FDPQ test REFLEX FDP QUEST TES
--- NOTE | 2025-06-15 16:33 | PHA.VACGOAL ---
Vancomycin Goal - Goal Vancomycin Goal:: 15-20 mg/L Vancomycin Indication:: Pneumonia - Therapy Current therapy:: Other Antibiotic (AZTREONAM) Day of therpy:: Day []of [] . Actual body weight (kg): 89.811 kg - Data Labs: WBC 4.12 10^3/uL (3.29-11.43) 06/15/25 03:30 RBC 2.59 10^6/uL (3.85-5.65) L 06/15/25 03:30 Hgb 8.20 g/dL (11.27-16.99) L 06/15/25 03:30 Hct 24.5 % (37-53) L 06/15/25 03:30 MCV 94.6 fl (82-101) 06/15/25 03:30 MCH 31.7 pg (27-33) 06/15/25 03:30 MCHC 33.5 g/dL (30-55) 06/15/25 03:30 RDW 14.5 % (12.1-15.1) 06/15/25 03:30 Sodium 135 mmol/L (136-145) L 06/15/25 11:18 Potassium 3.5 mmol/L (3.5-5.1) 06/15/25 11:18 Chloride 103 mmol/L (98-107) 06/15/25 11:18 Carbon Dioxide 21 mmol/L (22-29) L 06/15/25 11:18 Anion Gap 14.5 (5-19) 06/15/25 11:18 BUN 29 mg/dL (8-23) H 06/15/25 11:18 Creatinine 2.4 mg/dL (0.7-1.2) H 06/15/25 11:18 GFR Calculation Not Reportable 06/15/25 11:18 Treatment plan:: new consult Regimen:: New start vancomycin for Pneumonia. No prior history of vancomycin found. [place] dose [place] 1250 mg ordered. Patient started on CVVHDF and vancomycin dose of 500 mg q12h. Vancomycin level acquired prior to 4th maintenance dose. CRRT being held since 06/15/25 @0000. 500 mg dose ordered x1.
[2025-06-15 16:39] LABS: INR 1.25 (0.8-1.2); Partial Thromboplastin Time 30.4 SECONDS (23.9-36.7); Prothrombin Time 16.60 SECONDS (12.1-14.9)
[2025-06-15 16:40] LABS: Fibrinogen 475 mg/dL (174-498)
[2025-06-15 16:43] LABS: Albumin Level 3.5 g/dL (3.5-5.2); Anion Gap 16.6 (5-19); Blood Urea Nitrogen 32 mg/dL (8-23); Calcium 6.3 mg/dL (8.5-10.5); Carbon Dioxide 21 mmol/L (22-29); Chloride 99 mmol/L (98-107); Creatinine Clr Calc Pharmacy 23.9250; Glucose 105 mg/dL (65-115); Magnesium 2.0 mg/dL (1.7-2.3); Potassium 3.6 mmol/L (3.5-5.1); Sodium 133 mmol/L (136-145)
[2025-06-15 16:45] LABS: Anion Gap 17.6 (5-19); Blood Urea Nitrogen 32 mg/dL (8-23); Calcium 6.4 mg/dL (8.5-10.5); Carbon Dioxide 20 mmol/L (22-29); Chloride 100 mmol/L (98-107); Creatinine Clr Calc Pharmacy 23.9250; Glucose 104 mg/dL (65-115); Osmolality Calculated 285 mOsm/kg (285-295); Potassium 3.6 mmol/L (3.5-5.1); Sodium 134 mmol/L (136-145)
[2025-06-15 16:46] LABS: Lactate (Lactic Acid level) 0.7 mmol/L (0.5-2.2)
[2025-06-15] MEDS: dexmedeTOMIDine 0.9 % NaCL 400 MCG/100 ML PREMIX 16.7 MCG IV ×2 (16:48→20:30)
[2025-06-15] MEDS: vancomycin 500 MG in sodium chloride 0.9% (plus) 100 ML 200 MG IV (16:51)
[2025-06-15] MEDS: fentaNYL 1,000 MCG/100 ML BAG 12.5 MCG IV (17:36)
[2025-06-15 23:01] LABS: Albumin Level 3.2 g/dL (3.5-5.2); Anion Gap 16.5 (5-19); Blood Urea Nitrogen 39 mg/dL (8-23); Calcium 6.2 mg/dL (8.5-10.5); Carbon Dioxide 21 mmol/L (22-29); Chloride 104 mmol/L (98-107); Creatinine Clr Calc Pharmacy 23.1000; Glucose 144 mg/dL (65-115); Lactate (Lactic Acid level) 0.8 mmol/L (0.5-2.2); Magnesium 1.8 mg/dL (1.7-2.3); Potassium 3.5 mmol/L (3.5-5.1); Sodium 138 mmol/L (136-145)
[2025-06-15 23:07] LABS: Anion Gap 16.5 (5-19); Blood Urea Nitrogen 39 mg/dL (8-23); Calcium 6.0 mg/dL (8.5-10.5); Carbon Dioxide 21 mmol/L (22-29); Chloride 104 mmol/L (98-107); Creatinine Clr Calc Pharmacy 23.1000; Glucose 151 mg/dL (65-115); Osmolality Calculated 298 mOsm/kg (285-295); Potassium 3.5 mmol/L (3.5-5.1); Sodium 138 mmol/L (136-145)
[2025-06-16] VITALS (98 sets, daily range): BP systolic 117–172; BP diastolic 53–106; PULSE 55–175; RESP 11–34; TEMP 36.9–37.4; O2SAT 79–100
[2025-06-16] MEDS: AMIODARONE HCL/D5W 900 MG/500 ML BAG 33.33 MG IV (00:32)
[2025-06-16] MEDS: metroNIDAZOLE IV 500 MG/100 ML PREMIX 100 MG IV ×3 (00:34→16:20)
--- NOTE | 2025-06-16 00:47 | PC.NURSE ---
Pt having more prolonged periods of bradycardia, rate as low as 50. Blood pressures remain WNL, titrated precedex due to same, but pt easily agitated with any stimuli. Contacted Dr. Christensen, made aware of bradycardia and pt being in sinus rhythm for several hours, current rates for amiodarone, precedex, and fentanyl, plans for breathing trial during day shift and request to not use versed if possible. New order received to continue precedex and pause amiodarone at this time. If rhythm changes call back and will reevaluate amiodarone.
[2025-06-16] MEDS: fentaNYL 1,000 MCG/100 ML BAG 15 MCG IV (01:33)
[2025-06-16] MEDS: dexmedeTOMIDine 0.9 % NaCL 400 MCG/100 ML PREMIX 8.35 MCG IV (03:01)
[2025-06-16] MEDS: hydrocortisone 100 mg/2 mL SDV 50 MG IVP ×2 (03:02→15:13)
[2025-06-16 03:51] LABS: Reflex FDPQ test REFLEX FDP QUEST TES
[2025-06-16 03:59] LABS: Hematocrit 25.3 % (37-53); Hemoglobin 8.30 g/dL (11.27-16.99); Mean Corpuscular HGB Conc 32.8 g/dL (30-55); Mean Corpuscular Hemoglobin 31.6 pg (27-33); Mean Corpuscular Volume 96.2 fl (82-101); Nucleated Red Blood Cells % 0 %; Platelet Count 56 10^3/cmm (157-399); Red Blood Count 2.63 10^6/uL (3.85-5.65); White Blood Count 2.89 10^3/uL (3.29-11.43)
[2025-06-16 04:14] LABS: Albumin Level 3.2 g/dL (3.5-5.2); Anion Gap 17.6 (5-19); Blood Urea Nitrogen 43 mg/dL (8-23); Carbon Dioxide 20 mmol/L (22-29); Chloride 103 mmol/L (98-107); Creatinine Clr Calc Pharmacy 22.3300; Glucose 104 mg/dL (65-115); Magnesium 1.8 mg/dL (1.7-2.3); Potassium 3.6 mmol/L (3.5-5.1); Sodium 137 mmol/L (136-145)
[2025-06-16 04:23] LABS: Calcium 5.9 mg/dL (8.5-10.5)
[2025-06-16 04:28] LABS: Digoxin 0.3 ng/mL (0.6-1.2)
[2025-06-16 04:47] LABS: INR 1.26 (0.8-1.2); Prothrombin Time 16.60 SECONDS (12.1-14.9)
[2025-06-16 04:50] LABS: Fibrinogen 558 mg/dL (174-498); Partial Thromboplastin Time 30.0 SECONDS (23.9-36.7)
[2025-06-16 04:56] LABS: Uric Acid 3.1 mg/dL (3.4-7.0)
[2025-06-16 04:57] LABS: Ferritin 374 ng/mL (30-400)
[2025-06-16 05:59] LABS: ABG PCO2 32.1 mmHg (35-45); ABG PH Result 7.44 (7.35-7.45); Arterial Blood Gas Hematocrit 27.4 % (42-52); Blood Gas Allen Test Pos; Blood Gas Operator Identificat JDB; Blood Gas Sample Site Not specified; Blood Gas Sample Type Arterial; Blood Gas Tidal Volume 0.40; HCO3 ABG 21.6 mmol/L (22-26); PEEP 8.0 cmH20; PO2 ABG 76.5 mmHg (80.0-100.0); PO2 FiO2 Ratio Arterial Blood 191
--- NOTE | 2025-06-16 08:22 | XR_ITS ---
WS: [id number] Portable AP semiupright chest, 06/16/2025 Clinical Data: daily for intubation Comparison: Portable chest, 06/15/2025 Findings: The bilateral patchy opacities have diminished slightly since yesterday. No nodules, masses or effusions are seen. The heart is normal. The pulmonary vascularity is not increased. No pneumonia or pneumothorax is seen. The endotracheal tube remains above the miguelina and the nasogastric tube ends in the stomach. There is a right PICC line ending in the superior vena cava. There are monitor leads on the chest wall. XR/XR chest 1V portable [id number] Impression: 1. Minimal decrease in bilateral patchy opacities. 2. No change in position of multiple tubes.
[2025-06-16] MEDS: aztreonam 1,000 MG in sodium chloride 0.9% (plus) 50 ML 100 MG IV (08:58)
[2025-06-16] MEDS: digoxin 250 mcg/ml INJ 2 mL IVP (11:12)
[2025-06-16] MEDS: amiodarone 150 MG/100 ML PREMIX 400 MG IV (11:45)
--- NOTE | 2025-06-16 11:52 | P.PN_ITS ---
Subjective 2 Subjective: off pressors remains on vent Medications: Reviewed: Yes Vitals/I&O/Wt Last Vital Signs Temp 98.9 F 06/16/25 04:15 Pulse 151 H 06/16/25 11:38 Resp 22 H 06/16/25 11:38 BP 153/79 06/16/25 10:00 Pulse Ox 95 06/16/25 11:38 O2 Del Method Mechanical Ventilation 06/16/25 08:11 O2 Flow Rate 3 06/13/25 09:30 FiO2 40 06/16/25 11:38 06/15/25 06/16/25 06/16/25 22:59 06:59 14:59 Intake Total 332.222 / 1281.496 772.962 / 2054.458 0 / 0 Output Total 1300 / 1920 655 / 2575 Balance -967.778 / -638.504 117.962 / -520.542 0 / 0 Weight last 48 hrs Weight 87 kg Weight 89.811 kg Physical Exam 2 Narrative: Intubated , sedated PERRLA Dry mucous membranes S1-S2 regular rate and rhythm Lungs with decreased breath sounds bilaterally Abdomen soft nontender Extremities no pedal edema Skin no rash Urinary Catheter Management: Smith: Cath Placed During This Visit: yes Reason for Continuing Indwelling Catheter: Accurate Measurement of Urinary Output in Critically Ill Patients Urinary Catheter Date of Insertion: 06/13/25 Urinary Catheter Time of Insertion: 09:45 Data 06/16/25 03:41 06/16/25 03:41 Micro: Microbiology 06/13/25 15:30 Gram Stain - Final Sputum - Endotracheal Tube Aspirate Sputum Culture - Final A&P Assessment and plan 1. Acute kidney injury: 1. Acute on chronic CKD 3: Baseline creatinine seems to be in the 1.3/1.4 range, now has severe DILCIA associated with metabolic acidosis. 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 - pt was started on bicarbonate gtt on presentation , but he decompensated on 06/12/25 night , with resp failure , worsening acidosis , shock and rapid A fib --> intubated , on pressors - Temp HD catheter placed and CRRT started , tolerated well --> now off CRRT and UOP increased , off pressors , plan for HD today 2. Severe metabolic acidosis, s/p bicarbonate drip and HD as above 3. 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 Acute resp failure , possible aspitation , intubated 5. Rapid A fib 6.Pancytopenia 7. Hypokalemia , stopped bicarb drip , repleted pt critically ill, with guarded prognosis Discussed with family @ bedside Patient evaluated using audiovisual cart. Time spent 40 minutes. PDMP PDMP Reviewed: Not Reviewed Attestations 2 Medical Necessity Statement*: per medicine Procedures Arterial Line Size (Gauge): 20 Coding Level of Care Code Acute Code for [facility] Fwd Diagnoses Acute kidney injury N17.9
[2025-06-16 12:22] LABS: Anion Gap 15.3 (5-19); Blood Urea Nitrogen 26 mg/dL (8-23); Calcium 7.3 mg/dL (8.5-10.5); Carbon Dioxide 26 mmol/L (22-29); Chloride 98 mmol/L (98-107); Creatinine Clr Calc Pharmacy 34.7237; Glucose 102 mg/dL (65-115); Osmolality Calculated 289 mOsm/kg (285-295); Sodium 137 mmol/L (136-145)
[2025-06-16 12:25] LABS: Potassium 2.3 mmol/L (3.5-5.1)
--- NOTE | 2025-06-16 13:06 | PC.SOCIAL ---
IMM Updated Pt is intubated. Updated pt's son on IMM. No questions voiced. Provided pt's son a copy. Initialed, dated, & timed copy in chart.
[2025-06-16] MEDS: heparin, porcine 1,000 unit/mL INJ 10 mL 10000 UNIT INTRACATH (13:15)
[2025-06-16] MEDS: lidocaine 1% 5 ML in potassium chloride premix 100 ML 26.25 ML IV ×2 (13:27→16:21)
--- NOTE | 2025-06-16 14:45 | P.PN_ITS ---
Subjective 2 Subjective: Patient was seen this morning, he is intubated, on minimal sedation he follows commands, is at bedside is talking with him, pupils equal round react to light, is off pressors, currently back in atrial fibrillation heart rates in the 120s, orders placed for digoxin, continue amiodarone, he has had good urine output over night, 40% FiO2 Vitals/I&O/Wt Last Vital Signs Temp 98.9 F 06/16/25 04:15 Pulse 97 06/16/25 14:04 Resp 17 06/16/25 14:41 BP 126/98 06/16/25 14:04 Pulse Ox 94 06/16/25 14:41 O2 Del Method Mechanical Ventilation 06/16/25 08:11 O2 Flow Rate 3 06/13/25 09:30 FiO2 30 06/16/25 14:41 06/15/25 06/16/25 06/16/25 22:59 06:59 14:59 Intake Total 332.222 / 1281.496 772.962 / 2054.458 0 / 0 Output Total 1300 / 1920 655 / 2575 Balance -967.778 / -638.504 117.962 / -520.542 0 / 0 Weight last 48 hrs Weight 87 kg Weight 89.811 kg Physical Exam 2 Const: COMMON NORMALS: no acute distress ORIENTATION/CONSCIOUSNESS: Yes awake, Yes oriented to person and Yes oriented to place; not oriented to time and not confused Eye: COMMON NORMALS: Equal, round and reactive pupils present PUPIL: Yes Equal, round and reactive pupils present Resp: COMMON NORMALS: normal respiratory effort, No retractions, No use of accessory muscles and clear to auscultation bilaterally AUSCULTATION: clear to auscultation bilaterally Cardio: COMMON NORMALS: regular rate, regular rhythm, S1 normal heart sound present and S2 normal heart sound present RATE: regular rate RHYTHM: r egular rhythm HEART SOUNDS: S1 normal heart sound present and S2 normal heart sound present GI: COMMON NORMALS: Normal to inspection, nondistended, normoactive bowel sounds present and non-tender Extremity: COMMON NORMALS: no pedal edema Neuro: SENSORIUM/ORIENTATION: Yes oriented to person, Yes oriented to place and No oriented to time Urinary Catheter Management: Smith: Cath Placed During This Visit: yes Reason for Continuing Indwelling Catheter: Accurate Measurement of Urinary Output in Critically Ill Patients Urinary Catheter Date of Insertion: 06/13/25 Urinary Catheter Time of Insertion: 09:45 Data 06/16/25 03:41 06/16/25 11:56 Micro: Microbiology 06/13/25 15:30 Gram Stain - Final Sputum - Endotracheal Tube Aspirate Sputum Culture - Final A&P Assessment and plan 1. Acute kidney injury: 2. Metabolic acidosis: 3. Acute uremia: 4. Acute renal failure: 5. Kidney mass: 6. Multiple myeloma: 7. Acute hypoxic respiratory failure: 8. Shock: 9. NSTEMI (non-ST elevated myocardial infarction): 10. Atrial fibrillation with RVR: Plan: Acute hypoxic respiratory failure - Multifactorial - Bilateral pulmonary edema - Concerns for right lower lobe infiltrate, aspiration pneumonia - Metabolic acidosis, uremia - Currently intubated, sedated mechanical ventilation - 40% FiO2 - Tidal volume 400, PEEP of 8, Plan -Currently intubated, sedated on mechanical ventilation - Versed for sedation - Fentanyl for sedation -Sedation vacation, spontaneous breathing trial - Continue Levophed - Vancomycin - Aztreonam - Flagyl - CRRT current on hold today Atrial fibrillation with rapid ventricular response - Continue amiodarone drip - Digoxin 125 mcg IV push x 2, monitor digoxin levels Sepsis, pneumonia - Maintain MAP in the 65 - Continue Levophed Increased anion gap metabolic acidosis, resolving - Secondary to acute renal failure - Secondary to multiple myeloma induced - Secondary to sepsis, pneumonia -bicarb drip weaned off Shock - Multifactorial -Metabolic acidosis -Acute renal failure -Uremia -Multiple myeloma induced renal failure - Sepsis, pneumonia Acute anemia - Hemoglobin down to 8.2 - Transfuse 1 unit PRBC Thrombocytopenia - Haptoglobin, LDH, peripheral smear - Switch Protonix to Pepcid Acute kidney injury, improving - Increased anion gap metabolic acidosis - Uremia - Could be a component from patient's meloxicam use - Recently he was put on benazepril could be a component, in addition to hydrochlorothiazide - Could be component of Bactrim use - multiple myeloma associated 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 - Possible chemotherapy side effect?Bortezomib(weekly)/Lenalid/Dex + Daratumumab Plan - Nephrology on consult - Renal ultrasound no acute findings -Good urine output overnight, up to 2320 mL -Currently CRRT on hold monitor urine output - CPK 650 - Salicylate level <0.3 - Uric acid 7.8 - Urine free light chain - Urine beta-2 microglobulin - Ferritin 168, iron 88, retic count 0.8, TIBC - Urine electrolytes - Urine eosinophils WNL - Start bicarb drip at 150 cc an hour, currently off -Albumin - Hold nephrotoxic agents - Smith catheter, monitor urine output closely - Patient's family declines transfer to tertiary level center, or any further interventions for her multiple myeloma - Declined long-term dialysis, agreeable to short term dialysis/CRRT History of renal mass - Renal ultrasound as above Multiple myeloma -Bortezomib(weekly)/Lenalid/Dex + Daratumumab June 03, 2025 Altered mental status - Could be component of uremic encephalopathy Acute on chronic anemia, with uremia -Transfuse 1 unit PRBC - Iron studies as above - Protonix 40 IV twice daily - Carafate DNR/DNI Overall goals to keep him comfortable, if clinical condition deteriorates proceed with comfort care Does not want to have aggressive interventions Goal for family to take Cristopher home on hospice SCDs for DVT prophylaxis status stable prognosis guarded For A-fib with RVR loading dose of digoxin 250 mcg, started on amiodarone drip, plans on dialysis today, continue IV antibiotics, continue IV steroids, IV diuresis, replace potassium, spontaneous breathing trial, patient has thrombocytopenia, hold heparin, given unit PRBC PDMP PDMP Reviewed: Not Reviewed Attestations 2 Medical Necessity Statement*: Patient requires hospitalization for acute hypoxic respiratory failure, DILCIA, multiple myeloma, acute renal failure, A-fib with RVR, fluid overload Procedures Arterial Line Size (Gauge): 20 Coding Level of Care Code Critical Care >/= 30 minutes Critical care time (in minutes): 45 The high probability of a clinically significant, sudden or life threatening deterioration, as referenced in this documentation, required my full and direct attention, intervention and personal management. The critical care time shown is in addition to time spent performing any reported separately billable procedures and includes the following: [x] Data and vital sign review and interpretation [x ] Patient assessment, examination and intervention [x] Medication orders and management [x] Patient/Family updates as able [x] Care Coordination and Documentation. Diagnoses Acute kidney injury N17.9 Metabolic acidosis E87.20 Acute uremia N19 Acute renal failure N17.9 Kidney mass N28.89 Multiple myeloma C90.00 Acute hypoxic respiratory failure J96.01 Shock R57.9 NSTEMI (non-ST elevated myocardial infarction) I21.4 Atrial fibrillation with RVR I48.91
[2025-06-16 14:51] LABS: ABG PCO2 29.2 mmHg (35-45); ABG PH Result 7.51 (7.35-7.45); Alveolar-Arterial Oxygen Gradi 13.0 mmHg (5-10); Arterial Blood Gas Hematocrit 31.1 % (42-52); Blood Gas Operator Identificat GD; Blood Gas Sample Site Not specified; Blood Gas Sample Type Arterial; Carboxyhemoglobin 1.0 %THgb (0.4-20.1); Glucose Level-ABG 111.0 mg/dL (70-115); HCO3 ABG 23.4 mmol/L (22-26); Ionized Calcium Level - ABG 0.9 mmol/L (1.1-1.4); Methemoglobin 0.5 % (0.4-1.5); Oxygen Saturation ABG 97.1; PO2 ABG 77.8 mmHg (80.0-100.0); PO2 FiO2 Ratio Arterial Blood 259; Potassium Level - ABG 3.4 mmol/L (3.5-5.0); Sodium Level - ABG 140.0 mmol/L (131-143)
[2025-06-16 14:52] LABS: PEEP 5.0 cmH20
--- NOTE | 2025-06-16 15:05 | P.PN_ITS ---
Subjective 2 Subjective: Cristopher Freeman Jr is a 74 year old male With a past medical history of multiple myeloma presents to the hospital from oncology clinic due to DILCIA. Admitted to the hospital was found to be in acute kidney failure acute metabolic acidosis, nephrology consulted. Overnight decompensated and had to be transferred to the ICU. Was found to be very acidotic with pH of 7.2 placed on bicarb drip as well as BiPAP for comfort. Creatinine up to 7 with multiple metabolic derangements. Plan underway to start dialysis on him still. Nephrology following. Currently opens eyes and does follow commands intermittently. Is on BiPAP 07/19/30% FiO2. On bicarb drip at 150 mL/h. Precedex is off currently but it was ongoing earlier. 06/14/25 Urgently intubated last evening. Severely acidotic urgent CRRT started. Patient is comfortable on the ventilator. Making urine at 200 mL/h. CRRT ongoing. Creatinine is improving. Levo at 11 and vaso off. Bicarb off. 06/15/2025 On minimal levo of 2. In A-fib with RVR. Got 2 doses of dig load. On Amio increased to 1. On fentanyl 150, Versed 4 and Precedex 0.4. Awake following commands. Making good urine. 06/16/2025 Off levo. Creatinine up to 3. HD pending. Tolerating ventilator settings well. On V Precedex 0.3 and fentanyl 50 wakes up follows commands. Having BMs. ET secretions are thin. Vitals/I&O/Wt Last Vital Signs Temp 99.3 F 06/16/25 14:51 Pulse 93 06/16/25 14:51 Resp 24 H 06/16/25 14:51 BP 172/84 06/16/25 14:51 Pulse Ox 94 06/16/25 14:41 O2 Del Method Mechanical Ventilation 06/16/25 08:11 O2 Flow Rate 3 06/13/25 09:30 FiO2 30 06/16/25 14:41 06/16/25 06/16/25 06/16/25 06:59 14:59 22:59 Intake Total 772.962 / 2054.458 500 / 500 Output Total 655 / 2575 2427 / 2427 Balance 117.962 / -520.542 -1927 / -1927 Weight last 48 hrs Weight 187 lb 6.287 oz Weight 191 lb 12.835 oz Weight 198 lb Physical Exam 2 Narrative: Per RN General: Intubated sedated, wakes up following commands HEENT: EOMI Pulmonary: Diminished breath sounds bilaterally Cardiovascular: Irregularly irregular rhythm, nl s1s2, Abdomen: soft, nt, nd, no r/g, Extremities: no edema Neurologic: grossly intact Agree with above exam Urinary Catheter Management: Smith: Cath Placed During This Visit: yes Reason for Continuing Indwelling Catheter: Accurate Measurement of Urinary Output in Critically Ill Patients Urinary Catheter Date of Insertion: 06/13/25 Urinary Catheter Time of Insertion: 09:45 Data 06/16/25 03:41 06/16/25 11:56 Micro: Microbiology 06/13/25 15:30 Gram Stain - Final Sputum - Endotracheal Tube Aspirate Sputum Culture - Final A&P Assessment and plan 1. Acute kidney injury: 2. Metabolic acidosis: Plan: # Acute kidney failure - Nephrology following appreciate help. Making urine 3800 mL out. Creatinine up to 3. Planning HD again today. Discussed case with Dr Darby-appreciate help. Filters on CRRT machine being changed every 8 hours to help facilitate clearing of paraproteins stopped 06/15/2025. Previously checked SPEP levels were 4.2 # Acute metabolic acidosis -ABG reviewed today 7.51/29.2/77.8 PF ratio 259. # Multiple myeloma -s/p Bortezomib(weekly)/Lenalid/Dex + Daratumumab Induction (Cycle 1-4) - Discussed case with Dr. Freitas, Not a candidate for chemo at this time. - Discussed with Dr. Kenney. [facility] declined transfer for possible chemo but family is leaning towards no transfers at this time considering he is medically too sick to tolerate any more chemotherapy. # Thrombocytopenia At 63K today-trending down continuously. Most likely due to DIC. Will check DIC screen # Anemia - Current hemoglobin 8 0.3, 2 units of blood to be given yesterday labs reviewed today 06/16/2025 # Pancytopenia # Acute hypoxemic respiratory failure secondary to probable aspiration versus acute pulm edema - I reviewed chest x-ray from today and compared to yesterday. 06/16/2025 slightly increased left infiltrate suggestive of vascular congestion but otherwise unremarkable. May even have lymphangitic spread but difficult to rule out secondary to patient not being stable enough to get a bronchoscopy.. Plan to extubate today if good cuff leak. ABG looks decent. - Patient has been empirically started on antibiotics-vancomycin and aztreonam, blood cultures pending. 06/16/2025 no growth till date. Stop vancomycin today -Continue ventilator support and wean as tolerated. Lung protective strategy with low tidal volume ventilation as much as he can tolerate. Keep saturation above 90%. -SBT and plan to extubate today if ABG looks appropriate. No plan to reintubate. Patient is a DNI # Acute metabolic encephalopathy - Continue Precedex and fentanyl drips-wean off as tolerated. # Kidney mass - US reviewed unrevealing for any mass 06/12/2025 # A-fib with RVR - Amiodarone drip at 1. Dig load given. 250 mcg given once appreciate cardiology help. Discussed case with Dr. Kenney # Shock-unclear etiology could be sepsis versus tach for shock - Continue antibiotics currently and de-escalated stop if cultures are negative in the next 2 days -As needed Levophed drip and wean as tolerated keep MAP above 65. - Agree with stress dose steroids. Continue hydrocortisone 50 mg IV every 12- Will start weaning soon. # COPD - Not in acute exacerbation. May use DuoNebs as needed # Hyperglycemia-blood glucose -Maintain on D10 drip. Plan to advance p.o. diet once more stable and extubated. # DVT GI prophylaxis - SCDs and Lovenox subcu # Sedation -As above # Nutrition - Dextrose drip to maintain blood sugars between 140-180. Avoid hypoglycemia # CODE STATUS-DNR/DNI # Goals of care- Long discussion with family today 06/14/2025. They understand how critically ill he is and would like to observe him for a few days here without any transfers to go to higher level of care. If he does not improve they may consider withdrawal of care. They did make him DNR at this time. If he does come to a point where we extubate him they would like for him to be DNI at that time as well. The high probability of a clinically significant, sudden or life threatening deterioration of the patient's [Respiratory, cardiac and renal] system(s) required my full and direct attention, intervention and personal management. The critical care time is as shown. This time is in addition to time spent performing any reported procedures but includes the following: [x] Data and vital sign review and interpretation [x] Patient assessment, examination and intervention [x] Documentation [x] Medication orders and management Critical Care Time (min): 35 Telemedicine Consent Patient seen today via Telemedicine by agreement and consent of patient.? Telemedicine technology used during the visit includes audio and, as available, review of images.? The patient encounter is appropriate and reasonable under the circumstances given the patient?s particular presentation at this time.? The patient has been advised of the potential risks and limitations of this mode of treatment (including but not limited to the absence of in-person examination) and has agreed to be treated in a remote fashion in spite of them.? Any, and all, of the patient?s/patient?s family?s questions on this issue have been answered and I have made no promises or guarantees to the patient. The patient has also been advised to contact this office for worsening conditions or problems, and seek emergency medical treatment and/or call 911 if the patient deems either necessary PDMP PDMP Reviewed: Not Reviewed Attestations 2 Medical Necessity Statement*: Intubated sedated Procedures Arterial Line Size (Gauge): 20 Coding Level of Care Code Critical Care >/= 30 minutes Diagnoses Acute kidney injury N17.9 Metabolic acidosis E87.20
--- NOTE | 2025-06-16 15:17 | PC.NURSE ---
patient extubated per RT approximately 1500
[2025-06-16] MEDS: dexmedeTOMIDine 0.9 % NaCL 400 MCG/100 ML PREMIX 5.01 MCG IV (15:38)
[2025-06-16] MEDS: magnesium sulfate premix 1 GM/100 ML PIGGYBACK IV (16:11)
[2025-06-16] MEDS: FUROsemide 10 mg/mL SDV 10mL 60 MG IVP (16:11)
[2025-06-16] MEDS: diphenhydrAMINE 50 mg/mL SDV 1mL (16:12)
[2025-06-16] MEDS: methylPREDNISolone sod succ 125 mg/2 mL INJ IVP (16:17)
--- NOTE | 2025-06-16 16:29 | PC.NURSE ---
Approximately 1515 patient began c/o of dyspnea with audible upper airway wheeze, dr. hwang came to bedside, orders per OCT, patient currently on bipap. Art line pulled on as patient attempted to pull self up in bed
--- NOTE | 2025-06-16 16:44 | PC.NURSE ---
family elected to go comfort care
[2025-06-16] MEDS: morphine 4 mg/mL SDV 1 mL IVP ×4 (17:01→22:00)
--- NOTE | 2025-06-16 18:11 | PM.CCNAC ---
Critical Care Event Note The high probability of a clinically significant, sudden or life threatening deterioration of the patient's [] system(s) required my full and direct attention, intervention and personal management. The critical care time is as shown. This time is in addition to time spent performing any reported procedures but includes the following: [x] Data and vital sign review and interpretation [x] Patient assessment, examination and intervention [x] Documentation [x] Medication orders and management Critical Care Time Code activated: No Critical Care Time (min): 35 Additional information about critical care time: - Patient was extubated, RT at bedside, to nasal cannula - After extubation, he is alert to person, to place, to time, placed on 3 L, good air movement bilateral lung - Family notified about extubation - I was called back to the ICU about 30 minutes later as patient was experiencing shortness of breath - Upon examination Jim is alert to person, to place, to time, he is in moderate respiratory distress and is a very, intercostal retractions, pale, diaphoretic, tachycardic heart rates in the 120s, she has decreased air movement bilateral upper lung garcia - My immediate concern was for acute bronchospasm - Order placed for racemic epinephrine, magnesium, albuterol, IV Lasix -On 9 L, he is in the mid 90s - Family members at bedside discussed with family members, patient's son about goals of care, patient son confirms that Cristopher remains a DNR/DNI - They do not want aggressive interventions, they do not want reintubation, they understand morbidity and mortality if his condition worsens they are agreeable to comfort care - Reexamined after 1 dose of racemic epinephrine, received albuterol, albuterol, he is more comfortable, requiring 9 L, still alert to person, not place, to time, continues to have decreased air movement bilateral lung garcia chest x-ray ordered - Reexamined he is having more air movement in bilateral lung garcia, he is more alert and awake, heart rates in the 110s, sinus rhythm, order placed for another dose of racemic epinephrine placed on BiPAP - Reexamined again, on BiPAP he is more comfortable he is on 50% FiO2, he is in the mid 90s percent FiO2, has more air movement in bilateral lung garcia, I can hear high-pitched wheezing in bilateral lung garcia, still in moderate respiratory distress nasal flaring intercostal retractions suprasternal retractions, - Has received racemic epinephrine twice, albuterol l, Lasix, magnesium, which chest x-ray has been ordered - I had a family meeting outside the patient's room, in the waiting room with patient's son, patient's - I confirmed that patient is DNR/DNI, they do not want to have aggressive interventions, they understand that if his condition worsens, and if intubation is the only other option they want him to remain comfortable - Discussed options available continue medical interventions watching him closely, and if his condition deteriorates or continues to have suffering they want him to be comfortable - Patient's son and reiterate that if his condition does not improve or deteriorates, they do not want to have aggressive inventions above all they want Cristopher to be comfortable for us to ease his pain and ease his suffering and allow him to be comfortable they do not want him to struggle to breathe - Discussed my concern for bronchospasm, potentially acute flash pulm edema I have given medications albuterol, racemic epinephrine, spoke to pulmonary, placed on BiPAP, - Patient's family was allowed into the room - Family members at bedside, Jim currently on 50% FiO2 in moderate respiratory distress, nasal flaring, intercostal traction suprasternal retractions, he is 100% of 50%, - Chest x-ray is still pending to rule out pneumothorax - I was called back into the room by patient's son, they want Cristopher to be comfortable, he remains on Precedex, they feel that he is suffering to to breathe, orders placed for morphine, they want patient's nephew to come and see him, the rest of the family is coming, patient's son wants Cristopher to be comfortable above all, they do not want him to suffer they do want him to be in pain, confirmed that is DNR/DNI, patient's son does not want to have any more blood work, no chest x-ray - I was called back into the room, patient's on 50% FiO2, agitated trying to remove his BiPAP mask, in moderate respiratory distress, O2 sats in the mid 90s, nasal flaring, intercostal retractions suprasternal retractions looks pale, diaphoretic, does have good air entry entry bilateral lung garcia with diffuse wheezing, is encephalopathic, cannot make any decisions, patient's son and , nephew at bedside - Patient's family, patient's son and want all medical interventions to be stopped, they want BiPAP to be stopped, they just want Cristopher to be comfortable - They want us to ease his pain and ease his suffering and allow him to pass away comfortably, they do not want to escalate care, - Discussed the risk of benefits of comfort care, they voiced understanding, all questions answered, shared decision making, agreed to proceed - Proceed with comfort care orders orders placed for comfort care, to remove BiPAP, to keep Cristopher comfortable, - Placed and placed on comfort care, family members at bedside Procedures Arterial Line Size (Gauge): 20 Coding Level of Care Code Acute Code for [facility]
[2025-06-17] VITALS (28 sets, daily range): BP systolic 117–151; BP diastolic 43–71; PULSE 55–100; RESP 15–29; O2SAT 91–98
[2025-06-17] MEDS: morphine 4 mg/mL SDV 1 mL IVP ×3 (00:42→09:39)
--- NOTE | 2025-06-17 07:24 | PC.OT ---
D/C OT DUE TO COMFORT CARE MEASURES PLACED
[2025-06-17 10:44] LABS: Kappa Free Light Chains Urine 34.76 mg/L (<=32.90); Lambda Light Chain, Free Ur 67.25 mg/L (<=3.79)
[2025-06-17] MEDS: potassium chloride oral liq 20 mEq/15 mL UDC 40 MEQ PO (11:11)
[2025-06-17] MEDS: FUROsemide 10 mg/mL SDV 4mL 40 MG IVP ×2 (11:12→16:34)
[2025-06-17] MEDS: ondansetron 2 mg/ML SDV 2 mL 4 MG IVP (11:20)
--- NOTE | 2025-06-17 12:04 | XR_ITS ---
WS: [id number] Portable AP semiupright chest, 06/17/2025 Clinical Data: sob Comparison: Portable chest, 06/16/2025 Findings: The bilateral patchy opacities still remain. No nodules, masses or effusions are seen. The heart is normal. The pulmonary vascularity is not increased. No pneumothorax is seen. The endotracheal tube and nasogastric tube have been removed. The right PICC line remains. Monitor leads are on the chest wall. XR/XR chest 1V portable [id number] Impression: 1. No change in bilateral patchy opacities. 2. Removal of endotracheal tube and nasogastric tube.
[2025-06-17] MEDS: amiodarone 150 MG/100 ML PREMIX 400 MG IV (12:27)
[2025-06-17] MEDS: AMIODARONE HCL/D5W 900 MG/500 ML BAG 33.33 MG IV (12:28)
[2025-06-17 12:41] LABS: Hematocrit 32.8 % (37-53); Hemoglobin 11.20 g/dL (11.27-16.99); Mean Corpuscular HGB Conc 34.1 g/dL (30-55); Mean Corpuscular Hemoglobin 31.4 pg (27-33); Mean Corpuscular Volume 91.9 fl (82-101); Platelet Count 66 10^3/cmm (157-399); Red Blood Count 3.57 10^6/uL (3.85-5.65); White Blood Count 4.64 10^3/uL (3.29-11.43)
[2025-06-17] MEDS: aztreonam 1,000 MG in sodium chloride 0.9% (plus) 50 ML 100 MG IV ×2 (12:41→23:56)
[2025-06-17] MEDS: methylPREDNISolone sod succ 125 mg/2 mL INJ 60 MG IVP ×3 (12:42→23:56)
[2025-06-17] MEDS: metroNIDAZOLE IV 500 MG/100 ML PREMIX 100 MG IV ×2 (12:42→20:52)
[2025-06-17 13:04] LABS: Absolute Segmented Neutrophil 3.7 10/cmm (1.6-7.1); Band Neutrophils Absolute 0.0 10^3/cmm (0.0-1.2); Total Cells Counted 100 (0-100)
[2025-06-17 13:05] LABS: Atypical Lymphs 1.0 % (0-5)
[2025-06-17 13:11] LABS: Alanine Aminotransferase 25 U/L (0-41); Albumin Level 3.4 g/dL (3.5-5.2); Alkaline Phosphatase 39 U/L (40-130); Anion Gap 21.9 (5-19); Aspartate Amino Transferase 21 U/L (0-40); Blood Urea Nitrogen 68 mg/dL (8-23); Calcium 6.8 mg/dL (8.5-10.5); Carbon Dioxide 20 mmol/L (22-29); Chloride 105 mmol/L (98-107); Creatinine Clr Calc Pharmacy 22.5010; Globulin 4.3 g/dL (1.3-4.6); Glucose 114 mg/dL (65-115); Magnesium 1.8 mg/dL (1.7-2.3); NT Pro B Type Natriuretic Pept 10091 pg/mL (0-450); Osmolality Calculated 317 mOsm/kg (285-295); Potassium 3.9 mmol/L (3.5-5.1); Sodium 143 mmol/L (136-145); Total Protein 7.7 g/dL (6.6-8.7)
[2025-06-17] MEDS: magnesium sulfate premix 1 GM/100 ML PIGGYBACK IV (13:53)
--- NOTE | 2025-06-17 14:18 | PM.PN ---
Subjective Subjective: pt extubated and on 2l nc uop improved Medications: Reviewed: Yes Vitals/I&O/Wt Last Vital Signs Temp 99.3 F 06/16/25 14:51 Pulse 84 06/16/25 22:00 Resp 34 H 06/16/25 19:25 BP 152/104 06/16/25 17:15 Pulse Ox 93 06/17/25 11:00 O2 Del Method BiPAP 06/16/25 16:08 O2 Flow Rate 8 06/16/25 15:50 FiO2 50 06/16/25 16:08 06/16/25 06/17/25 06/17/25 22:59 06:59 14:59 Intake Total 125.891 / 725.891 200 / 200 Output Total 1850 / 4277 875 / 5152 Balance -1724.109 / -3551.109 -875 / -4426.109 200 / 200 Weight last 48 hrs Weight 85 kg Weight 87 kg Physical Exam Narrative: awake , alert , on 2l NC PERRLA Dry mucous membranes S1-S2 regular rate and rhythm Lungs with decreased breath sounds bilaterally Abdomen soft nontender Extremities no pedal edema Skin no rash Urinary Catheter Management: Smith: Cath Placed During This Visit: yes Reason for Continuing Indwelling Catheter: Accurate Measurement of Urinary Output in Critically Ill Patients Urinary Catheter Date of Insertion: 06/13/25 Urinary Catheter Time of Insertion: 09:45 Data 06/17/25 12:25 06/17/25 12:25 A&P Assessment and plan 1. Acute kidney injury: 1. Acute on chronic CKD 3: Baseline creatinine seems to be in the 1.3/1.4 range, now has severe DILCIA associated with metabolic acidosis. 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 - pt decompensated on 06/12/25 night , with resp failure , worsening acidosis , shock and rapid A fib --> intubated , on pressors and CRRT started --> transitioned to HD - s/p HD on 06/16 - Reaasess in AM and likely will need HD in Am - If pt agreeable for joint terminal attack controller HD 00> needs tunnelled catheter prior to DC ( pt has not made final decision yet ) 2. Severe metabolic acidosis, s/p bicarbonate drip and HD as above 3. Multiple myeloma, light chain disease -recently started on chemotherapy( Bortezomib(weekly)/Lenalid/Dex + Daratumumab Induction) 4. Acute resp failure , possible aspitation , intubated 5. Rapid A fib 6.Pancytopenia 7. Hypokalemia , repleted pt critically ill, with guarded prognosis Discussed with family @ bedside Patient evaluated using audiovisual cart. Time spent 40 minutes. PDMP PDMP Reviewed: Not Reviewed Attestations Medical Necessity Statement*: per mediicne Procedures Arterial Line Size (Gauge): 20 Coding Level of Care Code Acute Code for Chg Fwd Diagnoses Acute kidney injury N17.9
--- NOTE | 2025-06-17 16:25 | P.PN_ITS ---
Subjective 2 Subjective: - Patient was examined multiple times th roughout the day - Early in the morning he was seen, he i s alert oriented x 3, following all commands, heart rates in the 150s, and mild respiratory distress, but able to follow commands - Patient's is at bedside - We discussed Cristopher's overall goals o f care, -I discussed patient's hospitalization, his respiratory failure, fluid overload, A-fib with RVR, aspiration pneumonia, septic shock, acute renal failure, which is multifactorial in my opinion highly suggestive of light chain disease from multiple myeloma could be a component of tumor lysis syndrome, but other possibilities could be his chemotherapy side effect -Discussed future directives, of comfort care versus medical management versus dialysis and/or chemotherapy -Discussed events of Monday night with s evere metabolic acidosis, when patient was very critically ill, events of yesterday's severe bronchospasm and respiratory failure, decision by family to pursue comfort care given his severe respiratory failure/distress and suffering - I discussed patient's current respirat ory failure, recurrent A-fib with RVR, evidence of fluid overload, acute renal failure - For now he wants to talk to his son be fore making any decisions, but above all he wants to remain comfortable, does not want to be in pain - Patient was seen with son at bedside - I had a detailed discussion with patie casandra and son about patient's hospitalization - Patient's initial presentation for acu te renal failure, metabolic acidosis, initially thought to be related to Bactrim, benazepril, dehydration, prerenal, but with persistent renal failure concerns for light chain disease associated with aggressive multiple myeloma, also concerns for chemotherapy side effect and potentially tumor lysis syndrome, with his severe renal failure metabolic acidosis, he was critically ill in ICU, he survived by the night with a severe metabolic acidosis, renal function has improved metabolic acidosis is improved, - CRRT and now dialysis has been difficu lt with his A-fib with RVR, he has required several different strategies of amiodarone, amiodarone bolus, digoxin, beta-citlalli - This will be difficulty for dialysis i n the long-term - Discussed his anemia, thrombocytopenia , the eventual need for blood thinners with his atrial fibrillation - Discussed patient's acute respiratory failure sec to fluid overload, secondary to metabolic acidosis, second aspiration pneumonia, events of yesterday with his severe bronchospasm, with persistent now concerns for fluid overload, persistent damage from aspiration pneumonia, ? Discussed his septic shock which has resolved # Discussed his acute renal failure, and long-term directives of dialysis versus no dialysis, my worry is is that his creatinine was upward trending, my worry is just that he will likely need long-term dialysis, with his multiple myeloma, production of light chains, his urine light chains were positive, this makes me highly suspicious that a significant likelihood of his acute renal failure was from the multiple myeloma, but certainly tumor lysis syndrome could be a possibility however his uric acid levels, calcium, and the rest of the electrolytes did not seem to point towards tumor lysis syndrome but it certainly could be a possibility ? Nonetheless without dialysis, and presumed multiple myeloma producing light chains will result in further renal damage, resulting in persistent renal failure, uremia, and morbidity mortality associated, with fluid overload, and acute renal failure, discussed long-term dialysis - Discussed long-term options of dialysi s, his functional state in terms of if he is a long-term candidate for dialysis - Discussed if he would like to pursue c hemotherapy, -Discussed 3 options of hospice -Hospice would emphasize him going home, spending the rest of the time that he has remaining with his family, for us to ease his pain is not suffering allow him to be comfortable, risk of benefits of this option discussed, quality versus quantity of life -The second option would be he undergoes medical management of dialysis, we set up dialysis we see if we can get him out of the hospital, and he can follow-up with oncology as outpatient to see if at any point he is a candidate for chemotherapy, risks and benefits of this option were discussed, discussed, including prolonged hospitalization, recurrent hospital visits, visits to nephrology, oncology, risks and benefits of dialysis, risk and benefits of chemotherapy -The other option would be if he does no t want dialysis we can certainly discharge him on medical management however this option does carry significant risk of rehospitalization, worsening renal failure, and complications - Had a detailed discussion with patient and son, for now they want to talk amongst themselves -As patient is uncertain, I am going to start him on medical therapy, such as amiodarone drip, metoprolol, IV diuresis check his blood work, obtain x-ray, to see where we could help him clinically, currently he is in A-fib with RVR, and evidence of fluid overload - I also reached out to Dr. Coley, who w ill also speak to patient, discussed with Dr. Coley the case in detail - I also reached out to oncology, onccecy christensen and I were able to have a family meeting with patient and son at about noon - Oncology did give the option for chemo therapy to Cristopher, likely a modified dose regimen, they are feeling that he could certainly be a chemotherapy candidate if his functional status improved, and he would still be a candidate for chemotherapy even if he was on dialysis - I also had nephrology have a detailed discussion with patient and family - Patient was reexamined this afternoon, he is in normal sinus rhythm, he is complaining of some shortness of breath, he has good air movement bilateral lung garcia, just received a breathing treatment, discussed giving him another dose of Lasix - I did detailed discussion with Cristopher with nursing staff at bedside about his CODE STATUS - He tells me he wants to keep his CODE STATUS the same - We went over his CODE STATUS in detail , he does not CPR, he does not want to be put on the ventilator, - Again had a discussion with DNR/DNI me ans, his family when he was on the ventilator had made him DNR/DNI, he voiced understanding, all questions answered, he tells me that he agrees with being DNR/DNI - Patient is not ready to make a decisio n about chemotherapy, will dialysis, or hospice, we discussed continuing medical interventions for now, he is in agreement, will discuss with family and further Vitals/I&O/Wt Last Vital Signs Temp 99.3 F 06/16/25 14:51 Pulse 62 06/17/25 15:41 Resp 29 H 06/17/25 15:31 BP 123/59 06/17/25 15:00 Pulse Ox 98 06/17/25 15:31 O2 Del Method BiPAP 06/17/25 15:31 O2 Flow Rate 8 06/16/25 15:50 FiO2 50 06/17/25 15:31 06/17/25 06/17/25 06/17/25 06:59 14:59 22:59 Intake Total 200 / 200 Output Total 875 / 5152 Balance -875 / -4426.109 200 / 200 Weight last 48 hrs Weight 85 kg Weight 87 kg Physical Exam 2 Const: COMMON NORMALS: no acute distress and patient oriented x3 Eye: COMMON NORMALS: Equal, round and reactive pupils present PUPIL: Yes Equal, round and reactive pupils present Resp: AUSCULTATION: crackles and wheezes OTHER: Mild to moderate respiratory distress, nasal flaring, intercostal retractions suprasternal retractions short of breath with a few words Cardio: COMMON NORMALS: regular rate, regular rhythm, S1 normal heart sound present and S2 normal heart sound present RATE: regular rate RHYTHM: r egular rhythm HEART SOUNDS: S1 normal heart sound present and S2 normal heart sound present GI: COMMON NORMALS: Normal to inspection, nondistended, normoactive bowel sounds present and non-tender : COMMON NORMALS: Yes no CVA tenderness BLADDER/KIDNEY EXAM: Yes no CVA tenderness Back/Pelvis: COMMON NORMALS: no CVA tenderness Extremity: COMMON NORMALS: no pedal edema Neuro: COMMON NORMALS: patient oriented x3, CN's II-XII intact bilaterally and moves all extremities Psych: COMMON NORMALS: mental status grossly normal Urinary Catheter Management: Smith: Cath Placed During This Visit: yes Reason for Continuing Indwelling Catheter: Accurate Measurement of Urinary Output in Critically Ill Patients Urinary Catheter Date of Insertion: 06/13/25 Urinary Catheter Time of Insertion: 09:45 Data 06/17/25 12:25 06/17/25 12:25 A&P Assessment and plan 1. Acute kidney injury: 2. Metabolic acidosis: 3. Acute uremia: 4. Acute renal failure: 5. Kidney mass: 6. Multiple myeloma: 7. Acute hypoxic respiratory failure: 8. Shock: 9. NSTEMI (non-ST elevated myocardial infarction): 10. Atrial fibrillation with RVR: Plan: Acute hypoxic respiratory failure - Multifactorial - Bilateral pulmonary edema - Concerns for right lower lobe infiltrate, aspiration pneumonia - Metabolic acidosis, uremia - Currently intubated, sedated mechanical ventilation -Moderate pulmonary hypertension -S/p extubation 06/16/2025 -Status post severe life-threatening bronchospasm event 06/16/2025, with severe acute hypoxic respiratory failure and respiratory distress, requiring 100% BiPAP therapy/nebulized epinephrine/albuterol, transitioned to comfort care, blood clinical condition significantly improved, now on 2 L with mild respiratory distress Plan - Monitor respiratory status closely - Currently on nasal cannula -DuoNeb -Budesonide -Lasix 40 IV twice daily, with metolazone - Aztreonam - Flagyl - Dialysis currently on hold as per goals of care discussion Atrial fibrillation with rapid ventricular response CONCLUSIONS Normal left ventricular size, systolic function and wall thickness with ejection fraction of 68%. Normal right ventricular size and systolic function. Moderate pulmonary hypertension, PASP 64 mmHg No significant valvular findings. - Continue amiodarone drip - Status post 4 doses of digoxin 125 mcg - Stop beta-citlalli - Switch to p.o. Cardizem Sepsis, pneumonia, resolved - Maintain MAP in the 65 - Continue Levophed Increased anion gap metabolic acidosis, resolving - Secondary to acute renal failure - Secondary to multiple myeloma induced - Secondary to sepsis, pneumonia -bicarb drip weaned off Shock, resolved - Multifactorial -Metabolic acidosis -Acute renal failure -Uremia -Multiple myeloma induced renal failure - Sepsis, pneumonia Acute anemia - Hemoglobin down to 8.2 - Transfused 1 unit PRBC Thrombocytopenia - Haptoglobin 264, LDH 203, peripheral smear - Switch Protonix to Pepcid Acute kidney injury, 2.9 - Increased anion gap metabolic acidosis - Uremia - Could be a component from patient's meloxicam use - Recently he was put on benazepril could be a component, in addition to hydrochlorothiazide - Could be component of Bactrim use - multiple myeloma associated 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 - Possible chemotherapy side effect?Bortezomib(weekly)/Lenalid/Dex + Daratumumab -Potentially to tumor lysis syndrome however uric acid levels within reasonable range, no significant calcium/potassium/electrolyte derangements to favor tumor lysis Plan - Nephrology on consult - Renal ultrasound no acute findings -Good urine output overnight, up to 2320 mL -Currently CRRT on hold monitor urine output - CPK 650 - Salicylate level <0.3 - Uric acid 7.8 - Urine free light chain - Urine beta-2 microglobulin - Ferritin 168, iron 88, retic count 0.8, TIBC - Urine electrolytes - Urine eosinophils WNL - Start bicarb drip at 150 cc an hour, currently off -Albumin - Hold nephrotoxic agents - Smith catheter, monitor urine output closely -Decision on long-term dialysis will be made by patient and family History of renal mass - Renal ultrasound as above Multiple myeloma -Bortezomib(weekly)/Lenalid/Dex + Daratumumab June 03, 2025 Altered mental status, resolving - Could be component of uremic encephalopathy DNR/DNI SCDs for DVT prophylaxis, anticoagulation therapy currently on hold due to anemia and thrombocytopenia status stable prognosis guarded PDMP PDMP Reviewed: Not Reviewed Attestations 2 Medical Necessity Statement*: Patient requires hospitalization for acute hypoxic respiratory failure, acute renal failure, atrial fibrillation Procedures Arterial Line Size (Gauge): 20 Diagnoses Acute kidney injury N17.9 Metabolic acidosis E87.20 Acute uremia N19 Acute renal failure N17.9 Kidney mass N28.89 Multiple myeloma C90.00 Acute hypoxic respiratory failure J96.01 Shock R57.9 NSTEMI (non-ST elevated myocardial infarction) I21.4 Atrial fibrillation with RVR I48.91
[2025-06-17] MEDS: LORazepam 2 mg/mL INJ 1 mL 1 MG IVP (16:35)
--- NOTE | 2025-06-17 16:47 | USCV_ITS ---
Cristopher Freeman Age: 74 Gender: M : 1950 Exam Date: 06/17/2025 18:31 Ordering Phys: Jose Hernandez MD Technologist: MAEVE Exam Location: [facility] – [place] Indication: r/o dvt HISTORY: r/o dvt PROCEDURES: Venous duplex imaging was performed in bilateral lower extremities. The following venous structures were evaluated: common femoral vein, profunda vein, proximal portion of the greater saphenous vein, superficial femoral vein, and the popliteal vein. In addition, the posterior tibial and peroneal veins were evaluated. Serial compression, augmentation maneuvers, and spectral Doppler flow evaluation were performed, which were normal. Bilaterally, the common femoral, superficial femoral, profunda femoral, popliteal, posterior tibial, greater saphenous veins, and the peroneal veins were identified and interrogated in the standard fashion. These veins were found to be easily compressible with spontaneous blood flow. No evidence of thrombus noted. CONCLUSIONS No evidence of right lower extremity DVT. No evidence of left lower extremity DVT. Gonzales Gonzalez MD (Electronically Signed) Final Date: 18 June 2025 11:16 S
--- NOTE | 2025-06-17 17:41 | P.PN_ITS ---
Subjective 2 Subjective: Cristopher Freeman Jr is a 74 year old male With a past medical history of multiple myeloma presents to the hospital from oncology clinic due to DILCIA. Admitted to the hospital was found to be in acute kidney failure acute metabolic acidosis, nephrology consulted. Overnight decompensated and had to be transferred to the ICU. Was found to be very acidotic with pH of 7.2 placed on bicarb drip as well as BiPAP for comfort. Creatinine up to 7 with multiple metabolic derangements. Plan underway to start dialysis on him still. Nephrology following. Currently opens eyes and does follow commands intermittently. Is on BiPAP 07/19/30% FiO2. On bicarb drip at 150 mL/h. Precedex is off currently but it was ongoing earlier. 06/14/25 Urgently intubated last evening. Severely acidotic urgent CRRT started. Patient is comfortable on the ventilator. Making urine at 200 mL/h. CRRT ongoing. Creatinine is improving. Levo at 11 and vaso off. Bicarb off. 06/15/2025 On minimal levo of 2. In A-fib with RVR. Got 2 doses of dig load. On Amio increased to 1. On fentanyl 150, Versed 4 and Precedex 0.4. Awake following commands. Making good urine. 06/16/2025 Off levo. Creatinine up to 3. HD pending. Tolerating ventilator settings well. On V Precedex 0.3 and fentanyl 50 wakes up follows commands. Having BMs. ET secretions are thin. 06/17/2025 Extubated and placed. Having dyspnea and off bipap. Vitals/I&O/Wt Last Vital Signs Temp 99.3 F 06/16/25 14:51 Pulse 64 06/17/25 17:00 Resp 29 H 06/17/25 15:31 BP 142/58 06/17/25 17:00 Pulse Ox 95 06/17/25 17:00 O2 Del Method BiPAP 06/17/25 15:31 O2 Flow Rate 8 06/16/25 15:50 FiO2 50 06/17/25 15:31 06/17/25 06/17/25 06/17/25 06:59 14:59 22:59 Intake Total 200 / 200 Output Total 875 / 5152 Balance -875 / -4426.109 200 / 200 Weight last 48 hrs Weight 187 lb 6.287 oz Weight 191 lb 12.835 oz Physical Exam 2 Narrative: Per RN General: Awake and following commands HEENT: EOMI Pulmonary: Diminished breath sounds bilaterally Cardiovascular: Irregularly irregular rhythm, nl s1s2 Abdomen: soft, nt, nd, no r/g, Extremities: no edema Neurologic: grossly intact Agree with above exam Urinary Catheter Management: Smith: Cath Placed During This Visit: yes Reason for Continuing Indwelling Catheter: Accurate Measurement of Urinary Output in Critically Ill Patients Urinary Catheter Date of Insertion: 06/13/25 Urinary Catheter Time of Insertion: 09:45 Data 06/17/25 12:25 06/17/25 12:25 Micro: Microbiology 06/12/25 17:02 Blood Culture - Final Blood NO GROWTH AFTER 5 DAYS 06/12/25 17:02 Blood Culture - Final Blood NO GROWTH AFTER 5 DAYS A&P Assessment and plan 1. Acute kidney injury: 2. Metabolic acidosis: Plan: # Acute kidney failure Nephrology following appreciate help. Making urine 3800 mL out. Creatinine up to 3. Off HD Discussed case with Dr Darby-appreciate help. Filters on CRRT machine being changed every 8 hours to help facilitate clearing of paraproteins stopped 06/15/2025. Previously checked SPEP levels were 4.2 # Acute metabolic acidosis - Resolved # Multiple myeloma -s/p Bortezomib(weekly)/Lenalid/Dex + Daratumumab Induction (Cycle 1-4) - Discussed case with Dr. Freitas, Not a candidate for chemo at this time. - Discussed with Dr. Kenney. [facility] declined transfer for possible chemo but family is leaning towards no transfers at this time considering he is medically too sick to tolerate any more chemotherapy. # Thrombocytopenia # Anemia - Current hemoglobin 8 0. # Pancytopenia # Acute hypoxemic respiratory failure secondary to probable aspiration versus acute pulm edema - I reviewed chest x-ray from today and compared to yesterday. 06/16/2025 slightly increased left infiltrate suggestive of vascular congestion but otherwise unremarkable. May even have lymphangitic spread but difficult to rule out secondary to patient not being stable enough to get a bronchoscopy.. Plan to extubate today if good cuff leak. ABG looks decent. - Patient has been empirically started on antibiotics-vancomycin and aztreonam, blood cultures pending. 06/16/2025 no growth till date. Stop vancomycin today # Acute metabolic encephalopathy - Resolved # Kidney mass - US reviewed unrevealing for any mass 06/12/2025 # A-fib with RVR - Amiodarone continue # Shock-unclear etiology could be sepsis versus tach for shock - Continue hydrocortisone 50 mg IV every 12 # COPD - Not in acute exacerbation. May use DuoNebs as needed # Hyperglycemia-blood glucose -Maintain on D10 drip. Plan to advance p.o. diet # DVT GI prophylaxis - SCDs and Lovenox subcu # Sedation -As above # Nutrition - Dextrose drip to maintain blood sugars between 140-180. Avoid hypoglycemia # CODE STATUS-DNR/DNI # Goals of care- Long discussion with family today 06/14/2025. They understand how critically ill he is and would like to observe him for a few days here without any transfers to go to higher level of care. If he does not improve they may consider withdrawal of care. They did make him DNR at this time. If he does come to a point where we extubate him they would like for him to be DNI at that time as well. Medical decision making level-low low MDM includes number and complexity of problems actively addressed during encounter, amount and/or complexity of data reviewed/ordered [ previous or external records, resulted lab(s)/test(s), ordered lab(s)/test(s), independent historian, independent test interpretation and other healthcare professional discussion] and described risk of complication, morbidity or mortality of management as documented This documentation was created by [employer] ([employer] concrete products machine operator software (known for inherent concrete products machine operator error). Every effort was made to assure accuracy of concrete products machine operator. Any obvious errors or omissions should be clarified with the author of the document Telemedicine Consent Patient seen today via Telemedicine by agreement and consent of patient.? Telemedicine technology used during the visit includes audio and, as available, review of images.? The patient encounter is appropriate and reasonable under the circumstances given the patient?s particular presentation at this time.? The patient has been advised of the potential risks and limitations of this mode of treatment (including but not limited to the absence of in-person examination) and has agreed to be treated in a remote fashion in spite of them.? Any, and all, of the patient?s/patient?s family?s questions on this issue have been answered and I have made no promises or guarantees to the patient. PDMP PDMP Reviewed: Not Reviewed Attestations 2 Medical Necessity Statement*: ICU admission Procedures Arterial Line Size (Gauge): 20 Coding Level of Care Code 03754 Diagnoses Acute kidney injury N17.9 Metabolic acidosis E87.20
[2025-06-18] VITALS (46 sets, daily range): BP systolic 94–142; BP diastolic 48–87; PULSE 56–182; RESP 13–25; O2SAT 84–97
[2025-06-18] MEDS: metroNIDAZOLE IV 500 MG/100 ML PREMIX 100 MG IV ×3 (04:42→21:20)
[2025-06-18] MEDS: FUROsemide 10 mg/mL SDV 4mL 40 MG IVP ×2 (04:42→15:38)
[2025-06-18 05:08] LABS: Hematocrit 32.9 % (37-53); Hemoglobin 10.90 g/dL (11.27-16.99); Mean Corpuscular HGB Conc 33.1 g/dL (30-55); Mean Corpuscular Hemoglobin 31.3 pg (27-33); Mean Corpuscular Volume 94.5 fl (82-101); Nucleated Red Blood Cells % 0 %; Platelet Count 79 10^3/cmm (157-399); Red Blood Count 3.48 10^6/uL (3.85-5.65); White Blood Count 3.25 10^3/uL (3.29-11.43)
[2025-06-18 05:28] LABS: Alanine Aminotransferase 25 U/L (0-41); Albumin Level 3.3 g/dL (3.5-5.2); Alkaline Phosphatase 38 U/L (40-130); Anion Gap 23.1 (5-19); Aspartate Amino Transferase 19 U/L (0-40); Calcium 6.3 mg/dL (8.5-10.5); Carbon Dioxide 20 mmol/L (22-29); Chloride 100 mmol/L (98-107); Creatinine Clr Calc Pharmacy 20.3915; Globulin 4.0 g/dL (1.3-4.6); Glucose 142 mg/dL (65-115); Magnesium 1.8 mg/dL (1.7-2.3); Osmolality Calculated 317 mOsm/kg (285-295); Potassium 4.1 mmol/L (3.5-5.1); Sodium 139 mmol/L (136-145); Total Protein 7.3 g/dL (6.6-8.7)
[2025-06-18 05:33] LABS: Lactate (Lactic Acid level) 1.9 mmol/L (0.5-2.2)
[2025-06-18 05:42] LABS: NT Pro B Type Natriuretic Pept 7376 pg/mL (0-450)
[2025-06-18 05:45] LABS: Blood Urea Nitrogen 86 mg/dL (8-23)
[2025-06-18] MEDS: methylPREDNISolone sod succ 125 mg/2 mL INJ 60 MG IVP ×4 (06:05→23:46)
--- NOTE | 2025-06-18 07:48 | PC.NURSE ---
HR afib RVR 140s, Dr. Hernandez ordered cardizem drip and hold oral
[2025-06-18] MEDS: DILTIAZEM HCL/D5W 125 MG/125 ML BAG IV (07:55)
--- NOTE | 2025-06-18 09:31 | P.PN_ITS ---
Subjective 2 Subjective: The patient was seen and examined. Patient has episodes of atrial fibrillation with rapid ventricular rate. The patient has chronic shortness of breath. The patient is questioning whether he needs further dialysis today. Denies nausea or vomiting Medications: Reviewed: Yes Medication Review Details: Current Medications Acetaminophen (Acetaminophen 650 Mg Supp) 650 mg SC Q4H PRN PRN Reason: Temperature greater than 100.5 Albuterol Sulfate (Albuterol 2.5 Mg/3 Ml Neb) 2.5 mg INHALATION Q4H.RESPIRATORY PRN PRN Reason: SHORTNESS OF BREATH Albuterol/Ipratropium (Ipratropium-Albuterol 3 Ml Neb) 3 ml INHALATION Q6H PRN PRN Reason: SHORTNESS OF BREATH Last Admin: 06/16/25 15:50 Dose: 3 ml Albuterol/Ipratropium (Ipratropium-Albuterol 3 Ml Neb) 3 ml INHALATION Q4H.RESPIRATORY FRANKO Last Admin: 06/18/25 08:01 Dose: Not Given Amiodarone HCl (Amiodarone 200 Mg Tablet) 400 mg PO BID FRANKO Last Admin: 06/18/25 04:42 Dose: 400 mg Artificial Tears (Artificial Tears Op Soln 15 Ml Btl) 2 drop EYE-BOTH Q2H PRN PRN Reason: DRY EYE(S) Atropine Sulfate (Atropine 1% Op Soln 2 Ml Btl) 3 drop SUBLINGUAL Q4H PRN PRN Reason: Excessive Secretions, Rattling Bisacodyl (Bisacodyl 10 Mg Supp) 10 mg SC DAILY PRN PRN Reason: Fecal Impaction Budesonide (Budesonide 0.5 Mg/2 Ml Neb) 0.5 mg INHALATION BID.RESPIRATORY FRANKO Last Admin: 06/18/25 08:01 Dose: Not Given Camphor/Menthol/Phenol (Blistex Lip Oint 7 Gm Tube) 1 applic TOPICAL Q2H PRN PRN Reason: DRY LIPS Chlorhexidine Gluconate (Chlorhexidine Gluconate 4% Btl 118 Ml) 1 applic TOPICAL PRN PRN PRN Reason: Bed Bath Last Admin: 06/15/25 00:46 Dose: 1 applic Diltiazem HCl (Diltiazem 60 Mg Tablet) 60 mg PO Q6H FRANKO Diphenhydramine HCl (Diphenhydramine 25 Mg Capsule) 25 mg PO Q4H PRN PRN Reason: ITCHING Epinephrine (Racepinephrine 0.5 Ml Neb) 0.5 ml INHALATION Q4H.RESPIRATORY PRN PRN Reason: Stridor Famotidine (Famotidine 20 Mg/2 Ml Inj) 20 mg IVP Q12H [facility] Last Admin: 06/18/25 08:00 Dose: 20 mg Furosemide (Furosemide 10 Mg/Ml Sdv 4ml) 40 mg IVP Q12H [facility] Last Admin: 06/18/25 04:42 Dose: 40 mg Glucagon (Glucagon 1 Mg/Ml Kit 1 Ml) 1 mg IM ONCE PRN; Protocol PRN Reason: Adult Acute Hypoglycemia Nursing Prot. Glycerin (Glycerin Adult Supp) 1 each SC DAILY PRN PRN Reason: CONSTIPATION Glycopyrrolate (Glycopyrrolate 0.2 Mg/Ml Sdv 2 Ml) 0.2 mg IV Q4H PRN PRN Reason: Excessive Secretions, Rattling Dextrose (D5w) 500 mls @ 0 mls/hr IV ONCE PRN; Protocol PRN Reason: Adult Acute Hypoglycemia Prot Dextrose (D10w) 125 mls @ 750 mls/hr IV PRN PRN; Protocol PRN Reason: Adult Acute Hypoglycemia Nursing Protocol Sodium Chloride (Sodium Chloride 0.9%) 1,000 mls @ 0 mls/hr IV .Q0M PRN PRN Reason: hypotension or symptomatic Sodium Chloride (Sodium Chloride 0.9%) 1,000 mls @ 0 mls/hr IV .Q0M PRN PRN Reason: hypotension or symptomatic Aztreonam 1,000 mg/ Sodium (Chloride) 50 mls @ 100 mls/hr IV Q12H [facility]; Protocol Last Infusion: 06/18/25 06:05 Dose: Infused Metronidazole (Flagyl Iv) 500 mg in 100 mls @ 100 mls/hr IV Q8H FRANKO; Protocol Last Infusion: 06/18/25 06:05 Dose: Infused DILTIAZEM HCL/D5W (Cardizem) 125 mg in 125 mls @ 0 mls/hr IV .Q0M [facility]; Protocol Last Admin: 06/18/25 07:55 Dose: 5 mg/hr, 5 mls/hr Insulin Human Lispro (Insulin Lispro 100 Unit/1 Ml) 0 unit SUBCUT Q6H [facility]; Protocol Last Admin: 06/18/25 08:06 Dose: 4 unit Lanolin (Lanolin Oint 7 Gm) 1 applic TOPICAL PRN PRN PRN Reason: DRYNESS Lorazepam (Lorazepam 2 Mg/Ml Inj 1 Ml) 1 mg IVP Q4H PRN PRN Reason: ANXIETY Last Admin: 06/17/25 16:35 Dose: 1 mg Methylprednisolone Sodium Succinate (Methylprednisolone Sod Succ 125 Mg/2 Ml Inj) 60 mg IVP Q6H FRANKO Last Admin: 06/18/25 06:05 Dose: 60 mg Morphine Sulfate (Morphine 4 Mg/Ml Sdv 1 Ml) 2 mg IVP Q4H PRN PRN Reason: SEVERE PAIN Ondansetron HCl (Ondansetron 2 Mg/Ml Sdv 2 Ml) 4 mg IVP Q8H PRN PRN Reason: vomiting, or N/V if npo Last Admin: 06/17/25 11:20 Dose: 4 mg Potassium Chloride (Potassium Chloride Er 20 Meq Tablet) 20 meq PO Q12H FRANKO Last Admin: 06/18/25 04:42 Dose: 20 meq Saliva Substitute (Saliva Stimulant [place] 30 Ml Btl) 1 spray MUCOUS MEM Q2H PRN PRN Reason: DRY MOUTH Vitals/I&O/Wt Last Vital Signs Temp 99.3 F 06/16/25 14:51 Pulse 182 H 06/18/25 08:30 Resp 16 06/18/25 08:30 BP 107/80 06/18/25 08:30 Pulse Ox 86 L 06/18/25 08:30 O2 Del Method Nasal Cannula 06/18/25 08:00 O2 Flow Rate 3 06/18/25 08:00 FiO2 50 06/17/25 15:31 06/17/25 06/18/25 06/18/25 22:59 06:59 14:59 Intake Total 830 / 1030 850 / 1880 250 / 250 Output Total 1600 / 1600 2150 / 3750 Balance -770 / -570 -1300 / -1870 250 / 250 Weight last 48 hrs Weight 85 kg Physical Exam 2 Narrative: The patient is lying in bed using oxygen. His respiratory rate is okay. HEENT normocephalic atraumatic. Neck is supple Lungs have good air movement hearts regular at this time. Abdomen is soft positive bowel sounds. Extremities do not have edema. He has a femoral dialysis catheter. Neuro awake alert oriented x 3. Urinary Catheter Management: Smith: Cath Placed During This Visit: yes Reason for Continuing Indwelling Catheter: Accurate Measurement of Urinary Output in Critically Ill Patients Urinary Catheter Date of Insertion: 06/13/25 Urinary Catheter Time of Insertion: 09:45 Data 06/18/25 04:25 06/18/25 04:25 Micro: Microbiology 06/12/25 17:02 Blood Culture - Final Blood NO GROWTH AFTER 5 DAYS 06/12/25 17:02 Blood Culture - Final Blood NO GROWTH AFTER 5 DAYS A&P Assessment and plan 1. Acute renal failure, unspecified acute renal failure type: see below Plan: 75-year-old man with IgG lambda multiple myeloma status post bone marrow biopsy at [facility] 2024 showing plasma cell myeloma 80% light chain restricted plasma cell. Patient is being treated with Bortezomib(weekly)/Lenalid/Dex + Daratumumab Induction (Cycle 1-4) on June 10, [address] Eaton the patient was found of acute kidney injury and was sent to the hospital and admitted on 06-12-25, Pt has developed DILCIA, and required CRRT and transitioned to IHD. Pt now extubated and urinating. K is 4.1, bicarb 20, cr mild rise. 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 -no emergent need for dialysis now. Can monitor UOP and chemistries. -replace calcium -repeat udies 2. Multiple myeloma and leukopenia and thrombocytopenia- would consider continuing treatment as per incology. conside rtransfer if needed for inpatient treatment 3. Please discuss with pharmacy the appropriate dosing of his aztreonam Will stop potassium. Continue diuretics. Will follow along with you The patient was seen and examined using telehealth and the aid of a nurse using audiovisual equipment.. The patient consented to telehealth. Chart reviewed PDMP PDMP Reviewed: Not Reviewed Attestations 2 Medical Necessity Statement*: Multiple myeloma, acute kidney injury respiratory distress Time Spent in Patient Care: Greater than 35 minutes (>than 50% of time spent in counselling and/or direct pt care on unit) . Procedures Arterial Line Size (Gauge): 20 Coding Level of Care Code Acute Code for Chg Fwd Diagnoses Acute renal failure, unspecified acute renal failure type N17.9 Acute renal failure type: unspecified
--- NOTE | 2025-06-18 09:32 | PC.NURSE ---
back to sinus, plan to transition to PO cardizem
[2025-06-18] MEDS: polyethylene glycol 3350 Pkt 17 gm PO (10:41)
[2025-06-18] MEDS: calcium gluconate 0.9% NaCL 1 GM/50 ML PREMIX IV ×3 (10:41→22:14)
[2025-06-18] MEDS: aztreonam 1,000 MG in sodium chloride 0.9% (plus) 50 ML 100 MG IV ×2 (11:42→23:47)
--- NOTE | 2025-06-18 12:15 | P.PN_ITS ---
Subjective 2 Subjective: Cristopher Freeman Jr is a 74 year old male With a past medical history of multiple myeloma presents to the hospital from oncology clinic due to DILCIA. Admitted to the hospital was found to be in acute kidney failure acute metabolic acidosis, nephrology consulted. Overnight decompensated and had to be transferred to the ICU. Was found to be very acidotic with pH of 7.2 placed on bicarb drip as well as BiPAP for comfort. Creatinine up to 7 with multiple metabolic derangements. Plan underway to start dialysis on him still. Nephrology following. Currently opens eyes and does follow commands intermittently. Is on BiPAP 07/19/30% FiO2. On bicarb drip at 150 mL/h. Precedex is off currently but it was ongoing earlier. 06/14/25 Urgently intubated last evening. Severely acidotic urgent CRRT started. Patient is comfortable on the ventilator. Making urine at 200 mL/h. CRRT ongoing. Creatinine is improving. Levo at 11 and vaso off. Bicarb off. 06/15/2025 On minimal levo of 2. In A-fib with RVR. Got 2 doses of dig load. On Amio increased to 1. On fentanyl 150, Versed 4 and Precedex 0.4. Awake following commands. Making good urine. 06/16/2025 Off levo. Creatinine up to 3. HD pending. Tolerating ventilator settings well. On V Precedex 0.3 and fentanyl 50 wakes up follows commands. Having BMs. ET secretions are thin. 06/17/2025 Extubated and placed. Having dyspnea and off bipap. 06/18/2025 WAnts to continue chemo. On and off shortness of breath noted by staff but on 2 L NC Now Vitals/I&O/Wt Last Vital Signs Temp 99.3 F 06/16/25 14:51 Pulse 159 H 06/18/25 11:55 Resp 18 06/18/25 11:55 BP 120/49 06/18/25 10:00 Pulse Ox 94 06/18/25 11:55 O2 Del Method Nasal Cannula 06/18/25 11:55 O2 Flow Rate 3 06/18/25 11:55 FiO2 50 06/17/25 15:31 06/17/25 06/18/25 06/18/25 22:59 06:59 14:59 Intake Total 830 / 1030 850 / 1880 250 / 250 Output Total 1600 / 1600 2150 / 3750 Balance -770 / -570 -1300 / -1870 250 / 250 Weight last 48 hrs Weight 187 lb 6.287 oz Physical Exam 2 Narrative: General: Awake and following commands, sitting up in chair HEENT: EOMI Pulmonary: Diminished breath sounds bilaterally Cardiovascular: Irregularly irregular rhythm, nl s1s2 Abdomen: soft, nt, nd, no r/g, Extremities: no edema Neurologic: grossly intact Urinary Catheter Management: Smith: Cath Placed During This Visit: yes Reason for Continuing Indwelling Catheter: Accurate Measurement of Urinary Output in Critically Ill Patients Urinary Catheter Date of Insertion: 06/13/25 Urinary Catheter Time of Insertion: 09:45 Data 06/18/25 12:39 06/18/25 16:24 Micro: Microbiology 06/12/25 17:02 Blood Culture - Final Blood NO GROWTH AFTER 5 DAYS 06/12/25 17:02 Blood Culture - Final Blood NO GROWTH AFTER 5 DAYS A&P Assessment and plan 1. Acute kidney injury: 2. Metabolic acidosis: Plan: # Acute kidney failure Nephrology following appreciate help. Making urine 3800 mL out. Making urine. Off HD Discussed case with Dr Darby-appreciate help. Filters on CRRT machine being changed every 8 hours to help facilitate clearing of paraproteins, stopped 06/15/2025. Previously checked SPEP levels were 4.2 # Acute metabolic acidosis - Resolved # Multiple myeloma -s/p Bortezomib(weekly)/Lenalid/Dex + Daratumumab Induction (Cycle 1-4) - Discussed case with Dr. Freitas, Not a candidate for chemo at this time. Discussed with Dr. Kenney. [facility] declined transfer for possible chemo but family is leaning towards no transfers at this time considering he is medically too sick to tolerate any more chemotherapy. # Thrombocytopenia # Anemia - Current hemoglobin 8 0. # Pancytopenia # Acute hypoxemic respiratory failure secondary to probable aspiration versus acute pulm edema - I reviewed chest x-ray from today and compared to yesterday. 06/16/2025 slightly increased left infiltrate suggestive of vascular congestion but otherwise unremarkable. May even have lymphangitic spread but difficult to rule out secondary to patient not being stable enough to get a bronchoscopy.. Plan to extubate today if good cuff leak. ABG looks decent. - Patient has been empirically started on antibiotics-vancomycin and aztreonam, blood cultures pending. 06/16/2025 no growth till date. # Acute metabolic encephalopathy - Resolved # Kidney mass - US reviewed unrevealing for any mass 06/12/2025 # A-fib with RVR - Amiodarone continue # Shock-unclear etiology could be sepsis versus tach for shock - Continue hydrocortisone 50 mg IV every 12 # COPD - Not in acute exacerbation. May use DuoNebs as needed # Hyperglycemia-blood glucose -Maintain on D10 drip. Plan to advance p.o. diet # DVT GI prophylaxis - SCDs and Lovenox subcu # Sedation -As above # Nutrition - Dextrose drip to maintain blood sugars between 140-180. Avoid hypoglycemia # CODE STATUS- Full code # Goals of care- Long discussion with family today 06/14/2025. They understand how critically ill he is and would like to observe him for a few days here without any transfers to go to higher level of care. If he does not improve they may consider withdrawal of care. They did make him DNR at this time. If he does come to a point where we extubate him they would like for him to be DNI at that time as well. Patient today has changed his mind and wants to be full code and chemo I did caution him that next few cycles of chemo will most likely be challenging as well Will sign off. Please call me again if needed Medical decision making level-low low MDM includes number and complexity of problems actively addressed during encounter, amount and/or complexity of data reviewed/ordered [ previous or external records, resulted lab(s)/test(s), ordered lab(s)/test(s), independent historian, independent test interpretation and other healthcare professional discussion] and described risk of complication, morbidity or mortality of management as documented This documentation was created by [employer] director operations software (known for inherent director operations error). Every effort was made to assure accuracy of director operations. Any obvious errors or omissions should be clarified with the author of the document PDMP PDMP Reviewed: Not Reviewed Attestations 2 Medical Necessity Statement*: okay to discharge from pulmonary stand point Procedures Arterial Line Size (Gauge): 20 Coding Level of Care Code 73895 Diagnoses Acute kidney injury N17.9 Metabolic acidosis E87.20
--- NOTE | 2025-06-18 12:19 | P.PN_ITS ---
Subjective 2 Subjective: Patient was seen this morning, he is alert oriented x 3 comfortable commands, was A-fib and RVR this morning, placed on Cardizem drip, converted to normal sinus rhythm, denies any chest pain, does report some shortness of breath, discussed his overall goals of care, he wants to proceed with chemotherapy he tells me, he wants to pursue dialysis, Vitals/I&O/Wt Last Vital Signs Temp 99.3 F 06/16/25 14:51 Pulse 159 H 06/18/25 11:55 Resp 18 06/18/25 11:55 BP 120/49 06/18/25 10:00 Pulse Ox 94 06/18/25 11:55 O2 Del Method Nasal Cannula 06/18/25 11:55 O2 Flow Rate 3 06/18/25 11:55 FiO2 50 06/17/25 15:31 06/17/25 06/18/25 06/18/25 22:59 06:59 14:59 Intake Total 830 / 1030 850 / 1880 250 / 250 Output Total 1600 / 1600 2150 / 3750 Balance -770 / -570 -1300 / -1870 250 / 250 Weight last 48 hrs Weight 85 kg Physical Exam 2 Const: COMMON NORMALS: no acute distress and patient oriented x3 Resp: COMMON NORMALS: normal respiratory effort, No retractions, No use of accessory muscles and clear to auscultation bilaterally AUSCULTATION: clear to auscultation bilaterally Cardio: COMMON NORMALS: regular rate, regular rhythm, S1 normal heart sound present and S2 normal heart sound present RATE: regular rate RHYTHM: r egular rhythm HEART SOUNDS: S1 normal heart sound present and S2 normal heart sound present GI: COMMON NORMALS: Normal to inspection, nondistended, normoactive bowel sounds present and non-tender Extremity: COMMON NORMALS: no pedal edema Neuro: COMMON NORMALS: patient oriented x3 Psych: COMMON NORMALS: mental status grossly normal Urinary Catheter Management: Smith: Cath Placed During This Visit: yes Reason for Continuing Indwelling Catheter: Accurate Measurement of Urinary Output in Critically Ill Patients Urinary Catheter Date of Insertion: 06/13/25 Urinary Catheter Time of Insertion: 09:45 Data 06/18/25 04:25 06/18/25 04:25 Micro: Microbiology 06/12/25 17:02 Blood Culture - Final Blood NO GROWTH AFTER 5 DAYS 06/12/25 17:02 Blood Culture - Final Blood NO GROWTH AFTER 5 DAYS A&P Assessment and plan 1. Acute kidney injury: 2. Metabolic acidosis: 3. Acute uremia: 4. Acute renal failure: 5. Kidney mass: 6. Multiple myeloma: 7. Acute hypoxic respiratory failure: 8. Shock: 9. NSTEMI (non-ST elevated myocardial infarction): 10. Atrial fibrillation with RVR: Plan: Acute hypoxic respiratory failure - Multifactorial - Bilateral pulmonary edema - Concerns for right lower lobe infiltrate, aspiration pneumonia - Metabolic acidosis, uremia - Currently intubated, sedated mechanical ventilation -Moderate pulmonary hypertension -S/p extubation 06/16/2025 -Status post severe life-threatening bronchospasm event 06/16/2025, with severe acute hypoxic respiratory failure and respiratory distress, requiring 100% BiPAP therapy/nebulized epinephrine/albuterol, transitioned to comfort care, blood clinical condition significantly improved, now on 2 L with mild respiratory distress Plan - Monitor respiratory status closely - Currently on nasal cannula -DuoNeb -Budesonide -Lasix 40 IV twice daily, monitor urine output - Aztreonam - Flagyl - Dialysis currently on hold, might proceed with dialysis catheter placement tomorrow based on clinical progress Atrial fibrillation with rapid ventricular response CONCLUSIONS Normal left ventricular size, systolic function and wall thickness with ejection fraction of 68%. Normal right ventricular size and systolic function. Moderate pulmonary hypertension, PASP 64 mmHg No significant valvular findings. - Continue amiodarone drip - Status post 4 doses of digoxin 125 mcg - Stop beta-citlalli - Switch to p.o. Cardizem, wean off Cardizem drip - Continue p.o. amiodarone Sepsis, pneumonia, resolved - Maintain MAP in the 65 - Continue Levophed Increased anion gap metabolic acidosis, resolving - Secondary to acute renal failure - Secondary to multiple myeloma induced - Secondary to sepsis, pneumonia -bicarb drip weaned off Shock, resolved - Multifactorial -Metabolic acidosis -Acute renal failure -Uremia -Multiple myeloma induced renal failure - Sepsis, pneumonia Acute anemia - Hemoglobin down to 8.2 - Transfused 1 unit PRBC Thrombocytopenia - Haptoglobin 264, LDH 203, peripheral smear - Switch Protonix to Pepcid Acute kidney injury, 2.9 - Increased anion gap metabolic acidosis - Uremia - Could be a component from patient's meloxicam use - Recently he was put on benazepril could be a component, in addition to hydrochlorothiazide - Could be component of Bactrim use - multiple myeloma associated 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 - Possible chemotherapy side effect?Bortezomib(weekly)/Lenalid/Dex + Daratumumab -Potentially to tumor lysis syndrome however uric acid levels within reasonable range, no significant calcium/potassium/electrolyte derangements to favor tumor lysis Plan - Nephrology on consult - Renal ultrasound no acute findings -Good urine output overnight, up to 2320 mL -Currently CRRT on hold monitor urine output - CPK 650 - Salicylate level <0.3 - Uric acid 7.8 - Urine free light chain - Urine beta-2 microglobulin - Ferritin 168, iron 88, retic count 0.8, TIBC - Urine electrolytes - Urine eosinophils WNL - Start bicarb drip at 150 cc an hour, currently off -Albumin - Hold nephrotoxic agents - Smith catheter, monitor urine output closely -Decision on long-term dialysis will be made by patient and family History of renal mass - Renal ultrasound as above Multiple myeloma -Bortezomib(weekly)/Lenalid/Dex + Daratumumab June 03, 2025 Altered mental status, resolving - Could be component of uremic encephalopathy DNR/DNI SCDs for DVT prophylaxis, anticoagulation therapy currently on hold due to anemia and thrombocytopenia status stable prognosis guarded Plan for today, monitor urine output monitor creatinine, moved to his cardiac stepdown unit PT OT, IV diuresis, PDMP PDMP Reviewed: Not Reviewed Attestations 2 Medical Necessity Statement*: Patient requires hospitalization for acute hypoxic respiratory failure Procedures Arterial Line Size (Gauge): 20 Diagnoses Acute kidney injury N17.9 Metabolic acidosis E87.20 Acute uremia N19 Acute renal failure N17.9 Kidney mass N28.89 Multiple myeloma C90.00 Acute hypoxic respiratory failure J96.01 Shock R57.9 NSTEMI (non-ST elevated myocardial infarction) I21.4 Atrial fibrillation with RVR I48.91
[2025-06-18 12:53] LABS: Hematocrit 33.6 % (37-53); Hemoglobin 11.60 g/dL (11.27-16.99); Mean Corpuscular HGB Conc 34.5 g/dL (30-55); Mean Corpuscular Hemoglobin 31.4 pg (27-33); Mean Corpuscular Volume 91.1 fl (82-101); Nucleated Red Blood Cells % 0 %; Platelet Count 83 10^3/cmm (157-399); Red Blood Count 3.69 10^6/uL (3.85-5.65); White Blood Count 3.73 10^3/uL (3.29-11.43)
--- NOTE | 2025-06-18 15:48 | PC.SOCIAL ---
IMM Updated Provided pt a copy of IMM. Initialed, dated, & timed copy in chart.
[2025-06-18 16:51] LABS: Alanine Aminotransferase 27 U/L (0-41); Albumin Level 3.5 g/dL (3.5-5.2); Alkaline Phosphatase 40 U/L (40-130); Anion Gap 23.2 (5-19); Aspartate Amino Transferase 17 U/L (0-40); Calcium 6.5 mg/dL (8.5-10.5); Carbon Dioxide 21 mmol/L (22-29); Chloride 101 mmol/L (98-107); Creatinine Clr Calc Pharmacy 18.1258; Globulin 4.5 g/dL (1.3-4.6); Glucose 145 mg/dL (65-115); Osmolality Calculated 327 mOsm/kg (285-295); Potassium 3.2 mmol/L (3.5-5.1); Sodium 142 mmol/L (136-145); Total Protein 8.0 g/dL (6.6-8.7)
[2025-06-18 16:53] LABS: Blood Urea Nitrogen 98 mg/dL (8-23)
--- NOTE | 2025-06-18 20:45 | ECG_ITS ---
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 Measurements Intervals [place] Rate: 138 P: 0 ID: 0 QRS: 65 QRSD: 86 T: 91 QT: 348 QTc: 529 Interpretive Statements ATRIAL FIBRILLATION WITH RAPID VENTRICULAR RESPONSE WITH ABERRANT CONDUCTION OR VENTRICULAR PREMATURE COMPLEXES NONSPECIFIC ST & T-WAVE ABNORMALITY ABNORMAL RHYTHM ECG Compared to ECG 06/13/2025 14:22:57 Ventricular premature complex(es) now present Aberrant conduction of supraventricular beat(s) now present T-wave abnormality now present Sinus tachycardia no longer present ST (T wave) deviation no longer present Electronically Signed On 06-18-2025 23:36:[address] [employer] by Grabiel Patel M.D. [email or web address]
[2025-06-19] VITALS (63 sets, daily range): BP systolic 86–155; BP diastolic 47–84; PULSE 58–175; RESP 10–32; TEMP 36.5–37.1; O2SAT 83–96
[2025-06-19 00:07] LABS: Troponin T (5th) Once 59 ng/L (0-15)
[2025-06-19 00:08] LABS: Anion Gap 24.2 (5-19); Calcium 7.0 mg/dL (8.5-10.5); Carbon Dioxide 21 mmol/L (22-29); Chloride 100 mmol/L (98-107); Creatinine Clr Calc Pharmacy 18.6437; Glucose 135 mg/dL (65-115); Osmolality Calculated 327 mOsm/kg (285-295); Potassium 3.2 mmol/L (3.5-5.1); Sodium 142 mmol/L (136-145)
[2025-06-19 00:11] LABS: Blood Urea Nitrogen 99 mg/dL (8-23)
[2025-06-19] MEDS: calcium gluconate 0.9% NaCL 1 GM/50 ML PREMIX IV ×2 (03:23→04:08)
[2025-06-19] MEDS: metroNIDAZOLE IV 500 MG/100 ML PREMIX 100 MG IV ×2 (04:08→12:55)
--- NOTE | 2025-06-19 05:00 | P.EN_ITS ---
Event Note Event Note: Overnight having heart rate in 140s and 150s, and was started on Cardizem drip for a short while. Electrolytes reviewed and found to have hypokalemia and hypocalcemia after corrected calcium Event Notes Attestations Time Spent in Patient Care: Patient renal functions were impaired therefore initial 20 mEq of potassium was given and later on repeat again showed potassium of 3.2 40 mEq oral KCl 2 g of calcium gluconate was given and r epeat did not show any much improvement 2 g of calcium repeated To monitor calcium and potassium very closely since the patient goes in and out of atrial fibrillation and electrolyte disturbance could be a potential triggering factor.
[2025-06-19 05:22] LABS: Hematocrit 36.1 % (37-53); Hemoglobin 12.20 g/dL (11.27-16.99); Mean Corpuscular HGB Conc 33.8 g/dL (30-55); Mean Corpuscular Hemoglobin 31.3 pg (27-33); Mean Corpuscular Volume 92.6 fl (82-101); Nucleated Red Blood Cells % 0 %; Platelet Count 80 10^3/cmm (157-399); Red Blood Count 3.90 10^6/uL (3.85-5.65); White Blood Count 3.20 10^3/uL (3.29-11.43)
[2025-06-19 05:45] LABS: Lactate (Lactic Acid level) 2.0 mmol/L (0.5-2.2)
[2025-06-19 05:55] LABS: NT Pro B Type Natriuretic Pept 2297 pg/mL (0-450)
[2025-06-19 05:56] LABS: Alanine Aminotransferase 26 U/L (0-41); Albumin Level 3.7 g/dL (3.5-5.2); Alkaline Phosphatase 39 U/L (40-130); Anion Gap 23.2 (5-19); Aspartate Amino Transferase 13 U/L (0-40); Calcium 7.7 mg/dL (8.5-10.5); Carbon Dioxide 20 mmol/L (22-29); Chloride 103 mmol/L (98-107); Creatinine Clr Calc Pharmacy 19.1920; Globulin 3.4 g/dL (1.3-4.6); Glucose 188 mg/dL (65-115); Magnesium 1.8 mg/dL (1.7-2.3); Osmolality Calculated 332 mOsm/kg (285-295); Potassium 3.2 mmol/L (3.5-5.1); Sodium 143 mmol/L (136-145); Total Protein 7.1 g/dL (6.6-8.7)
[2025-06-19] MEDS: DILTIAZEM HCL/D5W 125 MG/125 ML BAG 7.5 MG IV (05:58)
[2025-06-19] MEDS: methylPREDNISolone sod succ 125 mg/2 mL INJ 60 MG IVP (05:58)
[2025-06-19 06:02] LABS: Blood Urea Nitrogen 99 mg/dL (8-23)
--- NOTE | 2025-06-19 06:31 | PC.NURSE ---
At approx 2200 pt had intermittent a fib with RVR which escalated into sustained a fib with RVR. Confirmed with EKG. Contacted Dr. Cabezas and made aware, labs reviewed, ordered to restart cardizem drip and replace electrolytes. Drip titrated up and was ineffective, new order received to give amiodarone bolus and start amiodarone protocol. Upon pulling meds pt converted to NSR. Resumed PO meds and cardizem titrated down slowly. Remained in SR until approx 0500 and converted to A fib with RVR again with rate between 106-180. Oral meds had been given, restarted cardizem drip, and Dr. Cabezas made aware and made no changes at that time.
--- NOTE | 2025-06-19 08:28 | P.CONIM_ITS ---
<Statement entered by Navdeep Khoury MD - 06/20/25 19:30> Patient was evaluated and cared for in conjunction with an advanced practice practitioner. I personally examined the patient and reviewed the chart and all pertinent data including imaging, telemetry, and laboratory results. I discussed the patient in detail with the advanced practice practitioner. Please see their note for complete H&P testing result and agreed upon plan of care for the patient. Providers/Reason For Consult 2 Consulting Physician/Specialty*: Dr Jarod Khoury, interventional cardiology Reason for Consult*: new onset atrial fibrillation with RVR, paroxysmal Requesting Physician: Dr Hernandez Attending Physician: Jose Hernandez MD Primary Care Provider: Matty Coley MD History of Present Illness History of Present Illness Cristopher Freeman Jr is a 74 year old male with past medical history of infrarenal abdominal aortic aneurysm quickly increasing in size over the last 6 months, now approaching 5cm, multiple myeloma, admitted to the hospital on 06/12/25 for renal failure, has had prolonged hospitalization requiring intubation at one point. Now he is extubated and doing much better, in fact he is hoping to be discharged today. He has been having difficult to control paroxysmal atrial fibrillation, ventricular rates 140-150 bpm, despite amiodarone 400mg BID and diltiazem 60mg QID. LVEF 68% no atrial dilation or valvular abnormalities. CK improving today to 321. BUN 99, creatinine 3.4. Hemoglobin 12.2. Normal lactic acid. Calcium, potassium low, being replaced. Magnesium also low, 1.8. Denies chest pain, shortness of breath, orthopnea. He is urinating well. No plans for dialysis today. Review of Systems 2 Const: Denies: fever(s), chills, change in weight, fatigue or diaphoresis Eyes: Denies: change in vision ENMT: Denies: epistaxis Card: Denies: chest pain, palpitations, irregular heart rhythm, edema, syncope, pre-syncope, dyspnea on exertion, orthopnea or leg pain with exertion Resp: Denies: dyspnea, productive cough or wheezing GI: Denies: nausea, vomiting, hematemesis, hematochezia or melena : Denies: hematuria Musc: Denies: extremity swelling Noah/Lymph: Denies: easy bruising or easy bleeding Medications/Allergies Home Medications ?Medication ?Instructions ?Recorded ?Confirmed ?Last Taken ?Type fluticasone fur. 100 mcg-umeclid 1 inh inhalation Q24H #60 ea 03/28/22 06/13/25 06/12/25 10:00 Rx 62.5 mcg-vilant 25 mcg inhalat.powder (Trelegy Ellipta) roflumilast 500 mcg tablet 500 mcg PO DAILY #90 tabs 0 03/28/22 06/13/25 06/12/25 09:00 Rx (Daliresp) rosuvastatin 40 mg tablet 40 mg PO QPM 03/28/2206/11/25 19:00 History sertraline 100 mg tablet 100 mg PO DAILY 03/28/2206/12/25 09:00 History acetaminophen 500 mg capsule 500 mg PO Q6H PRN Pain 06/13/25 05/04/23 History albuterol sulfate 90 mcg/actuation 2 puff inhalation Q 6H PRN sob 10/12/22 06/13/25 05/04/23 History aerosol inhaler aspirin 81 mg tablet,delayed 81 mg PO DAILY 10/12/22 1 06/12/25 08:00 History release (Adult Low Dose Aspirin) meloxicam 15 mg tablet 15 mg PO DAILY #90 tabs 11/0 04/0506/13/25 06/11/25 Rx Cytometry and Cytology for primitivo #1 ea 05/06/25 5 Unknown Rx marrow biposy diltiazem HCl 240 mg 240 mg PO DAILY 05/08/2506/12/25 09:00 History capsule,extended release 24 hr dexamethasone 4 mg tablet 20 mg (5 x 4 mg) PO DAILY #8 0 tabs 05/20/25 06/13/25 Unknown Rx fluconazole 100 mg tablet 100 mg PO DAILY fungal infec tion 05/20/25 06/13/25 Unknown Rx prevention #90 tabs ondansetron HCl 4 mg tablet 4 mg PO Q6H PRN nausea and 05/20/25 06/13/25 Unknown Rx vomiting #30 tabs oxycodone 10 mg tablet 10 mg PO Q6H PRN Severe Pain 05/20/25 06/13/25 Unknown History (Scale Score 7-10) sulfamethoxazole 800 1 tab PO MOWEFR infection 06/13/25 06/12/25 09:00 Rx mg-trimethoprim 160 mg tablet prevention #24 tabs (Bactrim DS) valacyclovir 500 mg tablet 500 mg PO BID #60 tabs 03/0706/13/25 06/13/25 09:00 Rx lenalidomide 15 mg capsule 15 mg PO DAILY #14 caps 06/13/25 06/12/25 09:00 Rx (Revlimid) amlodipine 5 mg tablet 5 mg PO DAILY 06/13/2506/1306/12/25 09:00 History Allergies Allergy/AdvReac Type Severity Reaction Status Date / Time Penicillins Allergy Severe ALGY-Anaphy Verified 06/12/25 15:51 laxis Current Medications Generic Name Dose Route Start Last Admin Trade Name Freq PRN Reason Stop Dose Admin Albuterol/Ipratropium 3 ml 06/13/25 00:25 06/16/25 15:50 Ipratropium-Albuterol 3 Ml Neb INHALATION 3 ml Q6H PRN Administration SHORTNESS OF BREATH Albuterol/Ipratropium 3 ml 06/17/25 16:00 06/19/25 07:44 Ipratropium-Albuterol 3 Ml Neb INHALATION 3 ml Q4H.RESPIRATORY FRANKO Administration Amiodarone HCl 400 mg 06/17/25 17:00 06/19/25 04:08 Amiodarone 200 Mg Tablet PO 400 mg BID FRANKO Administration Budesonide 0.5 mg 06/17/25 20:00 06/19/25 07:43 Budesonide 0.5 Mg/2 Ml Neb INHALATION 0.5 mg BID.RESPIRATORY FRANKO Administration Chlorhexidine Gluconate 1 applic 06/14/25 22:45 06/15/25 00:46 Chlorhexidine Gluconate 4% Btl 118 Ml TOPICAL 1 applic PRN PRN Administration Bed Bath Diltiazem HCl 60 mg 06/18/25 09:30 06/19/25 04:50 Diltiazem 60 Mg Tablet PO 60 mg Q6H FRANKO Administration Famotidine 20 mg 06/15/25 08:15 06/19/25 07:47 Famotidine 20 Mg/2 Ml Inj IVP 20 mg Q12H FRANKO Administration Aztreonam 1,000 mg/ Sodium 50 mls @ 100 mls/hr 06/17/25 12:15 06/19/25 03:19 Chloride IV Infused Q12H FRANKO Infusion Protocol Metronidazole 500 mg in 100 mls @ 100 mls/hr 06/17/25 12:15 06/19/25 05:54 Flagyl Iv IV Infused Q8H FRANKO Infusion Protocol Insulin Human Lispro 0 unit 06/19/25 08:00 06/19/25 07:51 Insulin Lispro 100 Unit/1 Ml SUBCUT 6 unit TIDWM FRANKO Administration Protocol Lorazepam 1 mg 06/17/25 16:24 06/17/25 16:35 Lorazepam 2 Mg/Ml Inj 1 Ml IVP 1 mg Q4H PRN Administration ANXIETY Ondansetron HCl 4 mg 06/12/25 19:48 06/17/25 11:20 Ondansetron 2 Mg/Ml Sdv 2 Ml IVP 4 mg Q8H PRN Administration vomiting, or N/V if npo PFSH Acute 2 PFSH: Medical History (Updated 06/18/25 @ 09:52 by Demond Casillas MD) Acute renal failure, unspecified acute renal failure type Rotator cuff arthropathy of left shoulder Chronic left shoulder pain Primary osteoarthritis, left shoulder Aortic aneurysm recent U/S on 04/03/23 Back pain Surgical History History of nasal surgery Family History Father Heart attack Denies family history of Clotting disorder Anesthesia complication Bleeding disorder Social History Smoking and tobacco/nicotine status: tobacco/nicotine user, details unknown (vape) Quit status (tobacco/nicotine): has quit using Year quit tobacco: 2014 Former quit date comment: 50 year history Alcohol intake: never Substance/Drug Use: never Vitals/I&O/Wt Last Vital Signs Temp 99.3 F 06/16/25 14:51 Pulse 75 06/19/25 08:00 Resp 18 06/19/25 08:00 BP 139/57 06/19/25 08:00 Pulse Ox 94 06/19/25 08:00 O2 Del Method Room Air 06/19/25 08:00 O2 Flow Rate 3 06/19/25 03:54 FiO2 40 06/19/25 03:53 06/18/25 06/19/25 06/19/25 22:59 06:59 14:59 Intake Total 623.500 / 1644.250 770.750 / 1644.250 Output Total 2450 / 2900 450 / 2900 Balance -1826.500 / -1255.750 320.750 / -1255.750 Physical Exam 2 Const: COMMON NORMALS: no acute distress and patient oriented x3 GENERAL APPEARANCE: cooperative and comfortable ORIENTATION/CONSCIOUSNESS: Yes awake, Yes oriented to person, Yes oriented to place and Yes oriented to time Chest: COMMONS NORMALS: normal inspection of the chest and normal palpation of entire chest wall CHEST: Yes Symmetrical chest wall rise Resp: COMMON NORMALS: normal respiratory effort, No retractions, No use of accessory muscles and clear to auscultation bilaterally EFFORT & INSPECTION: Yes symmetric chest movement AUSCULTATION: clear to auscultation bilaterally Cardio: COMMON NORMALS: regular rate, regular rhythm, S1 normal heart sound present, S2 normal heart sound present, No gallops present (Cardio), No clicks present (Cardio), No murmurs present (Cardio) and No rub (Cardio) RATE: r egular rate RHYTHM: regular rhythm HEART SOUNDS: S1 normal heart sound present and S2 normal heart sound present PERIPHERAL PULSES: radial pulses present Extremity: COMMON NORMALS: no pedal edema Neuro: COMMON NORMALS: patient oriented x3 and moves all extremities S ENSORIUM/ORIENTATION: Yes oriented to person, Yes oriented to place and Yes oriented to time Urinary Catheter Management: Smith: Cath Placed During This Visit: yes Reason for Continuing Indwelling Catheter: Accurate Measurement of Urinary Output in Critically Ill Patients Urinary Catheter Date of Insertion: 06/13/25 Urinary Catheter Time of Insertion: 09:45 Data 06/19/25 04:57 06/19/25 09:17 A&P Assessment and plan 1. Atrial fibrillation with RVR: 2. Aortic aneurysm: 3. Acute renal failure, unspecified acute renal failure type: 4. Multiple myeloma: 5. COPD (chronic obstructive pulmonary disease): Plan: He appears dry, which is complicating his rhythm control. He is in sinus rhythm now. Will give NS at 100mL/hr for 1L. Replace magnesium. Continue amiodarone 400mg BID, will change diltiazem to 120mg BID for more consistent control. Discussed with patient, discharge is under determination by the hospitalist service. No cardiac procedures recommended at this time. PDMP PDMP Reviewed: Not Reviewed Procedures Arterial Line Size (Gauge): 20 Coding Level of Care Code Acute Code for Chg Fwd Diagnoses Atrial fibrillation with RVR I48.91 Aortic aneurysm I71.9 Acute renal failure, unspecified acute renal failure type N17.9 Acute renal failure type: unspecified Multiple myeloma C90.00 COPD (chronic obstructive pulmonary disease) J44.9
--- NOTE | 2025-06-19 08:40 | P.PN_ITS ---
Subjective 2 Subjective: Patient seen and examined patient feels well. Patient states that he has chronic shortness of breath due to COPD. Patient states that he feels that he was 5 3 times and is improving and would like to continue with medical treatment. No nausea vomiting or diarrhea. Medications: Reviewed: Yes Medication Review Details: Current Medications Acetaminophen (Acetaminophen 650 Mg Supp) 650 mg ID Q4H PRN PRN Reason: Temperature greater than 100.5 Albuterol Sulfate (Albuterol 2.5 Mg/3 Ml Neb) 2.5 mg INHALATION Q4H.RESPIRATORY PRN PRN Reason: SHORTNESS OF BREATH Albuterol/Ipratropium (Ipratropium-Albuterol 3 Ml Neb) 3 ml INHALATION Q6H PRN PRN Reason: SHORTNESS OF BREATH Last Admin: 06/16/25 15:50 Dose: 3 ml Albuterol/Ipratropium (Ipratropium-Albuterol 3 Ml Neb) 3 ml INHALATION Q4H.RESPIRATORY FRANKO Last Admin: 06/19/25 07:44 Dose: 3 ml Amiodarone HCl (Amiodarone 200 Mg Tablet) 400 mg PO BID FRANKO Last Admin: 06/19/25 04:08 Dose: 400 mg Artificial Tears (Artificial Tears Op Soln 15 Ml Btl) 2 drop EYE-BOTH Q2H PRN PRN Reason: DRY EYE(S) Atropine Sulfate (Atropine 1% Op Soln 2 Ml Btl) 3 drop SUBLINGUAL Q4H PRN PRN Reason: Excessive Secretions, Rattling Bisacodyl (Bisacodyl 10 Mg Supp) 10 mg ID DAILY PRN PRN Reason: Fecal Impaction Budesonide (Budesonide 0.5 Mg/2 Ml Neb) 0.5 mg INHALATION BID.RESPIRATORY FRANKO Last Admin: 06/19/25 07:43 Dose: 0.5 mg Camphor/Menthol/Phenol (Blistex Lip Oint 7 Gm Tube) 1 applic TOPICAL Q2H PRN PRN Reason: DRY LIPS Chlorhexidine Gluconate (Chlorhexidine Gluconate 4% Btl 118 Ml) 1 applic TOPICAL PRN PRN PRN Reason: Bed Bath Last Admin: 06/15/25 00:46 Dose: 1 applic Diltiazem HCl (Diltiazem 60 Mg Tablet) 60 mg PO Q6H FRANKO Last Admin: 06/19/25 04:50 Dose: 60 mg Diphenhydramine HCl (Diphenhydramine 25 Mg Capsule) 25 mg PO Q4H PRN PRN Reason: ITCHING Epinephrine (Racepinephrine 0.5 Ml Neb) 0.5 ml INHALATION Q4H.RESPIRATORY PRN PRN Reason: Stridor Famotidine (Famotidine 20 Mg/2 Ml Inj) 20 mg IVP Q12H [facility] Last Admin: 06/19/25 07:47 Dose: 20 mg Glucagon (Glucagon 1 Mg/Ml Kit 1 Ml) 1 mg IM ONCE PRN; Protocol PRN Reason: Adult Acute Hypoglycemia Nursing Prot. Glycerin (Glycerin Adult Supp) 1 each ID DAILY PRN PRN Reason: CONSTIPATION Glycopyrrolate (Glycopyrrolate 0.2 Mg/Ml Sdv 2 Ml) 0.2 mg IV Q4H PRN PRN Reason: Excessive Secretions, Rattling Dextrose (D5w) 500 mls @ 0 mls/hr IV ONCE PRN; Protocol PRN Reason: Adult Acute Hypoglycemia Prot Dextrose (D10w) 125 mls @ 750 mls/hr IV PRN PRN; Protocol PRN Reason: Adult Acute Hypoglycemia Nursing Protocol Sodium Chloride (Sodium Chloride 0.9%) 1,000 mls @ 0 mls/hr IV .Q0M PRN PRN Reason: hypotension or symptomatic Sodium Chloride (Sodium Chloride 0.9%) 1,000 mls @ 0 mls/hr IV .Q0M PRN PRN Reason: hypotension or symptomatic Aztreonam 1,000 mg/ Sodium (Chloride) 50 mls @ 100 mls/hr IV Q12H [facility]; Protocol Last Infusion: 06/19/25 03:19 Dose: Infused Metronidazole (Flagyl Iv) 500 mg in 100 mls @ 100 mls/hr IV Q8H [facility]; Protocol Last Infusion: 06/19/25 05:54 Dose: Infused AMIODARONE HCL/D5W (Amiodarone 900 Mg/500 Ml-D5w) 900 mg in 500 mls @ 0 mls/hr IV .Q0M [facility]; Protocol Insulin Human Lispro (Insulin Lispro 100 Unit/1 Ml) 0 unit SUBCUT TIDWM [facility]; Protocol Last Admin: 06/19/25 07:51 Dose: 6 unit Lanolin (Lanolin Oint 7 Gm) 1 applic TOPICAL PRN PRN PRN Reason: DRYNESS Lorazepam (Lorazepam 2 Mg/Ml Inj 1 Ml) 1 mg IVP Q4H PRN PRN Reason: ANXIETY Last Admin: 06/17/25 16:35 Dose: 1 mg Morphine Sulfate (Morphine 4 Mg/Ml Sdv 1 Ml) 2 mg IVP Q4H PRN PRN Reason: SEVERE PAIN Ondansetron HCl (Ondansetron 2 Mg/Ml Sdv 2 Ml) 4 mg IVP Q8H PRN PRN Reason: vomiting, or N/V if npo Last Admin: 06/17/25 11:20 Dose: 4 mg Saliva Substitute (Saliva Stimulant [place] 30 Ml Btl) 1 spray MUCOUS MEM Q2H PRN PRN Reason: DRY MOUTH Vitals/I&O/Wt Last Vital Signs Temp 99.3 F 06/16/25 14:51 Pulse 75 06/19/25 08:00 Resp 18 06/19/25 08:00 BP 139/57 06/19/25 08:00 Pulse Ox 94 06/19/25 08:00 O2 Del Method Room Air 06/19/25 08:00 O2 Flow Rate 3 06/19/25 03:54 FiO2 40 06/19/25 03:53 06/18/25 06/19/25 06/19/25 22:59 06:59 14:59 Intake Total 623.500 / 873.500 770.750 / 1644.250 0 / 0 Output Total 2450 / 2450 450 / 2900 Balance -1826.500 / -1576.500 320.750 / -1255.750 0 / 0 Physical Exam 2 Narrative: The patient is lying in bed using oxygen. His respiratory rate is okay. HEENT normocephalic atraumatic. Neck is supple Lungs have good air movement heart sounds are regular at this time. Abdomen is soft positive bowel sounds. Extremities do not have edema. He has a femoral dialysis catheter. Neuro awake alert oriented x 3. Urinary Catheter Management: Smith: Cath Placed During This Visit: yes Reason for Continuing Indwelling Catheter: Accurate Measurement of Urinary Output in Critically Ill Patients Urinary Catheter Date of Insertion: 06/13/25 Urinary Catheter Time of Insertion: 09:45 Data 06/19/25 04:57 06/19/25 04:57 A&P Assessment and plan 1. Acute renal failure, unspecified acute renal failure type: see below Plan: 75-year-old man with IgG lambda multiple myeloma status post bone marrow biopsy at [facility] third 2024 showing plasma cell myeloma 80% light chain restricted plasma cell. Patient is being treated with Bortezomib(weekly)/Lenalid/Dex + Daratumumab Induction (Cycle 1-4) on June 10, [address] Eaton the patient was found of acute kidney injury and was sent to the hospital and admitted on 06-12-25, Pt has developed DILCIA, and required CRRT and transitioned to IHD. Pt now extubated and urinating. K is 3.2, bicarb 20, cr is stable. 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 His renal function is improving this is most likely ATN. At this time we will hold dialysis. Will replace magnesium and potassium. Monitor for further dialysis needs or removal of dialysis catheter. Calcium is improving. 2. Multiple myeloma and leukopenia and thrombocytopenia- would consider continuing treatment as per oncology. 3. Please discuss with pharmacy the appropriate dosing of his aztreonam will follow along with you The patient was seen and examined using telehealth and the aid of a nurse using audiovisual equipment.. The patient consented to telehealth. Chart reviewed PDMP PDMP Reviewed: Not Reviewed Attestations 2 Medical Necessity Statement*: Improving acute kidney injury in polyuric phase. Monitor electrolytes and monitor for need for further renal replacement therapy. Time Spent in Patient Care: 16 - 35 minutes (>than 50% of time sp ent in counselling and/or direct pt care on unit) . Procedures Arterial Line Size (Gauge): 20 Coding Level of Care Code Acute Code for Chg Fwd Diagnoses Acute renal failure, unspecified acute renal failure type N17.9 Acute renal failure type: unspecified
[2025-06-19] MEDS: magnesium sulfate premix 1 GM/100 ML PIGGYBACK IV (09:37)
[2025-06-19] MEDS: dilTIAZem ER (24HR) 120 mg Capsule PO ×2 (09:47→16:52)
[2025-06-19 09:49] LABS: Anion Gap 21.0 (5-19); Calcium 7.5 mg/dL (8.5-10.5); Carbon Dioxide 21 mmol/L (22-29); Chloride 104 mmol/L (98-107); Creatinine Clr Calc Pharmacy 19.1920; Glucose 212 mg/dL (65-115); Osmolality Calculated 333 mOsm/kg (285-295); Potassium 3.0 mmol/L (3.5-5.1); Sodium 143 mmol/L (136-145)
[2025-06-19 10:01] LABS: Blood Urea Nitrogen 99 mg/dL (8-23)
[2025-06-19] MEDS: aztreonam 1,000 MG in sodium chloride 0.9% (plus) 50 ML 100 MG IV (12:47)
--- NOTE | 2025-06-19 14:34 | P.PN_ITS ---
Subjective 2 Subjective: Patient was seen this morning, - He developed A-fib with RVR during the night, placed on amiodarone back in sinus rhythm - Denies any chest pain - No shortness of breath - Does report generalized weakness - We had a detailed discussion about his hospitalization - He tells me he does not really want to go through chemotherapy again, he is very fearful of adverse events - He is also wondering if he is going to need dialysis, and if dialysis is needed can dialysis catheter replaced as outpatient - Discussed possibility depending on his urine output, his creatinine, his clinical progress - Discussed cardiology consultation - He wants to try to go home in the next 48 hours he tells me, Vitals/I&O/Wt Last Vital Signs Temp 99.3 F 06/16/25 14:51 Pulse 70 06/19/25 14:32 Resp 26 H 06/19/25 14:00 BP 89/64 06/19/25 14:00 Pulse Ox 93 06/19/25 14:00 O2 Del Method Nasal Cannula 06/19/25 14:00 O2 Flow Rate 3 06/19/25 03:54 FiO2 40 06/19/25 03:53 06/18/25 06/19/25 06/19/25 22:59 06:59 14:59 Intake Total 623.500 / 873.500 770.750 / 1644.250 306.75 / 306.75 Output Total 2450 / 2450 450 / 2900 Balance -1826.500 / -1576.500 320.750 / -1255.750 306.75 / 306.75 Physical Exam 2 Const: COMMON NORMALS: no acute distress and patient oriented x3 Resp: COMMON NORMALS: normal respiratory effort, No retractions, No use of accessory muscles and clear to auscultation bilaterally AUSCULTATION: clear to auscultation bilaterally Cardio: COMMON NORMALS: regular rate, regular rhythm, S1 normal heart sound present and S2 normal heart sound present RATE: regular rate RHYTHM: r egular rhythm HEART SOUNDS: S1 normal heart sound present and S2 normal heart sound present GI: COMMON NORMALS: Normal to inspection, nondistended, normoactive bowel sounds present and non-tender Extremity: COMMON NORMALS: no pedal edema Neuro: COMMON NORMALS: patient oriented x3 Psych: COMMON NORMALS: mental status grossly normal Urinary Catheter Management: Smith: Cath Placed During This Visit: yes Reason for Continuing Indwelling Catheter: Accurate Measurement of Urinary Output in Critically Ill Patients Urinary Catheter Date of Insertion: 06/13/25 Urinary Catheter Time of Insertion: 09:45 Data 06/19/25 04:57 06/19/25 09:17 A&P Assessment and plan 1. Acute kidney injury: 2. Metabolic acidosis: 3. Acute uremia: 4. Acute renal failure: 5. Kidney mass: 6. Multiple myeloma: 7. Acute hypoxic respiratory failure: 8. Shock: 9. NSTEMI (non-ST elevated myocardial infarction): 10. Atrial fibrillation with RVR: Plan: Acute hypoxic respiratory failure - Multifactorial - Bilateral pulmonary edema - Concerns for right lower lobe infiltrate, aspiration pneumonia - Metabolic acidosis, uremia - Currently intubated, sedated mechanical ventilation -Moderate pulmonary hypertension -S/p extubation 06/16/2025 -Status post severe life-threatening bronchospasm event 06/16/2025, with severe acute hypoxic respiratory failure and respiratory distress, requiring 100% BiPAP therapy/nebulized epinephrine/albuterol, transitioned to comfort care, blood clinical condition significantly improved, now on 2 L with mild respiratory distress -Now on room air Plan - Monitor respiratory status closely - Currently on nasal cannula -DuoNeb -Budesonide - Lasix on hold - Has completed antibiotic therapy as inpatient - Dialysis currently on hold, might proceed with dialysis catheter placement tomorrow based on clinical progress Atrial fibrillation with rapid ventricular response CONCLUSIONS Normal left ventricular size, systolic function and wall thickness with ejection fraction of 68%. Normal right ventricular size and systolic function. Moderate pulmonary hypertension, PASP 64 mmHg No significant valvular findings. - Continue amiodarone drip - Status post 4 doses of digoxin 125 mcg - Stop beta-citlalli - Switch to p.o. Cardizem, wean off Cardizem drip - Continue p.o. amiodarone - Cardiology consulted - Creatinine Sepsis, pneumonia, resolved - Maintain MAP in the 65 - Continue Levophed Increased anion gap metabolic acidosis, resolving - Secondary to acute renal failure - Secondary to multiple myeloma induced - Secondary to sepsis, pneumonia -bicarb drip weaned off Shock, resolved - Multifactorial -Metabolic acidosis -Acute renal failure -Uremia -Multiple myeloma induced renal failure - Sepsis, pneumonia Acute anemia - Hemoglobin down to 8.2 - Transfused 1 unit PRBC Thrombocytopenia - Haptoglobin 264, LDH 203, peripheral smear - Switch Protonix to Pepcid Acute kidney injury, 2.9 - Increased anion gap metabolic acidosis - Uremia - Could be a component from patient's meloxicam use - Recently he was put on benazepril could be a component, in addition to hydrochlorothiazide - Could be component of Bactrim use - multiple myeloma associated 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 - Possible chemotherapy side effect?Bortezomib(weekly)/Lenalid/Dex + Daratumumab -Potentially to tumor lysis syndrome however uric acid levels within reasonable range, no significant calcium/potassium/electrolyte derangements to favor tumor lysis Plan - Nephrology on consult - Renal ultrasound no acute findings -Good urine output overnight, up to 2320 mL -Currently CRRT on hold monitor urine output - CPK 650 - Salicylate level <0.3 - Uric acid 7.8 - Urine free light chain - Urine beta-2 microglobulin - Ferritin 168, iron 88, retic count 0.8, TIBC - Urine electrolytes - Urine eosinophils WNL - Start bicarb drip at 150 cc an hour, currently off -Albumin - Hold nephrotoxic agents - Smith catheter, monitor urine output closely -Decision on long-term dialysis will be made by patient and family History of renal mass - Renal ultrasound as above Multiple myeloma -Bortezomib(weekly)/Lenalid/Dex + Daratumumab June 03, 2025 Altered mental status, resolving - Could be component of uremic encephalopathy DNR/DNI SCDs for DVT prophylaxis, start anticoagulant therapy status stable prognosis guarded Plan for today, monitor urine output monitor creatinine, moved to his cardiac stepdown unit PT OT, IV fluids PDMP PDMP Reviewed: Not Reviewed Attestations 2 Medical Necessity Statement*: Patient requires hospitalization for atrial fibrillation, acute renal failure, uremia Procedures Arterial Line Size (Gauge): 20 Diagnoses Acute kidney injury N17.9 Metabolic acidosis E87.20 Acute uremia N19 Acute renal failure N17.9 Kidney mass N28.89 Multiple myeloma C90.00 Acute hypoxic respiratory failure J96.01 Shock R57.9 NSTEMI (non-ST elevated myocardial infarction) I21.4 Atrial fibrillation with RVR I48.91
[2025-06-19 15:24] LABS: Anion Gap 19.3 (5-19); Calcium 7.3 mg/dL (8.5-10.5); Carbon Dioxide 20 mmol/L (22-29); Chloride 107 mmol/L (98-107); Creatinine Clr Calc Pharmacy 20.3915; Glucose 186 mg/dL (65-115); Osmolality Calculated 330 mOsm/kg (285-295); Potassium 3.3 mmol/L (3.5-5.1); Sodium 143 mmol/L (136-145)
[2025-06-19 15:28] LABS: Blood Urea Nitrogen 94 mg/dL (8-23)
--- NOTE | 2025-06-19 16:52 | PC.OT ---
OT TREATMENT ATTEMPTED; OFFERED ADLS; SHAVING, ETC. PATIENT ADAMANTLY REFUSES STATING THAT HE IS D/C HOME TONIGHT. ATTEMPTS TO PERSUADE BUT IS UNSUCCESSFUL. OT TREATMENT TO BE ATTEMPTED AGAIN TOMORROW.
[2025-06-19] MEDS: ondansetron 2 mg/ML SDV 2 mL 4 MG IVP (17:04)
[2025-06-19 22:04] LABS: Anion Gap 19.4 (5-19); Calcium 7.3 mg/dL (8.5-10.5); Carbon Dioxide 22 mmol/L (22-29); Chloride 111 mmol/L (98-107); Creatinine Clr Calc Pharmacy 20.3915; Glucose 107 mg/dL (65-115); Osmolality Calculated 336 mOsm/kg (285-295); Potassium 4.4 mmol/L (3.5-5.1); Sodium 148 mmol/L (136-145)
[2025-06-19 22:06] LABS: Blood Urea Nitrogen 96 mg/dL (8-23)
[2025-06-20] VITALS (32 sets, daily range): BP systolic 84–158; BP diastolic 44–137; PULSE 63–159; RESP 16–32; TEMP 36.1; O2SAT 88–96
--- NOTE | 2025-06-20 00:25 | PC.NURSE ---
afib with rvr Patient converted from nsr to afib with rvr, heart rate ranging from 130s-150s. Dr Cabezas notified with no orders received at this time.
[2025-06-20] MEDS: LORazepam 2 mg/mL INJ 1 mL 1 MG IVP (02:28)
[2025-06-20] MEDS: dilTIAZem ER (24HR) 120 mg Capsule PO (03:01)
[2025-06-20] MEDS: ondansetron 2 mg/ML SDV 2 mL 4 MG IVP (03:01)
--- NOTE | 2025-06-20 03:07 | PC.NURSE ---
Sustaining heart rate in the 150s, received order from Dr. Cabezas to give 0500 Amiodarone and Cardizem now.
[2025-06-20 06:41] LABS: Alanine Aminotransferase 23 U/L (0-41); Albumin Level 3.6 g/dL (3.5-5.2); Alkaline Phosphatase 36 U/L (40-130); Anion Gap 18.7 (5-19); Aspartate Amino Transferase 12 U/L (0-40); Calcium 7.3 mg/dL (8.5-10.5); Carbon Dioxide 22 mmol/L (22-29); Chloride 112 mmol/L (98-107); Creatinine Clr Calc Pharmacy 24.1677; Globulin 3.6 g/dL (1.3-4.6); Glucose 138 mg/dL (65-115); Magnesium 1.8 mg/dL (1.7-2.3); Osmolality Calculated 335 mOsm/kg (285-295); Potassium 3.7 mmol/L (3.5-5.1); Sodium 149 mmol/L (136-145); Total Protein 7.2 g/dL (6.6-8.7)
[2025-06-20 06:45] LABS: Lactate (Lactic Acid level) 2.8 mmol/L (0.5-2.2)
[2025-06-20 06:49] LABS: NT Pro B Type Natriuretic Pept 849 pg/mL (0-450)
[2025-06-20 06:50] LABS: Blood Urea Nitrogen 81 mg/dL (8-23)
[2025-06-20 06:54] LABS: Hematocrit 34.3 % (37-53); Hemoglobin 11.20 g/dL (11.27-16.99); Mean Corpuscular HGB Conc 32.7 g/dL (30-55); Mean Corpuscular Hemoglobin 30.9 pg (27-33); Mean Corpuscular Volume 94.5 fl (82-101); Nucleated Red Blood Cells % 0 %; Platelet Count 79 10^3/cmm (157-399); Red Blood Count 3.63 10^6/uL (3.85-5.65); White Blood Count 4.07 10^3/uL (3.29-11.43)
--- NOTE | 2025-06-20 07:34 | PM.PN ---
Subjective Subjective: Patient feels better he is thirsty. He wants go home he has no nausea vomiting shortness of breath or chest pain. Patient has been having episodes of paroxysmal atrial fibrillation with RVR. Medications: Reviewed: Yes Medication Review Details: Current Medications Acetaminophen (Acetaminophen 650 Mg Supp) 650 mg CO Q4H PRN PRN Reason: Temperature greater than 100.5 Albuterol Sulfate (Albuterol 2.5 Mg/3 Ml Neb) 2.5 mg INHALATION Q4H.RESPIRATORY PRN PRN Reason: SHORTNESS OF BREATH Albuterol/Ipratropium (Ipratropium-Albuterol 3 Ml Neb) 3 ml INHALATION Q6H PRN PRN Reason: SHORTNESS OF BREATH Last Admin: 06/16/25 15:50 Dose: 3 ml Albuterol/Ipratropium (Ipratropium-Albuterol 3 Ml Neb) 3 ml INHALATION Q4H.RESPIRATORY PRN PRN Reason: WHEEZING Amiodarone HCl (Amiodarone 200 Mg Tablet) 400 mg PO BID [facility] Last Admin: 06/20/25 03:01 Dose: 400 mg Artificial Tears (Artificial Tears Op Soln 15 Ml Btl) 2 drop EYE-BOTH Q2H PRN PRN Reason: DRY EYE(S) Atropine Sulfate (Atropine 1% Op Soln 2 Ml Btl) 3 drop SUBLINGUAL Q4H PRN PRN Reason: Excessive Secretions, Rattling Bisacodyl (Bisacodyl 10 Mg Supp) 10 mg CO DAILY PRN PRN Reason: Fecal Impaction Budesonide (Budesonide 0.5 Mg/2 Ml Neb) 0.5 mg INHALATION BID.RESPIRATORY [facility] Last Admin: 06/19/25 20:04 Dose: 0.5 mg Camphor/Menthol/Phenol (Blistex Lip Oint 7 Gm Tube) 1 applic TOPICAL Q2H PRN PRN Reason: DRY LIPS Chlorhexidine Gluconate (Chlorhexidine Gluconate 4% Btl 118 Ml) 1 applic TOPICAL PRN PRN PRN Reason: Bed Bath Last Admin: 06/15/25 00:46 Dose: 1 applic Diltiazem HCl (Diltiazem Er (24hr) 120 Mg Capsule) 120 mg PO BID [facility] Last Admin: 06/20/25 03:01 Dose: 120 mg Diphenhydramine HCl (Diphenhydramine 25 Mg Capsule) 25 mg PO Q4H PRN PRN Reason: ITCHING Enoxaparin Sodium (Enoxaparin 100 Mg/Ml Syringe) 90 mg 1 mg/kg (90 mg) SUBCUT Q24H [facility] Last Admin: 06/19/25 15:34 Dose: 90 mg Epinephrine (Racepinephrine 0.5 Ml Neb) 0.5 ml INHALATION Q4H.RESPIRATORY PRN PRN Reason: Stridor Famotidine (Famotidine 20 Mg/2 Ml Inj) 20 mg IVP Q12H [facility] Last Admin: 06/19/25 20:50 Dose: 20 mg Glucagon (Glucagon 1 Mg/Ml Kit 1 Ml) 1 mg IM ONCE PRN; Protocol PRN Reason: Adult Acute Hypoglycemia Nursing Prot. Glycerin (Glycerin Adult Supp) 1 each CO DAILY PRN PRN Reason: CONSTIPATION Glycopyrrolate (Glycopyrrolate 0.2 Mg/Ml Sdv 2 Ml) 0.2 mg IV Q4H PRN PRN Reason: Excessive Secretions, Rattling Dextrose (D5w) 500 mls @ 0 mls/hr IV ONCE PRN; Protocol PRN Reason: Adult Acute Hypoglycemia Prot Dextrose (D10w) 125 mls @ 750 mls/hr IV PRN PRN; Protocol PRN Reason: Adult Acute Hypoglycemia Nursing Protocol Sodium Chloride (Sodium Chloride 0.9%) 1,000 mls @ 0 mls/hr IV .Q0M PRN PRN Reason: hypotension or symptomatic Sodium Chloride (Sodium Chloride 0.9%) 1,000 mls @ 0 mls/hr IV .Q0M PRN PRN Reason: hypotension or symptomatic AMIODARONE HCL/D5W (Amiodarone 900 Mg/500 Ml-D5w) 900 mg in 500 mls @ 0 mls/hr IV .Q0M FRANKO; Protocol Sodium Chloride (Sodium Chloride 0.9%) 1,000 mls @ 100 mls/hr IV .Q10H [facility] Last Admin: 06/20/25 05:51 Dose: 100 mls/hr Sodium Chloride (Sodium Chloride 0.45%) 1,000 mls @ 100 mls/hr IV .Q10H FRANKO Insulin Human Lispro (Insulin Lispro 100 Unit/1 Ml) 0 unit SUBCUT TIDWM FRANKO; Protocol Last Admin: 06/19/25 17:50 Dose: 8 unit Lanolin (Lanolin Oint 7 Gm) 1 applic TOPICAL PRN PRN PRN Reason: DRYNESS Lorazepam (Lorazepam 2 Mg/Ml Inj 1 Ml) 1 mg IVP Q4H PRN PRN Reason: ANXIETY Last Admin: 06/20/25 02:28 Dose: 1 mg Morphine Sulfate (Morphine 4 Mg/Ml Sdv 1 Ml) 2 mg IVP Q4H PRN PRN Reason: SEVERE PAIN Ondansetron HCl (Ondansetron 2 Mg/Ml Sdv 2 Ml) 4 mg IVP Q8H PRN PRN Reason: vomiting, or N/V if npo Last Admin: 06/20/25 03:01 Dose: 4 mg Phenol (Phenol Oral Flow[place] 177 Ml) 3 spray MUCOUS MEM Q2H PRN PRN Reason: SORE THROAT Saliva Substitute (Saliva Stimulant Flow[place] 30 Ml Btl) 1 spray MUCOUS MEM Q2H PRN PRN Reason: DRY MOUTH Vitals/I&O/Wt Last Vital Signs Temp 97.7 F 06/19/25 20:30 Pulse 72 06/20/25 06:02 Resp 21 H 06/20/25 06:00 BP 118/60 06/20/25 06:00 Pulse Ox 94 06/20/25 06:00 O2 Del Method Room Air 06/20/25 03:30 O2 Flow Rate 3 06/19/25 03:54 FiO2 40 06/19/25 03:53 06/19/25 06/20/25 06/20/25 22:59 06:59 14:59 Intake Total 1240 / 1696.75 1000 / 2696.75 Output Total 1250 / 1250 1350 / 2600 Balance -10 / 446.75 -350 / 96.75 Physical Exam Narrative: The patient is sitting up in bed comfortably Vital signs noted. His respiratory rate is okay. HEENT normocephalic atraumatic. Neck is supple Lungs have good air movement heart sounds are regular at this time. Abdomen is soft positive bowel sounds. Extremities do not have edema. He has a femoral dialysis catheter. Neuro awake alert oriented x 3. Urinary Catheter Management: Smith: Cath Placed During This Visit: yes Reason for Continuing Indwelling Catheter: Acute Urinary Retention or Obstruction Urinary Catheter Date of Insertion: 06/13/25 Urinary Catheter Time of Insertion: 09:45 Data 06/20/25 05:52 06/20/25 05:52 A&P Assessment and plan 1. Acute renal failure, unspecified acute renal failure type: see below Plan: 75-year-old man with IgG lambda multiple myeloma status post bone marrow biopsy at [facility] third 2024 showing plasma cell myeloma 80% light chain restricted plasma cell. Patient is being treated with Bortezomib(weekly)/Lenalid/Dex + Daratumumab Induction (Cycle 1-4) on June 10, [address] Eaton the patient was found of acute kidney injury and was sent to the hospital and admitted on 06-12-25, Pt has developed DILCIA, and required CRRT and transitioned to IHD. Pt now extubated and urinating. 1. Acute kidney injury appears to be ATN that is improving. He does not appear to need further dialysis. Bicarbonate is 22 creatinine is down to 2.7. Hold all diuretics. 2. Hyponatremia patient needs more water. Will give half-normal saline however please encourage patient to drink fluids and hopefully can stop IV fluids soon. 3. Multiple myeloma and leukopenia and thrombocytopenia- would consider continuing treatment as per oncology. Patient wants to go home first 4. Paroxysmal atrial fibrillation as per medicine and cardiology 5. Medications reviewed -Patient will need outpatient renal follow-up. And may benefit from renal biopsy as an outpatient however it appears that the patient once is less than now more. The patient was seen and examined using telehealth and the aid of a nurse using audiovisual equipment.. The patient consented to telehealth. Chart reviewed PDMP PDMP Reviewed: Not Reviewed Attestations Medical Necessity Statement*: Improving acute kidney injury, atrial fibrillation per medicine. Time Spent in Patient Care: 16 - 35 minutes (>than 50% of time spent in counselling and/or direct pt care on unit). Procedures Arterial Line Size (Gauge): 20 Coding Level of Care Code Acute Code for [facility] Fwd Diagnoses Acute renal failure, unspecified acute renal failure type N17.9 Acute renal failure type: unspecified
--- NOTE | 2025-06-20 11:01 | PC.SOCIAL ---
IMM Updated Updated pt on IMM. No questions voiced. Provided pt a copy. Initialed, dated, & timed copy in chart.
--- NOTE | 2025-06-20 11:09 | P.PN_ITS ---
<Statement entered by Navdeep Khoury MD - 06/20/25 19:21> Patient was evaluated and cared for in conjunction with an advanced practice practitioner. I personally examined the patient and reviewed the chart and all pertinent data including imaging, telemetry, and laboratory results. I discussed the patient in detail with the advanced practice practitioner. Please see their note for complete H&P testing result and agreed upon plan of care for the patient. Patient has short burst of atrial fibrillation last night GENERAL: Patient is alert, awake and oriented x3. HEART: Regular S1 and S2. No murmur, rub or gallop. LUNGS: Clear to auscultate bilaterally. CENTRAL NERVOUS SYSTEM: Grossly nonfocal. EXTREMITIES: Lower extremities with out edema bilaterally. Assessment and plan Paroxysmal atrial fibrillation Acute renal failure on chronic COPD Multiple myeloma Consider switching from albuterol to levalbuterol more cardioselective inhaler Continue amiodarone 400 twice daily and Cardizem 60 mg twice daily IV fluid Subjective 2 Subjective: He is doing well. Had an episode of atrial fibrillation with RVR in the 130's overnight around 2AM. Would suggest Xopenex rather than duoneb breathing treatments/inhalers to reduce tachycardia. Vitals/I&O/Wt Last Vital Signs Temp 97.0 F L 06/20/25 07:30 Pulse 76 06/20/25 09:03 Resp 16 06/20/25 08:00 BP 134/58 06/20/25 07:30 Pulse Ox 95 06/20/25 08:00 O2 Del Method Room Air 06/20/25 08:00 O2 Flow Rate 3 06/19/25 03:54 FiO2 40 06/19/25 03:53 06/19/25 06/20/25 06/20/25 22:59 06:59 14:59 Intake Total 1240 / 2696.75 1000 / 2696.75 120 / 120 Output Total 1250 / 2600 1350 / 2600 Balance -10 / 96.75 -350 / 96.75 120 / 120 Physical Exam 2 Const: COMMON NORMALS: no acute distress and patient oriented x3 GENERAL APPEARANCE: cooperative and comfortable ORIENTATION/CONSCIOUSNESS: Yes awake, Yes oriented to person, Yes oriented to place and Yes oriented to time Chest: COMMONS NORMALS: normal inspection of the chest and normal palpation of entire chest wall CHEST: Yes Symmetrical chest wall rise Resp: COMMON NORMALS: normal respiratory effort, No retractions, No use of accessory muscles and clear to auscultation bilaterally EFFORT & INSPECTION: Yes symmetric chest movement AUSCULTATION: clear to auscultation bilaterally Cardio: COMMON NORMALS: regular rate, regular rhythm, S1 normal heart sound present, S2 normal heart sound present, No gallops present (Cardio), No clicks present (Cardio), No murmurs present (Cardio) and No rub (Cardio) RATE: r egular rate RHYTHM: regular rhythm HEART SOUNDS: S1 normal heart sound present and S2 normal heart sound present PERIPHERAL PULSES: radial pulses present Extremity: COMMON NORMALS: no pedal edema Neuro: COMMON NORMALS: patient oriented x3 and moves all extremities S ENSORIUM/ORIENTATION: Yes oriented to person, Yes oriented to place and Yes oriented to time Urinary Catheter Management: Smith: Cath Placed During This Visit: yes Reason for Continuing Indwelling Catheter: Acute Urinary Retention or Obstruction Urinary Catheter Date of Insertion: 06/13/25 Urinary Catheter Time of Insertion: 09:45 Data 06/20/25 05:52 06/20/25 05:52 A&P Assessment and plan 1. Aortic aneurysm: 2. Paroxysmal A-fib: 3. Acute renal failure, unspecified acute renal failure type: 4. Multiple myeloma: 5. COPD (chronic obstructive pulmonary disease): Plan: Continue amiodarone 400mg BID, diltiazem 120mg BID. Renal function improved to 2.7 with IV fluids. No signs of volume overload. PDMP PDMP Reviewed: Not Reviewed Attestations 2 Medical Necessity Statement*: per hospitalist Procedures Arterial Line Size (Gauge): 20 Coding Level of Care Code Acute Code for [facility] Fwd Diagnoses Aortic aneurysm I71.9 Paroxysmal A-fib I48.0 Acute renal failure, unspecified acute renal failure type N17.9 Acute renal failure type: unspecified Multiple myeloma C90.00 COPD (chronic obstructive pulmonary disease) J44.9
--- NOTE | 2025-06-20 13:38 | P.DS_ITS ---
Discharge Providers Date of Admission: 06/12/25 19:26 Date of Discharge: June 20, 2025 Attending Provider at Admission: Jose Hernandez MD Attending Provider at Discharge: Jose Hernandez MD Primary Care Provider: Matty Coley MD Diagnoses at Discharge Discharge Diagnosis 1. Aortic aneurysm: 2. Paroxysmal A-fib: 3. Acute renal failure, unspecified acute renal failure type: 4. Multiple myeloma: 5. COPD (chronic obstructive pulmonary disease): Reason for Visit Reason for Visit: dehydration (sent from onc) Hospital Course Hospital Course Cristopher Freeman Jr is a 74 year old male with a past medical history of multiple myeloma, on quad treatment, who presents to [facility] from oncology due to DILCIA. 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 Unfortunately patient's condition worsened despite receiving bicarbonate drip, moved to ICU, developed acute encephalopathy, respiratory failure requiring intubation and mechanical ventilation, with shock requiring Levophed, with findings suggestive of aspiration pneumonia and septic shock, atrial fibrillation with rapid reticular response, severe metabolic acidosis requiring CRRT. Pulmonary was consulted, nephrology was consulted, patient was critically ill, after multiple goals of care discussion with family, patient was made DNR/DNI. Patient's condition gradually improved, metabolic acidosis improved, multifactorial shock improved, patient oxygen requirements improved on mechanical ventilation, kidney function improved, urine output improved, mentation improved. Patient was extubated to nasal cannula, however after extubation patient had a severe episode of life-threatening bronchospasm and respiratory failure, which did not improve despite medical interventions, patient's condition was so critical that family did not want to reintubation, did not want to continue medical interventions, and transitioned Cristopher care to comfort care. Nonetheless, patient's condition rapidly improved over the next 24 hours such that his respiratory failure significantly resolved, bronchospasm resolved, alert oriented x 3, following all commands, on nasal cannula. After multiple goals of care discussion, consultations with specialist, patient was taken off comfort care, transitioned to medical management, but remains a DNR/DNI. Patient's condition was clinically monitored, had episodes of fluid overload requiring intermittent diuresis, DILCIA, requiring fluid therapy, A-fib w ith RVR requiring cardiology consultation. Nonetheless, overall patient's condition significantly improved such that he was discharged home, with home health care, discharged on room air, renal function has significantly improved, with good urine output, respiratory failure has significantly resolved, he was alert oriented x 3, following all commands, on room air. In terms of goals of care on discharge, he wants to remain a DNR/DNI, he is not exactly sure if he wants to pursue chemotherapy or not. He would like to go home and discuss it further with family. He did not require long-term dialysis, but we did discuss that with his multiple myeloma and his light chain disease, he has a high risk of rehospitalization, acute renal failure. He wanted a trial of medical therapy, and outpatient follow-up with primary care and nephrology. Also placement at [facility] for [facility]hab however he has declined. Discussed with Cristopher that my worry is his with his multiple myeloma, and light chain disease, without further hospitalization for consideration of inpatient dialysis, and chemotherapy, he has a high risk of rehospitalization and acute renal failure. However Cristopher was adamant about going home, he understands morbidity over tablet he, he voices understanding, all questions answered, shared decision making. It is Jim wish to go home, he wants to have further goals of care discussion with his family, follow-up with oncology as outpatient, up with nephrology as outpatient, and make these decisions based on how he does when he gets at home. He understands the morbidity and mortality associated, he voices understanding, all questions answered, shared decision making, agrees to proceed. Acute hypoxic respiratory failure - Multifactorial - Bilateral pulmonary edema - Concerns for right lower lobe infiltrate, aspiration pneumonia - Metabolic acidosis, uremia - Currently intubated, sedated mechanical ventilation -Moderate pulmonary hypertension -S/p extubation 06/16/2025 -Status post severe life-threatening bronchospasm event 06/16/2025, with severe acute hypoxic respiratory failure and respiratory distress, requiring 100% BiPAP therapy/nebulized epinephrine/albuterol, transitioned to comfort care, blood clinical condition significantly improved, now on 2 L with mild respiratory distress -Now on room air on discharge Atrial fibrillation with rapid ventricular response CONCLUSIONS Normal left ventricular size, systolic function and wall thickness with ejection fraction of 68%. Normal right ventricular size and systolic function. Moderate pulmonary hypertension, PASP 64 mmHg No significant valvular findings. - Continue amiodarone drip - Status post 4 doses of digoxin 125 mcg - Stop beta-citlalli - Switch to p.o. Cardizem, wean off Cardizem drip - Continue p.o. amiodarone, p.o. Cardizem on discharge - Cardiology consulted - Charged with Eliquis Sepsis, pneumonia, resolved - Maintain MAP in the 65 - Continue Levophed, off Increased anion gap metabolic acidosis, resolving - Secondary to acute renal failure - Secondary to multiple myeloma induced - Secondary to sepsis, pneumonia -bicarb drip weaned off Shock, resolved - Multifactorial -Metabolic acidosis -Acute renal failure -Uremia -Multiple myeloma induced renal failure - Sepsis, pneumonia Acute anemia - Hemoglobin down to 8.2 - Transfused 1 unit PRBC - Monitor hemoglobin discharge Thrombocytopenia - Haptoglobin 264, LDH 203, peripheral smear - Switch Protonix to Pepcid - Monitor platelet count on discharge Acute kidney injury, 1.4 on discharge - Increased anion gap metabolic acidosis - Uremia - Could be a component from patient's meloxicam use - Recently he was put on benazepril could be a component, in addition to hydrochlorothiazide - Could be component of Bactrim use - multiple myeloma associated 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 - Possible chemotherapy side effect?Bortezomib(weekly)/Lenalid/Dex + Daratumumab -Potentially to tumor lysis syndrome however uric acid levels within reasonable range, no significant calcium/potassium/electrolyte derangements to favor tumor lysis -Required CRRT and inpatient dialysis - Overall clinically improved, renal function proved, urine output improved - Dialysis cath removed on discharge - Smith catheter removed on discharge - In terms of concerns for light chain disease with multiple myeloma and long- term prognosis with patient's acute renal failure - Patient is not ready to make a decision about undergoing long-term dialysis - He wants to go home discussed with family follow-up with primary care follow- up with nephrology - Discussed with patient morbidity and mortality associated with acute renal failure and multiple myeloma, light chain disease - He voiced understanding, all questions answered, shared decision making, for now wants to go home on medical therapy with close follow-up with primary care, nephrology Multiple myeloma -Bortezomib(weekly)/Lenalid/Dex + Daratumumab June 03, 2025 -Initially during his hospitalization I had to reach out to [facility] for transfer for consideration of inpatient chemotherapy with his multiple myeloma and light chain disease, he was not a candidate for transfer given how critically ill he was -Once Cristopher could make decisions for himself, I offered transfer to tertiary level center for inpatient Chemotherapy, however he has declined. He understands morbidity and mortality associated, voices understanding, all question answered, declined transfer. - He is very worried about side effects associated with chemotherapy, -We discussed different regimens of chemotherapy or reduced dose of chemotherapy - Extensive goals of care discussion -On discharge he remains very skeptical of chemotherapy, he wants to go home and discuss it further with his family, follow-up with oncology as outpatient - He is not ready to make a decision right now about chemotherapy he wants to follow-up with oncology as outpatient Altered mental status, resolved on discharge - Could be component of uremic encephalopathy - Drink plenty of electrolyte balanced fluids. - Follow up with Dr. Coley - Please recheck kidney function tomorrow. - Please follow-up with cardiology next week. - Please follow-up with Dr. Rowe next week. - Please hydrate well, drink electrolyte balanced fluids. - Resume usual activity. - Regular diet. - Please call Monday to schedule a follow-up appointment with Dr. Coley in 1-3 days. - Please call Monday to schedule a follow-up with Dr. Khoury in 1 week. Physical Exam Const: COMMON NORMALS: no acute distress and patient oriented x3 Resp: COMMON NORMALS: normal respiratory effort, No retractions, No use of accessory muscles and clear to auscultation bilaterally AUSCULTATION: clear to auscultation bilaterally Cardio: COMMON NORMALS: regular rate, regular rhythm, S1 normal heart sound present and S2 normal heart sound present RATE: regular rate RHYTHM: regular rhythm HEART SOUNDS: S1 normal heart sound present and S2 normal heart sound present GI: COMMON NORMALS: Normal to inspection, nondistended, normoactive bowel sounds present and non-tender Extremity: COMMON NORMALS: no pedal edema Neuro: COMMON NORMALS: patient oriented x3 Psych: COMMON NORMALS: mental status grossly normal Urinary Catheter Management: Smith: Cath Placed During This Visit: yes Reason for Continuing Indwelling Catheter: Acute Urinary Retention or Obstruction Urinary Catheter Date of Insertion: 06/13/25 Urinary Catheter Time of Insertion: 09:45 Discharge Data Studies Completed and Pending Completed Studies During Hospitalization Category Date Time Status CT abdomen pelvis wo con [id number] Stat Cat Scan 06/12/25 18:11 Completed CXRP [XR chest 1V portable [id number]] Routine Exams 06/13/25 11:57 Completed CXRP [XR chest 1V portable [id number]] Routine Exams 06/16/25 08:22 Completed XR chest 1V portable [id number] Routine Exams 06/13/25 07:58 Completed XR chest 1V portable [id number] Routine Exams 06/13/25 13:34 Completed XR chest 1V portable [id number] Routine Exams 06/14/25 07:00 Completed XR chest 1V portable [id number] Routine Exams 06/15/25 07:00 Completed XR chest 1V portable [id number] Routine Exams 06/17/25 12:04 Completed XR chest 1V portable [id number] Stat Exams 06/12/25 16:18 [place] [id number] Routine Ultrasound 06/17/25 16:47 Completed CV. echo complete* [id number] Routine Ultrasound 06/15/25 08:08 Completed US renal BI* [id number] Stat Ultrasound 06/12/25 18:10 Completed Pending at discharge Category Date Time Status Complete Blood Count w/Auto AM LABS Lab 06/21/25 04:00 Ordered Comprehensive Metabolic Panel AM LABS Lab 06/21/25 04:00 Ordered Fibrinogen Degradation Product Routine Lab 06/15/25 03:42 Received Fibrinogen Degradation Product Routine Lab 06/16/25 03:51 Received Magnesium AM LABS Lab 06/21/25 04:00 Ordered Phosphorus AM LABS Lab 06/21/25 04:00 Ordered Radiology Impressions Renal Ultrasound 06/12/25 18:10 IMPRESSION: No acute findings. Abdomen/Pelvis CT 06/12/25 18:11 IMPRESSION: 1. Emphysema.The presence of pulmonary emphysema on CT is an independent risk factor for lung cancer. In the absence of a history or active diagnosis of lung cancer, it is recommended that this patient with emphysema be evaluated for enrollment in a low dose CT lung cancer screening program. 2. No definite acute abnormality of the bilateral kidneys. 3. Numerous lytic lesions throughout the axial skeleton compatible with known history of multiple myeloma. COMMENTS: Consistent with the [employer]'s Incidental Findings Committee white paper (J Am Jagruti Radiol 2018): Any incidental renal lesion less than 1 cm or classified as too small to characterize, or any incidental cystic renal lesion characterized as simple-appearing, is likely benign. No follow-up imaging is recommended for these lesions per consensus recommendations based on imaging criteria. Chest X-Ray 06/17/25 12:04 Impression: 1. No change in bilateral patchy opacities. 2. Removal of endotracheal tube and nasogastric tube. Laboratory Results WBC 4.07 10^3/uL (3.29-11.43) 06/20/25 05:52 RBC 3.63 10^6/uL (3.85-5.65) L 06/20/25 05:52 Hgb 11.20 g/dL (11.27-16.99) L 06/20/25 05:52 Hct 34.3 % (37-53) L 06/20/25 05:52 MCV 94.5 fl (82-101) 06/20/25 05:52 MCH 30.9 pg (27-33) 06/20/25 05:52 MCHC 32.7 g/dL (30-55) 06/20/25 05:52 RDW 14.6 % (12.1-15.1) 06/20/25 05:52 Plt Count 79 10^3/cmm (157-399) L 06/20/25 05:52 MPV 11.1 fL (7.4-10.4) H 06/20/25 05:52 Neut % (Auto) 63.0 % 06/20/25 05:52 Lymph % (Auto) 9.3 % 06/20/25 05:52 [place] % (Auto) 26.8 % 06/20/25 05:52 Eos % (Auto) 0.0 % 06/20/25 05:52 Baso % (Auto) 0.2 % 06/20/25 05:52 Reticulocyte % (Auto) 0.8 % (0.5-2.0) 06/12/25 17:02 Neut # (Auto) 2.56 10^3/uL (1.8-7.7) 06/20/25 05:52 Lymph # (Auto) 0.4 10^3/uL (0.8-4.8) L 06/20/25 05:52 [place] # (Auto) 1.1 10^3/uL (0.2-0.9) H 06/20/25 05:52 Eos # (Auto) 0.0 10^3/uL (0.0-0.8) 06/20/25 05:52 Baso # (Auto) 0.0 10^3/uL (0.0-0.1) 06/20/25 05:52 Nucleated RBC % (auto) 0 % 06/20/25 05:52 Total Counted 100 (0-100) 06/17/25 12:25 Atypical Lymphs % 1.0 % (0-5) 06/17/25 12:25 Absolute Neutrophils 5.8 10^3/cmm (1.4-6.5) 06/14/25 15:56 Segmented Neutrophils 80 % 06/17/25 12:25 Band Neutrophils 0.0 % 06/17/25 12:25 Absolute Lymphocytes 0.6 10^3/cmm (1.2-3.4) L 06/17/25 12:25 Lymphocytes (Manual) 11 % 06/17/25 12:25 Monocytes (Manual) 8.0 % 06/17/25 12:25 Absolute Monocytes 0.4 10^3/cmm (0.1-0.6) 06/17/25 12:25 Eosinophils (Manual) 0 % 06/17/25 12:25 Absolute Eosinophils 0.0 10^3/cmm (0.0-0.7) 06/17/25 12:25 Basophils (Manual) 0.0 % 06/17/25 12:25 Absolute Basophils 0.0 10^3/cmm (0.0-0.2) 06/17/25 12:25 Nucleated RBCs 1.0 /100WBC (0-1) 06/14/25 15:56 Nucleated RBCs # 0.0 /100WBC 06/20/25 05:52 Toxic Granulation 2+ H 06/14/25 15:56 Platelet Estimate Not Reportable 06/17/25 12:25 Peripher Smr Path Cons Sent for review 06/15/25 03:30 Haptoglobin 264.0 mg/L (30-200) H 06/15/25 03:30 PT 16.60 SECONDS (12.1-14.9) H 06/16/25 03:41 INR 1.26 (0.8-1.2) H 06/16/25 03:41 APTT 30.0 SECONDS (23.9-36.7) 06/16/25 03:41 Fibrinogen 558 mg/dL (174-498) H 06/16/25 03:41 Fibrin Degrad Products Cancelled 06/15/25 16:20 D-Dimer 2.74 ug/mLFEU (0-0.59) H 06/16/25 03:41 Specimen Type Arterial 06/16/25 14:35 Sample Site Not specified 06/16/25 14:35 ABG pH 7.51 (7.35-7.45) H 06/16/25 14:35 ABG pCO2 29.2 mmHg (35-45) L 06/16/25 14:35 ABG pO2 77.8 mmHg (80.0-100.0) L 06/16/25 14:35 ABG PO2/FiO2 Ratio 259 06/16/25 14:35 ABG HCO3 23.4 mmol/L (22-26) 06/16/25 14:35 ABG O2 Saturation 97.1 06/16/25 14:35 ABG Base Excess 0.9 mmol/L (-2.0-2.0) 06/16/25 14:35 Charlie Test N/a 06/16/25 14:35 A-a O2 Gradient 13.0 mmHg (5-10) H 06/16/25 14:35 Hematocrit 31.1 % (42-52) L 06/16/25 14:35 Hgb O2 Saturation 95.6 % (95-100) 06/16/25 14:35 Carboxyhemoglobin 1.0 %THgb (0.4-20.1) 06/16/25 14:35 Methemoglobin 0.5 % (0.4-1.5) 06/16/25 14:35 Total Hemoglobin 10.2 g/dL (14-18) L 06/16/25 14:35 Sodium 140.0 mmol/L (131-143) 06/16/25 14:35 Potassium 3.4 mmol/L (3.5-5.0) L 06/16/25 14:35 Glucose 111.0 mg/dL (70-115) 06/16/25 14:35 Ionized Calcium 0.9 mmol/L (1.1-1.4) L 06/16/25 14:35 O2 Delivery Device Vent 06/16/25 14:35 O2 Liters/Min 4.0 % 06/13/25 08:04 FiO2 30.0 % 06/16/25 14:35 Tidal Volume 0.40 06/16/25 05:50 PEEP 5.0 cmH20 06/16/25 14:35 It Business Process Architect ID [id number] 06/16/25 14:35 Sodium 149 mmol/L (136-145) H 06/20/25 05:52 Potassium 3.7 mmol/L (3.5-5.1) 06/20/25 05:52 Chloride 112 mmol/L (98-107) H 06/20/25 05:52 Carbon Dioxide 22 mmol/L (22-29) 06/20/25 05:52 Anion Gap 18.7 (5-19) 06/20/25 05:52 BUN 81 mg/dL (8-23) H 06/20/25 05:52 Creatinine 2.7 mg/dL (0.7-1.2) H 06/20/25 05:52 GFR Calculation Not Reportable 06/20/25 05:52 Glucose 138 mg/dL (65-115) H 06/20/25 05:52 POC Glucose 132 mg/dL (70-110) H 06/20/25 11:39 Estimat Average Glucose 128 06/12/25 17:02 Hemoglobin A1c 6.1 % (4.0-6.0) H 06/12/25 17:02 Calculated Osmolality 335 mOsm/kg (285-295) H 06/20/25 05:52 Lactic Acid 0.7 mmol/L (0.5-2.2) 06/13/25 08:50 Lactate 2.8 mmol/L (0.5-2.2) H 06/20/25 05:52 Uric Acid 3.1 mg/dL (3.4-7.0) L 06/16/25 03:41 Uric Acid Cancelled 06/16/25 03:41 Calcium 7.3 mg/dL (8.5-10.5) L 06/20/25 05:52 Phosphorus 3.0 mg/dL (2.5-4.5) 06/20/25 05:52 Magnesium 1.8 mg/dL (1.7-2.3) 06/20/25 05:52 Iron 88 ug/dL (59-158) 06/12/25 17:02 TIBC 246 mcg/dl 06/12/25 17:02 % Saturation 35.7 % (20-50) 06/12/25 17:02 Unsat Iron Binding 158 ug/dL (112-347) 06/12/25 17:02 Ferritin 374 ng/mL (30-400) 06/16/25 03:41 Ferritin Cancelled 06/16/25 03:41 Total Bilirubin 0.3 mg/dL (0.15-1.2) 06/20/25 05:52 AST 12 U/L (0-40) 06/20/25 05:52 ALT 23 U/L (0-41) 06/20/25 05:52 Alkaline Phosphatase 36 U/L (40-130) L 06/20/25 05:52 Lactate Dehydrogenase 203 U/L (135-225) 06/15/25 03:30 Creatine Kinase 217 U/L (39-308) 06/20/25 05:52 Troponin T 5th Gen ng/L 59 ng/L (0-15) H 06/18/25 23:35 Troponin T Baseline 65 ng/L (0-15) H 06/13/25 08:50 Troponin T 120 Minute 72.09 ng/L (0-15) H 06/13/25 11:21 Delta Troponin T 7.09 ABS# (0-10) 06/13/25 11:21 Troponin T Hi Sens 6Hr 69.85 ng/L (0-15) H 06/13/25 14:58 Troponin T Hi Sens 6Hr Delta 4.85 ng/L (0-12) 06/13/25 14:58 C-Reactive Protein 4.8 mg/L (0.0-4.9) 06/12/25 17:02 NT-Pro-B Natriuret Pep 849 pg/mL (0-450) H 06/20/25 05:52 Total Protein 7.2 g/dL (6.6-8.7) 06/20/25 05:52 Albumin 3.6 g/dL (3.5-5.2) 06/20/25 05:52 Globulin 3.6 g/dL (1.3-4.6) 06/20/25 05:52 Mdwi-4-Uolderchneptb 20.70 mg/L (< OR = 2.51) H 06/12/25 17:02 Triglycerides 78 mg/dL (0-150) 06/12/25 17:02 Cholesterol 101 mg/dL (0-200) 06/12/25 17:02 LDL Cholesterol, Calc 33 mg/dL (50-129) L 06/12/25 17:02 HDL Cholesterol 52 mg/dL (60-100) L 06/12/25 17:02 LDL/HDL Ratio 0.63 RATIO (0.00-3.22) 06/12/25 17:02 Cholesterol/HDL Ratio 1.94 mg/dL (1.0-5.00) 06/12/25 17:02 TSH 0.94 uIU/mL (0.27-4.20) 06/12/25 17:02 Urine Color [place] (Yellow) A 06/12/25 16:39 Urine Appearance Cloudy (CLEAR) A 06/12/25 16:39 Urine pH 5.0 (5-7) 06/12/25 16:39 Ur Specific [place] 1.012 (1.005-1.030) 06/12/25 16:39 Urine Protein 2+ (Negative) A 06/12/25 16:39 Urine Glucose (UA) Negative (Normal) 06/12/25 16:39 Urine Ketones Negative (Negative) 06/12/25 16:39 Urine Blood 2+ (Negative) A 06/12/25 16:39 Urine Nitrate Negative (Negative) 06/12/25 16:39 Urine Bilirubin Negative (Negative) 06/12/25 16:39 Urine Urobilinogen 0.2 mg/dL (Negative) 06/12/25 16:39 Ur Leukocyte Esterase Negative (Negative) 06/12/25 16:39 Urine RBC 0-2 /hpf (0-2) 06/12/25 16:39 Urine WBC 0-5 /hpf (0-5) 06/12/25 16:39 Ur Eosinophil Smear 0 (0-0) 06/12/25 16:15 Ur Squamous Epith Cells 0-5 /hpf (0-5) 06/12/25 16:39 Amorphous Sediment 1+ /hpf 06/12/25 16:39 Urine Bacteria None seen /hpf (NONE) 06/12/25 16:39 Hyaline Casts 13.63 /lpf 06/12/25 16:39 Coarse Granular Casts 0-4 /lpf H 06/12/25 16:39 Urine Eosinophils No eosinophils seen 06/12/25 16:15 Ur Random Sodium 86 mmol/L 06/12/25 16:15 Ur Random Potassium 15 mmol/L 06/12/25 16:15 Ur Random Chloride 71 mmol/L 06/12/25 16:15 Urine Creatinine 50 mg/dL (39-259) 06/12/25 16:15 U Free [place] Light Ch 34.76 mg/L (<=32.90) H 06/12/25 16:15 U Free [place] Light Ch 67.25 mg/L (<=3.79) H 06/12/25 16:15 Vancomycin Trough 11.5 ug/mL (10-15) 06/15/25 08:48 Digoxin 0.3 ng/mL (0.6-1.2) L 06/16/25 03:41 Salicylates < 0.3 mg/dL (3-10) L 06/12/25 17:02 Urine Opiates Screen Negative ng/mL (Negative) 06/12/25 16:15 Ur Barbiturates Screen Negative ng/mL (Negative) 06/12/25 16:15 Ur Phencyclidine Scrn Negative ng/mL (Negative) 06/12/25 16:15 Ur Amphetamines Screen Negative ng/mL (Negative) 06/12/25 16:15 U Benzodiazepines Scrn Negative ng/mL (Negative) 06/12/25 16:15 Urine Cocaine Screen Negative ng/mL (Negative) 06/12/25 16:15 U Marijuana (THC) Screen Negative ng/mL (Negative) 06/12/25 16:15 Ethyl Alcohol < 10 mg/dL (0-10) 06/12/25 17:02 Urine Ethyl Alcohol < 10 mg/dL (0-10) 06/12/25 16:15 Hep Bs Antigen Non-reactive (Nonreactive) 06/13/25 11:21 Hep Bs Antibody < 3.5 (11.5-1000) L 06/13/25 11:21 Hep B Core Total Ab Non-reactive (Nonreactive) 06/13/25 11:21 Influenza A (PCR) Negative (Negative) 06/12/25 16:13 Influenza Type B (PCR) Negative (Negative) 06/12/25 16:13 RSV (PCR) Negative (Negative) 06/12/25 16:13 SARS-CoV-2 (PCR) Negative (Negative) 06/12/25 16:13 Blood Type O Positive 06/13/25 16:06 Rho(D) Type Rh positive 06/13/25 16:06 Antibody Screen Positive 06/13/25 16:06 Antibody Identification No Clinically Significant ABID Darzalex patient 06/13/25 16:06 Antibody Identification No Clinically Significant ABID Darzalex patient 06/13/25 16:06 Crossmatch See Detail 06/13/25 16:06 Vitals Last Vital Signs Temp 97.0 F L 06/20/25 07:30 Pulse 75 06/20/25 11:00 Resp 21 H 06/20/25 11:00 BP 158/137 06/20/25 11:00 Pulse Ox 94 06/20/25 11:00 O2 Del Method Room Air 06/20/25 11:00 O2 Flow Rate 3 06/19/25 03:54 FiO2 40 06/19/25 03:53 Discharge Plan Discharge Patient Disposition: Home Health Service Condition: Stable Prescriptions: New amiodarone [Pacerone] 200 mg Tablet See Rx Instructions .ROUTE .COMPLEX Qty: 60 0RF Rx Instructions: 2 tabs bid for 5 days, then 1 tab bid for 5 days, then 1 tab daily Eliquis 5 mg tablet 5 mg PO BID 30 Days Qty: 60 0RF diltiazem HCl [Cardizem LA] 360 mg tablet extended release 24 hr 360 mg PO DAILY 30 Days Qty: 30 0RF Continued Trelegy Ellipta 100-62.5-25 mcg blister with device 1 inh inhalation Q24H Qty: 60 3RF Daliresp 500 mcg tablet 500 mcg PO DAILY Qty: 90 3RF sertraline 100 mg tablet 100 mg PO DAILY rosuvastatin 40 mg tablet 40 mg PO QPM albuterol sulfate 90 mcg/actuation HFA aerosol inhaler 2 puff inhalation Q6H PRN (Reason: sob) aspirin [Adult Low Dose Aspirin] 81 mg tablet,delayed release (DR/EC) 81 mg PO DAILY acetaminophen 500 mg capsule 500 mg PO Q6H PRN (Reason: Pain) ondansetron HCl 4 mg tablet 4 mg PO Q6H PRN (Reason: nausea and vomiting) Qty: 30 3RF Discontinued meloxicam 15 mg tablet 15 mg PO DAILY Qty: 90 1RF oxycodone 10 mg tablet 10 mg PO Q6H PRN (Reason: Severe Pain (Scale Score 7-10)) dexamethasone 4 mg tablet 20 mg PO DAILY Qty: 80 2RF Rx Instructions: take on day 1 and 2 of 28 day cycle fluconazole 100 mg tablet 100 mg PO DAILY Qty: 90 2RF valacyclovir 500 mg tablet 500 mg PO BID Qty: 60 5RF Rx Instructions: Continue 3 months post treatment for prevention of viral infection sulfamethoxazole-trimethoprim [Bactrim DS] 800-160 mg tablet 1 tab PO MOWEFR Qty: 24 5RF lenalidomide [Revlimid] 15 mg capsule 15 mg PO DAILY Qty: 14 0RF Rx Instructions: swallow whole with glass of water; do not open, crush, chew , break, or dissolve take day 1-14 of 21 day cycle [id number] diltiazem HCl 240 mg capsule,extended release 24hr 240 mg PO DAILY amlodipine 5 mg tablet 5 mg PO DAILY No Action (DME) Cytometry and Cytology for primitivo marrow biposy See Rx Instructions .Route .MEDSUPPLY Qty: 1 0RF Rx Instructions: will need cytometry cytology and ngs on bone marrow biopsy clotrimazole 10 mg chris 10 mg mucous membrane QID potassium chloride [K-Tab] 20 mEq tablet extended release 40 meq PO BID Discharge Order = DC NOW: Discharge Order (Routine); Ordered 06/20/25 Ordered By: Jose Hernandez Other Ambulatory Orders: DME: Walker (Order) Location: None Selected Ordered By: Jose Hernandez Referrals: [facility] [Outside] - 1 week [facility] ([facility]) [Outside] Mahin Rowe MD [Hospitalist, Oncology] - 1-3 days Navdeep Khoury MD [Physician, Cardiology] - 1 week Matty Coley MD [Primary Care Provider, Family Practice] - 1-3 days Discharge Diet: Regular Discharge Activity: Resume usual activity Patient Instructions: Diltiazem (By mouth) (Cardizem, Cardizem CD, Cardizem LA, Cardizem SR), Furosemide (By mouth), Potassium Chloride (By mouth), Amiodarone (By mouth) (Cordarone, Pacerone), Levofloxacin (By mouth), Apixaban (By mouth) (Eliquis), A-fib (Atrial Fibrillation) (DC), Chronic Respiratory Failure (DC), Opioid Safety, Patient Portal & [place] Instructions Activity Restrictions/Additional Instructions: - Drink plenty of electrolyte balanced fluids. - Follow up with Dr. Coley - Please recheck kidney function tomorrow. - Please follow-up with cardiology next week. - Please follow-up with Dr. Rowe next week. - Please hydrate well, drink electrolyte balanced fluids. - Resume usual activity. - Regular diet. - Please call Monday to schedule a follow-up appointment with Dr. Coley in 1-3 days. - Please call Monday to schedule a follow-up with Dr. Khoury in 1 week. Discharge Attestations Time Spent in Discharge Care*: greater than 30 min Quality Metrics Clinical Quality Measures [ No reported AMI, CVA or VTE this stay] Coding Level of Care Code 51698 Total time (in minutes) for Discharge: 45 Diagnoses Aortic aneurysm I71.9 Paroxysmal A-fib I48.0 Acute renal failure, unspecified acute renal failure type N17.9 Acute renal failure type: unspecified Multiple myeloma C90.00 COPD (chronic obstructive pulmonary disease) J44.9
--- NOTE | 2025-06-20 15:40 | PC.NURSE ---
Patient was given all discharge instructions and prescription instructions. Patients Picc line was removed and was stable during discharge.
== END 2025-06-20 15:06 | disposition home health service (06) | DRG 682 ==
LOC: ER 17:54 → MEDSURG 19:28 → ICU 06-13 09:16
PROVIDERS: Hospitalist; Internal Medicine; Student in an Organized Health Care Education/Training Program; Admitting Provider Family Medicine; Emergency Provider Emergency Medicine; PCP Family Medicine; Visit Provider Family Medicine
DX: N17.9 Acute kidney failure, unspecified (principal); A41.9 Sepsis, unspecified organism; I21.4 Non-ST elevation (NSTEMI) myocardial infarction; J18.9 Pneumonia, unspecified organism; J96.01 Acute respiratory failure with hypoxia; J69.0 Pneumonitis due to inhalation of food and vomit; J81.0 Acute pulmonary edema; R65.21 Severe sepsis with septic shock; C90.00 Multiple myeloma not having achieved remission; D84.9 Immunodeficiency, unspecified; R44.3 Hallucinations, unspecified; D61.818 Other pancytopenia; E87.21 Acute metabolic acidosis; E85.81 Light chain (AL) amyloidosis; Z66 Do not resuscitate; I12.9 Hypertensive chronic kidney disease with stage 1 through stage 4 chronic kidney disease, or unspecified chronic kidney disease; N18.30 Chronic kidney disease, stage 3 unspecified; D63.1 Anemia in chronic kidney disease; D63.0 Anemia in neoplastic disease; J44.9 Chronic obstructive pulmonary disease, unspecified; I27.20 Pulmonary hypertension, unspecified; J98.01 Acute bronchospasm; I71.40 Abdominal aortic aneurysm, without rupture, unspecified; E83.51 Hypocalcemia; D69.59 Other secondary thrombocytopenia; R73.9 Hyperglycemia, unspecified; E87.6 Hypokalemia; E87.70 Fluid overload, unspecified; I48.0 Paroxysmal atrial fibrillation; E86.0 Dehydration; F17.290 Nicotine dependence, other tobacco product, uncomplicated; N28.89 Other specified disorders of kidney and ureter; Z79.899 Other long term (current) drug therapy; Z79.82 Long term (current) use of aspirin; Z88.0 Allergy status to penicillin; Z11.52 Encounter for screening for COVID-19
CPT/HCPCS: 36415; 36416; 36430; 36573; 36600; 51702; 51798; 71045; 74176; 76770; 80048; 80051; 80053; 80061; 80069; 80162; 80202; 80306; 80307; 80503; 81001; 82232; 82330; 82436; 82550; 82570; 82728; 82803; 82805; 82962; 83010; 83036; 83521; 83540; 83550; 83605; 83615; 83735; 83880; 83883; 84100; 84133; 84156; 84300; 84443; 84484; 84550; 85007; 85025; 85027; 85045; 85362; 85378; 85384; 85610; 85730; 85999; 86140; 86335; 86704; 86706; 86850; 86870; 86900; 86920; 87040; 87070; 87205; 87340; 87637; 90935; 92523; 92526; 92610; 93005; 93306; 93970; 94002; 94003; 94640; 94660; 94664; 94799; 96372; 97110; 97116; 97163; 97167; 97530; 99285; A4222; A4570; C1751; J0282; J0283; J0612; J1100; J1160; J1200; J1642; J1644; J1650; J1720; J1815; J1938; J2060; J2250; J2270; J2405; J2470; J2598; J2919; J3010; J3373; J3475; J3480; J3490; J7030; J7070; J7626; J7799; J9999; P9016; P9046; Q3014

== ENCOUNTER 2025-06-21 13:55 | Outpatient (CLI) | payer MEDICARE, SELFPAY ==
[2025-06-21 14:27] LABS: Anion Gap 15.9 (5-19); Blood Urea Nitrogen 57 mg/dL (8-23); Calcium 7.0 mg/dL (8.5-10.5); Carbon Dioxide 23 mmol/L (22-29); Chloride 106 mmol/L (98-107); Glucose 107 mg/dL (65-115); Osmolality Calculated 310 mOsm/kg (285-295); Sodium 142 mmol/L (136-145)
[2025-06-21 14:32] LABS: Potassium 2.9 mmol/L (3.5-5.1)
== END 2025-06-21 13:56 | disposition home or self-care (01) ==
PROVIDERS: PCP Family Medicine; Visit Provider Family Medicine
DX: Z01.89 Encounter for other specified special examinations (principal)
CPT/HCPCS: 80048

== ENCOUNTER 2025-07-01 08:30 | Oncology outpatient (recurring) (ONCR) | payer MEDICARE, SELFPAY ==
[2025-06-24 09:57] LABS: Hematocrit 33.6 % (37-53); Hemoglobin 11.30 g/dL (11.27-16.99); Mean Corpuscular HGB Conc 33.6 g/dL (30-55); Mean Corpuscular Hemoglobin 31.1 pg (27-33); Mean Corpuscular Volume 92.6 fl (82-101); Nucleated Red Blood Cells % 0 %; Platelet Count 183 10^3/cmm (157-399); Red Blood Count 3.63 10^6/uL (3.85-5.65); White Blood Count 5.12 10^3/uL (3.29-11.43)
[2025-06-24 10:24] LABS: Alanine Aminotransferase 87 U/L (0-41); Albumin Level 3.5 g/dL (3.5-5.2); Alkaline Phosphatase 55 U/L (40-130); Anion Gap 16.6 (5-19); Aspartate Amino Transferase 63 U/L (0-40); Blood Urea Nitrogen 26 mg/dL (8-23); Calcium 7.5 mg/dL (8.5-10.5); Carbon Dioxide 21 mmol/L (22-29); Chloride 101 mmol/L (98-107); Globulin 3.4 g/dL (1.3-4.6); Glucose 106 mg/dL (65-115); Osmolality Calculated 285 mOsm/kg (285-295); Potassium 3.6 mmol/L (3.5-5.1); Sodium 135 mmol/L (136-145); Total Protein 6.9 g/dL (6.6-8.7)
[2025-06-25 06:38] LABS: PROTEIN, TOTAL 6.6 g/dL (6.1-8.1)
[2025-06-25 14:19] LABS: KAPPA LIGHT CHAIN, FREE, SERUM 7.6 mg/L (3.3-19.4); KAPPA/LAMBDA LIGHT CHAINS FREE 0.69 (0.26-1.65); LAMBDA LIGHT CHAIN, FREE, SERU 11.0 mg/L (5.7-26.3)
[2025-06-26 09:56] LABS: ALPHA 1 GLOBULIN 0.4 g/dL (0.2-0.3); ALPHA 2 GLOBULIN 0.9 g/dL (0.5-0.9); BETA 1 GLOBULIN 0.3 g/dL (0.4-0.6); BETA 2 GLOBULIN 0.2 g/dL (0.2-0.5)
[2025-07-01 09:07] LABS: Hematocrit 29.3 % (37-53); Hemoglobin 9.80 g/dL (11.27-16.99); Mean Corpuscular HGB Conc 33.4 g/dL (30-55); Mean Corpuscular Hemoglobin 31.2 pg (27-33); Mean Corpuscular Volume 93.3 fl (82-101); Nucleated Red Blood Cells % 0 %; Platelet Count 274 10^3/cmm (157-399); Red Blood Count 3.14 10^6/uL (3.85-5.65); White Blood Count 6.41 10^3/uL (3.29-11.43)
[2025-07-01 09:40] LABS: Alanine Aminotransferase 101 U/L (0-41); Albumin Level 3.3 g/dL (3.5-5.2); Alkaline Phosphatase 104 U/L (40-130); Anion Gap 16.9 (5-19); Aspartate Amino Transferase 42 U/L (0-40); Blood Urea Nitrogen 16 mg/dL (8-23); Calcium 8.6 mg/dL (8.5-10.5); Carbon Dioxide 23 mmol/L (22-29); Chloride 102 mmol/L (98-107); Globulin 3.4 g/dL (1.3-4.6); Glucose 155 mg/dL (65-115); Osmolality Calculated 288 mOsm/kg (285-295); Potassium 4.9 mmol/L (3.5-5.1); Sodium 137 mmol/L (136-145); Total Protein 6.7 g/dL (6.6-8.7)
[2025-07-01] MEDS: bortezomib 3.5 mg SDV 2.2 MG SUBCUT (11:29)
[2025-07-01] MEDS: daratumumab-hyaluronidase-fihj 1,800 mg/15 mL SDV 1800 MG SUBCUT (11:29)
[2025-07-01 11:54] VITALS: BP 126/63; PULSE 53; RESP 16; TEMP 36.6; O2SAT 99
[2025-07-02 07:34] LABS: PROTEIN, TOTAL 6.4 g/dL (6.1-8.1)
[2025-07-02 13:31] LABS: KAPPA LIGHT CHAIN, FREE, SERUM 12.0 mg/L (3.3-19.4); KAPPA/LAMBDA LIGHT CHAINS FREE 0.55 (0.26-1.65); LAMBDA LIGHT CHAIN, FREE, SERU 21.7 mg/L (5.7-26.3)
[2025-07-02 19:14] LABS: ALPHA 1 GLOBULIN 0.5 g/dL (0.2-0.3); ALPHA 2 GLOBULIN 1.0 g/dL (0.5-0.9); BETA 1 GLOBULIN 0.4 g/dL (0.4-0.6); BETA 2 GLOBULIN 0.3 g/dL (0.2-0.5)
== END 2025-07-01 23:59 | disposition home or self-care (01) ==
PROVIDERS: Nurse Practitioner; PCP Family Medicine; Visit Provider Internal Medicine Medical Oncology
DX: Z51.11 Encounter for antineoplastic chemotherapy; Z51.12 Encounter for antineoplastic immunotherapy; C90.00 Multiple myeloma not having achieved remission; N28.89 Other specified disorders of kidney and ureter; R03.0 Elevated blood-pressure reading, without diagnosis of hypertension; N28.1 Cyst of kidney, acquired; Z87.891 Personal history of nicotine dependence; Z79.899 Other long term (current) drug therapy; Z79.52 Long term (current) use of systemic steroids; Z53.9 Procedure and treatment not carried out, unspecified reason
CPT/HCPCS: 36415; 80053; 82784; 83883; 84155; 84165; 85025; 86334; 96365; 96375; 96401; 96402; 99214; J1100; J7030; J9041; J9144; J9999; Q0162

== ENCOUNTER 2025-07-08 08:53 | Oncology outpatient (recurring) (ONCR) | payer MEDICARE, SELFPAY ==
--- NOTE | 2025-07-03 15:42 | XRR_ITS ---
PROCEDURE INFORMATION: Exam: XR Chest Exam date and time: 07/03/2025 3:48 PM Age: 74 years old Clinical indication: Cough and shortness of breath; Additional info: Shortness of breath 48hours S/P chemo treatment TECHNIQUE: Imaging protocol: Radiologic exam of the chest. Views: 2 views. COMPARISON: CR XR chest 1V portable [id number] 06/17/2025 1:34 PM FINDINGS: Tubes, catheters and devices: The right upper extremity PICC has been removed. Lungs: There is some persistent heterogenous density at the left hilar and infrahilar region which is slightly improved in the interim. The right lung is now clear. Pleural spaces: Unremarkable. No pleural effusion. No pneumothorax. Heart/Mediastinum: Unremarkable. No cardiomegaly. Bones/joints: Unremarkable. XR/XR chest 2V* [id number] IMPRESSION: Inferomedial left lower lobe pneumonia slightly improved in the interim. Continued serial follow-up to resolution is recommended.
[2025-07-03 16:17] LABS: Alanine Aminotransferase 78 U/L (0-41); Albumin Level 3.4 g/dL (3.5-5.2); Alkaline Phosphatase 105 U/L (40-130); Anion Gap 17.1 (5-19); Aspartate Amino Transferase 28 U/L (0-40); Blood Urea Nitrogen 28 mg/dL (8-23); Calcium 8.0 mg/dL (8.5-10.5); Carbon Dioxide 22 mmol/L (22-29); Chloride 101 mmol/L (98-107); Globulin 3.4 g/dL (1.3-4.6); Glucose 159 mg/dL (65-115); Osmolality Calculated 289 mOsm/kg (285-295); Potassium 5.1 mmol/L (3.5-5.1); Sodium 135 mmol/L (136-145); Total Protein 6.8 g/dL (6.6-8.7)
[2025-07-08 09:12] LABS: Hematocrit 29.3 % (37-53); Hemoglobin 9.60 g/dL (11.27-16.99); Mean Corpuscular HGB Conc 32.8 g/dL (30-55); Mean Corpuscular Hemoglobin 31.5 pg (27-33); Mean Corpuscular Volume 96.1 fl (82-101); Nucleated Red Blood Cells % 0 %; Platelet Count 188 10^3/cmm (157-399); Red Blood Count 3.05 10^6/uL (3.85-5.65); White Blood Count 7.66 10^3/uL (3.29-11.43)
[2025-07-08 09:34] LABS: Alanine Aminotransferase 47 U/L (0-41); Albumin Level 3.2 g/dL (3.5-5.2); Alkaline Phosphatase 115 U/L (40-130); Anion Gap 13.8 (5-19); Aspartate Amino Transferase 20 U/L (0-40); Blood Urea Nitrogen 15 mg/dL (8-23); Calcium 8.1 mg/dL (8.5-10.5); Carbon Dioxide 24 mmol/L (22-29); Chloride 104 mmol/L (98-107); Globulin 3.3 g/dL (1.3-4.6); Glucose 119 mg/dL (65-115); Osmolality Calculated 286 mOsm/kg (285-295); Potassium 4.8 mmol/L (3.5-5.1); Sodium 137 mmol/L (136-145); Total Protein 6.5 g/dL (6.6-8.7)
[2025-07-08] MEDS: daratumumab-hyaluronidase-fihj 1,800 mg/15 mL SDV 1800 MG SUBCUT (11:56)
[2025-07-08] MEDS: bortezomib 3.5 mg SDV 2.2 MG SUBCUT (11:57)
[2025-07-08 12:27] VITALS: BP 124/62; PULSE 54; RESP 20; TEMP 36.4; O2SAT 93
== END 2025-07-08 23:59 | disposition home or self-care (01) ==
PROVIDERS: Nurse Practitioner; PCP Family Medicine; Visit Provider Internal Medicine Medical Oncology
DX: Z51.12 Encounter for antineoplastic immunotherapy (principal); C90.00 Multiple myeloma not having achieved remission; R03.0 Elevated blood-pressure reading, without diagnosis of hypertension; N28.89 Other specified disorders of kidney and ureter; Z79.52 Long term (current) use of systemic steroids; I71.40 Abdominal aortic aneurysm, without rupture, unspecified; F17.200 Nicotine dependence, unspecified, uncomplicated; Z79.899 Other long term (current) drug therapy
CPT/HCPCS: 36415; 71046; 80053; 85025; 96375; 96401; 96402; 99214; J1100; J7050; J9041; J9144; J9999; Q0162

== ENCOUNTER 2025-07-15 09:30 | Oncology outpatient (recurring) (ONCR) | payer MEDICARE, SELFPAY ==
[2025-07-15 09:48] LABS: Hematocrit 30.5 % (37-53); Hemoglobin 10.00 g/dL (11.27-16.99); Mean Corpuscular HGB Conc 32.8 g/dL (30-55); Mean Corpuscular Hemoglobin 31.6 pg (27-33); Mean Corpuscular Volume 96.5 fl (82-101); Nucleated Red Blood Cells % 0 %; Platelet Count 153 10^3/cmm (157-399); Red Blood Count 3.16 10^6/uL (3.85-5.65); White Blood Count 5.31 10^3/uL (3.29-11.43)
[2025-07-15 10:20] LABS: Alanine Aminotransferase 57 U/L (0-41); Albumin Level 3.2 g/dL (3.5-5.2); Alkaline Phosphatase 100 U/L (40-130); Anion Gap 15.5 (5-19); Aspartate Amino Transferase 25 U/L (0-40); Blood Urea Nitrogen 22 mg/dL (8-23); Calcium 7.7 mg/dL (8.5-10.5); Carbon Dioxide 23 mmol/L (22-29); Chloride 102 mmol/L (98-107); Globulin 3.2 g/dL (1.3-4.6); Glucose 111 mg/dL (65-115); Osmolality Calculated 286 mOsm/kg (285-295); Potassium 4.5 mmol/L (3.5-5.1); Sodium 136 mmol/L (136-145); Thyroid Stimulating Hormone 2.10 uIU/mL (0.27-4.20); Total Protein 6.4 g/dL (6.6-8.7)
[2025-07-15 11:01] LABS: Free T4 Free Thyroxine 1.36 ng/dL (0.82-1.77)
[2025-07-15 11:11] VITALS: BP 157/66; PULSE 60; RESP 16; TEMP 36.1; O2SAT 97
[2025-07-15] MEDS: daratumumab-hyaluronidase-fihj 1,800 mg/15 mL SDV 1800 MG SUBCUT (11:47)
[2025-07-15] MEDS: bortezomib 3.5 mg SDV 2.2 MG SUBCUT (11:47)
[2025-07-15 12:00] VITALS: BP 130/60; PULSE 58; RESP 16; TEMP 36.4; O2SAT 94
== END 2025-07-15 23:59 | disposition home or self-care (01) ==
PROVIDERS: PCP Family Medicine; Visit Provider Internal Medicine Medical Oncology
DX: Z51.11 Encounter for antineoplastic chemotherapy (principal); Z51.12 Encounter for antineoplastic immunotherapy; C90.00 Multiple myeloma not having achieved remission; Z79.899 Other long term (current) drug therapy
CPT/HCPCS: 36415; 80053; 84439; 84443; 85025; 96401; J9041; J9144; J9999; Q0162

== ENCOUNTER → 2025-07-17 14:50 | Outpatient (BNVA) | payer MEDICARE, SELFPAY | PROVIDERS: PCP Family Medicine; Visit Provider Nurse Practitioner Family | DX: I71.9 Aortic aneurysm of unspecified site, without rupture (principal); I48.0 Paroxysmal atrial fibrillation; Z79.01 Long term (current) use of anticoagulants; Z79.82 Long term (current) use of aspirin; E78.5 Hyperlipidemia, unspecified; Z87.891 Personal history of nicotine dependence; I25.2 Old myocardial infarction; I49.8 Other specified cardiac arrhythmias | CPT/HCPCS: 93005; 99214 ==

== ENCOUNTER 2025-07-22 08:45 | Oncology outpatient (recurring) (ONCR) | payer MEDICARE, SELFPAY ==
[2025-07-22 09:24] LABS: Hematocrit 30.8 % (37-53); Hemoglobin 10.00 g/dL (11.27-16.99); Mean Corpuscular HGB Conc 32.5 g/dL (30-55); Mean Corpuscular Hemoglobin 31.9 pg (27-33); Mean Corpuscular Volume 98.4 fl (82-101); Nucleated Red Blood Cells % 0 %; Platelet Count 147 10^3/cmm (157-399); Red Blood Count 3.13 10^6/uL (3.85-5.65); White Blood Count 5.04 10^3/uL (3.29-11.43)
[2025-07-22 09:49] LABS: Alanine Aminotransferase 44 U/L (0-41); Albumin Level 3.3 g/dL (3.5-5.2); Alkaline Phosphatase 112 U/L (40-130); Anion Gap 13.5 (5-19); Aspartate Amino Transferase 23 U/L (0-40); Blood Urea Nitrogen 19 mg/dL (8-23); Calcium 8.3 mg/dL (8.5-10.5); Carbon Dioxide 24 mmol/L (22-29); Chloride 105 mmol/L (98-107); Globulin 2.8 g/dL (1.3-4.6); Glucose 110 mg/dL (65-115); Osmolality Calculated 289 mOsm/kg (285-295); Potassium 4.5 mmol/L (3.5-5.1); Sodium 138 mmol/L (136-145); Total Protein 6.1 g/dL (6.6-8.7)
[2025-07-22] MEDS: daratumumab-hyaluronidase-fihj 1,800 mg/15 mL SDV 1800 MG SUBCUT (11:25)
[2025-07-22] MEDS: bortezomib 3.5 mg SDV 2.2 MG SUBCUT (11:26)
[2025-07-22 11:54] VITALS: BP 125/65; PULSE 84; TEMP 37.4; O2SAT 94
[2025-07-23 08:39] LABS: PROTEIN, TOTAL 5.9 g/dL (6.1-8.1)
[2025-07-23 20:54] LABS: ALPHA 1 GLOBULIN 0.5 g/dL (0.2-0.3); ALPHA 2 GLOBULIN 0.9 g/dL (0.5-0.9); BETA 1 GLOBULIN 0.4 g/dL (0.4-0.6); BETA 2 GLOBULIN 0.3 g/dL (0.2-0.5)
== END 2025-07-22 23:59 | disposition home or self-care (01) ==
PROVIDERS: Internal Medicine Medical Oncology; PCP Family Medicine; Visit Provider Nurse Practitioner Family
DX: Z51.11 Encounter for antineoplastic chemotherapy (principal); Z51.12 Encounter for antineoplastic immunotherapy; C90.00 Multiple myeloma not having achieved remission; R03.0 Elevated blood-pressure reading, without diagnosis of hypertension; N28.1 Cyst of kidney, acquired; I71.40 Abdominal aortic aneurysm, without rupture, unspecified; Z87.891 Personal history of nicotine dependence; Z79.899 Other long term (current) drug therapy; Z79.52 Long term (current) use of systemic steroids
CPT/HCPCS: 36415; 80053; 82784; 83883; 84155; 84165; 85025; 96372; 99214; J9041; J9144; J9999; Q0162

== ENCOUNTER 2025-07-29 09:00 | Oncology outpatient (recurring) (ONCR) | payer MEDICARE, SELFPAY ==
[2025-07-29 09:17] LABS: Hematocrit 30.8 % (37-53); Hemoglobin 10.20 g/dL (11.27-16.99); Mean Corpuscular HGB Conc 33.1 g/dL (30-55); Mean Corpuscular Hemoglobin 31.8 pg (27-33); Mean Corpuscular Volume 96.0 fl (82-101); Nucleated Red Blood Cells % 0 %; Platelet Count 222 10^3/cmm (157-399); Red Blood Count 3.21 10^6/uL (3.85-5.65); White Blood Count 7.44 10^3/uL (3.29-11.43)
[2025-07-29 09:39] LABS: Alanine Aminotransferase 42 U/L (0-41); Albumin Level 3.1 g/dL (3.5-5.2); Alkaline Phosphatase 81 U/L (40-130); Anion Gap 19.2 (5-19); Aspartate Amino Transferase 23 U/L (0-40); Blood Urea Nitrogen 20 mg/dL (8-23); Calcium 8.3 mg/dL (8.5-10.5); Carbon Dioxide 19 mmol/L (22-29); Chloride 101 mmol/L (98-107); Globulin 3.0 g/dL (1.3-4.6); Glucose 172 mg/dL (65-115); Osmolality Calculated 287 mOsm/kg (285-295); Potassium 4.2 mmol/L (3.5-5.1); Sodium 135 mmol/L (136-145); Total Protein 6.1 g/dL (6.6-8.7)
[2025-07-29] MEDS: bortezomib 3.5 mg SDV 2.2 MG SUBCUT (12:05)
[2025-07-29] MEDS: daratumumab-hyaluronidase-fihj 1,800 mg/15 mL SDV 1800 MG SUBCUT (12:06)
== END 2025-07-29 23:59 | disposition home or self-care (01) ==
PROVIDERS: Nurse Practitioner Family; PCP Family Medicine; Visit Provider Internal Medicine Medical Oncology
DX: Z51.11 Encounter for antineoplastic chemotherapy (principal); C90.00 Multiple myeloma not having achieved remission; E83.51 Hypocalcemia; R03.0 Elevated blood-pressure reading, without diagnosis of hypertension; N28.89 Other specified disorders of kidney and ureter; Z79.52 Long term (current) use of systemic steroids; Z87.891 Personal history of nicotine dependence; Z79.899 Other long term (current) drug therapy
CPT/HCPCS: 80053; 82306; 85025; 96401; 99215; J9041; J9144; J9999; Q0162

== ENCOUNTER 2025-08-05 08:23 | Oncology outpatient (recurring) (ONCR) | payer MEDICARE, SELFPAY ==
[2025-08-05 08:50] LABS: Hematocrit 29.4 % (37-53); Hemoglobin 9.60 g/dL (11.27-16.99); Mean Corpuscular HGB Conc 32.7 g/dL (30-55); Mean Corpuscular Hemoglobin 31.6 pg (27-33); Mean Corpuscular Volume 96.7 fl (82-101); Nucleated Red Blood Cells % 0 %; Platelet Count 183 10^3/cmm (157-399); Red Blood Count 3.04 10^6/uL (3.85-5.65); White Blood Count 5.06 10^3/uL (3.29-11.43)
[2025-08-05 09:08] LABS: Alanine Aminotransferase 200 U/L (0-41); Albumin Level 2.7 g/dL (3.5-5.2); Alkaline Phosphatase 106 U/L (40-130); Anion Gap 15.3 (5-19); Aspartate Amino Transferase 121 U/L (0-40); Blood Urea Nitrogen 25 mg/dL (8-23); Calcium 8.1 mg/dL (8.5-10.5); Carbon Dioxide 22 mmol/L (22-29); Chloride 97 mmol/L (98-107); Globulin 3.1 g/dL (1.3-4.6); Glucose 186 mg/dL (65-115); Osmolality Calculated 279 mOsm/kg (285-295); Potassium 4.3 mmol/L (3.5-5.1); Sodium 130 mmol/L (136-145); Total Protein 5.8 g/dL (6.6-8.7)
== END 2025-08-05 09:53 | disposition home or self-care (01) ==
PROVIDERS: Internal Medicine Medical Oncology; PCP Family Medicine; Visit Provider Nurse Practitioner
DX: C90.00 Multiple myeloma not having achieved remission (principal); R03.0 Elevated blood-pressure reading, without diagnosis of hypertension; N28.89 Other specified disorders of kidney and ureter; E86.0 Dehydration; D80.1 Nonfamilial hypogammaglobulinemia; R09.02 Hypoxemia; Z87.891 Personal history of nicotine dependence; Z79.899 Other long term (current) drug therapy; Z79.52 Long term (current) use of systemic steroids
CPT/HCPCS: 80053; 85025; 99214